=== PATIENT | female | born 1940 | race African-American/Black ===

== ENCOUNTER 2019-06-09 09:17 | Emergency (ER) | payer OTHER ==
[2019-06-09 10:39] LABS: Absolute Lymphocytes (CBC) 0.9 K/uL (0.7-4.9); Basophils % 0.6 % (0-1.3); Hematocrit 40.8 % (36.0-45.0); Lymphocytes % 19.2 % (15.3-44.8); MPV 10.4 fL (7.6-11.3); Protime INR 1.02; RBC Red Blood Cell Count 4.56 M/uL (3.86-4.86)
[2019-06-09 10:40] LABS: Urine Blood NEGATIVE (NEG); Urine Glucose NEGATIVE (NEG); Urine Protein 1+ (NEG)
[2019-06-09 11:09] LABS: Blood Morphology Comment NOT SEEN (NOT SEEN); Platelet Estimate ADEQ; Urine White Blood Cell Casts OK
--- NOTE | 2019-06-09 11:10 | RAD REPORT ---
EXAM DESCRIPTION: RAD - Pelvis - 06/09/2019 11:02 am CLINICAL HISTORY: Pelvic pain status post injury FINDINGS: No fracture or dislocation is seen. If the patient continues to have symptoms to suggest an occult fracture then MRI would be recommended
--- NOTE | 2019-06-09 11:11 | RAD REPORT ---
EXAM DESCRIPTION: RAD - Hip Left 2 View - 06/09/2019 11:02 am CLINICAL HISTORY: Left hip pain status post injury FINDINGS: No fracture or dislocation is seen. If the patient continues to have symptoms to suggest an occult fracture then MRI would be recommended
--- NOTE | 2019-06-09 11:13 | RAD REPORT ---
EXAM DESCRIPTION: Oz Single View06/09/2019 11:02 am CLINICAL HISTORY: Chest pain COMPARISON: none FINDINGS: The lungs appear clear of acute infiltrate. The heart is probably mildly enlarged IMPRESSION: No acute abnormalities displayed
[2019-06-09 11:19] LABS: ALT/SGPT 19 U/L (12-78); AST/SGOT 14 U/L (15-37); Albumin 3.7 g/dL (3.4-5.0); Alkaline Phosphatase 88 U/L (45-117); BUN Blood Urea Nitrogen 14 mg/dL (7-18); Bicarbonate 24 mmol/L (21-32); Bilirubin Direct 0.2 mg/dL (0-0.2); Bilirubin Total 0.7 mg/dL (0.2-1.0); Glucose Level 121 mg/dL (74-106); NT PRO-BNP 83 pg/mL (<450); Potassium 3.8 mmol/L (3.5-5.1); Protein, Total 7.9 g/dL (6.4-8.2); Sodium Level 144 mmol/L (136-145); Troponin (Emerg Dept Use Only) < 0.02 ng/mL (0.0-0.045)
--- NOTE | 2019-06-09 12:09 | ER ---
Nurse's Notes [facility] Name: Jennifer Warner Age: 79 yrs Sex: Female : 1940 Arrival Date: 06/09/2019 Time: 09:20 Bed 4 Private MD: Diagnosis: Contusion of lower back and pelvis;Contusion of left hip;Fall on same level, unspecified;Shortness of breath Presentation: 06/09 09:28 Presenting complaint: Patient states: FALL LAST NIGHT AND THIS AM, NOW SOB. Transition bp of care: patient was not received from another setting of care. Onset of symptoms is unknown. Risk Assessment: Do you want to hurt yourself or someone else? Patient reports no desire to harm self or others. Initial Sepsis Screen: Does the patient meet any 2 criteria? No. Patient's initial sepsis screen is negative. Does the patient have a suspected source of infection? No. Patient's initial sepsis screen is negative. Care prior to arrival: None. 09:28 Method Of Arrival: Wheelchair bp 09:28 Acuity: KEYANA 3 bp Triage Assessment: :34 General: Appears in no apparent distress. comfortable, obese, Behavior is calm, bp cooperative, appropriate for age. Pain: Complains of pain in left flank. EENT: No deficits noted. Neuro: No deficits noted. Cardiovascular: No deficits noted. Respiratory: Reports shortness of breath Onset: The symptoms/episode began/occurred this morning, the patient has mild shortness of breath. GI: No signs and/or symptoms were reported involving the gastrointestinal system. : No signs and/or symptoms were reported regarding the genitourinary system. Derm: No deficits noted. Musculoskeletal: No deficits noted. Historical: - Allergies: 09:34 No Known Allergies; bp - Home Meds: 09:34 atorvastatin 10 mg oral tab 1 tab once daily [Active]; hydralazine 25 mg Oral tab 1 tab bp every 8 hours [Active]; allopurinol 100 mg Oral tab 1 tab once daily [Active]; glimepiride 4 mg Oral tab 1 tab once daily [Active]; donepezil 10 mg oral tab 1 tab once daily [Active]; carvedilol 6.25 mg oral tab 1 tab 2 times per day [Active]; tramadol 50 mg Oral tab 1 tab every 6 hours [Active]; clonidine HCl 0.1 mg Oral tab 1 tab every 8 hours [Active]; aspirin 81 mg Oral TbEC 1 tab once daily [Active]; amlodipine 10 mg tab 1 tab once daily [Active]; - PMHx: 09:34 Diabetes - NIDDM; High Cholesterol; Hypertension; bp - Immunization history:: Adult Immunizations up to date. - Social history:: Smoking status: Patient/guardian denies using tobacco. - Ebola Screening: : No symptoms or risks identified at this time. Screenin:39 Abuse screen: Denies threats or abuse. Denies injuries from another. Nutritional bp screening: No deficits noted. Tuberculosis screening: No symptoms or risk factors identified. Fall Risk Fall in past 12 months (25 points). No secondary diagnosis (0 pts). Ambulatory Aid- Crutches/Cane/Walker (15 pts). Gait- Normal/Bed Rest/Wheelchair (0 pts) Mental Status- Oriented to own ability (0 pts). Assessment: 09:37 General: SEE TRIAGE NOTE. Neuro: No deficits noted. Cardiovascular: Rhythm is sinus bp bradycardia. Respiratory: Airway is patent Respiratory effort is even, Breath sounds are clear. GI: No signs and/or symptoms were reported involving the gastrointestinal system. : No signs and/or symptoms were reported regarding the genitourinary system. EENT: No deficits noted. Derm: No deficits noted. Musculoskeletal: No deficits noted. 11:00 Reassessment: ALL CURRENT ORDERS COMPLETED, RESULTS PENDING. bp 12:19 Reassessment: PT D/C HOME VIA W/C WITH FAMILY, DX WITH CONTUSION. bp Vital Signs: 09:34 BP 140 / 61; Pulse 56; Resp 16; Temp 97.3; Pulse Ox 100% ; Weight 77.11 kg; bp 10:05 BP 131 / 82; Pulse 56; Resp 17; Pulse Ox 98% ; bp 11:00 BP 153 / 66; Pulse 54; Resp 16; Pulse Ox 100% ; bp 12:01 BP 136 / 85; Pulse 56; Resp 17; Pulse Ox 100% ; bp ED Course: 09:20 Patient arrived in ED. mr 09:21 Festus Najera, SOURAV is Primary Nurse. bp 09:28 Triage completed. bp 09:32 Domenico Rhoades NP is PHCP. pm1 09:32 Keith Serna MD is Attending Physician. pm1 09:34 Arm band placed on. bp 09:39 Patient has correct armband on for positive identification. Bed in low position. Call bp light in reach. Side rails up X2. Adult w/ patient. 10:14 EKG done, by pathological technician. reviewed by Domenico Rhoades NP. at1 10:19 Urine collected: hat, yellow \T\ clear with sediment. dh3 10:25 Inserted saline lock: 22 gauge in right hand, using aseptic technique. bp 12:18 No provider procedures requiring assistance completed. IV discontinued, intact, bp bleeding controlled, No redness/swelling at site. Pressure dressing applied. Administered Medications: No medications were administered Outcome: 12:08 Discharge ordered by MD. pm1 12:18 Discharged to home via wheelchair, with family. bp 12:18 Condition: stable 12:18 Discharge instructions given to patient, Instructed on discharge instructions, follow up and referral plans. Demonstrated understanding of instructions, follow-up care. 12:28 Patient left the ED. bp Signatures: Fani Rod mr JarettYumi, information technology security manager EKG Tat1 Domenico Rhoades, GELATIN POWDER MIXER GELATIN POWDER MIXER pm1 Carol Holder 3 Festus Najera, RN RN bp
--- NOTE | 2019-06-09 12:09 | EDPHYS ---
Physician Documentation [facility] Name: Jennifer Warner Age: 79 yrs Sex: Female : 1940 Arrival Date: 06/09/2019 Time: 09:20 Bed 4 Private MD: ED Physician Keith Serna HPI: 06/09 10:05 This 79 yrs old Black Female presents to ER via Wheelchair with complaints of Shortness pm1 Of Breath, Fall Injury. 10:05 The patient has shortness of breath at rest, that occurred at home, While standing. pm1 Onset: The symptoms/episode began/occurred this morning. The patient's shortness of breath has no apparent modifying factors. Associated signs and symptoms: Pertinent positives: Left hip pain and low back pain, Pertinent negatives: chest pain, non-productive cough, productive cough, dizziness, fever, dysuria. Severity of symptoms: in the emergency department the symptoms are unchanged. The patient has not experienced similar symptoms in the past. The patient has not recently seen a physician. Patient with fall injury last night. Landed on her left hip and has pain to lower back. Patient able to get up and walk. This AM while brushing teeth in the restroom, she started to fall and was caught by her family member. Patient reports shortness of breath this AM. Historical: - Allergies: 09:34 No Known Allergies; bp - Home Meds: 09:34 atorvastatin 10 mg oral tab 1 tab once daily [Active]; hydralazine 25 mg Oral tab 1 tab bp every 8 hours [Active]; allopurinol 100 mg Oral tab 1 tab once daily [Active]; glimepiride 4 mg Oral tab 1 tab once daily [Active]; donepezil 10 mg oral tab 1 tab once daily [Active]; carvedilol 6.25 mg oral tab 1 tab 2 times per day [Active]; tramadol 50 mg Oral tab 1 tab every 6 hours [Active]; clonidine HCl 0.1 mg Oral tab 1 tab every 8 hours [Active]; aspirin 81 mg Oral TbEC 1 tab once daily [Active]; amlodipine 10 mg tab 1 tab once daily [Active]; - PMHx: 09:34 Diabetes - NIDDM; High Cholesterol; Hypertension; bp - Immunization history:: Adult Immunizations up to date. - Social history:: Smoking status: Patient/guardian denies using tobacco. - Ebola Screening: : No symptoms or risks identified at this time. ROS: 10:05 Constitutional: Negative for fever, chills, and weight loss, Eyes: Negative for injury, pm1 pain, redness, and discharge, ENT: Negative for injury, pain, and discharge, Neck: Negative for injury, pain, and swelling, Cardiovascular: Negative for chest pain, palpitations, and edema. 10:05 Abdomen/GI: Negative for abdominal pain, nausea, vomiting, diarrhea, and constipation, : Negative for injury, bleeding, discharge, and swelling. 10:05 Skin: Negative for injury, rash, and discoloration, Neuro: Negative for headache, weakness, numbness, tingling, and seizure. 10:05 Respiratory: Positive for shortness of breath, Negative for cough, wheezing. 10:05 Back: Positive for of the low back area. 10:05 MS/extremity: Positive for pain, of the left hip, Negative for decreased range of motion, deformity, ecchymosis. Exam: 10:05 Constitutional: This is a well developed, well nourished patient who is awake, alert, pm1 and in no acute distress. Head/Face: Normocephalic, atraumatic. Eyes: Pupils equal round and reactive to light, extra-ocular motions intact. Lids and lashes normal. Conjunctiva and sclera are non-icteric and not injected. Cornea within normal limits. Periorbital areas with no swelling, redness, or edema. ENT: Nares patent. No nasal discharge, no septal abnormalities noted. Tympanic membranes are normal and external auditory canals are clear. Oropharynx with no redness, swelling, or masses, exudates, or evidence of obstruction, uvula midline. Mucous membranes moist. Neck: Trachea midline, no thyromegaly or masses palpated, and no cervical lymphadenopathy. Supple, full range of motion without nuchal rigidity, or vertebral point tenderness. No Meningismus. Chest/axilla: Normal chest wall appearance and motion. Nontender with no deformity. No lesions are appreciated. Cardiovascular: Regular rate and rhythm with a normal S1 and S2. No gallops, murmurs, or rubs. Normal PMI, no JVD. No pulse deficits. Respiratory: Lungs have equal breath sounds bilaterally, clear to auscultation and percussion. No rales, rhonchi or wheezes noted. No increased work of breathing, no retractions or nasal flaring. Abdomen/GI: Soft, non-tender, with normal bowel sounds. No distension or tympany. No guarding or rebound. No evidence of tenderness throughout. 10:05 Skin: Warm, dry with normal turgor. Normal color with no rashes, no lesions, and no evidence of cellulitis. 10:05 Back: normal spinal alignment noted, vertebral tenderness, is not appreciated, tenderness to bilateral posterior iliac crest. 10:05 Musculoskeletal/extremity: Extremities: grossly normal except: noted in the left hip: There is no evidence of decreased ROM, deformity, ROM: intact in all extremities, Circulation is intact in all extremities. 10:05 Neuro: Orientation: is normal, Motor: is normal, moves all fours, Sensation: is normal, no obvious gross deficits. Vital Signs: 09:34 BP 140 / 61; Pulse 56; Resp 16; Temp 97.3; Pulse Ox 100% ; Weight 77.11 kg; bp 10:05 BP 131 / 82; Pulse 56; Resp 17; Pulse Ox 98% ; bp 11:00 BP 153 / 66; Pulse 54; Resp 16; Pulse Ox 100% ; bp 12:01 BP 136 / 85; Pulse 56; Resp 17; Pulse Ox 100% ; bp MDM: 09:57 Patient medically screened. pm1 12:05 Data reviewed: vital signs. Data interpreted: Pulse oximetry: on room air is 100 %. pm1 Interpretation: normal. Counseling: I had a detailed discussion with the patient and/or guardian regarding: the historical points, exam findings, and any diagnostic results supporting the discharge/admit diagnosis, lab results, radiology results, the need for outpatient follow up, to return to the emergency department if symptoms worsen or persist or if there are any questions or concerns that arise at home. 06/09 09:59 Order name: Basic Metabolic Panel pm1 06/09 09:59 Order name: CBC with Diff pm06/09 09:59 Order name: LFT's pm06/09 09:59 Order name: Magnesium pm1 06/09 09:59 Order name: NT PRO-BNP pm1 06/09 09:59 Order name: PT-INR pm06/09 09:59 Order name: Troponin (emerg Dept Use Only) pm1 06/09 10:17 Order name: Urine Dipstick--Ancillary (enter results) eb 06/09 10:40 Order name: Urine Dipstick-Ancillary; Complete Time: 10:44 EDMS 06/09 10:42 Order name: CBC with Automated Diff; Complete Time: 11:12 EDMS 06/09 10:45 Order name: Protime (+INR); Complete Time: 10:50 EDMS 06/09 11:10 Order name: CBC Smear Scan; Complete Time: 11:12 EDMS 06/09 11:20 Order name: Basic Metabolic Panel; Complete Time: 11:21 EDMS 06/09 11:20 Order name: Liver (Hepatic) Function; Complete Time: 11:21 EDMS 06/09 09:59 Order name: Hip Left 2 View XRAY pm1 06/09 09:59 Order name: Pelvis XRAY pm1 06/09 09:59 Order name: XRAY Chest (1 view) pm1 06/09 09:59 Order name: EKG; Complete Time: 10:01 pm1 06/09 09:59 Order name: Cardiac monitoring; Complete Time: 10:02 pm1 06/09 09:59 Order name: EKG - Nurse/Tech; Complete Time: 10:05 pm1 06/09 09:59 Order name: IV Saline Lock; Complete Time: 10:32 pm1 06/09 09:59 Order name: Labs collected and sent; Complete Time: 10:33 pm1 06/09 09:59 Order name: O2 Per Protocol; Complete Time: 10:02 pm1 06/09 09:59 Order name: O2 Sat Monitoring; Complete Time: 10:02 pm1 06/09 10:10 Order name: Urine Dipstick-Ancillary (obtain specimen); Complete Time: 10:20 pm1 06/09 11:20 Order name: Troponin (Emerg Dept Use Only); Complete Time: 11:21 EDMS 06/09 11:20 Order name: NT PRO-BNP; Complete Time: 11:21 EDMS 06/09 11:20 Order name: Magnesium; Complete Time: 11:21 EDMS Administered Medications: No medications were administered Disposition: 16:02 Co-signature as Attending Physician, Keith Serna MD I agree with the assessment and kdr plan of care. Disposition: 06/09/19 12:08 Discharged to Home. Impression: Contusion of lower back and pelvis, Contusion of left hip, Fall on same level, unspecified, Shortness of breath. - Condition is Stable. - Discharge Instructions: Contusion, Fall Prevention in the Home, Shortness of Breath. - Medication Reconciliation Form, Thank You Letter, Antibiotic Education, Prescription Opioid Use form. - Follow up: Emergency Department; When: As needed; Reason: Worsening of condition. Follow up: Private Physician; When: 2 - 3 days; Reason: Recheck today's complaints, Continuance of care, Re-evaluation by your physician. - Problem is new. - Symptoms have improved. Signatures: Dispatcher [employer] EDMS Keith Serna MD MD kdr Domenico Rhoades, KALE ROUNDER AND BACKER pm1 Festus Najera RN RN bp Corrections: (The following items were deleted from the chart) 12:09 12:08 06/09/2019 12:08 Discharged to Home. Impression: Contusion of lower back and pm1 pelvis; Contusion of left hip; Fall on same level, unspecified. Condition is Stable. Forms are Medication Reconciliation Form, Thank You Letter, Antibiotic Education, Prescription Opioid Use. Follow up: Emergency Department; When: As needed; Reason: Worsening of condition. Follow up: Private Physician; When: 2 - 3 days; Reason: Recheck today's complaints, Continuance of care, Re-evaluation by your physician. Problem is new. Symptoms have improved. pm1 12:28 12:09 06/09/2019 12:08 Discharged to Home. Impression: Contusion of lower back and bp pelvis; Contusion of left hip; Fall on same level, unspecified; Shortness of breath. Condition is Stable. Discharge Instructions: Contusion, Fall Prevention in the Home, Shortness of Breath. Forms are Medication Reconciliation Form, Thank You Letter, Antibiotic Education, Prescription Opioid Use. Follow up: Emergency Department; When: As needed; Reason: Worsening of condition. Follow up: Private Physician; When: 2 - 3 days; Reason: Recheck today's complaints, Continuance of care, Re-evaluation by your physician. Problem is new. Symptoms have improved. pm1
--- NOTE | 2019-06-11 08:12 | EKG ---
Test Date: 2019-06-09 Test Time: 10:07:23 [employer] Lieutenant: JOSE M MEASUREMENT RESULTS: Intervals: Rate: 54 [place]: 200 QRSD: 96 QT: 448 QTc: 424 [place]: P: 40 [place]: 200 QRS: -47 T: 50 INTERPRETIVE STATEMENTS: Sinus bradycardia Left axis deviation Voltage criteria for left ventricular hypertrophy Abnormal ECG No previous ECG available for comparison Electronically Signed On 06-11-19 08:07:38 CDT by Chandu Aldridge
== END 2019-06-09 12:28 | disposition home or self-care (01) ==
LOC: ER 09:17
DX: S30.0XXA Contusion of lower back and pelvis, initial encounter (principal); S70.02XA Contusion of left hip, initial encounter; I10 Essential (primary) hypertension; E11.9 Type 2 diabetes mellitus without complications; E78.00 Pure hypercholesterolemia, unspecified; W18.30XA Fall on same level, unspecified, initial encounter; Y93.89 Activity, other specified; Y92.008 Other place in unspecified non-institutional (private) residence as the place of occurrence of the external cause
CPT/HCPCS: 36415; 71045; 72170; 80048; 80076; 81003; 83735; 83880; 84484; 85025; 85610; 93005; 99284

== ENCOUNTER 2021-04-05 11:09 | Emergency (ER) | payer OTHER ==
--- OUTSIDE RECORDS SUMMARY | 2021-04-05 11:16 | XMS REPORT | Continuity of Care Document ---
:1940 Author Organization [facility] t Address [address] [place] [address] Care Team Providers Name Role Phone Sharpless Primary Care Physician Lani BENJAMIN Attending Clinician Doctor Unassigned, Name Attending Clinician Unavailable Laurita HENLEY, G Attending Clinician Jacinto JOHNSON Attending Clinician Eric JOHNSON Attending Clinician Niru JOHNSON Attending Clinician Ashley DO Attending Clinician Annabelle JOHNSON Attending Clinician Singer MESA Attending Clinician RONNY MONTAÑO Attending Clinician Unavailable Jacinto JOHNSON Admitting Clinician Annabelle JOHNSON Admitting Clinician ABBIE HURT Admitting Clinician Unavail able Problems Condition Condition Condition Status Onset Resolution Last Treating Co mments Source Name Details Category Date Date Treatment Clinician Date E. coli E. 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 00:00: Medical hemolytic hemolytic 00 Cent er anemia) anemia) Thrombocyt Thrombocyt Disease Active [facility] openia openia 14 [facility] KD (acute KD (acute Disease Active [facility] kidney kidney 14 [facility] - injury) injury) 00:00: Medical 00 [place] Hypernatre Hypernatre Disease Active [facility] tutu tutu 14 [facility] Medical 00 [place] Dysphagia Dysphagia Disease Active [facility] 14 [facility] 00 [place] Protein-ca Protein-ca Disease Active [facility] memo hampton 01-22 [facility] - malnutriti malnutriti 00:00: Tn dical on, on, 00 Center moderate moderate Leukocytos Leukocytos Disease Active [facility] is is 01-22 [facility] - 00:[facility]: Medical 00 [place] Encephalop Encephalop Disease Active [facility] athy acute athy acute 01-14 Marci kes - 00:00: Medical 00 [place] Hypertensi Hypertensi Disease Active [facility] ve crisis ve crisis 01-14 [facility] - 00:[facility]: Medical 00 [place] Respirator Respirator Disease Active [facility] y failure y failure 01-14 [facility] - requiring requiring 00:00: Medi miryam intubation intubation 00 Ce nter PRES PRES Disease Active [facility] (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 Family History Family Member Diagnosis Comments Start Date Stop Date Source Natural brother Cancer [facility] Natural sister Cancer [facility] Natural sister Diabetes [facility] Natural sister Hypertension [facility] Natural father Cancer [facility] Natural mother Hypertension [facility] Social History Social Habit Start Date Stop Date Quantity Comments Source Sex Assigned At [facility] Alcohol intake 2017-01-14 2017-01-14 Current [facility] Vicki es - 00:00:00 00:00:00 non-drinker of Medical Ce nter alcohol (finding) Smoking Status Start Date Stop Date Source Never smoker [facility] Former smoker 2017-01-14 00:00:00 2017-01-14 00:00:00 [facility] L [facility] Medications Ordered Filled Start Stop Current Ordering Indication Dosage Frequency Signature Comments Components Source Medication Medication Date Date Medication? Clinician (SIG) Name Name BAIRON WADDELL Yes Holly n/s [facility] WALKER WALKER 2-12 [place] [facility] - [facility] 00 l Outpat[facility] ent Clinics colchicine Yes Jean 0.6 mg 7-12 [facility] tablet 00:00: st 00 hydrALAZINE Yes Azto n (APRESOLINE 7-05 [facility] ) 25 MG 00:00: st tablet 00 allopurinol Yes [facility] (ZYLOPRIM) 6-27 [facility] 100 MG 00:00: st tablet 00 carvedilol Yes [facility] (COREG) 6-14 [facility] 6.25 MG 00:00: st tablet 00 donepezil Yes [facility] (ARICEPT) 6-14 [facility] 10 MG 00:00: st tablet 00 amLODIPine Yes [facility] (NORVASC) 6-14 [facility] 10 mg 00:00: st tablet 00 ciclopirox Yes [facility] (PENLAC) 8 6-12 [facility] % solution 00:00: st 00 ammonium Yes [facility] lactate 5-23 [facility] (LAC-HYDRIN 00:00: st ) 12 % 00 lotion glimepiride Yes Azto n (AMARYL) 4 5-22 [facility] MG tablet 00:00: st 00 carvedilol Yes [facility] (COREG) 25 5-13 [facility] MG tablet 00:00: st 00 donepezil Yes 10mg QD Take [address] (ARICEPT) 4-20 by mouth [facility] - 10 MG 12:03: nightly. Medical tablet 24 [place] traMADol Yes 50mg Take [address] [facility] (ULTRAM) 50 4-20 by mouth Luke s - mg tablet 12:03: every 6 Medic al 24 (six) Center hours as needed for Pain. glimepiride Yes 4mg Take [address] (AMARYL) 4 4-20 by mouth [facility] - MG tablet 12:03: every Medical 24 morning Center before breakfast. mirtazapine Yes 30mg QD Take [address] [facility] (REMERON) 4-20 by mouth [facility] - 30 MG 12:03: nightly. Medical tablet 24 Center aspirin 81 Yes 81mg QD Take [address] MG EC 4-20 by mouth [facility] - tablet 12:03: daily. Medical 24 Center heparin Yes 5000U Inject 1 [facility] injection 4-19 mL (5,000 [facility] - 5,000 00:00: Units Medical units/mL 00 total) Center for DVT subcutaneo prophylaxis usly every /dialysis 12 lock/IV (twelve) bolus hours. Atorvastati Atorvastati Yes Holly [address] [facility] n Calcium n Calcium [place] [facility] - [facility]oria l [facility] ent Clinics Mirtazapine Mirtazapine Yes Holly [address] [facility] [place] at bedtime [facility]ics Vitamin D3 Vitamin D3 Yes Holly as [facility] Ultra Ultra [place] directed [facility] - Strength Strength [facility]oria l [facility] ent Clinics Accu-Chek Accu-Chek Yes Holly CHECK [facility] Terese Plus Terese Plus [place] BLOOD L ukes - SUGAR Memoria EVERY DAY l [facility] ent Clinics Donepezil Donepezil Yes Holly TAKE [address] HCl HCl [place] TABLET BY [facility] - MOUTH Memoria TWICE A l DAY [facility] ent Clinics Carvedilol Carvedilol Yes Holly [address] [facility] [facility] [place] [facility]ics Docusate Docusate Yes Holly TAKE [address] [facility] Sodium Sodium [place] CAPSULE BY Luke s - MOUTH Memoria EVERY DAY l NEEDED [facility] ent Clinics Melatonin Melatonin Yes Holly [address] [facility] [place] at bedtime [facility] - as needed [facility]oria l [facility] ent Clinics Iron Iron Yes Holly [address] (Ferrous (Ferrous [place] [facility] - Sulfate) Sulfate) [facility] Trazodone Trazodone Yes Holly [address] [facility] HCl HCl [place] at bedtime [facility] - as needed [facility] Clinics Memantine Memantine Yes Holly [address] [facility] HCl HCl [place] [facility] HydrALAZINE HydrALAZINE Yes Holly [address] HCl HCl [place] with food [facility] Amlodipine Amlodipine Yes Holly [address] [facility] [facility] Besylate Besylate [place] [facility] Vitamin B12 Vitamin B12 Yes Holly one [facility] [place] [facility] Allopurinol Allopurinol Yes Holly [address] [facility] [place] [facility] Clonidine Clonidine Yes Holly [address] [facility] [facility] HCl HCl [place] [facility] Aspir-81 Aspir-81 Yes Holly [address] [place] [facility] Procedures This patient has no known procedures. Plan of Care Planned Activity Planned Date Details Comments Source Future Scheduled 2021-05-11 INFLUENZA VACCINE [place] [facility] Test 00:00:00 [code = INFLUENZA VACCINE] Future Scheduled 2004 65+ PNEUMOCOCCAL [facility] Test 00:00:00 VACCINE (1 of 1 - PPSV23) [code = 65+ PNEUMOCOCCAL VACCINE (1 of 1 - PPSV23)] Future Scheduled 1989 SHINGLES VACCINES (#1) H jesse [facility] Test 00:00:00 [code = SHINGLES VACCINES (#1)] Future Scheduled 1951 COVID-19 VACCINE (1) Lakexiomy fu [facility] Test 00:00:00 [code = COVID-19 VACCINE (1)] Encounters Start End Encounter Admission Attending Care Care Encounter Source Date/Time Date/Time Type Type Clinicians Facility Department ID 2021-02-27 2021-02-27 Outpatient [facility] [id number] [facility] 2021-02-11 2021-02-11 Outpatient [facility] [id number] [facility] 2021-02-07 2021-02-07 Outpatient [facility] [id number] [facility] 2020-12-31 2020-12-31 Outpatient [facility] [id number] [facility] 2020-12-30 2020-12-30 Outpatient [facility] [id number] [facility] 2020-11-29 2020-11-29 Outpatient [facility] [id number] [facility] 2020-11-13 2020-11-13 Outpatient [facility] [id number] [facility] 2020-11-01 2020-11-01 Outpatient [facility] [id number] [facility] 2020-11-01 2020-11-01 Outpatient [facility] [id number] [facility] 2020-10-07 2020-10-07 Outpatient [facility] [id number] [facility] 2020-08-26 2020-08-26 Outpatient [facility] [id number] [facility] 2020-06-25 2020-06-25 [facility] [id number] [facility] 10:20:00 10:20:00 [facility] Medicine Outpati ent Clinics 2020-06-14 2020-06-14 Vanessa Peralta [id number] 00:00:00 00:00:00 of Care Kelly Maldonado [id number] Tani [id number] 2020-06-14 2020-06-14 Sugar SPENCER [id number] 00:00:00 00:00:00 Only Unassigned, ELLA [id number] [place] [facility] [id number] 2020-06-05 2020-06-13 [facility] Sharon Shay [facility] [id number]. [id number] 14:01:00 18:14:00 Encounter Jacinto [facility] [id number] Bo Reyes [id number] Justin Marrufo Devine [id number] [place] [address] ([facility]) 2020-06-07 2020-06-07 [facility] [id number] [facility] 16:45:00 16:45:00 [facility] Medicine l Medicine Outpati ent Clinics 2020-05-30 2020-05-30 [facility] [id number] [address] 08:54:00 08:54:00 [facility] Medicine l Medicine Outpati ent Clinics 2020-05-15 2020-05-15 [facility] [id number] 11:22:00 11:22:00 t [employer] [facility] Medicine l Medicine Outpati ent Clinics 2020-05-09 2020-05-09 [facility] [id number] 09:34:00 09:34:00 t [employer] [facility] Medicine l Medicine Outpati ent Clinics 2020-04-30 2020-04-30 [facility] [id number] 14:20:00 14:20:00 t [employer] [facility] Medicine l Medicine Outpati ent Clinics 2020-04-25 2020-04-25 [facility] [id number] 10:05:00 10:05:00 t [employer] [facility] Medicine l Medicine Outpati ent Clinics 2020-04-19 2020-04-19 [facility] [id number] 17:55:00 17:55:00 t Devine 24h00 [facility] Medical [facility] Medicine l Medicine Outpati ent Clinics 2020-04-19 2020-04-19 [facility] [id number] 10:20:00 10:20:00 [facility] Medicine Outpati ent Clinics 2020-04-11 2020-04-11 Transition Vanessa Garibay [id number] 00:00:00 00:00:00 of Care Kelly Maldonado [id number] [place] [id number] 2020-04-08 2020-04-10 Emergency Yue Ramirez [facility] [id number] 22:52:25 14:10:00 Meri Alanis [id number] Michele [id number] [place] [id number] 2020-04-08 2020-04-08 [facility] [id number] 11:23:00 11:23:00 [facility] 2020-04-07 2020-04-08 Emergency Singer [facility] [id number] 22:05:22 01:20:00 Konstantin Millard [id number] [place] [id number] [place] [id number] 2020-03-19 2020-03-19 [facility] [id number] 08:33:00 08:33:00 [facility] Medicine Outpati ent Clinics 2020-02-08 2020-02-08 [facility] [id number] [address] 15:20:00 15:20:00 [facility] Medicine Outpati ent Clinics 2020-01-19 2020-01-19 [facility] [id number] 11:00:00 11:00:00 [facility] Medicine Outpati ent Clinics 2019-11-22 2019-11-22 [facility] [id number] 08:20:00 08:20:00 [facility] Medicine Outpati ent Clinics 2019-08-22 2019-08-22 [facility] [id number] 08:00:00 08:00:00 [facility] Medicine Outpati ent Clinics 2019-08-15 2019-08-15 [facility] [id number] 13:19:00 13:19:00 [facility] Medicine Outpati ent Clinics 2019-08-04 2019-08-04 [facility] [id number] 08:50:00 08:50:00 [facility] Medicine Outpati ent Clinics 2019-07-07 2019-07-07 [facility] [id number] 13:34:00 13:34:00 [facility] Medicine Outpati ent Clinics 2019-06-23 2019-06-23 [facility] [id number] 10:00:00 10:00:00 [facility] Medicine Outpati ent Clinics 2019-06-14 2019-06-14 [facility] [id number] 09:00:00 09:00:00 [facility] Medicine Outpati ent Clinics 2019-06-13 2019-06-13 Orders Doctor SPENCER [id number] 00:00:00 00:00:00 Only Unassigned, ELLA [id number] [place] [facility] [id number] 2019-06-09 2019-06-09 [facility] [id number] 13:40:00 13:40:00 [facility] Medicine Outpati ent Clinics 2019-06-09 2019-06-09 [facility] [id number] 08:24:00 08:24:00 [facility] Medicine Outpati ent Clinics 2019-05-22 2019-05-22 [facility] [id number] 08:00:00 08:00:00 [facility] ent Clinics 2019-05-01 2019-05-01 [facility] [id number] 08:20:00 08:20:00 [facility] ent [facility] 2019-04-10 2019-04-10 [facility] [id number] 15:00:00 15:00:00 [facility] ent [facility] 2019-01-02 2019-01-02 Outpatient [facility] [id number] 13:30:00 13:30:00 [facility] Results Test Description Test Time Test Comments Results Result Comments Source BLOOD CULTURE 2017-01-29 16:53:00 Test Item Value Reference Range Interpretation Comme nts CULTURE ([facility]) (test code = 1095) No growth in 5 days OCCULT BLOOD, [id number] 10:24:00 Test Item Value Reference Range Interpretation Comments FECAL OCCULT BLOOD (BEAKER) (test Negative Negative code = 618) POCT-GLUCOSE [id number] 07:40:00 Test Item Value Reference Range Interpretation Comments POC-GLUCOSE METER 146 mg/dL 70-110 H TESTED AT [facility] 67[address] ([facility]) (test code = ELVA JEAN [place] 1538) [address] CBC W/PLT COUNT & AUTO [id number] 06:18:00 Test Item Value Reference Range Interpretation Comments WHITE BLOOD CELL COUNT (BEAKER) 13.5 K/ L 4.0-10.0 H (test code = 775) RED BLOOD CELL COUNT (BEAKER) 3.02 M/ L 4.00-5.00 L (test code = 761) HEMOGLOBIN (BEAKER) (test code = 9.3 GM/DL 12.0-15.0 L 410) HEMATOCRIT (BEAKER) (test code = 28.1 % 36.0-45.0 L 411) MEAN CORPUSCULAR VOLUME (BEAKER) 93.1 fL 82.0-99.0 (test code = 753) MEAN CORPUSCULAR HEMOGLOBIN 31.0 pg 27.0-33.0 (BEAKER) (test code = 751) MEAN CORPUSCULAR HEMOGLOBIN CONC 33.3 GM/DL 32.0-36.0 (BEAKER) (test code = 752) RED CELL DISTRIBUTION WIDTH 15.9 % 10.3-14.2 H (BEAKER) (test code = 412) PLATELET COUNT (BEAKER) (test 213 K/CU MM 150-430 code = 756) MEAN PLATELET VOLUME (BEAKER) 10.3 fL 6.5-10.5 (test code = 754) NUCLEATED RED BLOOD CELLS 0 /100 WBC 0-0 (BEAKER) (test code = 413) NEUTROPHILS RELATIVE PERCENT 78 % (BEAKER) (test code = 429) LYMPHOCYTES RELATIVE PERCENT 12 % (BEAKER) (test code = 430) MONOCYTES RELATIVE PERCENT 9 % (BEAKER) (test code = 431) EOSINOPHILS RELATIVE PERCENT 1 % (BEAKER) (test code = 432) BASOPHILS RELATIVE PERCENT 0 % (BEAKER) (test code = 437) NEUTROPHILS ABSOLUTE COUNT 10.50 K/ L 1.80-8.00 H (BEAKER) (test code = 670) LYMPHOCYTES ABSOLUTE COUNT 1.62 K/ L 1.48-4.50 (BEAKER) (test code = 414) MONOCYTES ABSOLUTE COUNT (BEAKER) 1.19 K/ L 0.00-1.30 (test code = 415) EOSINOPHILS ABSOLUTE COUNT 0.18 K/ L 0.00-0.50 (BEAKER) (test code = 416) BASOPHILS ABSOLUTE COUNT (BEAKER) 0.05 K/ L 0.00-0.20 (test code = 417) 0.00BASI METABOLIC [id number] 06:15:00 Test Item Value Reference Range Interpretation Comments SODIUM (BEAKER) 142 meq/L 136-145 (test code = 381) POTASSIUM (BEAKER) 4.0 meq/L 3.5-5.1 (test code = 379) CHLORIDE (BEAKER) 109 meq/L 98-107 H (test code = 382) CO2 (BEAKER) (test 21 meq/L 22-29 L code = 355) BLOOD UREA NITROGEN 40 mg/dL 7-21 H (BEAKER) (test code = 354) CREATININE (BEAKER) 1.64 mg/dL 0.57-1.25 H (test code = 358) GLUCOSE RANDOM 107 mg/dL 70-105 H (BEAKER) (test code = 652) CALCIUM (BEAKER) 9.4 mg/dL 8.4-10.2 (test code = 697) EGFR (BEAKER) (test 37 mL/min/1.73 ESTIMA SILVINO GFR IS code = 1092) sq m NOT ACCURATE CREATININE CLEARANCE IN PREDICTING GLOMERULAR FILTRATION RATE . ESTIMATED GFR I S NOT APPLICABLE FOR DIALYSIS PATIEN TS. SPUTUM CULTURE + GRAM [id number] 04:15:00 Test Item Value Reference Range Interpretation Comments CULTURE A <1+ Moraxella (BEAKER) (test catarrhalis code = 1095) GRAM STAIN <1+ WBCs RESULT (BEAKER) (test code = 1123) GRAM STAIN 0-5 epithelial cells RESULT (BEAKER) (test code = 385657) GRAM STAIN <1+ gram variable RESULT (BEAKER) coccobacilli (test code = 522194) No Normal respiratory pedro presentPOCT-GLUCOSE [id number] 21:05:00 Test Item Value Reference Range Interpretation Comments POC-GLUCOSE METER 155 mg/dL 70-110 H TESTED AT [facility] (BEAKER) (test code = [facility] 1538) [address] POCT-GLUCOSE [id number] 16:47:00 Test Item Value Reference Range Interpretation Comments POC-GLUCOSE METER 90 mg/dL 70-110 TESTED AT [facility] (BEAKER) (test code = [facility] [address] 1538) POCT-GLUCOSE [id number] 12:28:00 Test Item Value Reference Range Interpretation Comments POC-GLUCOSE METER 193 mg/dL 70-110 H TESTED AT [facility] (BEAKER) (test code = [facility] 1538) [address] POCT-GLUCOSE [id number] 07:54:00 Test Item Value Reference Range Interpretation Comments POC-GLUCOSE METER 118 mg/dL 70-110 H TESTED AT [facility] (BEAKER) (test code = [facility] 1538) [address] BASIC METABOLIC [id number] 05:20:00 Test Item Value Reference Range Interpretation Comments SODIUM (BEAKER) 145 meq/L 136-145 (test code = 381) POTASSIUM (BEAKER) 4.2 meq/L 3.5-5.1 (test code = 379) CHLORIDE (BEAKER) 113 meq/L 98-107 H (test code = 382) CO2 (BEAKER) (test 19 meq/L 22-29 L code = 355) BLOOD UREA NITROGEN 56 mg/dL 7-21 H (BEAKER) (test code = 354) CREATININE (BEAKER) 1.74 mg/dL 0.57-1.25 H (test code = 358) GLUCOSE RANDOM 108 mg/dL 70-105 H (BEAKER) (test code = 652) CALCIUM (BEAKER) 9.6 mg/dL 8.4-10.2 (test code = 697) EGFR (BEAKER) (test 34 mL/min/1.73 ESTIMA SILVINO GFR IS code = 1092) sq m NOT ACCURATE CREATININE CLEARANCE IN PREDICTING GLOMERULAR FILTRATION RATE . ESTIMATED GFR I S NOT APPLICABLE FOR DIALYSIS PATIEN TS. CBC W/PLT COUNT & AUTO [id number] 05:18:00 Test Item Value Reference Range Interpretation Comments WHITE BLOOD CELL COUNT (BEAKER) 13.3 K/ L 4.0-10.0 H (test code = 775) RED BLOOD CELL COUNT (BEAKER) 3.15 M/ L 4.00-5.00 L (test code = 761) HEMOGLOBIN (BEAKER) (test code = 9.5 GM/DL 12.0-15.0 L 410) HEMATOCRIT (BEAKER) (test code = 29.2 % 36.0-45.0 L 411) MEAN CORPUSCULAR VOLUME (BEAKER) 92.7 fL 82.0-99.0 (test code = 753) MEAN CORPUSCULAR HEMOGLOBIN 30.2 pg 27.0-33.0 (BEAKER) (test code = 751) MEAN CORPUSCULAR HEMOGLOBIN CONC 32.6 GM/DL 32.0-36.0 (BEAKER) (test code = 752) RED CELL DISTRIBUTION WIDTH 16.2 % 10.3-14.2 H (BEAKER) (test code = 412) PLATELET COUNT (BEAKER) (test 189 K/CU MM 150-430 code = 756) MEAN PLATELET VOLUME (BEAKER) 10.8 fL 6.5-10.5 H (test code = 754) NUCLEATED RED BLOOD CELLS 0 /100 WBC 0-0 (BEAKER) (test code = 413) NEUTROPHILS RELATIVE PERCENT 76 % (BEAKER) (test code = 429) LYMPHOCYTES RELATIVE PERCENT 14 % (BEAKER) (test code = 430) MONOCYTES RELATIVE PERCENT 7 % (BEAKER) (test code = 431) EOSINOPHILS RELATIVE PERCENT 2 % (BEAKER) (test code = 432) BASOPHILS RELATIVE PERCENT 0 % (BEAKER) (test code = 437) NEUTROPHILS ABSOLUTE COUNT 10.10 K/ L 1.80-8.00 H (BEAKER) (test code = 670) LYMPHOCYTES ABSOLUTE COUNT 1.90 K/ L 1.48-4.50 (BEAKER) (test code = 414) MONOCYTES ABSOLUTE COUNT (BEAKER) 0.92 K/ L 0.00-1.30 (test code = 415) EOSINOPHILS ABSOLUTE COUNT 0.27 K/ L 0.00-0.50 (BEAKER) (test code = 416) BASOPHILS ABSOLUTE COUNT (BEAKER) 0.04 K/ L 0.00-0.20 (test code = 417) 0.00POCT-GLUCOSE [id number] 21:02:00 Test Item Value Reference Range Interpretation Comments POC-GLUCOSE METER 170 mg/dL 70-110 H TESTED AT [place] [address] ([facility]) [facility] 1538) [address] POCT-GLUCOSE [id number] 16:49:00 Test Item Value Reference Range Interpretation Comments POC-GLUCOSE METER 223 mg/dL 70-110 H TESTED AT [place] [address] ([facility]) (test code = [facility] Mitesh [facility] 1538) [address] CBC W/PLT COUNT & AUTO [id number] 12:31:00 Test Item Value Reference Range Interpretation Comments WHITE BLOOD CELL COUNT 15.2 K/ L 4.0-10.0 H (BEAKER) (test code = 775) RED BLOOD CELL COUNT 3.15 M/ L 4.00-5.00 L (BEAKER) (test code = 761) HEMOGLOBIN (BEAKER) 9.6 GM/DL 12.0-15.0 L (test code = 410) HEMATOCRIT (BEAKER) 28.9 % 36.0-45.0 L (test code = 411) MEAN CORPUSCULAR 91.7 fL 82.0-99.0 Discordant result VOLUME (BEAKER) (test compar ed to previous code = 753) result; clinica l correlation required. MEAN CORPUSCULAR 30.5 pg 27.0-33.0 HEMOGLOBIN (BEAKER) (test code = 751) MEAN CORPUSCULAR 33.3 GM/DL 32.0-36.0 HEMOGLOBIN CONC (BEAKER) (test code = 752) RED CELL DISTRIBUTION 16.0 % 10.3-14.2 H WIDTH (BEAKER) (test code = 412) PLATELET COUNT 171 K/CU MM 150-430 (BEAKER) (test code = 756) MEAN PLATELET VOLUME 11.2 fL 6.5-10.5 H (BEAKER) (test code = 754) NUCLEATED RED BLOOD 0 /100 WBC 0-0 CELLS (BEAKER) (test code = 413) NEUTROPHILS RELATIVE 78 % PERCENT (BEAKER) (test code = 429) LYMPHOCYTES RELATIVE 12 % PERCENT (BEAKER) (test code = 430) MONOCYTES RELATIVE 8 % PERCENT (BEAKER) (test code = 431) EOSINOPHILS RELATIVE 2 % PERCENT (BEAKER) (test code = 432) BASOPHILS RELATIVE 0 % PERCENT (BEAKER) (test code = 437) NEUTROPHILS ABSOLUTE 11.90 K/ L 1.80-8.00 H COUNT (BEAKER) (test code = 670) LYMPHOCYTES ABSOLUTE 1.79 K/ L 1.48-4.50 COUNT (BEAKER) (test code = 414) MONOCYTES ABSOLUTE 1.17 K/ L 0.00-1.30 COUNT (BEAKER) (test code = 415) EOSINOPHILS ABSOLUTE 0.28 K/ L 0.00-0.50 COUNT (BEAKER) (test code = 416) BASOPHILS ABSOLUTE 0.07 K/ L 0.00-0.20 COUNT (BEAKER) (test code = 417) [id number](MANUAL DIFFERENTIAL)2017-01-26 12:31:00 Test Item Value Reference Range Interpretation Comments TOTAL COUNTED (BEAKER) (test code = 1351) WBC MORPHOLOGY (BEAKER) (test code = Normal 487) PLT MORPHOLOGY (BEAKER) (test code = Normal 486) SCHISTOCYTES (BEAKER) (test code = 1+ few 765) URINE [id number] 11:54:00 Test Item Value Reference Range Interpretation Comments CULTURE (BEAKER) (test ESCHERICHIA COLI A > 100,000 col/mL code = 1095) Escherichia col i Amikacin (test code = S 1) Ampicillin + Sulbactam S (test code = 6) Aztreonam (test code = S 32) Cefepime (test code = S 51) Cefoxitin (test code = S 68) Ceftazidime (test code S = 27) Ceftriaxone (test code S = 52) Ertapenem (test code = S 38) Gentamicin (test code S = 18) Levofloxacin (test S code = 22) Meropenem (test code = S 34) Nitrofurantoin (test S code = 23) Piperacillin + S Tazobactam (test code = 29) Tetracycline (test S code = 2) Tobramycin (test code S = 25) Trimethoprim + S Sulfamethoxazole (test code = 47) CULTURE ([facility]) (test ESCHERICHIA COLI A 4 0-49,000 col/mL code = 00290) Escherichia coliof a second type Amikacin (test code = S 1) Ampicillin + Sulbactam S (test code = 6) Aztreonam (test code = S 32) Cefepime (test code = S 51) Cefoxitin (test code = S 68) Ceftazidime (test code S = 27) Ceftriaxone (test code S = 52) Ertapenem (test code = S 38) Gentamicin (test code S = 18) Levofloxacin (test S code = 22) Meropenem (test code = S 34) Nitrofurantoin (test S code = 23) Piperacillin + S Tazobactam (test code = 29) Tetracycline (test S code = 2) Tobramycin (test code S = 25) Trimethoprim + S Sulfamethoxazole (test code = 47) POCT-GLUCOSE [id number] 11:34:00 Test Item Value Reference Range Interpretation Comments POC-GLUCOSE METER 205 mg/dL 70-110 H TESTED AT [place] [address] ([facility]) (test code = ELVA JEAN [place] 1538) [id number] POCT-GLUCOSE [id number] 07:45:00 Test Item Value Reference Range Interpretation Comments POC-GLUCOSE METER 183 mg/dL 70-110 H TESTED AT [place] [address] ([facility] (test code = [facility] 1538) [address] BASIC METABOLIC [id number] 06:22:00 Test Item Value Reference Range Interpretation Comments SODIUM (BEAKER) 142 meq/L 136-145 (test code = 381) POTASSIUM (BEAKER) 4.1 meq/L 3.5-5.1 (test code = 379) CHLORIDE (BEAKER) 109 meq/L 98-107 H (test code = 382) CO2 (BEAKER) (test 20 meq/L 22-29 L code = 355) BLOOD UREA NITROGEN 79 mg/dL 7-21 H (BEAKER) (test code = 354) CREATININE (BEAKER) 2.25 mg/dL 0.57-1.25 H (test code = 358) GLUCOSE RANDOM 187 mg/dL 70-105 H (BEAKER) (test code = 652) CALCIUM (BEAKER) 9.4 mg/dL 8.4-10.2 (test code = 697) EGFR (BEAKER) (test 26 mL/min/1.73 ESTIMA SILVINO GFR IS code = 1092) sq m NOT ACCURATE CREATININE CLEARANCE IN PREDICTING GLOMERULAR FILTRATION RATE . ESTIMATED GFR I S NOT APPLICABLE FOR DIALYSIS PATIEN TS. POCT-GLUCOSE [id number] 20:48:00 Test Item Value Reference Range Interpretation Comments POC-GLUCOSE METER 196 mg/dL 70-110 H TESTED AT [facility] ([facility] (test code = [facility] 1538) [address] [id number] 18:05:00 Test Item Value Reference Range Interpretation Comments FERRITIN (BEAKER) (test code = 1333 ng/mL 5-275 H 361) Effective 08/28/2014: Reference Range ChangeNew: Male 5-275 Previous: Male 22-322 Female 5-275 Female [id number] 17:58:00 Test Item Value Reference Range Interpretation Comments POC-GLUCOSE METER 172 mg/dL 70-110 H TESTED AT [facility] ([facility] (test code = [facility] 1538) [address] IRON, TIBC, % SAT. (WITHOUT FERRITIN)2017-01-25 17:44:00 Test Item Value Reference Range Interpretation Comments IRON (BEAKER) (test code = 547) 167 ug/dL 40-160 H TOTAL IRON BINDING CAPACITY 235 ug/dL 250-450 L (BEAKER) (test code = 769) IRON % SATURATION (2) (BEAKER) 71 % 20-55 H (test code = 2590) POCT-GLUCOSE [id number] 13:08:00 Test Item Value Reference Range Interpretation Comments POC-GLUCOSE METER 226 mg/dL 70-110 H TESTED AT [facility] (BEAKER) (test code = EL[place] JEAN [place] 1538) [address] CBC W/PLT COUNT & AUTO [id number] 12:38:00 Test Item Value Reference Range Interpretation Comments WHITE BLOOD CELL COUNT (BEAKER) 16.7 K/ L 4.0-10.0 H (test code = 775) RED BLOOD CELL COUNT (BEAKER) 2.30 M/ L 4.00-5.00 L (test code = 761) HEMOGLOBIN (BEAKER) (test code = 7.0 GM/DL 12.0-15.0 L 410) HEMATOCRIT (BEAKER) (test code = 22.1 % 36.0-45.0 L 411) MEAN CORPUSCULAR VOLUME (BEAKER) 96.2 fL 82.0-99.0 (test code = 753) MEAN CORPUSCULAR HEMOGLOBIN 30.6 pg 27.0-33.0 (BEAKER) (test code = 751) MEAN CORPUSCULAR HEMOGLOBIN CONC 31.8 GM/DL 32.0-36.0 L (BEAKER) (test code = 752) RED CELL DISTRIBUTION WIDTH 16.4 % 10.3-14.2 H (BEAKER) (test code = 412) PLATELET COUNT (BEAKER) (test 141 K/CU MM 150-430 L code = 756) MEAN PLATELET VOLUME (BEAKER) 10.7 fL 6.5-10.5 H (test code = 754) NUCLEATED RED BLOOD CELLS 0 /100 WBC 0-0 (BEAKER) (test code = 413) NEUTROPHILS RELATIVE PERCENT 81 % (BEAKER) (test code = 429) LYMPHOCYTES RELATIVE PERCENT 10 % (BEAKER) (test code = 430) MONOCYTES RELATIVE PERCENT 7 % (BEAKER) (test code = 431) EOSINOPHILS RELATIVE PERCENT 2 % (BEAKER) (test code = 432) BASOPHILS RELATIVE PERCENT 0 % (BEAKER) (test code = 437) NEUTROPHILS ABSOLUTE COUNT 13.50 K/ L 1.80-8.00 H (BEAKER) (test code = 670) LYMPHOCYTES ABSOLUTE COUNT 1.73 K/ L 1.48-4.50 (BEAKER) (test code = 414) MONOCYTES ABSOLUTE COUNT (BEAKER) 1.19 K/ L 0.00-1.30 (test code = 415) EOSINOPHILS ABSOLUTE COUNT 0.30 K/ L 0.00-0.50 (BEAKER) (test code = 416) BASOPHILS ABSOLUTE COUNT (BEAKER) 0.01 K/ L 0.00-0.20 (test code = 417) 0.000.510.000.000.000.000.000.000.000.000.000.550.000.000.000.00(MANUAL DIFFERENTIAL)2017-01-25 12:38:00 Test Item Value Reference Range Interpretation Comments TOTAL COUNTED (BEAKER) (test code = 1351) WBC MORPHOLOGY (BEAKER) (test code = Normal 487) LARGE PLT(BEAKER) (test code = 2156) Present SCHISTOCYTES (BEAKER) (test code = 3+ many 765) POLYCHROMATOPHILLIC RBCS(BEAKER) 1+ few (test code = 478) [id number] 11:24:00 Test Item Value Reference Range Interpretation Comments RPR SCREEN (BEAKER) (test code = Nonreactive Nonreactive 420) HEMOGLOBIN [id number] 10:47:00 Test Item Value Reference Range Interpretation Comments HEMOGLOBIN A1C (BEAKER) (test code = 6.6 % 4.3-6.1 H 368) BASIC METABOLIC [id number] 09:42:00 Test Item Value Reference Range Interpretation Comments SODIUM (BEAKER) 142 meq/L 136-145 (test code = 381) POTASSIUM (BEAKER) 4.2 meq/L 3.5-5.1 (test code = 379) CHLORIDE (BEAKER) 111 meq/L 98-107 H (test code = 382) CO2 (BEAKER) (test 18 meq/L 22-29 L code = 355) BLOOD UREA NITROGEN 87 mg/dL 7-21 H (BEAKER) (test code = 354) CREATININE (BEAKER) 2.41 mg/dL 0.57-1.25 H (test code = 358) GLUCOSE RANDOM 266 mg/dL 70-105 H (BEAKER) (test code = 652) CALCIUM (BEAKER) 9.0 mg/dL 8.4-10.2 (test code = 697) EGFR (BEAKER) (test 24 mL/min/1.73 ESTIMA SILVINO GFR IS code = 1092) sq m NOT ACCURATE CREATININE CLEARANCE IN PREDICTING GLOMERULAR FILTRATION RATE . ESTIMATED GFR I S NOT APPLICABLE FOR DIALYSIS PATIEN TS. LACTATE DEHYDROGENASE (LDH)2017-01-25 09:37:00 Test Item Value Reference Range Interpretation Comments LACTATE DEHYDROGENASE (BEAKER) (test 278 U/L 125-220 H code = 635) POCT-GLUCOSE [id number] 06:55:00 Test Item Value Reference Range Interpretation Comments POC-GLUCOSE METER 257 mg/dL 70-110 H TESTED AT [place] [address] ([facility]) (test code = ELVA [place] [address]) [address] POCT-GLUCOSE [id number] 00:44:00 Test Item Value Reference Range Interpretation Comments POC-GLUCOSE METER 335 mg/dL 70-110 H Notified R Rupa JOHNSON/TESTED ([facility]) (test code = AT [place] [address]) [facility] [phone] POCT-GLUCOSE [id number] 12:23:00 Test Item Value Reference Range Interpretation Comments POC-GLUCOSE METER 289 mg/dL 70-110 H TESTED AT [place] [address] ([facility]) [facility] [place] [address]) [address] CBC W/PLT COUNT & AUTO [id number] 07:59:00 Test Item Value Reference Range Interpretation Comments WHITE BLOOD CELL COUNT (BEAKER) 17.1 K/ L 4.0-10.0 H (test code = 775) RED BLOOD CELL COUNT (BEAKER) 2.70 M/ L 4.00-5.00 L (test code = 761) HEMOGLOBIN (BEAKER) (test code = 8.0 GM/DL 12.0-15.0 L 410) HEMATOCRIT (BEAKER) (test code = 25.5 % 36.0-45.0 L 411) MEAN CORPUSCULAR VOLUME (BEAKER) 94.5 fL 82.0-99.0 (test code = 753) MEAN CORPUSCULAR HEMOGLOBIN 29.7 pg 27.0-33.0 (BEAKER) (test code = 751) MEAN CORPUSCULAR HEMOGLOBIN CONC 31.4 GM/DL 32.0-36.0 L (BEAKER) (test code = 752) RED CELL DISTRIBUTION WIDTH 16.7 % 10.3-14.2 H (BEAKER) (test code = 412) PLATELET COUNT (BEAKER) (test 135 K/CU MM 150-430 L code = 756) MEAN PLATELET VOLUME (BEAKER) 11.7 fL 6.5-10.5 H (test code = 754) NUCLEATED RED BLOOD CELLS 0 /100 WBC 0-0 (BEAKER) (test code = 413) 0.000.560.000.000.770.000.000.000.000.000.000.000.000.000.660.000.000.000.00 (MANUAL DIFFERENTIAL)2017-01-24 07:59:00 Test Item Value Reference Range Interpretation Comments NEUTROPHILS - REL (DIFF) (BEAKER) 70 % (test code = 1359) LYMPHOCYTES - REL (DIFF) (BEAKER) 18 % (test code = 1360) MONOCYTES - REL (DIFF) (BEAKER) 8 % (test code = 1361) EOSINOPHILS - REL (DIFF) (BEAKER) 1 % (test code = 1362) MYELOCYTES-REL (DIFF) (BEAKER) 2 % 0-0 H (test code = 1594) BANDS - REL (DIFF) (BEAKER) (test 1 % 0-10 code = 1348) NEUTROPHILS - ABS (DIFF) (BEAKER) 11.97 K/ L 1.80-8.00 H (test code = 1365) LYMPHOCYTES - ABS (DIFF) (BEAKER) 3.08 K/ L 1.48-4.50 (test code = 1366) MONOCYTES - ABS (DIFF) (BEAKER) 1.37 K/ L 0.00-1.30 H (test code = 1367) EOSINOPHILS - ABS (DIFF) (BEAKER) 0.17 K/ L 0.00-0.50 (test code = 1368) BANDS-ABS (DIFF) (BEAKER) (test 0.2 K/ L 0.0-0.8 code = 1349) MYELOCYTES-ABS (DIFF) (BEAKER) 0.34 K/ L 0.00-0.00 H (test code = 1593) TOTAL COUNTED (BEAKER) (test code 100 = 1351) BANDS + SEGMENTED NEUTROPHILS 12.14 (BEAKER) (test code = 1352) MANUAL NRBC PER 100 CELLS (BEAKER) 2 /100 WBC 0-0 H (test code = 1353) WBC MORPHOLOGY (BEAKER) (test code Normal = 487) LARGE PLT(BEAKER) (test code = Present 2156) SCHISTOCYTES (BEAKER) (test code = 3+ many 765) POLYCHROMATOPHILLIC RBCS(BEAKER) 1+ few (test code = 478) BASIC METABOLIC [id number] 06:39:00 Test Item Value Reference Range Interpretation Comments SODIUM (BEAKER) 145 meq/L 136-145 (test code = 381) POTASSIUM (BEAKER) 4.5 meq/L 3.5-5.1 (test code = 379) CHLORIDE (BEAKER) 111 meq/L 98-107 H (test code = 382) CO2 (BEAKER) (test 19 meq/L 22-29 L code = 355) BLOOD UREA NITROGEN 82 mg/dL 7-21 H (BEAKER) (test code = 354) CREATININE (BEAKER) 2.36 mg/dL 0.57-1.25 H (test code = 358) GLUCOSE RANDOM 156 mg/dL 70-105 H (BEAKER) (test code = 652) CALCIUM (BEAKER) 9.3 mg/dL 8.4-10.2 (test code = 697) EGFR (BEAKER) (test 24 mL/min/1.73 ESTIMA SILVINO GFR IS code = 1092) sq m NOT ACCURATE CREATININE CLEARANCE IN PREDICTING GLOMERULAR FILTRATION RATE . ESTIMATED GFR I S NOT APPLICABLE FOR DIALYSIS PATIEN TS. LACTATE DEHYDROGENASE (LDH)2017-01-24 06:36:00 Test Item Value Reference Range Interpretation Comments LACTATE DEHYDROGENASE (BEAKER) (test 354 U/L 125-220 H code = 635) POCT-GLUCOSE [id number] 05:55:00 Test Item Value Reference Range Interpretation Comments POC-GLUCOSE METER 166 mg/dL 70-110 H TESTED AT [facility] (BEAKER) (test code = ELVA [place] 1538) [id number] POCT-GLUCOSE [id number] 00:10:00 Test Item Value Reference Range Interpretation Comments POC-GLUCOSE METER 273 mg/dL 70-110 H TESTED AT [facility] (BEAKER) (test code = ELVA JEAN [place] 1538) [address] CREATININE, RANDOM [id number] 18:50:00 Test Item Value Reference Range Interpretation Comments CREATININE URINE (BEAKER) (test 70.2 mg/dL code = 375) Reference Range: No NormalsPROTEIN, RANDOM [id number] 18:50:00 Test Item Value Reference Range Interpretation Comments PROTEIN, URINE (BEAKER) (test code = 35 mg/dL 0-14 H 1569) HEPATITIS PANEL, [id number] 18:41:00 Test Item Value Reference Range Interpretation Comments HEPATITIS A IGM ANTIBODY (BEAKER) Nonreactive Nonreactive (test code = 498) HEPATITIS B CORE IGM ANTIBODY Nonreactive Nonreactive (BEAKER) (test code = 645) HEPATITIS C ANTIBODY (BEAKER) Nonreactive Nonreactive (test code = 367) HEPATITIS B SURFACE ANTIGEN (2) Nonreactive Nonreactive (BEAKER) (test code = 2585) HIV-1 ANTIGEN WITH HIV-1/2 [id number] 18:41:00 Test Item Value Reference Range Interpretation Comments HIV-1 ANTIGEN WITH HIV 1\T\2 Nonreactive Nonreactive ANTIBODY (2) (BEAKER) (test code = 2586) URINALYSIS W/ [id number] 18:36:00 Test Item Value Reference Range Interpretation Comments COLOR (BEAKER) (test code = 470) Yellow CLARITY (BEAKER) (test code = 469) Hazy SPECIFIC GRAVITY UA (BEAKER) (test 1.011 1.001-1.035 code = 468) PH UA (BEAKER) (test code = 467) 5.5 5.0-8.0 PROTEIN UA (BEAKER) (test code = 30 mg/dL Negative A 464) GLUCOSE UA (BEAKER) (test code = Negative Negative 365) KETONES UA (BEAKER) (test code = Negative Negative 371) BILIRUBIN UA (BEAKER) (test code = Negative Negative 462) BLOOD UA (BEAKER) (test code = 461) Negative Negative NITRITE UA (BEAKER) (test code = Negative Negative 465) LEUKOCYTE ESTERASE UA (BEAKER) Large Negative A (test code = 466) UROBILINOGEN UA (BEAKER) (test code 0.2 mg/dL 0.2-1.0 = 463) RBC UA (BEAKER) (test code = 519) 2 /HPF WBC UA (BEAKER) (test code = 520) 89 /HPF BACTERIA (BEAKER) (test code = 517) Many SQUAMOUS EPITHELIAL (BEAKER) (test < /HPF code = 516) SOURCE(BEAKER) (test code = 2795) COMPLEMENT COMPONENT [id number] 18:18:00 Test Item Value Reference Range Interpretation Comments C4 COMPLEMENT (BEAKER) (test code = 39 mg/dL 15-57 394) Effective 08/28/2014: Reference Range ChangeNew: 15-57 Previous: 16-38 COMPLEMENT COMPONENT [id number] 18:18:00 Test Item Value Reference Range Interpretation Comments C3 COMPLEMENT (BEAKER) (test code = 166 mg/dL 82-193 393) Effective 08/28/2014: Reference Range ChangeNew: 82-193 Previous: 79-152POCT- GLUCOSE [id number] 17:18:00 Test Item Value Reference Range Interpretation Comments POC-GLUCOSE METER 236 mg/dL 70-110 H TESTED AT [place] [address] ([facility]) (test code = ELVA Sag[place] [facility] 1538) [address] POCT-GLUCOSE [id number] 12:29:00 Test Item Value Reference Range Interpretation Comments POC-GLUCOSE METER 181 mg/dL 70-110 H TESTED AT [place] [address] ([facility]) (test code = ELVA Sagast[place] [facility] 1538) [address] CBC W/PLT COUNT & AUTO [id number] 09:33:00 Test Item Value Reference Range Interpretation Comments WHITE BLOOD CELL COUNT (BEAKER) 16.3 K/ L 4.0-10.0 H (test code = 775) RED BLOOD CELL COUNT (BEAKER) 2.68 M/ L 4.00-5.00 L (test code = 761) HEMOGLOBIN (BEAKER) (test code = 7.9 GM/DL 12.0-15.0 L 410) HEMATOCRIT (BEAKER) (test code = 26.1 % 36.0-45.0 L 411) MEAN CORPUSCULAR VOLUME (BEAKER) 97.6 fL 82.0-99.0 (test code = 753) MEAN CORPUSCULAR HEMOGLOBIN 29.4 pg 27.0-33.0 (BEAKER) (test code = 751) MEAN CORPUSCULAR HEMOGLOBIN CONC 30.2 GM/DL 32.0-36.0 L (BEAKER) (test code = 752) RED CELL DISTRIBUTION WIDTH 17.3 % 10.3-14.2 H (BEAKER) (test code = 412) PLATELET COUNT (BEAKER) (test code 92 K/CU MM 150-430 L = 756) MEAN PLATELET VOLUME (BEAKER) 10.4 fL 6.5-10.5 (test code = 754) NUCLEATED RED BLOOD CELLS (BEAKER) 0 /100 WBC 0-0 (test code = 413) 0.000.650.000.000.000.00(MANUAL DIFFERENTIAL)2017-01-23 09:33:00 Test Item Value Reference Range Interpretation Comments NEUTROPHILS - REL (DIFF) (BEAKER) 72 % (test code = 1359) LYMPHOCYTES - REL (DIFF) (BEAKER) 16 % (test code = 1360) MONOCYTES - REL (DIFF) (BEAKER) 4 % (test code = 1361) METAMYELOCYTES-REL (DIFF) (BEAKER) 4 % 0-0 H (test code = 258) MYELOCYTES-REL (DIFF) (BEAKER) 1 % 0-0 H (test code = 1594) BANDS - REL (DIFF) (BEAKER) (test 3 % 0-10 code = 1348) NEUTROPHILS - ABS (DIFF) (BEAKER) 11.74 K/ L 1.80-8.00 H (test code = 1365) LYMPHOCYTES - ABS (DIFF) (BEAKER) 2.61 K/ L 1.48-4.50 (test code = 1366) MONOCYTES - ABS (DIFF) (BEAKER) 0.65 K/ L 0.00-1.30 (test code = 1367) METAMYELOCTYES - ABS (DIFF) 0.65 K/ L 0.00-0.00 H (BEAKER) (test code = 261) BANDS-ABS (DIFF) (BEAKER) (test 0.5 K/ L 0.0-0.8 code = 1349) MYELOCYTES-ABS (DIFF) (BEAKER) 0.16 K/ L 0.00-0.00 H (test code = 1593) TOTAL COUNTED (BEAKER) (test code 100 = 1351) BANDS + SEGMENTED NEUTROPHILS 12.23 (BEAKER) (test code = 1352) WBC MORPHOLOGY (BEAKER) (test code Normal = 487) PLT MORPHOLOGY (BEAKER) (test code Normal = 486) SCHISTOCYTES (BEAKER) (test code = 3+ many 765) HYPOCHROMIA (BEAKER) (test code = 1+ few 963) POLYCHROMATOPHILLIC RBCS(BEAKER) 1+ few (test code = 478) LACTATE DEHYDROGENASE (LDH)2017-01-23 06:54:00 Test Item Value Reference Range Interpretation Comments LACTATE DEHYDROGENASE (BEAKER) (test 376 U/L 125-220 H code = 635) BASIC METABOLIC [id number] 06:54:00 Test Item Value Reference Range Interpretation Comments SODIUM (BEAKER) 148 meq/L 136-145 H (test code = 381) POTASSIUM (BEAKER) 4.4 meq/L 3.5-5.1 (test code = 379) CHLORIDE (BEAKER) 116 meq/L 98-107 H (test code = 382) CO2 (BEAKER) (test 19 meq/L 22-29 L code = 355) BLOOD UREA NITROGEN 77 mg/dL 7-21 H (BEAKER) (test code = 354) CREATININE (BEAKER) 1.95 mg/dL 0.57-1.25 H (test code = 358) GLUCOSE RANDOM 159 mg/dL 70-105 H (BEAKER) (test code = 652) CALCIUM (BEAKER) 9.4 mg/dL 8.4-10.2 (test code = 697) EGFR (BEAKER) (test 30 mL/min/1.73 ESTIMA SILVINO GFR IS code = 1092) sq m NOT ACCURATE CREATININE CLEARANCE IN PREDICTING GLOMERULAR FILTRATION RATE . ESTIMATED GFR I S NOT APPLICABLE FOR DIALYSIS PATIEN TS. POCT-GLUCOSE [id number] 06:01:00 Test Item Value Reference Range Interpretation Comments POC-GLUCOSE METER 199 mg/dL 70-110 H TESTED AT [facility] (BEAKER) (test code = ELVA Sag[place] [facility] 1538) [address] POCT-GLUCOSE [id number] 00:37:00 Test Item Value Reference Range Interpretation Comments POC-GLUCOSE METER 175 mg/dL 70-110 H TESTED AT [facility] (BEAKER) (test code = [facility] 1538) [address] POCT-GLUCOSE [id number] 00:26:00 Test Item Value Reference Range Interpretation Comments POC-GLUCOSE METER 232 mg/dL 70-110 H TESTED AT [facility] [address] (BEAKER) (test code = EL[place] [facility] 1538) [address] POCT-GLUCOSE [id number] 11:38:00 Test Item Value Reference Range Interpretation Comments POC-GLUCOSE METER 200 mg/dL 70-110 H TESTED AT [facility] (BEAKER) (test code = [facility] 1538) [address] POCT-GLUCOSE [id number] 06:17:00 Test Item Value Reference Range Interpretation Comments POC-GLUCOSE METER 221 mg/dL 70-110 H TESTED AT [facility] (BEAKER) (test code = [facility] 1538) [address] BASIC METABOLIC [id number] 05:05:00 Test Item Value Reference Range Interpretation Comments SODIUM (BEAKER) 146 meq/L 136-145 H (test code = 381) POTASSIUM (BEAKER) 4.1 meq/L 3.5-5.1 (test code = 379) CHLORIDE (BEAKER) 114 meq/L 98-107 H (test code = 382) CO2 (BEAKER) (test 22 meq/L 22-29 code = 355) BLOOD UREA NITROGEN 86 mg/dL 7-21 H (BEAKER) (test code = 354) CREATININE (BEAKER) 2.27 mg/dL 0.57-1.25 H (test code = 358) GLUCOSE RANDOM 148 mg/dL 70-105 H (BEAKER) (test code = 652) CALCIUM (BEAKER) 8.6 mg/dL 8.4-10.2 (test code = 697) EGFR (BEAKER) (test 25 mL/min/1.73 ESTIMA SILVINO GFR IS code = 1092) sq m NOT ACCURATE CREATININE CLEARANCE IN PREDICTING GLOMERULAR FILTRATION RATE . ESTIMATED GFR I S NOT APPLICABLE FOR DIALYSIS PATIEN TS. LACTATE DEHYDROGENASE (LDH)2017-01-22 05:02:00 Test Item Value Reference Range Interpretation Comments LACTATE DEHYDROGENASE (BEAKER) (test 395 U/L 125-220 H code = 635) CBC W/PLT COUNT & AUTO [id number] 04:29:00 Test Item Value Reference Range Interpretation Comments WHITE BLOOD CELL COUNT (BEAKER) 13.6 K/ L 4.0-10.0 H (test code = 775) RED BLOOD CELL COUNT (BEAKER) 2.35 M/ L 4.00-5.00 L (test code = 761) HEMOGLOBIN (BEAKER) (test code = 7.2 GM/DL 12.0-15.0 L 410) HEMATOCRIT (BEAKER) (test code = 22.1 % 36.0-45.0 L 411) MEAN CORPUSCULAR VOLUME (BEAKER) 93.7 fL 82.0-99.0 (test code = 753) MEAN CORPUSCULAR HEMOGLOBIN 30.4 pg 27.0-33.0 (BEAKER) (test code = 751) MEAN CORPUSCULAR HEMOGLOBIN CONC 32.4 GM/DL 32.0-36.0 (BEAKER) (test code = 752) RED CELL DISTRIBUTION WIDTH 17.1 % 10.3-14.2 H (BEAKER) (test code = 412) PLATELET COUNT (BEAKER) (test code 64 K/CU MM 150-430 L = 756) MEAN PLATELET VOLUME (BEAKER) 13.7 fL 6.5-10.5 H (test code = 754) NUCLEATED RED BLOOD CELLS (BEAKER) 0 /100 WBC 0-0 (test code = 413) NEUTROPHILS RELATIVE PERCENT 69 % (BEAKER) (test code = 429) LYMPHOCYTES RELATIVE PERCENT 16 % (BEAKER) (test code = 430) MONOCYTES RELATIVE PERCENT 12 % (BEAKER) (test code = 431) EOSINOPHILS RELATIVE PERCENT 2 % (BEAKER) (test code = 432) BASOPHILS RELATIVE PERCENT 0 % (BEAKER) (test code = 437) NEUTROPHILS ABSOLUTE COUNT 9.41 K/ L 1.80-8.00 H (BEAKER) (test code = 670) LYMPHOCYTES ABSOLUTE COUNT 2.22 K/ L 1.48-4.50 (BEAKER) (test code = 414) MONOCYTES ABSOLUTE COUNT (BEAKER) 1.65 K/ L 0.00-1.30 H (test code = 415) EOSINOPHILS ABSOLUTE COUNT 0.27 K/ L 0.00-0.50 (BEAKER) (test code = 416) BASOPHILS ABSOLUTE COUNT (BEAKER) 0.02 K/ L 0.00-0.20 (test code = 417) 0.000.710.000.000.000.00POCT-GLUCOSE [id number] 23:46:00 Test Item Value Reference Range Interpretation Comments POC-GLUCOSE METER 215 mg/dL 70-110 H TESTED AT [facility] ([facility]) (test code = [place] [employer] [facility] 1538) [id number] POCT-GLUCOSE [id number] 18:46:00 Test Item Value Reference Range Interpretation Comments POC-GLUCOSE METER 200 mg/dL 70-110 H TESTED AT [place] [address] ([facility]) (test code = [place] [employer] [facility] 1538) [id number] POCT-GLUCOSE [id number] 11:59:00 Test Item Value Reference Range Interpretation Comments POC-GLUCOSE METER 209 mg/dL 70-110 H TESTED AT [place] [address] ([facility]) (test code = [facility] [employer] [facility] 1538) [id number] VWF PROTEASE (ADAMTS-13)[id number] 09:54:00 Test Item Value Reference Range Interpretation Comments VWF PROTEASE See individual AUTOVERIFICATION COMPONENT panel test results. (test code = 2555) CBC W/PLT COUNT & AUTO [id number] 07:58:00 Test Item Value Reference Range Interpretation Comments WHITE BLOOD CELL COUNT (BEAKER) 17.9 K/ L 4.0-10.0 H (test code = 775) RED BLOOD CELL COUNT (BEAKER) 2.63 M/ L 4.00-5.00 L (test code = 761) HEMOGLOBIN (BEAKER) (test code = 7.8 GM/DL 12.0-15.0 L 410) HEMATOCRIT (BEAKER) (test code = 24.2 % 36.0-45.0 L 411) MEAN CORPUSCULAR VOLUME (BEAKER) 92.0 fL 82.0-99.0 (test code = 753) MEAN CORPUSCULAR HEMOGLOBIN 29.6 pg 27.0-33.0 (BEAKER) (test code = 751) MEAN CORPUSCULAR HEMOGLOBIN CONC 32.1 GM/DL 32.0-36.0 (BEAKER) (test code = 752) RED CELL DISTRIBUTION WIDTH 17.8 % 10.3-14.2 H (BEAKER) (test code = 412) PLATELET COUNT (BEAKER) (test code 68 K/CU MM 150-430 L = 756) MEAN PLATELET VOLUME (BEAKER) 14.3 fL 6.5-10.5 H (test code = 754) NUCLEATED RED BLOOD CELLS (BEAKER) 0 /100 WBC 0-0 (test code = 413) [id number].000.00 (MANUAL DIFFERENTIAL)2017-01-21 07:58:00 Test Item Value Reference Range Interpretation Comments NEUTROPHILS - REL (DIFF) (BEAKER) 71 % (test code = 1359) LYMPHOCYTES - REL (DIFF) (BEAKER) 13 % (test code = 1360) MONOCYTES - REL (DIFF) (BEAKER) 6 % (test code = 1361) EOSINOPHILS - REL (DIFF) (BEAKER) 1 % (test code = 1362) METAMYELOCYTES-REL (DIFF) 1 % 0-0 H (BEAKER) (test code = 258) BANDS - REL (DIFF) (BEAKER) (test 8 % 0-10 code = 1348) NEUTROPHILS - ABS (DIFF) (BEAKER) 12.71 K/ L 1.80-8.00 H (test code = 1365) LYMPHOCYTES - ABS (DIFF) (BEAKER) 2.33 K/ L 1.48-4.50 (test code = 1366) MONOCYTES - ABS (DIFF) (BEAKER) 1.07 K/ L 0.00-1.30 (test code = 1367) EOSINOPHILS - ABS (DIFF) (BEAKER) 0.18 K/ L 0.00-0.50 (test code = 1368) METAMYELOCTYES - ABS (DIFF) 0.18 K/ L 0.00-0.00 H (BEAKER) (test code = 261) BANDS-ABS (DIFF) (BEAKER) (test 1.4 K/ L 0.0-0.8 H code = 1349) TOTAL COUNTED (BEAKER) (test code 100 = 1351) BANDS + SEGMENTED NEUTROPHILS 14.14 (BEAKER) (test code = 1352) MANUAL NRBC PER 100 CELLS 1 /100 WBC 0-0 H (BEAKER) (test code = 1353) WBC MORPHOLOGY (BEAKER) (test Normal code = 487) PLT MORPHOLOGY (BEAKER) (test Normal code = 486) SCHISTOCYTES (BEAKER) (test code 3+ many = 765) JASON CELLS (BEAKER) (test code = 1+ few 474) HYPOCHROMIA (BEAKER) (test code = 1+ few 963) POLYCHROMATOPHILLIC RBCS(BEAKER) 2+ moderate (test code = 478) POCT-GLUCOSE [id number] 06:04:00 Test Item Value Reference Range Interpretation Comments POC-GLUCOSE METER 202 mg/dL 70-110 H TESTED AT [place] [address] (BEAKER) (test code = [facility] 1538) [address] BASIC METABOLIC [id number] 05:29:00 Test Item Value Reference Range Interpretation Comments SODIUM (BEAKER) 143 meq/L 136-145 (test code = 381) POTASSIUM (BEAKER) 3.8 meq/L 3.5-5.1 (test code = 379) CHLORIDE (BEAKER) 111 meq/L 98-107 H (test code = 382) CO2 (BEAKER) (test 23 meq/L 22-29 code = 355) BLOOD UREA NITROGEN 91 mg/dL 7-21 H (BEAKER) (test code = 354) CREATININE (BEAKER) 2.69 mg/dL 0.57-1.25 H (test code = 358) GLUCOSE RANDOM 171 mg/dL 70-105 H (BEAKER) (test code = 652) CALCIUM (BEAKER) 8.6 mg/dL 8.4-10.2 (test code = 697) EGFR (BEAKER) (test 21 mL/min/1.73 ESTIMA SILVINO GFR IS code = 1092) sq m NOT ACCURATE CREATININE CLEARANCE IN PREDICTING GLOMERULAR FILTRATION RATE . ESTIMATED GFR I S NOT APPLICABLE FOR DIALYSIS PATIEN TS. LACTATE DEHYDROGENASE (LDH)2017-01-21 05:27:00 Test Item Value Reference Range Interpretation Comments LACTATE DEHYDROGENASE (BEAKER) (test 433 U/L 125-220 H code = 635) POCT-GLUCOSE [id number] 00:06:00 Test Item Value Reference Range Interpretation Comments POC-GLUCOSE METER 180 mg/dL 70-110 H TESTED AT [facility] (BEAKER) (test code = [facility] 1538) [address] POCT-GLUCOSE [id number] 18:09:00 Test Item Value Reference Range Interpretation Comments POC-GLUCOSE METER 209 mg/dL 70-110 H TESTED AT [facility] (BEAKER) (test code = [place] 1538) [address] [id number] 18:03:00 Test Item Value Reference Range Interpretation Comments SODIUM (BEAKER) (test code = 381) 145 meq/L 136-145 ANTI-NUCLEAR ANTIBODY (DIPIKA)2017-01-20 13:07:00 Test Item Value Reference Range Interpretation Comments ANTI-NUCLEAR ANTIBODY (DIPIKA) (BEAKER) Negative Negative (test code = 418) POCT-GLUCOSE [id number] 12:21:00 Test Item Value Reference Range Interpretation Comments POC-GLUCOSE METER 180 mg/dL 70-110 H TESTED AT [facility] ([facility] (test code = [place] [facility]) [address] MISCELLANEOUS LAB [id number] 11:04:00 Test Item Value Reference Range Interpretation Comments SCAN RESULT (test code = 2395876) URINE [id number] 10:54:00 Test Item Value Reference Range Interpretation Comments CULTURE (BEAKER) (test >100,000 col/mL skin code = 1095) pedro VITAMIN B12 AND [id number] 10:06:00 Test Item Value Reference Range Interpretation Comments VITAMIN B12 (BEAKER) (test code = 541 pg/mL 213816 774) FOLATE (BEAKER) (test code = 362) 7.6 ng/mL >=7.0 Effective 08/28/2014: Folate Reference Range ChangeNew: >=7.0 Previous: >=5.4CBC W/PLT COUNT & AUTO [id number] 09:19:00 Test Item Value Reference Range Interpretation Comments WHITE BLOOD CELL COUNT (BEAKER) 23.4 K/ L 4.0-10.0 H (test code = 775) RED BLOOD CELL COUNT (BEAKER) 2.64 M/ L 4.00-5.00 L (test code = 761) HEMOGLOBIN (BEAKER) (test code = 8.9 GM/DL 12.0-15.0 L 410) HEMATOCRIT (BEAKER) (test code = 23.6 % 36.0-45.0 L 411) MEAN CORPUSCULAR VOLUME (BEAKER) 89.4 fL 82.0-99.0 (test code = 753) MEAN CORPUSCULAR HEMOGLOBIN 33.9 pg 27.0-33.0 H (BEAKER) (test code = 751) MEAN CORPUSCULAR HEMOGLOBIN CONC 37.9 GM/DL 32.0-36.0 H (BEAKER) (test code = 752) RED CELL DISTRIBUTION WIDTH 15.9 % 10.3-14.2 H (BEAKER) (test code = 412) PLATELET COUNT (BEAKER) (test code 40 K/CU MM 150-430 L = 756) MEAN PLATELET VOLUME (BEAKER) 15.0 fL 6.5-10.5 H (test code = 754) NUCLEATED RED BLOOD CELLS (BEAKER) 0 /100 WBC 0-0 (test code = 413) 0.000.580.000.000.700.000.000.000.000.000.000.000.000.500.660.000.000.000.000.00 0.000.000.000.500.740.000.000.000.00(MANUAL DIFFERENTIAL)2017-01-20 09:19:00 Test Item Value Reference Range Interpretation Comments NEUTROPHILS - REL (DIFF) (BEAKER) 84 % (test code = 1359) LYMPHOCYTES - REL (DIFF) (BEAKER) 8 % (test code = 1360) MONOCYTES - REL (DIFF) (BEAKER) 8 % (test code = 1361) NEUTROPHILS - ABS (DIFF) (BEAKER) 19.66 K/ L 1.80-8.00 H (test code = 1365) LYMPHOCYTES - ABS (DIFF) (BEAKER) 1.87 K/ L 1.48-4.50 (test code = 1366) MONOCYTES - ABS (DIFF) (BEAKER) 1.87 K/ L 0.00-1.30 H (test code = 1367) TOTAL COUNTED (BEAKER) (test code 100 = 1351) MANUAL NRBC PER 100 CELLS (BEAKER) 4 /100 WBC 0-0 H (test code = 1353) ATYPICAL LYMPHS(BEAKER) (test code Present = 1678) LARGE PLT(BEAKER) (test code = Present 2156) ACANTHOCYTES (BEAKER) (test code = 1+ few 471) POLYCHROMATOPHILLIC RBCS(BEAKER) 1+ few (test code = 478) SPHEROCYTES (BEAKER) (test code = 1+ few 768) POCT-GLUCOSE [id number] 06:35:00 Test Item Value Reference Range Interpretation Comments POC-GLUCOSE METER 182 mg/dL 70-110 H TESTED AT [place] [address] (BEAKER) (test code = [place] 1538) [address] BASIC METABOLIC [id number] 05:09:00 Test Item Value Reference Range Interpretation Comments SODIUM (BEAKER) 146 meq/L 136-145 H (test code = 381) POTASSIUM (BEAKER) 3.9 meq/L 3.5-5.1 (test code = 379) CHLORIDE (BEAKER) 112 meq/L 98-107 H (test code = 382) CO2 (BEAKER) (test 21 meq/L 22-29 L code = 355) BLOOD UREA NITROGEN 92 mg/dL 7-21 H (BEAKER) (test code = 354) CREATININE (BEAKER) 2.79 mg/dL 0.57-1.25 H (test code = 358) GLUCOSE RANDOM 161 mg/dL 70-105 H (BEAKER) (test code = 652) CALCIUM (BEAKER) 9.1 mg/dL 8.4-10.2 (test code = 697) EGFR (BEAKER) (test 20 mL/min/1.73 ESTIMA SILVINO GFR IS code = 1092) sq m NOT ACCURATE CREATININE CLEARANCE IN PREDICTING GLOMERULAR FILTRATION RATE . ESTIMATED GFR I S NOT APPLICABLE FOR DIALYSIS PATIEN TS. LACTATE DEHYDROGENASE (LDH)2017-01-20 05:04:00 Test Item Value Reference Range Interpretation Comments LACTATE DEHYDROGENASE (BEAKER) (test 619 U/L 125-220 H code = 635) POCT-GLUCOSE [id number] 00:13:00 Test Item Value Reference Range Interpretation Comments POC-GLUCOSE METER 241 mg/dL 70-110 H TESTED AT [facility] 67[address] (BEAKER) (test code = [place] 1538) [address] BASIC METABOLIC [id number] 18:41:00 Test Item Value Reference Range Interpretation Comments SODIUM (BEAKER) 147 meq/L 136-145 H (test code = 381) POTASSIUM (BEAKER) 4.1 meq/L 3.5-5.1 (test code = 379) CHLORIDE (BEAKER) 112 meq/L 98-107 H (test code = 382) CO2 (BEAKER) (test 22 meq/L 22-29 code = 355) BLOOD UREA NITROGEN 91 mg/dL 7-21 H (BEAKER) (test code = 354) CREATININE (BEAKER) 3.13 mg/dL 0.57-1.25 H (test code = 358) GLUCOSE RANDOM 201 mg/dL 70-105 H (BEAKER) (test code = 652) CALCIUM (BEAKER) 9.4 mg/dL 8.4-10.2 (test code = 697) EGFR (BEAKER) (test 17 mL/min/1.73 ESTIMA SILVINO GFR IS code = 1092) sq m NOT ACCURATE CREATININE CLEARANCE IN PREDICTING GLOMERULAR FILTRATION RATE . ESTIMATED GFR I S NOT APPLICABLE FOR DIALYSIS PATIEN TS. POCT-GLUCOSE [id number] 17:58:00 Test Item Value Reference Range Interpretation Comments POC-GLUCOSE METER 213 mg/dL 70-110 H TESTED AT [facility] ([facility]) (test code = [place] 1538) [address] CBC W/PLT COUNT & AUTO [id number] 14:28:00 Test Item Value Reference Range Interpretation Comments WHITE BLOOD CELL COUNT (BEAKER) 13.2 K/ L 4.0-10.0 H (test code = 775) RED BLOOD CELL COUNT (BEAKER) 3.04 M/ L 4.00-5.00 L (test code = 761) HEMOGLOBIN (BEAKER) (test code = 9.1 GM/DL 12.0-15.0 L 410) HEMATOCRIT (BEAKER) (test code = 27.3 % 36.0-45.0 L 411) MEAN CORPUSCULAR VOLUME (BEAKER) 89.7 fL 82.0-99.0 (test code = 753) MEAN CORPUSCULAR HEMOGLOBIN 30.0 pg 27.0-33.0 (BEAKER) (test code = 751) MEAN CORPUSCULAR HEMOGLOBIN CONC 33.4 GM/DL 32.0-36.0 (BEAKER) (test code = 752) RED CELL DISTRIBUTION WIDTH 16.3 % 10.3-14.2 H (BEAKER) (test code = 412) PLATELET COUNT (BEAKER) (test code 13 K/CU MM 150-430 L = 756) MEAN PLATELET VOLUME (BEAKER) 14.8 fL 6.5-10.5 H (test code = 754) NUCLEATED RED BLOOD CELLS (BEAKER) 0 /100 WBC 0-0 (test code = 413) NEUTROPHILS RELATIVE PERCENT 87 % (BEAKER) (test code = 429) LYMPHOCYTES RELATIVE PERCENT 10 % (BEAKER) (test code = 430) MONOCYTES RELATIVE PERCENT 3 % (BEAKER) (test code = 431) EOSINOPHILS RELATIVE PERCENT 0 % (BEAKER) (test code = 432) BASOPHILS RELATIVE PERCENT 0 % (BEAKER) (test code = 437) NEUTROPHILS ABSOLUTE COUNT 11.40 K/ L 1.80-8.00 H (BEAKER) (test code = 670) LYMPHOCYTES ABSOLUTE COUNT 1.29 K/ L 1.48-4.50 L (BEAKER) (test code = 414) MONOCYTES ABSOLUTE COUNT (BEAKER) 0.38 K/ L 0.00-1.30 (test code = 415) EOSINOPHILS ABSOLUTE COUNT 0.03 K/ L 0.00-0.50 (BEAKER) (test code = 416) BASOPHILS ABSOLUTE COUNT (BEAKER) 0.03 K/ L 0.00-0.20 (test code = 417) 0.000.630.000.000.000.00(MANUAL DIFFERENTIAL)2017-01-19 14:28:00 Test Item Value Reference Range Interpretation Comments TOTAL COUNTED (BEAKER) (test code = 1351) WBC MORPHOLOGY (BEAKER) (test Normal code = 487) PLT MORPHOLOGY (BEAKER) (test Normal code = 486) SCHISTOCYTES (BEAKER) (test code 3+ many = 765) POIKILOCYTES (BEAKER) (test code 2+ moderate = 966) POLYCHROMATOPHILLIC RBCS(BEAKER) 1+ few (test code = 478) DOUBLE-STRANDED DNA (DSDNA) [id number] 12:52:00 Test Item Value Reference Range Interpretation Comments ANTI-DNA DS (BEAKER) (test code = Negative 1055) POCT-GLUCOSE [id number] 12:17:00 Test Item Value Reference Range Interpretation Comments POC-GLUCOSE METER 284 mg/dL 70-110 H TESTED AT [facility] (BEAKER) (test code = [place] 1538) [address] BASIC METABOLIC [id number] 07:08:00 Test Item Value Reference Range Interpretation Comments SODIUM (BEAKER) 148 meq/L 136-145 H (test code = 381) POTASSIUM (BEAKER) 4.4 meq/L 3.5-5.1 (test code = 379) CHLORIDE (BEAKER) 112 meq/L 98-107 H (test code = 382) CO2 (BEAKER) (test 23 meq/L 22-29 code = 355) BLOOD UREA NITROGEN 84 mg/dL 7-21 H (BEAKER) (test code = 354) CREATININE (BEAKER) 3.07 mg/dL 0.57-1.25 H (test code = 358) GLUCOSE RANDOM 152 mg/dL 70-105 H (BEAKER) (test code = 652) CALCIUM (BEAKER) 10.0 mg/dL 8.4-10.2 (test code = 697) EGFR (BEAKER) (test 18 mL/min/1.73 ESTIMA SILVINO GFR IS code = 1092) sq m NOT ACCURATE CREATININE CLEARANCE IN PREDICTING GLOMERULAR FILTRATION RATE . ESTIMATED GFR I S NOT APPLICABLE FOR DIALYSIS PATIEN TS. LACTATE DEHYDROGENASE (LDH)2017-01-19 07:04:00 Test Item Value Reference Range Interpretation Comments LACTATE DEHYDROGENASE (BEAKER) (test 568 U/L 125-220 H code = 635) POCT-GLUCOSE [id number] 06:07:00 Test Item Value Reference Range Interpretation Comments POC-GLUCOSE METER 173 mg/dL 70-110 H TESTED AT [place] [address] ([facility]) (test code = [facility] 1538) [address] POCT-GLUCOSE [id number] 00:45:00 Test Item Value Reference Range Interpretation Comments POC-GLUCOSE METER 160 mg/dL 70-110 H TESTED AT [place] [address] ([facility]) (test code = [facility] 1538) [address] CALCIUM, [id number] 22:05:00 Test Item Value Reference Range Interpretation Comments CALCIUM IONIZED (BEAKER) (test 1.04 mmol/L 1.12-1.27 L code = 698) PH, BLOOD (BEAKER) (test code = 7.42 7850) Range 1.12 - 1.27EQUAL MIX, NORMAL [id number] 19:51:00 Test Item Value Reference Range Interpretation Comments PROTIME (BEAKER) (test code = 13.9 seconds 11.7-14.7 759) PARTIAL THROMBOPLASTIN TIME 39.1 seconds 22.5-36.0 H (BEAKER) (test code = 760) PT 1/1 MIX (BEAKER) (test code = 13.3 SECS 11.7-14.7 1595) PTT 1/1 MIX (BEAKER) (test code 36.4 SECS 22.5-36.0 H = 1596) POCT-GLUCOSE [id number] 19:25:00 Test Item Value Reference Range Interpretation Comments POC-GLUCOSE METER 133 mg/dL 70-110 H TESTED AT [facility] [address] (BEAKER) (test code = [place] 1538) [address] [id number] 16:31:00 Test Item Value Reference Range Interpretation Comments HAPTOGLOBIN (BEAKER) (test code = < mg/dL 14-258 L 366) Effective 08/28/2014: Reference Range ChangeNew: 14-258 Previous: 36-195 HEPATIC FUNCTION [id number] 16:10:00 Test Item Value Reference Range Interpretation Comments TOTAL PROTEIN (BEAKER) (test code = 5.7 gm/dL 6.0-8.3 L 770) ALBUMIN (BEAKER) (test code = 1145) 2.7 g/dL 3.5-5.0 L BILIRUBIN TOTAL (BEAKER) (test code 1.7 mg/dL 0.2-1.2 H = 377) BILIRUBIN DIRECT (BEAKER) (test 0.6 mg/dL 0.1-0.5 H code = 706) ALKALINE PHOSPHATASE (BEAKER) (test 64 U/L 40-150 code = 346) AST (SGOT) (BEAKER) (test code = 26 U/L 5-34 353) ALT (SGPT) (BEAKER) (test code = 17 U/L 6-55 347) LACTATE DEHYDROGENASE (LDH)2017-01-18 14:04:00 Test Item Value Reference Range Interpretation Comments LACTATE DEHYDROGENASE (BEAKER) (test 1309 U/L 125-220 H code = 635) HEPARIN [id number] 14:04:00 Test Item Value Reference Range Interpretation Comments HEPARIN ANTIBODY (BEAKER) (test code Negative Negative = 646) HEPARIN ANTIBODY OD (BEAKER) (test 0.065 <0.400 code = 2659) 4T TOTAL SCORE (BEAKER) (test code = 5 2189) Probability of HIT based on scoring system: 6-8 = High probability; 4-5 = intermediate probability;0-3 = low probabilityFACTOR 8 [id number] 13:26:00 Test Item Value Reference Range Interpretation Comments FACTOR VIII ACTIVITY (BEAKER) (test 376.0 % 45.0-150.0 H code = 663) Effective 02/13/2014: Reference Range Change-Adult onlyNew: 45.0-150.0 Previous: 45.0-155.0PERIPHERAL BLOOD SMEAR - PATHOLOGIST [id number] 12:33:00 Test Item Value Reference Range Interpretation Comments RBC MORPHOLOGY Shistocytes (BEAKER) (test code = 2846) RBC MORPHOLOGY Anisocytosis (BEAKER) (test code = 18535) RBC MORPHOLOGY Poikilocytosis (BEAKER) (test code = 97853) WBC MORPHOLOGY Toxic Granulation (BEAKER) (test code = 2847) PLT MORPHOLOGY Unremarkable (BEAKER) (test code = 2848) PERIPHERAL SMR Mild degree of REVIEW (BEAKER) shistocytes present in (test code = 2125) the setting of thrombocytopenia. 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 [id number] Enrrique Bran, 2 (BEAKER) (test M.D.(electronic code = 2849) signature) POCT-GLUCOSE [id number] 12:32:00 Test Item Value Reference Range Interpretation Comments POC-GLUCOSE METER 147 mg/dL 70-110 H TESTED AT [facility] (BEAKER) (test code = [place] 1538) [address] CREATININE, RANDOM [id number] 12:03:00 Test Item Value Reference Range Interpretation Comments CREATININE URINE (BEAKER) (test 72.4 mg/dL code = 375) Reference Range: No NormalsSODIUM, RANDOM [id number] 12:03:00 Test Item Value Reference Range Interpretation Comments SODIUM URINE (BEAKER) (test code = 62 meq/L 243) Reference Range: No NormalsURINALYSIS W/ [id number] 11:51:00 Test Item Value Reference Range Interpretation Comments COLOR (BEAKER) (test code = 470) Yellow CLARITY (BEAKER) (test code = Hazy 469) SPECIFIC GRAVITY UA (BEAKER) 1.012 1.001-1.035 (test code = 468) PH UA (BEAKER) (test code = 467) 5.5 5.0-8.0 PROTEIN UA (BEAKER) (test code = 100 mg/dL Negative A 464) GLUCOSE UA (BEAKER) (test code = Negative Negative 365) KETONES UA (BEAKER) (test code = Negative Negative 371) BILIRUBIN UA (BEAKER) (test code Negative Negative = 462) BLOOD UA (BEAKER) (test code = Moderate Negative A 461) NITRITE UA (BEAKER) (test code = Negative Negative 465) LEUKOCYTE ESTERASE UA (BEAKER) Small Negative A (test code = 466) UROBILINOGEN UA (BEAKER) (test 0.2 mg/dL 0.2-1.0 code = 463) RBC UA (BEAKER) (test code = 4 /HPF 519) WBC UA (BEAKER) (test code = 3 /HPF 520) BACTERIA (BEAKER) (test code = Occasional 517) SQUAMOUS EPITHELIAL (BEAKER) 2 /HPF (test code = 516) SOURCE(BEAKER) (test code = Urine, [place] 6740) POCT-GLUCOSE [id number] 06:11:00 Test Item Value Reference Range Interpretation Comments POC-GLUCOSE METER 162 mg/dL 70-110 H TESTED AT [facility] (BEAKER) (test code = [place] 1538) [address] BASIC METABOLIC [id number] 05:50:00 Test Item Value Reference Range Interpretation Comments SODIUM (BEAKER) 144 meq/L 136-145 (test code = 381) POTASSIUM (BEAKER) 4.5 meq/L 3.5-5.1 (test code = 379) CHLORIDE (BEAKER) 115 meq/L 98-107 H (test code = 382) CO2 (BEAKER) (test 19 meq/L 22-29 L code = 355) BLOOD UREA NITROGEN 72 mg/dL 7-21 H (BEAKER) (test code = 354) CREATININE (BEAKER) 3.18 mg/dL 0.57-1.25 H (test code = 358) GLUCOSE RANDOM 125 mg/dL 70-105 H (BEAKER) (test code = 652) CALCIUM (BEAKER) 9.2 mg/dL 8.4-10.2 (test code = 697) EGFR (BEAKER) (test 17 mL/min/1.73 ESTIMA SILVINO GFR IS code = 1092) sq m NOT ACCURATE CREATININE CLEARANCE IN PREDICTING GLOMERULAR FILTRATION RATE . ESTIMATED GFR I S NOT APPLICABLE FOR DIALYSIS PATIEN TS. CBC W/PLT COUNT & AUTO [id number] 05:25:00 Test Item Value Reference Range Interpretation Comments WHITE BLOOD CELL COUNT (BEAKER) 12.0 K/ L 4.0-10.0 H (test code = 775) RED BLOOD CELL COUNT (BEAKER) 3.18 M/ L 4.00-5.00 L (test code = 761) HEMOGLOBIN (BEAKER) (test code = 9.8 GM/DL 12.0-15.0 L 410) HEMATOCRIT (BEAKER) (test code = 28.7 % 36.0-45.0 L 411) MEAN CORPUSCULAR VOLUME (BEAKER) 90.1 fL 82.0-99.0 (test code = 753) MEAN CORPUSCULAR HEMOGLOBIN 30.7 pg 27.0-33.0 (BEAKER) (test code = 751) MEAN CORPUSCULAR HEMOGLOBIN CONC 34.1 GM/DL 32.0-36.0 (BEAKER) (test code = 752) RED CELL DISTRIBUTION WIDTH 15.4 % 10.3-14.2 H (BEAKER) (test code = 412) PLATELET COUNT (BEAKER) (test code 15 K/CU MM 150-430 L = 756) MEAN PLATELET VOLUME (BEAKER) 18.5 fL 6.5-10.5 H (test code = 754) NUCLEATED RED BLOOD CELLS (BEAKER) 0 /100 WBC 0-0 (test code = 413) NEUTROPHILS RELATIVE PERCENT 77 % (BEAKER) (test code = 429) LYMPHOCYTES RELATIVE PERCENT 13 % (BEAKER) (test code = 430) MONOCYTES RELATIVE PERCENT 9 % (BEAKER) (test code = 431) EOSINOPHILS RELATIVE PERCENT 1 % (BEAKER) (test code = 432) BASOPHILS RELATIVE PERCENT 0 % (BEAKER) (test code = 437) NEUTROPHILS ABSOLUTE COUNT 9.23 K/ L 1.80-8.00 H (BEAKER) (test code = 670) LYMPHOCYTES ABSOLUTE COUNT 1.59 K/ L 1.48-4.50 (BEAKER) (test code = 414) MONOCYTES ABSOLUTE COUNT (BEAKER) 1.05 K/ L 0.00-1.30 (test code = 415) EOSINOPHILS ABSOLUTE COUNT 0.11 K/ L 0.00-0.50 (BEAKER) (test code = 416) BASOPHILS ABSOLUTE COUNT (BEAKER) 0.01 K/ L 0.00-0.20 (test code = 417) 0.00POCT-GLUCOSE [id number] 18:14:00 Test Item Value Reference Range Interpretation Comments POC-GLUCOSE METER 139 mg/dL 70-110 H TESTED AT [facility] ([facility]) (test code = [facility] 1538) [address] POCT-GLUCOSE [id number] 12:53:00 Test Item Value Reference Range Interpretation Comments POC-GLUCOSE METER 140 mg/dL 70-110 H TESTED AT [facility] ([facility]) (test code = [facility] 1538) [address] TSH/FREE T4 IF [id number] 12:34:00 Test Item Value Reference Range Interpretation Comments THYROID STIMULATING HORMONE 1.70 uIU/mL 0.35-4.94 (BEAKER) (test code = 772) HEPATIC FUNCTION [id number] 11:36:00 Test Item Value Reference Range Interpretation Comments TOTAL PROTEIN (BEAKER) (test code = 6.0 gm/dL 6.0-8.3 770) ALBUMIN (BEAKER) (test code = 1145) 2.9 g/dL 3.5-5.0 L BILIRUBIN TOTAL (BEAKER) (test code 3.4 mg/dL 0.2-1.2 H = 377) BILIRUBIN DIRECT (BEAKER) (test 1.1 mg/dL 0.1-0.5 H code = 706) ALKALINE PHOSPHATASE (BEAKER) (test 75 U/L 40-150 code = 346) AST (SGOT) (BEAKER) (test code = 48 U/L 5-34 H 353) ALT (SGPT) (BEAKER) (test code = 19 U/L 6-55 347) Specimen slightly ictericCBC WITH PLATELET COUNT + MANUAL [id number] 09:24:00 Test Item Value Reference Range Interpretation Comments WHITE BLOOD CELL COUNT (BEAKER) 11.1 K/ L 4.0-10.0 H (test code = 775) RED BLOOD CELL COUNT (BEAKER) 3.83 M/ L 4.00-5.00 L (test code = 761) HEMOGLOBIN (BEAKER) (test code = 11.4 GM/DL 12.0-15.0 L 410) HEMATOCRIT (BEAKER) (test code = 34.8 % 36.0-45.0 L 411) MEAN CORPUSCULAR VOLUME (BEAKER) 90.9 fL 82.0-99.0 (test code = 753) MEAN CORPUSCULAR HEMOGLOBIN 29.7 pg 27.0-33.0 (BEAKER) (test code = 751) MEAN CORPUSCULAR HEMOGLOBIN CONC 32.7 GM/DL 32.0-36.0 (BEAKER) (test code = 752) RED CELL DISTRIBUTION WIDTH 14.5 % 10.3-14.2 H (BEAKER) (test code = 412) PLATELET COUNT (BEAKER) (test code 18 K/CU MM 150-430 L = 756) MEAN PLATELET VOLUME (BEAKER) 14.5 fL 6.5-10.5 H (test code = 754) NUCLEATED RED BLOOD CELLS (BEAKER) 3 /100 WBC 0-0 H (test code = 413) 0.00(MANUAL DIFFERENTIAL)[id number] 09:24:00 Test Item Value Reference Range Interpretation Comments NEUTROPHILS - REL (DIFF) (BEAKER) 75 % (test code = 1359) LYMPHOCYTES - REL (DIFF) (BEAKER) 10 % (test code = 1360) MONOCYTES - REL (DIFF) (BEAKER) 12 % (test code = 1361) BANDS - REL (DIFF) (BEAKER) (test 3 % 0-10 code = 1348) NEUTROPHILS - ABS (DIFF) (BEAKER) 8.33 K/ L 1.80-8.00 H (test code = 1365) LYMPHOCYTES - ABS (DIFF) (BEAKER) 1.11 K/ L 1.48-4.50 L (test code = 1366) MONOCYTES - ABS (DIFF) (BEAKER) 1.33 K/ L 0.00-1.30 H (test code = 1367) BANDS-ABS (DIFF) (BEAKER) (test 0.3 K/ L 0.0-0.8 code = 1349) TOTAL COUNTED (BEAKER) (test code 100 = 1351) BANDS + SEGMENTED NEUTROPHILS 8.66 (BEAKER) (test code = 1352) MANUAL NRBC PER 100 CELLS (BEAKER) 4 /100 WBC 0-0 H (test code = 1353) WBC MORPHOLOGY (BEAKER) (test code Normal = 487) PLT MORPHOLOGY (BEAKER) (test code Normal = 486) SCHISTOCYTES (BEAKER) (test code = 1+ few 765) POLYCHROMATOPHILLIC RBCS(BEAKER) 1+ few (test code = 478) [id number] 07:27:00 Test Item Value Reference Range Interpretation Comments D-DIMER QUANTITATIVE (BEAKER) 6.44 MG/L FEU <0.50 H (test code = 671) Intended Use: The D-Dimer Assay can be used to aid in the diagnosis of Deep Vein Thrombosis (DVT) and Pulmonary Embolism Disease (PED).In patients with low pre- test probability, various studies concerning STA Liatest D-dimer test have reported that with a cutoff value of 0.50 MG/L FEU, the Negative Predictive Value (NPV) regarding the exclusion of thrombosis is within 95-100% range.APTT 2017-01-17 07:17:00 Test Item Value Reference Range Interpretation Comments PARTIAL THROMBOPLASTIN TIME 38.9 seconds 22.5-36.0 H (BEAKER) (test code = 760) PROTHROMBIN [id number] 07:16:00 Test Item Value Reference Range Interpretation Comments PROTIME (BEAKER) (test code = 18.3 seconds 11.7-14.7 H 759) INR (BEAKER) (test code = 370) 1.5 <=5.9 RECOMMENDED COUMADIN/WARFARIN INR THERAPY RANGESSTANDARD DOSE: 2.0 - 3.0 Includes: PROPHYLAXIS forvenous thrombosis, systemic embolization; TREATMENT for venous thrombosis and/or pulmonary embolus.HIGH RISK: Target INR is 2.5-3.5 for patients with mechanical heart valves.[id number] 07:16:00 Test Item Value Reference Range Interpretation Comments FIBRINOGEN LEVEL (BEAKER) (test 542 mg/dl 225-434 H code = 658) CBC W/PLT COUNT & AUTO [id number] 06:10:00 Test Item Value Reference Range Interpretation Comments WHITE BLOOD CELL COUNT (BEAKER) 12.0 K/ L 4.0-10.0 H (test code = 775) RED BLOOD CELL COUNT (BEAKER) 3.75 M/ L 4.00-5.00 L (test code = 761) HEMOGLOBIN (BEAKER) (test code = 11.3 GM/DL 12.0-15.0 L 410) HEMATOCRIT (BEAKER) (test code = 34.4 % 36.0-45.0 L 411) MEAN CORPUSCULAR VOLUME (BEAKER) 91.7 fL 82.0-99.0 (test code = 753) MEAN CORPUSCULAR HEMOGLOBIN 30.0 pg 27.0-33.0 (BEAKER) (test code = 751) MEAN CORPUSCULAR HEMOGLOBIN CONC 32.8 GM/DL 32.0-36.0 (BEAKER) (test code = 752) RED CELL DISTRIBUTION WIDTH 15.2 % 10.3-14.2 H (BEAKER) (test code = 412) PLATELET COUNT (BEAKER) (test code 17 K/CU MM 150-430 L = 756) MEAN PLATELET VOLUME (BEAKER) 13.4 fL 6.5-10.5 H (test code = 754) NUCLEATED RED BLOOD CELLS (BEAKER) 2 /100 WBC 0-0 H (test code = 413) NEUTROPHILS RELATIVE PERCENT 80 % (BEAKER) (test code = 429) LYMPHOCYTES RELATIVE PERCENT 10 % (BEAKER) (test code = 430) MONOCYTES RELATIVE PERCENT 9 % (BEAKER) (test code = 431) EOSINOPHILS RELATIVE PERCENT 1 % (BEAKER) (test code = 432) BASOPHILS RELATIVE PERCENT 0 % (BEAKER) (test code = 437) NEUTROPHILS ABSOLUTE COUNT 9.61 K/ L 1.80-8.00 H (BEAKER) (test code = 670) LYMPHOCYTES ABSOLUTE COUNT 1.20 K/ L 1.48-4.50 L (BEAKER) (test code = 414) MONOCYTES ABSOLUTE COUNT (BEAKER) 1.10 K/ L 0.00-1.30 (test code = 415) EOSINOPHILS ABSOLUTE COUNT 0.07 K/ L 0.00-0.50 (BEAKER) (test code = 416) BASOPHILS ABSOLUTE COUNT (BEAKER) 0.01 K/ L 0.00-0.20 (test code = 417) 0.00BASIC METABOLIC [id number] 05:23:00 Test Item Value Reference Range Interpretation Comments SODIUM (BEAKER) 143 meq/L 136-145 (test code = 381) POTASSIUM (BEAKER) 4.6 meq/L 3.5-5.1 Specimen slightly (test code = 379) hemolyzed CHLORIDE (BEAKER) 114 meq/L 98-107 H (test code = 382) CO2 (BEAKER) (test 17 meq/L 22-29 L code = 355) BLOOD UREA NITROGEN 42 mg/dL 7-21 H (BEAKER) (test code = 354) CREATININE (BEAKER) 2.25 mg/dL 0.57-1.25 H Specimen slightly (test code = 358) hemolyzed GLUCOSE RANDOM 118 mg/dL 70-105 H (BEAKER) (test code = 652) CALCIUM (BEAKER) 9.1 mg/dL 8.4-10.2 (test code = 697) EGFR (BEAKER) (test 26 mL/min/1.73 ESTIMA SILVINO GFR IS code = 1092) sq m NOT ACCURATE CREATININE CLEARANCE IN PREDICTING GLOMERULAR FILTRATION RATE . ESTIMATED GFR I S NOT APPLICABLE FOR DIALYSIS PATIEN TS. Specimen slightly ictericPOCT-GLUCOSE [id number] 00:44:00 Test Item Value Reference Range Interpretation Comments POC-GLUCOSE METER 129 mg/dL 70-110 H TESTED AT [place] [address] ([facility]) (test code = [facility] 1538) [id number] POCT-GLUCOSE [id number] 18:18:00 Test Item Value Reference Range Interpretation Comments POC-GLUCOSE METER 99 mg/dL 70-110 TESTED AT [place] [address] ([facility]) (test code = [facility] [address]38) POCT-GLUCOSE [id number] 12:19:00 Test Item Value Reference Range Interpretation Comments POC-GLUCOSE METER 114 mg/dL 70-110 H TESTED AT [place] [address] ([facility]) (test code = [facility] 1538) [address] CBC W/PLT COUNT & AUTO [id number] 06:44:00 Test Item Value Reference Range Interpretation Comments WHITE BLOOD CELL COUNT 12.5 K/ L 4.0-10.0 H ([facility] (test code = 775) RED BLOOD CELL COUNT 4.07 M/ L 4.00-5.00 (BEAKER) (test code = 761) HEMOGLOBIN (BEAKER) 12.2 GM/DL 12.0-15.0 (test code = 410) HEMATOCRIT (BEAKER) 38.0 % 36.0-45.0 (test code = 411) MEAN CORPUSCULAR 93.4 fL 82.0-99.0 VOLUME (BEAKER) (test code = 753) MEAN CORPUSCULAR 29.9 pg 27.0-33.0 HEMOGLOBIN (BEAKER) (test code = 751) MEAN CORPUSCULAR 32.0 GM/DL 32.0-36.0 HEMOGLOBIN CONC (BEAKER) (test code = 752) RED CELL DISTRIBUTION 14.3 % 10.3-14.2 H WIDTH (BEAKER) (test code = 412) PLATELET COUNT 47 K/CU MM 150-[address] T RESULT (BEAKER) (test code = COMPAR ED TO PREVIOUS 756) RESULT; CLINICA L CORRELATION REQUIRED.NO TORY T FOUND. MEAN PLATELET VOLUME 7.9 fL 6.5-10.5 (BEAKER) (test code = 754) NUCLEATED RED BLOOD 2 /100 WBC 0-0 H CELLS (BEAKER) (test code = 413) NEUTROPHILS RELATIVE 76 % PERCENT (BEAKER) (test code = 429) LYMPHOCYTES RELATIVE 12 % PERCENT (BEAKER) (test code = 430) MONOCYTES RELATIVE 11 % PERCENT (BEAKER) (test code = 431) EOSINOPHILS RELATIVE 1 % PERCENT (BEAKER) (test code = 432) BASOPHILS RELATIVE 0 % PERCENT (BEAKER) (test code = 437) NEUTROPHILS ABSOLUTE 9.51 K/ L 1.80-8.00 H COUNT (BEAKER) (test code = 670) LYMPHOCYTES ABSOLUTE 1.52 K/ L 1.48-4.50 COUNT (BEAKER) (test code = 414) MONOCYTES ABSOLUTE 1.32 K/ L 0.00-1.30 H COUNT (BEAKER) (test code = 415) EOSINOPHILS ABSOLUTE 0.16 K/ L 0.00-0.50 COUNT (BEAKER) (test code = 416) BASOPHILS ABSOLUTE 0.01 K/ L 0.00-0.20 COUNT (BEAKER) (test code = 417) 0.00(MANUAL DIFFERENTIAL)[id number] 06:44:00 Test Item Value Reference Range Interpretation Comments TOTAL COUNTED (BEAKER) (test code = 1351) WBC MORPHOLOGY (BEAKER) (test code = Normal 487) PLT MORPHOLOGY (BEAKER) (test code = Normal 486) RBC MORPHOLOGY (BEAKER) (test code = Normal 762) POCT-GLUCOSE [id number] 05:58:00 Test Item Value Reference Range Interpretation Comments POC-GLUCOSE METER 128 mg/dL 70-110 H TESTED AT [facility] [address] (BEAKER) (test code = [facility] [place] 1538) [id number] BASIC METABOLIC [id number] 05:39:00 Test Item Value Reference Range Interpretation Comments SODIUM (BEAKER) 143 meq/L 136-145 (test code = 381) POTASSIUM (BEAKER) 4.5 meq/L 3.5-5.1 (test code = 379) CHLORIDE (BEAKER) 116 meq/L 98-107 H (test code = 382) CO2 (BEAKER) (test 19 meq/L 22-29 L code = 355) BLOOD UREA NITROGEN 25 mg/dL 7-21 H (BEAKER) (test code = 354) CREATININE (BEAKER) 2.03 mg/dL 0.57-1.25 H (test code = 358) GLUCOSE RANDOM 122 mg/dL 70-105 H (BEAKER) (test code = 652) CALCIUM (BEAKER) 8.4 mg/dL 8.4-10.2 (test code = 697) EGFR (BEAKER) (test 29 mL/min/1.73 ESTIMA SILVINO GFR IS code = 1092) sq m NOT ACCURATE CREATININE CLEARANCE IN PREDICTING GLOMERULAR FILTRATION RATE . ESTIMATED GFR I S NOT APPLICABLE FOR DIALYSIS PATIEN TS. Specimen slightly ictericPOCT-GLUCOSE [id number] 00:03:00 Test Item Value Reference Range Interpretation Comments POC-GLUCOSE METER 119 mg/dL 70-110 H TESTED AT [facility] [address] (BEAKER) (test code = [facility] [place] 1538) [id number] 18:23:00 Test Item Value Reference Range Interpretation Comments POTASSIUM (BEAKER) 4.1 meq/L 3.5-5.1 Specimen slightly (test code = 379) hemolyzed POCT-GLUCOSE [id number] 18:02:00 Test Item Value Reference Range Interpretation Comments POC-GLUCOSE METER 116 mg/dL 70-110 H TESTED AT [facility] (BEAKER) (test code = [place] 1538) [address] [id number] 15:09:00 Test Item Value Reference Range Interpretation Comments MAGNESIUM (BEAKER) 2.4 mg/dL 1.6-2.6 Specimen slightly (test code = 627) hemolyzed [id number] 15:09:00 Test Item Value Reference Range Interpretation Comments POTASSIUM (BEAKER) 3.3 meq/L 3.5-5.1 L Specimen slightly (test code = 379) hemolyzed POCT-GLUCOSE [id number] 11:31:00 Test Item Value Reference Range Interpretation Comments POC-GLUCOSE METER 96 mg/dL 70-110 TESTED AT [facility] [address] (BEAKER) (test code = [place] [address] 1538) BLOOD GAS, [id number] 07:45:00 Test Item Value Reference Range Interpretation Comments PH ARTERIAL (BEAKER) (test code = 7.40 7.35-7.45 383) PCO2 ARTERIAL (BEAKER) (test code 37 mmHg 35-45 = 384) PO2 ARTERIAL (BEAKER) (test code 143 mmHg 80-90 H = 385) O2 SATURATION ARTERIAL (BEAKER) 98.8 % 96.0-97.0 H (test code = 386) HCO3 ARTERIAL (BEAKER) (test code 22 mmol/L 21-29 = 388) BASE EXCESS ARTERIAL (BEAKER) -1.9 mmol/L -2.0-3.0 (test code = 387) PATIENT TEMPERATURE (BEAKER) 37.5 C (test code = 1818) FIO2 (BEAKER) (test code = 1819) 60.0 % BASIC METABOLIC [id number] 05:42:00 Test Item Value Reference Range Interpretation Comments SODIUM (BEAKER) 141 meq/L 136-145 (test code = 381) POTASSIUM (BEAKER) 3.8 meq/L 3.5-5.1 (test code = 379) CHLORIDE (BEAKER) 110 meq/L 98-107 H (test code = 382) CO2 (BEAKER) (test 21 meq/L 22-29 L code = 355) BLOOD UREA NITROGEN 14 mg/dL 7-21 (BEAKER) (test code = 354) CREATININE (BEAKER) 1.70 mg/dL 0.57-1.25 H (test code = 358) GLUCOSE RANDOM 123 mg/dL 70-105 H (BEAKER) (test code = 652) CALCIUM (BEAKER) 8.7 mg/dL 8.4-10.2 (test code = 697) EGFR (BEAKER) (test 35 mL/min/1.73 ESTIMA SILVINO GFR IS code = 1092) sq m NOT ACCURATE CREATININE CLEARANCE IN PREDICTING GLOMERULAR FILTRATION RATE . ESTIMATED GFR I S NOT APPLICABLE FOR DIALYSIS PATIEN TS. [id number] 05:41:00 Test Item Value Reference Range Interpretation Comments MAGNESIUM (BEAKER) (test code = 1.9 mg/dL 1.6-2.6 627) CBC W/PLT COUNT & AUTO [id number] 04:59:00 Test Item Value Reference Range Interpretation Comments WHITE BLOOD CELL COUNT (BEAKER) 11.3 K/ L 4.0-10.0 H (test code = 775) RED BLOOD CELL COUNT (BEAKER) 4.20 M/ L 4.00-5.00 (test code = 761) HEMOGLOBIN (BEAKER) (test code = 12.9 GM/DL 12.0-15.0 410) HEMATOCRIT (BEAKER) (test code = 39.1 % 36.0-45.0 411) MEAN CORPUSCULAR VOLUME (BEAKER) 93.1 fL 82.0-99.0 (test code = 753) MEAN CORPUSCULAR HEMOGLOBIN 30.6 pg 27.0-33.0 (BEAKER) (test code = 751) MEAN CORPUSCULAR HEMOGLOBIN CONC 32.9 GM/DL 32.0-36.0 (BEAKER) (test code = 752) RED CELL DISTRIBUTION WIDTH 13.9 % 10.3-14.2 (BEAKER) (test code = 412) PLATELET COUNT (BEAKER) (test 136 K/CU MM 150-430 L code = 756) MEAN PLATELET VOLUME (BEAKER) 9.5 fL 6.5-10.5 (test code = 754) NUCLEATED RED BLOOD CELLS 0 /100 WBC 0-0 (BEAKER) (test code = 413) NEUTROPHILS RELATIVE PERCENT 78 % (BEAKER) (test code = 429) LYMPHOCYTES RELATIVE PERCENT 12 % (BEAKER) (test code = 430) MONOCYTES RELATIVE PERCENT 9 % (BEAKER) (test code = 431) EOSINOPHILS RELATIVE PERCENT 1 % (BEAKER) (test code = 432) BASOPHILS RELATIVE PERCENT 0 % (BEAKER) (test code = 437) NEUTROPHILS ABSOLUTE COUNT 8.83 K/ L 1.80-8.00 H (BEAKER) (test code = 670) LYMPHOCYTES ABSOLUTE COUNT 1.33 K/ L 1.48-4.50 L (BEAKER) (test code = 414) MONOCYTES ABSOLUTE COUNT (BEAKER) 1.06 K/ L 0.00-1.30 (test code = 415) EOSINOPHILS ABSOLUTE COUNT 0.07 K/ L 0.00-0.50 (BEAKER) (test code = 416) BASOPHILS ABSOLUTE COUNT (BEAKER) 0.03 K/ L 0.00-0.20 (test code = 417) 0.00POCT-GLUCOSE [id number] 00:45:00 Test Item Value Reference Range Interpretation Comments POC-GLUCOSE METER 122 mg/dL 70-110 H TESTED AT [place] [address] ([facility]) (test code = [facility] 1538) [id number] POCT-GLUCOSE [id number] 18:29:00 Test Item Value Reference Range Interpretation Comments POC-GLUCOSE METER 98 mg/dL 70-110 TESTED AT [place] [address] ([facility]) (test code = [facility] [address]38) POCT-GLUCOSE [id number] 12:30:00 Test Item Value Reference Range Interpretation Comments POC-GLUCOSE METER 207 mg/dL 70-110 H TESTED AT [place] [address] ([facility]) (test code = [facility] 1538) [address] URINALYSIS W/ [id number] 11:36:00 Test Item Value Reference Range Interpretation Comments COLOR (BEAKER) (test code Light Yellow = 470) CLARITY (BEAKER) (test Clear code = 469) SPECIFIC GRAVITY UA 1.008 1.001-1.035 (BEAKER) (test code = 468) PH UA (BEAKER) (test code 6.0 5.0-8.0 = 467) PROTEIN UA (BEAKER) (test 70 mg/dL Negative A code = 464) GLUCOSE UA (BEAKER) (test 200 mg/dL Negative A code = 365) KETONES UA (BEAKER) (test Negative Negative code = 371) BILIRUBIN UA (BEAKER) Negative Negative (test code = 462) BLOOD UA (BEAKER) (test Trace Negative A code = 461) NITRITE UA (BEAKER) (test Negative Negative code = 465) LEUKOCYTE ESTERASE UA Negative Negative (BEAKER) (test code = 466) UROBILINOGEN UA (BEAKER) 0.2 mg/dL 0.2-1.0 (test code = 463) RBC UA (BEAKER) (test 1 /HPF code = 519) WBC UA (BEAKER) (test 3 /HPF code = 520) MUCUS (BEAKER) (test code Rare = 1574) SQUAMOUS EPITHELIAL < /HPF (BEAKER) (test code = 516) HYALINE CASTS (BEAKER) 2 /LPF (test code = 514) SOURCE(BEAKER) (test code Urine, Straight = 2335) Catheter RAPID DRUG SCREEN, [id number] 11:25:00 Test Item Value Reference Range Interpretation Comments BARBITURATE URINE (BEAKER) (test Negative Negative code = 725) BENZODIAZEPINE SCREEN URINE (BEAKER) Positive Negative A (test code = 726) COCAINE (METAB.) SCREEN (BEAKER) Negative Negative (test code = 1164) METHADONE SCREEN (BEAKER) (test code Negative Negative = 1436) OPIATE SCREEN URINE (BEAKER) (test Negative Negative code = 734) CANNABINOID SCREEN URINE (BEAKER) Negative Negative (test code = 727) AMPH/METHAMPH SCREEN (BEAKER) (test Negative Negative code = 1438) PHENCYCLIDINE SCREEN URINE (BEAKER) Negative Negative (test code = 608) OXYCODONE SCREEN URINE (BEAKER) Negative Negative (test code = 2761) DRUG CUTOFF CONC.Cocaine 300 ng/mL Cannabinoid 50 ng/mL Benzodiazepine 200 ng/mLBarbiturate 200 ng/mLPhencyclidine 25 ng/mLOpiate 300 ng/mLMethadone 300 ng/mLAmphetamine/ 1000 ng/mL MethamphetamineOxycodone 300 ng/mLCREATININE, RANDOM [id number] 11:21:00 Test Item Value Reference Range Interpretation Comments CREATININE URINE (BEAKER) (test 24.7 mg/dL code = 375) Reference Range: No NormalsPROTEIN, RANDOM [id number] 11:21:00 Test Item Value Reference Range Interpretation Comments PROTEIN, URINE (BEAKER) (test code = 97 mg/dL 0-14 H 1569) SODIUM, RANDOM [id number] 11:21:00 Test Item Value Reference Range Interpretation Comments SODIUM URINE (BEAKER) (test code = 159 meq/L 243) Reference Range: No NormalsBLOOD GAS, [id number] 11:12:00 Test Item Value Reference Range Interpretation Comments PH ARTERIAL (BEAKER) (test code = 7.44 7.35-7.45 383) PCO2 ARTERIAL (BEAKER) (test code 31 mmHg 35-45 L = 384) PO2 ARTERIAL (BEAKER) (test code 236 mmHg 80-90 H = 385) O2 SATURATION ARTERIAL (BEAKER) 99.6 % 96.0-97.0 H (test code = 386) HCO3 ARTERIAL (BEAKER) (test code 21 mmol/L 21-29 = 388) BASE EXCESS ARTERIAL (BEAKER) -2.8 mmol/L -2.0-3.0 L (test code = 387) PATIENT TEMPERATURE (BEAKER) 34.4 C (test code = 1818) FIO2 (BEAKER) (test code = 1819) 100.0 % CREATINE KINASE (CK), TOTAL AND [id number] 07:57:00 Test Item Value Reference Range Interpretation Comments CREATINE KINASE TOTAL (BEAKER) 78 U/L 29-200 (test code = 380) CREATINE KINASE-MB (BEAKER) (test 1.3 ng/mL 0.0-6.6 code = 750) CREATINE KINASE-MB INDEX (BEAKER) 1.7 % (test code = 395) Effective 08/28/2014: CK-MB Reference Range ChangeNew: 0.0-6.6 Previous: 0.0-4.9CK-MB Reference Range:<6.7 Normal6.7-10.0 Borderline>10.0 AbnormalTROPONIN [id number] 07:57:00 Test Item Value Reference Range Interpretation Comments TROPONIN I (BEAKER) (test code = 397) < ng/mL 0.00-0.03 Effective 08/28/2014: Reference Range ChangeNew: 0.00-0.03 Previous 0.00- 0.15Troponin I (TnI) levels must be interpreted in the context of the presenting symptoms and the clinical findings. Elevated TnI levels indicate myocardial damage, but are not specific for ischemic heart disease. Elevated TnI levels are seen in patients with other cardiac conditions (including myocarditis and congestive heartfailure), and slight TnI elevations occur in patients with other conditions, including sepsis, renalfailure, acidosis, acute neurological disease, and persistent tachyarrhythmia.B-TYPE NATRIURETIC FACTOR (BNP) 2017-01-14 07:56:00 Test Item Value Reference Range Interpretation Comments B-TYPE NATRIURETIC PEPTIDE (BEAKER) 76 pg/mL 0-100 (test code = 700) [id number] 07:51:00 Test Item Value Reference Range Interpretation Comments MAGNESIUM (BEAKER) (test code = 1.5 mg/dL 1.6-2.6 L 627) BASIC METABOLIC [id number] 07:51:00 Test Item Value Reference Range Interpretation Comments SODIUM (BEAKER) 141 meq/L 136-145 (test code = 381) POTASSIUM (BEAKER) 3.9 meq/L 3.5-5.1 (test code = 379) CHLORIDE (BEAKER) 107 meq/L 98-107 (test code = 382) CO2 (BEAKER) (test 17 meq/L 22-29 L code = 355) BLOOD UREA NITROGEN 12 mg/dL 7-21 (BEAKER) (test code = 354) CREATININE (BEAKER) 1.21 mg/dL 0.57-1.25 (test code = 358) GLUCOSE RANDOM 248 mg/dL 70-105 H (BEAKER) (test code = 652) CALCIUM (BEAKER) 10.4 mg/dL 8.4-10.2 H (test code = 697) EGFR (BEAKER) (test mL/min/1.73 INSUFFIC IENT CLINICAL code = 1092) sq m DATA TO CALCULA TE ESTIMATED GFR. [id number] 07:48:00 Test Item Value Reference Range Interpretation Comments ETHANOL (BEAKER) (test code = 400) < mg/dL <=10 CBC W/PLT COUNT & AUTO [id number] 07:33:00 Test Item Value Reference Range Interpretation Comments WHITE BLOOD CELL COUNT (BEAKER) 7.8 K/ L 4.0-10.0 (test code = 775) RED BLOOD CELL COUNT (BEAKER) 5.18 M/ L 4.00-5.00 H (test code = 761) HEMOGLOBIN (BEAKER) (test code = 14.9 GM/DL 12.0-15.0 410) HEMATOCRIT (BEAKER) (test code = 48.2 % 36.0-45.0 H 411) MEAN CORPUSCULAR VOLUME (BEAKER) 93.0 fL 82.0-99.0 (test code = 753) MEAN CORPUSCULAR HEMOGLOBIN 28.8 pg 27.0-33.0 (BEAKER) (test code = 751) MEAN CORPUSCULAR HEMOGLOBIN CONC 30.9 GM/DL 32.0-36.0 L (BEAKER) (test code = 752) RED CELL DISTRIBUTION WIDTH 13.0 % 10.3-14.2 (BEAKER) (test code = 412) PLATELET COUNT (BEAKER) (test 124 K/CU MM 150-430 L code = 756) MEAN PLATELET VOLUME (BEAKER) 10.8 fL 6.5-10.5 H (test code = 754) NUCLEATED RED BLOOD CELLS 0 /100 WBC 0-0 (BEAKER) (test code = 413) NEUTROPHILS RELATIVE PERCENT 80 % (BEAKER) (test code = 429) LYMPHOCYTES RELATIVE PERCENT 17 % (BEAKER) (test code = 430) MONOCYTES RELATIVE PERCENT 3 % (BEAKER) (test code = 431) EOSINOPHILS RELATIVE PERCENT 0 % (BEAKER) (test code = 432) BASOPHILS RELATIVE PERCENT 0 % (BEAKER) (test code = 437) NEUTROPHILS ABSOLUTE COUNT 6.20 K/ L 1.80-8.00 (BEAKER) (test code = 670) LYMPHOCYTES ABSOLUTE COUNT 1.32 K/ L 1.48-4.50 L (BEAKER) (test code = 414) MONOCYTES ABSOLUTE COUNT (BEAKER) 0.20 K/ L 0.00-1.30 (test code = 415) EOSINOPHILS ABSOLUTE COUNT 0.03 K/ L 0.00-0.50 (BEAKER) (test code = 416) BASOPHILS ABSOLUTE COUNT (BEAKER) 0.02 K/ L 0.00-0.20 (test code = 417) 0.00
[2021-04-05] MEDS ORDERED: NA CHLORIDE 0.9% 1,000 ML ONE (13:43)
[2021-04-05] MEDS ORDERED: MORPHINE 2 MG/ML SYR ONE (14:10)
[2021-04-05] MEDS ORDERED: ONDANSETRON 4 MG/2 ML VIAL ONE (14:11)
[2021-04-05] MEDS ORDERED: dexAMETHasone 10 MG/ML VIAL ONE (14:11)
--- NOTE | 2021-04-05 14:11 | RAD REPORT ---
EXAM DESCRIPTION: RAD - Chest Single View - 04/05/2021 12:58 pm CLINICAL HISTORY: COUGH, chest and left shoulder pain COMPARISON: May 2019 TECHNIQUE: AP portable chest image was obtained 04/05/2021 12:58 pm . FINDINGS: Lung volumes are low. No peripheral mass, consolidation or failure finding. Heart and vasc ulature are normal. No measurable pleural effusion and no pneumothorax. No acute bony abnormality see n. No acute aortic findings suspected. IMPRESSION: No acute cardiopulmonary process. No significant change from comparison study.
[2021-04-05 14:30] LABS: Absolute Lymphocytes (CBC) 0.9 K/uL (0.7-4.9); Basophils % 0.9 % (0-1.3); Hematocrit 37.7 % (36.0-45.0); Lymphocytes % 11.7 % (15.3-44.8); MPV 11.3 fL (7.6-11.3); RBC Red Blood Cell Count 4.16 M/uL (3.86-4.86)
--- NOTE | 2021-04-05 14:35 | RAD REPORT ---
EXAM DESCRIPTION: RAD - Shoulder Left 2 View - 04/05/2021 1:45 pm CLINICAL HISTORY: PAIN COMPARISON: No comparisons TECHNIQUE: Internal and external rotation views of the left shoulder were obtained. FINDINGS: There is no fracture or dislocation. AC joint degenerative changes are present without inf eriorly directed spurring. Acromial humeral joint space is normal with no abnormal soft tissue calcif ications. Degenerative changes seen along superior margin greater tuberosity. No acute or suspicious findings. IMPRESSION: Negative two-view left shoulder examination for acute findings.
[2021-04-05 14:38] LABS: Protime INR 1.07
[2021-04-05 14:54] LABS: ALT/SGPT 40 U/L (12-78); AST/SGOT 37 U/L (15-37); Albumin 3.1 g/dL (3.4-5.0); Alkaline Phosphatase 91 U/L (45-117); BUN Blood Urea Nitrogen 22 mg/dL (7-18); Bicarbonate 26 mmol/L (21-32); Bilirubin Direct < 0.1 mg/dL (0-0.2); Bilirubin Total 0.5 mg/dL (0.2-1.0); Glucose Level 158 mg/dL (74-106); Lipase 87 U/L (73-393); Magnesium 1.9 mg/dL (1.8-2.4); NT PRO-BNP 139 pg/mL (<450); Potassium 3.6 mmol/L (3.5-5.1); Protein, Total 7.7 g/dL (6.4-8.2); Sodium Level 139 mmol/L (136-145); Troponin (Emerg Dept Use Only) < 0.02 ng/mL (0.0-0.045)
--- NOTE | 2021-04-05 15:25 | EDPHYS ---
Physician Documentation [facility] Name: Jennifer Warner Age: 80 yrs Sex: Female : 1940 Arrival Date: 04/05/2021 Time: 11:13 Bed 6 Private MD: Mariam Smyth ED Physician Rico Chino HPI: 04/05 13:34 This 80 yrs old Black Female presents to ER via Wheelchair with complaints of Arm Pain, merly Decreased Appetite. 13:34 The patient or guardian complains of decreased range of motion, pain, that is acute. merly The complaints affect the anterior aspect of left shoulder and posterior aspect of left shoulder. Context: The problem was sustained at an unknown location. Onset: The symptoms/episode began/occurred 1 week(s) ago. Treatment prior to arrival includes: no previous treatment. Modifying factors: The symptoms are alleviated by nothing. the symptoms are aggravated by nothing. Associated signs and symptoms: The patient has no apparent associated signs or symptoms. Severity of symptoms: At their worst the symptoms were moderate, in the emergency department the symptoms are unchanged. The patient has not experienced similar symptoms in the past. Historical: - Allergies: 11:22 No Known Allergies; ll1 - PMHx: 11:22 Diabetes - NIDDM; High Cholesterol; Hypertension; Dementia; ll1 - PSHx: 11: Hysterectomy; ; ll1 - Immunization history:: Adult Immunizations up to date, Client reports receiving the 2nd dose of the Covid vaccine, Flu vaccine is up to date. - Social history:: Smoking status: Patient denies any tobacco usage or history of. - Family history:: not pertinent. ROS: 13:34 Constitutional: Negative for fever, chills, and weight loss, Eyes: Negative for injury, merly pain, redness, and discharge, ENT: Negative for injury, pain, and discharge, Neck: Negative for injury, pain, and swelling, Cardiovascular: Negative for chest pain, palpitations, and edema, Respiratory: Negative for shortness of breath, cough, wheezing, and pleuritic chest pain, Abdomen/GI: Negative for abdominal pain, nausea, vomiting, diarrhea, and constipation, Back: Negative for injury and pain, : Negative for injury, bleeding, discharge, and swelling, Skin: Negative for injury, rash, and discoloration, Neuro: Negative for headache, weakness, numbness, tingling, and seizure, Psych: Negative for depression, anxiety, suicide ideation, homicidal ideation, and hallucinations, Allergy/Immunology: Negative for hives, rash, and allergies, Endocrine: Negative for neck swelling, polydipsia, polyuria, polyphagia, and marked weight changes, Hematologic/Lymphatic: Negative for swollen nodes, abnormal bleeding, and unusual bruising. 13:34 MS/extremity: Positive for pain, tenderness, of the anterior aspect of left shoulder and posterior aspect of left shoulder. Exam: 13:34 Constitutional: This is a well developed, well nourished patient who is awake, alert, merly and in no acute distress. Head/Face: Normocephalic, atraumatic. Eyes: Pupils equal round and reactive to light, extra-ocular motions intact. Lids and lashes normal. Conjunctiva and sclera are non-icteric and not injected. Cornea within normal limits. Periorbital areas with no swelling, redness, or edema. ENT: Nares patent. No nasal discharge, no septal abnormalities noted. Tympanic membranes are normal and external auditory canals are clear. Oropharynx with no redness, swelling, or masses, exudates, or evidence of obstruction, uvula midline. Mucous membranes moist. Neck: Trachea midline, no thyromegaly or masses palpated, and no cervical lymphadenopathy. Supple, full range of motion without nuchal rigidity, or vertebral point tenderness. No Meningismus. Chest/axilla: Normal chest wall appearance and motion. Nontender with no deformity. No lesions are appreciated. Cardiovascular: Regular rate and rhythm with a normal S1 and S2. No gallops, murmurs, or rubs. Normal PMI, no JVD. No pulse deficits. Respiratory: Lungs have equal breath sounds bilaterally, clear to auscultation and percussion. No rales, rhonchi or wheezes noted. No increased work of breathing, no retractions or nasal flaring. Abdomen/GI: Soft, non-tender, with normal bowel sounds. No distension or tympany. No guarding or rebound. No evidence of tenderness throughout. Back: No spinal tenderness. No costovertebral tenderness. Full range of motion. Female : Normal external genitalia. Skin: Warm, dry with normal turgor. Normal color with no rashes, no lesions, and no evidence of cellulitis. Neuro: Awake and alert, GCS 15, oriented to person, place, time, and situation. Cranial nerves II-XII grossly intact. Motor strength 5/5 in all extremities. Sensory grossly intact. Cerebellar exam normal. Normal gait. Psych: Awake, alert, with orientation to person, place and time. Behavior, mood, and affect are within normal limits. 13:34 Musculoskeletal/extremity: Extremities: grossly normal except: noted in the anterior aspect of left shoulder and posterior aspect of left shoulder: decreased ROM, pain, ROM: limited active range of motion, in the anterior aspect of left shoulder and posterior aspect of left shoulder, limited passive range of motion, Circulation is intact in all extremities. Sensation intact. Compartment Syndrome exam of affected extremity: is normal. DVT Exam: no swelling, no tenderness, negative Homans' sign noted on exam, no appreciated bluish discoloration, no erythema, no increased warmth, pain. Vital Signs: 11:23 BP 126 / 81; Pulse 77; Resp 17; Temp 97.5; Pulse Ox 97% ; Weight 55.79 kg; Height 5 ft. ll1 0 in. (152.40 cm); Pain 8/10; 13:14 BP 94 / 61; Pulse 63; Resp 20; Pulse Ox 96% ; kg 11:23 Body Mass Index 24.02 (55.79 kg, 152.40 cm) ll1 MDM: 12:33 Patient medically screened. [facility] 13:38 Differential diagnosis: closed fracture, contusion, tendonitis. Data reviewed: vital merly signs, nurses notes, lab test result(s), EKG, radiologic studies, plain films. Data interpreted: gambling monitor: rate is 63 beats/min, rhythm is regular, Pulse oximetry: on. Test interpretation: by ED physician or midlevel provider: ECG, plain radiologic studies. Counseling: I had a detailed discussion with the patient and/or guardian regarding: the historical points, exam findings, and any diagnostic results supporting the discharge/admit diagnosis, lab results, radiology results. 04/05 12:34 Order name: Basic Metabolic Panel; Complete Time: 15:22 [facility] 04/05 12:34 Order name: CBC with Diff; Complete Time: 15:22 [facility] 04/05 12:34 Order name: LFT's; Complete Time: 15:22 [facility] 04/05 12:34 Order name: Magnesium; Complete Time: 15:22 [facility] 04/05 12:34 Order name: NT PRO-BNP; Complete Time: 15:22 [facility] 04/05 12:34 Order name: PT-INR; Complete Time: 15:22 [facility] 04/05 12:34 Order name: Troponin (emerg Dept Use Only); Complete Time: 15:22 [facility] 04/05 12:34 Order name: XRAY Chest (1 view); Complete Time: 14:34 [facility] 04/05 12:34 Order name: Lipase; Complete Time: 15:22 [facility] 04/05 13:34 Order name: Shoulder Left (2 View) XRAY; Complete Time: 15:22 [facility] 04/05 12:34 Order name: EKG; Complete Time: 12:34 [facility] 04/05 12:34 Order name: Cardiac monitoring; Complete Time: 15:13 [facility] 04/05 12:34 Order name: EKG - Nurse/Tech; Complete Time: 15:14 [facility] 04/05 12:34 Order name: IV Saline Lock; Complete Time: 15:13 [facility] 04/05 12:34 Order name: Labs collected and sent; Complete Time: 15:13 [facility] 04/05 12:34 Order name: O2 Per Protocol; Complete Time: 12:47 [facility] 04/05 12:34 Order name: O2 Sat Monitoring; Complete Time: 12:47 [facility] 04/05 12:34 Order name: Urine Dipstick-Ancillary (obtain specimen); Complete Time: 14:23 [facility] 04/05 13:24 Order name: Labs - recollect needed: recollect cbc,chemistry and pt/ptt tube; Complete eb Time: 1404/05 13:34 Order name: Sling; Complete Time: 13:47 [facility] Administered Medications: 13:31 Drug: NS 0.9% 1000 ml Route: IV; Rate: 125 ml/hr; Site: right antecubital; kg 16:58 Follow up: Response: No adverse reaction; Marked relief of symptoms; IV Status: kg Completed infusion 14:00 Drug: morphine 2 mg Route: IVP; Site: right antecubital; kg 16:59 Follow up: Response: No adverse reaction; Marked relief of symptoms kg 14:00 Drug: Zofran (Ondansetron) 4 mg Route: IVP; Site: right antecubital; kg 16:58 Follow up: Response: No adverse reaction; Marked relief of symptoms kg 14:00 Drug: Decadron - Dexamethasone 6 mg Route: IVP; Site: right antecubital; kg 16:58 Follow up: Response: No adverse reaction; Marked relief of symptoms kg Disposition: 04/05/21 15:25 Discharged to Home. Impression: Pain in left shoulder, Adhesive capsulitis of left shoulder. - Condition is Stable. - Discharge Instructions: Joint Pain, Arthritis, Musculoskeletal Pain, Shoulder Pain, Tendinitis, Cryotherapy, Jbjj-wi-Gkea, Shoulder Range of Motion Exercises, Shoulder Pain, Wiaa-vi-Hxdc, Arthritis, Fjau-ep-Viut, Cryotherapy, Tendinitis, Vfoo-dd-Nmrs, Adhesive Capsulitis, Joint Pain, Ambz-bo-Ukwc. - Prescriptions for dexamethasone 1 mg Oral tablet - take 1 tablet by ORAL route 2 times per day; 10 tablet. Motrin IB 200 mg Oral Tablet - take 2 tablet by ORAL route every 6 hours As needed as needed with food; 30 tablet. - Medication Reconciliation Form, Thank You Letter, Antibiotic Education, Prescription Opioid Use form. - Follow up: Mariam Smyth; When: 2 - 3 days; Reason: Recheck today's complaints, Continuance of care, Re-evaluation by your physician. - Problem is new. - Symptoms have improved. Signatures: Dispatcher [employer] EDMS Rico Chino MD MD cha Botello, Elizabeth eb Lewis, Lynsay, SOURAV RN ll1 Maya Dhaliwal RN RN kg Corrections: (The following items were deleted from the chart) 16:59 15:25 04/05/2021 15:25 Discharged to Home. Impression: Pain in left shoulder; Adhesive kg capsulitis of left shoulder. Condition is Stable. Discharge Instructions: Joint Pain, Arthritis, Musculoskeletal Pain, Shoulder Pain, Tendinitis, Cryotherapy, Vmpc-jn-Nnnh, Shoulder Range of Motion Exercises, Shoulder Pain, Nbaz-wp-Nrji, Arthritis, Nqai-co-Djyk, Cryotherapy, Tendinitis, Xnsu-yn-Kwaj, Adhesive Capsulitis, Joint Pain, Lobv-it-Jgxw, Calcific Tendinitis. Prescriptions for dexamethasone 1 mg Oral tablet - take 1 tablet by ORAL route 2 times per day; 10 tablet, Tylenol-Codeine #3 300-30 mg Oral Tablet - take 2 tablets by ORAL route every 4-6 hours As needed; 20 tablet, Motrin IB 200 mg Oral Tablet - take 2 tablet by ORAL route every 6 hours As needed as needed with food; 30 tablet. and Forms are Medication Reconciliation Form, Thank You Letter, Antibiotic Education, Prescription Opioid Use. Follow up: Mariam Smyth; When: 2 - 3 days; Reason: Recheck today's complaints, Continuance of care, Re-evaluation by your physician. Problem is new. Symptoms have improved. merly
--- NOTE | 2021-04-05 15:25 | ER ---
Nurse's Notes [facility] Name: Jennifer Warner Age: 80 yrs Sex: Female : 1940 Arrival Date: 04/05/2021 Time: 11:13 Bed 6 Private MD: Mariam Smyth Diagnosis: Pain in left shoulder;Adhesive capsulitis of left shoulder Presentation: 04/05 11:23 Chief complaint: Patient states: L shoulder pain since Wednesday getting worse each day. ll1 Appetite has been decreasing each day also. No fever or cough. Coronavirus screen: Client denies travel out of the [place] in the last 14 days. At this time, the client does not indicate any symptoms associated with coronavirus-19. Ebola Screen: Patient denies travel to an Ebola-affected area in the 21 days before illness onset. Initial Sepsis Screen: Does the patient meet any 2 criteria? No. Patient's initial sepsis screen is negative. Does the patient have a suspected source of infection? Yes: Bone or joint infection. Risk Assessment: Do you want to hurt yourself or someone else? Patient reports no desire to harm self or others. Onset of symptoms was March 31, 2021. 11:23 Method Of Arrival: Wheelchair ll1 11:23 Acuity: KEYANA 3 ll1 Triage Assessment: 13:18 General: Appears in no apparent distress. Behavior is calm, cooperative, appropriate kg for age, quiet. Pain:. Historical: - Allergies: 11:22 No Known Allergies; ll1 - PMHx: 11:22 Diabetes - NIDDM; High Cholesterol; Hypertension; Dementia; ll1 - PSHx: 11:22 Hysterectomy; ; ll1 - Immunization history:: Adult Immunizations up to date, Client reports receiving the 2nd dose of the Covid vaccine, Flu vaccine is up to date. - Social history:: Smoking status: Patient denies any tobacco usage or history of. - Family history:: not pertinent. Screenin:15 Abuse screen: Denies threats or abuse. Denies injuries from another. Nutritional kg screening: No deficits noted. Nutritional screening: No deficits noted. Tuberculosis screening: No symptoms or risk factors identified. Fall Risk Fall in past 12 months (25 points). No secondary diagnosis (0 pts). IV access (20 points). Ambulatory Aid- None/Bed Rest/Nurse Assist (0 pts). Gait- Normal/Bed Rest/Wheelchair (0 pts) Mental Status- Oriented to own ability (0 pts). Total Lama Fall Scale indicates Low Risk Score (25-44 pts). Fall prevention measures have been instituted. Side Rails Up X 2 Placed close to Nursing Station Frequent Obs/Assesments occuring Family Present and informed to notify staff if they need to leave bedside As available Patient and Family Educated on Fall Prevention Program and strategies. Assessment: 13:13 Pain: Complains of pain in Left shoulder Pain radiates to left arm Pain currently is 9 kg out of 10 on a pain scale. at worst was 10 out of 10 on a pain scale. level that patient reports is acceptable is 3 out of 10 on a pain scale. Quality of pain is described as aching, Pain began gradually. Neuro: No deficits noted. Level of Consciousness is awake, alert, obeys commands, Oriented to Appropriate for age. Cardiovascular: No deficits noted. Respiratory: No deficits noted. GI: Parent/caregiver reports the patient having anorexia. : No deficits noted. EENT: No deficits noted. Derm: No deficits noted. Musculoskeletal: No deficits noted. Vital Signs: 11:23 BP 126 / 81; Pulse 77; Resp 17; Temp 97.5; Pulse Ox 97% ; Weight 55.79 kg; Height 5 ft. ll1 0 in. (152.40 cm); Pain 8/10; 13:14 BP 94 / 61; Pulse 63; Resp 20; Pulse Ox 96% ; kg 11:23 Body Mass Index 24.02 (55.79 kg, 152.40 cm) ll1 ED Course: 11:13 Patient arrived in ED. as 11:13 Mariam Smyth MD is Private Physician. as 11:22 Arm band placed on. ll1 11:24 Triage completed. ll1 12:19 Maya Dhaliwal, SOURAV is Primary Nurse. kg 12:33 Rico Chino MD is Attending Physician. merly 12:58 XRAY Chest (1 view) In Process Unspecified. EDMS 13:12 Inserted saline lock: 22 gauge in right antecubital area, using aseptic technique. kg 13:19 Patient has correct armband on for positive identification. Bed in low position. Call kg light in reach. Side rails up X2. Adult w/ patient. 13:45 Shoulder Left (2 View) XRAY In Process Unspecified. EDMS 15:24 Mariam Smyth MD is Referral Physician. [facility] 16:57 No provider procedures requiring assistance completed. IV discontinued, intact, kg bleeding controlled, No redness/swelling at site. Pressure dressing applied. Administered Medications: 13:31 Drug: NS 0.9% 1000 ml Route: IV; Rate: 125 ml/hr; Site: right antecubital; kg 16:58 Follow up: Response: No adverse reaction; Marked relief of symptoms; IV Status: kg Completed infusion 14:00 Drug: morphine 2 mg Route: IVP; Site: right antecubital; kg 16:59 Follow up: Response: No adverse reaction; Marked relief of symptoms kg 14:00 Drug: Zofran (Ondansetron) 4 mg Route: IVP; Site: right antecubital; kg 16:58 Follow up: Response: No adverse reaction; Marked relief of symptoms kg 14:00 Drug: Decadron - Dexamethasone 6 mg Route: IVP; Site: right antecubital; kg 16:58 Follow up: Response: No adverse reaction; Marked relief of symptoms kg Outcome: 15:25 Discharge ordered by . [facility] 16:57 Discharged to home via wheelchair. kg 16:57 Condition: good 16:57 Discharge instructions given to patient, Instructed on discharge instructions, follow up and referral plans. Demonstrated understanding of instructions, Prescriptions given X 2. 16:59 Patient left the ED. kg Signatures: Dispatcher [employer] EDMS Rico Chino MD MD cha Martinez, Amelia as Lewis, Lynsay, RN RN ll1 Maya Dhaliwal RN RN kg
[2021-04-05 17:07] VITALS: TEMP 97.5
[2021-04-05 17:13] VITALS: BP 94/61; O2SAT 96
--- NOTE | 2021-04-06 08:45 | EKG ---
Test Date: 2021-04-05 Test Time: 14:12:19 [employer] Worker: ABHI MEASUREMENT RESULTS: Intervals: Rate: 55 [place]: 212 QRSD: 88 QT: 442 QTc: 422 [place]: P: 26 [place]: 212 QRS: -58 T: 23 INTERPRETIVE STATEMENTS: Sinus bradycardia with 1st degree AV block Left anterior fascicular block Voltage criteria for left ventricular hypertrophy Cannot rule out Septal infarct, age undetermined Abnormal ECG Compared to ECG 06/09/2019 10:07:23 First degree AV block now present Left anterior fascicular block now present Myocardial infarct finding now present Left-axis deviation no longer present Electronically Signed On 04-06-21 08:43:17 CDT by Chandu Aldridge
== END 2021-04-05 16:59 | disposition home or self-care (01) ==
LOC: ER 11:09
DX: M75.02 Adhesive capsulitis of left shoulder (principal); I10 Essential (primary) hypertension; F03.90 Unspecified dementia, unspecified severity, without behavioral disturbance, psychotic disturbance, mood disturbance, and anxiety
CPT/HCPCS: 93005; 85025; 80048; 36415; 83735; 85610; 80076; 84484; 83690; 83880; 71045; 73030; J1100; J2270; J7030; J2405; 96361; 96374; 96375; 99284

== ENCOUNTER 2022-09-25 19:34 | Inpatient (IN) | payer OTHER ==
--- OUTSIDE RECORDS SUMMARY | 2022-09-25 19:51 | XMS REPORT | Continuity of Care Document ---
:1940 Author Organization [facility] t Address [address] [place] [address] Care Team Providers Name Role Phone Amaury Clark MD Primary Care Physician [phone] Mariam Smyth Attending Clinician Unavailable Holly Anthony Attending Clinician Unavailable Kelly Garibay RN Attending Clinician Doctor Unassigned, [place] Attending Clinician Unavailable Sendy HENLEY, Blaine Harvey Attending Clinician Jacinto JOHNSON, Emil Attending Clinician Bo Reyes MD Attending Clinician Justin Marrufo MD Attending Clinician Yue Ramirez DO Attending Clinician Meri Alanis MD Attending Clinician Konstantin Penaloza DO Attending Clinician JOHANNA MONTAÑO Attending Clinician Unavailable Jacinto JOHNSON, Emil Admitting Clinician Meri Alanis MD Admitting Clinician RADHA HURT Admitting Clinician Unavailable Payers Payer Name Policy Type Policy Effective Date Expiration Date Sour ce Number MYRANDA RUBIO PLS [id number] 2019 HMO 00:00:00 [facility] [id number] 2016 00:00:00 MEDICARE PART A [id number] 2004 \\T\\ B 00:00:00 [employer] HMO [id number] 2019 00:00:00 [employer] MEDICARE C1 [id number] Common Sp devendra - [facility] MEDICARE C1 [id number] Common Sp devendra - [facility] MEDICARE C1 [id number] Common Sp devendra - [facility] MEDICARE C1 [id number] Common Sp devendra - [facility] MEDICARE C1 [id number] Common Sp devendra - [facility] Problems Condition Condition Condition Status Onset Resolution Last Treating Co mments Source Name Details Category Date Date Treatment Clinician Date Abscess, Abscess, Disease Active Unive rs gluteal, gluteal, 8-27 ity of left left 00:00: [address] Branch COVID-19 COVID-19 Disease Active Unive rs virus virus 8-27 ity of infection infection 00:00: [address] Hypoglycem Hypoglycem Disease Active U nivers ia ia 6-30 ity of 00:00: [address] Branch CKD CKD Disease Active Univers (chronic (chronic 6-27 ity of kidney kidney 00:00: [place] disease) disease) 00 Medica l stage 3, stage 3, Branch GFR 30-59 GFR 30-59 ml/min ml/min E. coli E. 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 00:00: Medical hemolytic hemolytic 00 Cent er anemia) anemia) Thrombocyt Thrombocyt Disease Active [facility] openia openia 4-14 [facility] KD (acute KD (acute Disease Active [facility] kidney kidney 14 [facility] injury) injury) 00:00: Medical 00 [place] Hypernatre Hypernatre Disease Active [facility] tutu tutu 14 [facility] 00:00: Medical 00 Center Dysphagia Dysphagia Disease Active [facility] 00[facility]: Medical 00 [place] Protein-ca Protein-ca Disease Active [facility] memo [place] 14 [facility] malnutriti malnutriti 00:00: Me dical on, on, 00 Center moderate moderate Leukocytos Leukocytos Disease Active [facility] is is 14 [facility] 00:00: Medical [place] Thrombocyt Thrombocyt Disease Active [facility] openia openia 14 [facility] 00:[facility] Center Encephalop Encephalop Disease Active C [facility] athy acute athy acute 01-14 Marci kes 00:00: Medical 00 [place] Hypertensi Hypertensi Disease Active [facility] ve crisis ve crisis 06 [facility] 00:00: Medical 00 Center Respirator Respirator Disease Active C [facility] y failure y failure 01-14 [facility] requiring requiring 00:00: Medi miryam intubation intubation 00 Ce nter PRES PRES Disease Active [facility] (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 kes reversible reversible 00:00: Me dical encephalop encephalop 00 Ce nter athy athy syndrome) syndrome) No known No known Disease Unive rs active active ity of problems problems [facility] Hemiplegia Hemiplegia Problem C ommon of of right Spirit dominant dominant - CHI side as side as St late late [facility] effect of effect of Medi miryam cerebrovas cerebral Cent er cular infarction disease , unspecifie d hemiplegia type Disorder 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 Medical complicati Center ons Iron Iron Problem Common deficiency deficiency Sp devendra anemia anemia, - CHI unspecifie [facility] [id number] Chronic Problem Commo n kidney Spirit disease, - CHI stage II St (mild) [facility] [id number] Primary Problem Common insomnia Spirit - 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 [id number] Iron Problem Common deficiency Spirit anemia - CHI secondary to [facility] inadequate Medica l dietary Center iron intake [id number] Weakness Problem Comm on of right Spirit lower - CHI extremity [facility] Essential Hypertensi Problem Co mmon hypertensi on, Spirit on unspecifie - CHI d type [facility] [id number] Diabetes Problem Commo n mellitus Spirit with - CHI multiple [facility] [id number] terminal carman Problem Com mon (current) Spirit use of - CHI insulin [facility] [id number] Weakness Problem Comm on of right Spirit side of - CHI body [facility] [id number] Unspecifie Problem Com mon d urinary Spirit incontinen - CHI ce [facility] [id number] Short-term Problem Co mmon memory Spirit loss - [facility] [id number] Full Problem Commo n [id number] incontinen Spirit ce of - CHI feces 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 [id number] Slow Problem Common transit Spirit constipati - CHI on [facility] Dementia Unspecifie Problem Com mon d dementia Spirit without - CHI behavioral [facility] Diabetes Other Problem Common mellitus specified Spiri t without diabetes - CHI complicati mellitus St on without [facility] complicati Medica l on, Center without long-term current use of insulin [id number] Primary Problem Comm on osteoarthr Spirit itis of - CHI right knee [facility] Allergies, Adverse Reactions, Alerts Allergy Allergy Status Severity Reaction(s) Onset Inactive Treating Comm ents Source Name Type Date Date Clinician NO KNOWN Allergy Active [facility] NO KNOWN Drug Active Univers ALLERGIE Class ity of [facility] Family History Family Member Diagnosis Comments Start Date Stop Date Source Natural father Cancer [facility] Natural mother Hypertension [facility] Natural brother Cancer [facility] Natural sister Cancer [facility] Natural sister Diabetes [facility] Natural sister Hypertension [facility] Social History Social Habit Start Date Stop Date Quantity Comments Source Exposure to Not sure University of SARS-CoV-2 [facility] (event) Branch History of Common Spirit - Tobacco Use [facility] Tobacco use and 2020-06-05 2020-06-05 Never used Universit y of exposure 00:00:00 00:00:00 [facility] Alcohol intake 2017-06-02 2017-06-02 Current [facility] 00:00:00 00:00:00 non-drinker of alcohol (finding) Sex Ass[birth year] At [birth year] [facility] 00:00:00 00:00:00 Smoking Status Start Date Stop Date Source Former Smoker 2022-07-31 00:00:00 2022-07-31 00:00:00 Common S pirit - [facility] Never Smoker [facility] Spirit [facility] Medications Ordered Filled Start Stop Current Ordering Indication Dosage Frequency Signature Comments Components Source Medication Medication Date Date Medication? Clinician (SIG) Name Name NovoLOG NovoLOG No NovoLOG FlexPen 100 FlexPen 100 3-09 FlexPen UNIT/ML UNIT/ML 00:00: 100 00 UNIT/ML NovoFine NovoFine No QD NovoFine Plus 32G X Plus 32G X 3-09 Plus 32G X 4 MM 4 MM 00:00: 4 MM 00 NovoLOG NovoLOG No NovoLOG FlexPen 100 FlexPen 100 3-09 FlexPen UNIT/ML UNIT/ML 00:00: 100 00 UNIT/ML NovoFine NovoFine No QD NovoFine Plus 32G X Plus 32G X 3-09 Plus 32G X 4 MM 4 MM 00:00: 4 MM 00 Docusate Docusate 2020- No 1{capsu Docusate Sodium 100 Sodium 100 12-30 le_as_n Sodium 100 MG MG 00:00: 00:00 eeded} MG 00 :00 pravastatin Yes 40mg Take 40 mg Univers (PRAVACHOL) 06-13 by mouth ity of 40 mg 23:14: at [place] tablet 04 bedtime. Medical Branch lisinopril 2020-0 Yes 40mg Take 40 mg U nivers (PRINIVIL,Z 9-03 by mouth ity of ESTRIL) 40 23:14: daily. [place] mg tablet 04 Medical Branch aspirin 81 2020-0 Yes 81mg Take 81 mg U nivers mg chewable 9-03 by mouth ity of tablet 23:14: daily. Medical Branch allopurinol 2020-0 Yes 300mg Take 300 U nivers (ZYLOPRIM) 9-03 mg by ity of 300 mg 23:14: mouth [place] tablet 04 daily. Medical Branch colchicine 2020-0 Yes .6mg Take 0.6 Uni vers (COLCRYS) 9-03 mg by ity of 0.6 mg 23:14: mouth [place] tablet 04 daily. Medical Branch donepezil 2020-0 Yes 10mg Take 10 mg Un [place] 10 mg -03 by mouth ity of tablet 23:14: at [place] [address] bedtime. Medical Branch mirtazapine 2020-0 Yes 30mg Take 30 mg Univers 30 mg 06-13 by mouth ity of tablet 23:14: at [place] [address] bedtime. Medical Branch traMADOL 50 2020-0 Yes 50mg Take 50 mg Univers mg tablet 06-13 by mouth ity of 23:14: every 6 [place] [address] (six) Medical hours as Branch needed. pravastatin 2020-0 Yes 40mg Take 40 mg Univers (PRAVACHOL) 06-13 by mouth ity of 40 mg 23:14: at [place] tablet 04 bedtime. Medical Branch lisinopril 2020-0 Yes 40mg Take 40 mg U nivers (PRINIVIL,Z 9-03 by mouth ity of ESTRIL) 40 23:14: daily. [place] mg tablet Medical Branch aspirin 81 2020-0 Yes 81mg Take 81 mg U nivers mg chewable -03 by mouth ity of tablet 23:14: daily. [place] Medical Branch allopurinol 2020-0 Yes 300mg Take 300 U nivers (ZYLOPRIM) 9-03 mg by ity of 300 mg 23:14: mouth [place] tablet 04 daily. Medical Branch colchicine 2020-0 Yes .6mg Take 0.6 Uni vers (COLCRYS) 9-03 mg by ity of 0.6 mg 23:14: mouth [place] tablet 04 daily. Medical Branch donepezil 2020-0 Yes 10mg Take 10 mg [place] 10 mg 9-03 by mouth ity of tablet 23:14: at [place] [address] bedtime. Medical Branch mirtazapine 2020-0 Yes 30mg Take 30 mg Univers 30 mg - by mouth ity of tablet 23:14: at [place] [address] bedtime. Medical Branch traMADOL 50 2020-0 Yes 50mg Take 50 mg Univers mg tablet - by mouth ity of 23:14: every 6 [place] [address] (six) Medical hours as Branch needed. pravastatin 2020-0 Yes 40mg Take 40 mg Univers (PRAVACHOL) 06-13 by mouth ity of 40 mg 23:14: at [place] tablet 04 bedtime. Medical Branch lisinopril 2020-0 Yes 40mg Take 40 mg U nivers (PRINIVIL,Z 06-13 by mouth ity of ESTRIL) 40 23:14: daily. [place] mg tablet 04 Medical Branch aspirin 81 2020-0 Yes 81mg Take 81 mg U nivers mg chewable 06-13 by mouth ity of tablet 23:14: daily. Medical Branch allopurinol 2020-0 Yes 300mg Take 300 U nivers (ZYLOPRIM) -03 mg by ity of 300 mg 23:14: mouth [place] tablet 04 daily. Medical Branch colchicine 2020-0 Yes .6mg Take 0.6 Uni vers (COLCRYS) 9-03 mg by ity of 0.6 mg 23:14: mouth [place] tablet 04 daily. Medical Branch donepezil 2020-0 Yes 10mg Take 10 mg Un [place] 10 mg 06-13 by mouth ity of tablet 23:14: at [place] [address] bedtime. Medical Branch mirtazapine 2020-0 Yes 30mg Take 30 mg Univers 30 mg 06-13 by mouth ity of tablet 23:14: at [place] [address] bedtime. Medical Branch traMADOL 50 2020-0 Yes 50mg Take 50 mg Univers mg tablet 06-13 by mouth ity of 23:14: every 6 [place] [address] (six) Medical hours as Branch needed. atenolol 2020-0 2020- No 25mg Take 25 mg Un [place] (TENORMIN) 06-13 by mouth ity of 25 mg 18:53: 00:00 daily. [place] tablet 45 :00 Medical Branch hydroCHLORO 2020-0 2020- No 25mg Take 25 mg Univers thiazide 06-13 by mouth 3 ity of (ESIDRIX) 18:53: 00:00 (three) [place] 25 mg 45 :00 times Medical tablet daily. Branch cloniDINE 2019- 2020- No 1{patch Apply 1 U nivers 0.1 mg/24 06-13 } Patch to ity o f hr patch 18:53: 00:00 skin [place] 45 :00 weekly. Medical Branch magnesium 2019-2019- No 2g 2 g, IV Univ ers sulfate in 06-13 Piggyback, it y of water 2 10:03: 13:45 ONCE, 1 [place] gram/50 mL 00 :00 dose, [place]ita Medi miryam (4 %) 06/13/20 at [place] infusion 2 0515, g Routine potassium 2019- 2020- No 20meq 20 mEq, IV Univers chloride 20 06-13 Piggyback, i ty of mEq/100 mL 10:03: 12:45 ONCE, 1 [place] as (KCL) 20 00 :00 dose, [place]ita Medica l mEq/100 mL 06/13/20 at [facility] RTU IVPB 20 0515, 100 mEq mL clindamycin 2020-0 Yes [id number] 300mg Take 1 Univers 300 mg 9-03 capsule by ity of capsule 00:00: mouth 4 [place] 00 (four) Medical times [place] daily. clindamycin 2020-0 Yes [id number] 300mg Take 1 Univers 300 mg 9-03 capsule by ity of capsule 00:00: mouth 4 [place] 00 (four) Medical times [place] daily. clindamycin 2020-0 Yes [id number] 300mg Take 1 Univers 300 mg 9-03 capsule by ity of capsule 00:00: mouth 4 [place] 00 (four) Medical times [place] daily. clindamycin 2020-0 Yes 300mg 300 mg, Un [place] (CLEOCIN 06-11 Oral, Q6H, ity o f HCL) 23:00: First dose [place] capsule 300 00 on Tue Medica l mg 06/11/20 at [place] 1800, Until Discontinu ed, JEFFREY
Re ason for Anti-Infec tive: Documented Infection< br>Documen silvino Infection Site: Wound
D uration of Therapy: 10 days
Re stricted use approved by: MIKAYLA NUNES, ARTUR ID lactobacill 2019-0 Yes 1{tbl} 1 tablet, Univers us 06-11 Oral, BID, ity of acidophilus 17:30: First dose [place] (ACIDOPHILL 00 on Tue Medica l US) 25 06/11/20 at Branch million 1230, cell -100 Until mg captab 1 Discontinu tablet ed, Routine KCL 2020-0 2020- No 40meq 40 mEq, Univers (KLOR-CON 06-10 Oral, ity of M20) tablet 12:00: 12:00 DAILY, 1 [place] 40 mEq 00 :00 dose, Medical First dose Branch on 06/10/20 at 0700, Routine carvediloL 2020-0 Yes 6.25mg 6.25 mg, U nivers (COREG) 06-09 Oral, BID ity of tablet 6.25 05:45: MEALS, [place] mg 00 First dose Medical on Sun Branch 06/09/20 at 0045, Until Discontinu ed, Routine D5W 0.45% 2020-0 2020- No 1000mL at 50 Univ ers NaCl 06-09 09-02 mL/hr, ity of (1/2NS) IV 00:30: 18:55 1,000 mL, [place] infusion 00 :14 IV Medical 1,000 mL Infusion, Branch CONTINUOUS , Starting 06/08/20 at 1930, Until 06/12/20 at 1355, Routine magnesium 2020-0 2020- No 2g 2 g, IV Univ ers sulfate in 06-08 Piggyback, it y of water 2 15:45: 15:38 ONCE, 1 [place] gram/50 mL 00 :00 dose, Sat Medi miryam (4 %) 06/08/20 at Branch infusion 2 1045, g Routine levothyroxi 2020-0 Yes 25ug 25 mcg, Uni vers ne 06-08 Oral, ity of (SYNTHROID) 11:00: QAM-0600, [place] tablet 25 00 First dose Medi miryam mcg on Sat Branch 06/08/20 at 0600, Until Discontinu ed, Routine mirtazapine 2020-0 Yes 30mg 30 mg, Univ ers (REMERON) 06-08 Oral, QHS, ity of tablet 30 02:00: First dose [place] mg 00 on Fri Medical 06/07/20 at Branch 2100, Until Discontinu ed, Routine donepeziL 2020-0 Yes 10mg 10 mg, Univer s (ARICEPT) 06-08 Oral, QHS, ity of tablet 10 02:00: First dose [place] mg 00 on Wed Medical 06/07/20 at Branch 2100, Until Discontinu ed, Routine atorvastati 2020-0 Yes 10mg 10 mg, Univ ers n (LIPITOR) 06-08 Oral, QHS, it y of tablet 10 02:00: First dose [place] mg 00 on Wed [facility] 06/07/20 at Branch 2100, Until Discontinu ed, Routine magnesium 2020-0 2020- No 2g 2 g, IV Univ ers sulfate in 06-07 Piggyback, it y of water 2 15:45: 18:31 ONCE, 1 [place] gram/50 mL 00 :00 dose, Fri Medi miryam (4 %) 06/07/20 at [place] infusion 2 1045, g Routine KCL 2020-0 2020- No 40meq 40 mEq, Univers (KLOR-CON 06-07 Oral, BID, ity of M20) tablet 14:45: 01:36 2 doses, [place] 40 mEq 00 :00 First dose Medical on Wed [place] 06/07/20 at 0945, Last dose on Wed06/07/20 at 2000, Routine colchicine 2020-0 Yes .6mg 0.6 mg, Univ ers (COLCRYS) 06-07 Oral, ity of tablet 0.6 14:00: DAILY, [place] mg 00 First dose Medical on [facility] 06/07/20 at 0900, Until Discontinu ed, Routine aspirin 2020-0 Yes 81mg 81 mg, Univers chewable 06-07 Oral, ity of tablet 81 14:00: DAILY, [place] mg 00 First dose Medical on [facility] 06/07/20 at 0900, Until Discontinu ed, Routine allopurinoL 2020-0 Yes 300mg 300 mg, Un da[place] (ZYLOPRIM) 06-07 Oral, ity of tablet 300 14:00: DAILY, [place] mg 00 First dose Medical on [facility] 06/07/20 at 0900, Until Discontinu ed, Routine NaCl 0.9% 2020-0 Yes 10mL 10 mL, Univer s (NS) 06-07 Slow IV ity of injection 13:44: Push, PRN, [place] 10 mL 01 Starting Medical [facility] 8/28/20 at 0844, Until Discontinu ed, Routine, line maintenanc e lidocaine 2019-0 Yes 5mL 5 mL, Univers 1% (PF) 06-07 Subcutaneo ity of (XYLOCAINE) 13:44: us, PRN, [place] injection 5 01 Starting Medi miryam mL [facility] Branch 06/07/20 at 0844, Until Discontinu ed, Routine, Local anesthesia hydralAZINE 2019- Yes 10mg 10 mg, Univ ers (APRESOLINE 06-07 Intravenou it y of ) injection 06:11: s, Q6HPRN, [place] 10 mg 10 Starting Medical [facility] Branch 06/07/20 at 0111, Until Discontinu ed, Routine, Hypertensi on, SBP>180 metroNIDAZO 2019-0 2020- No 500mg 500 mg, IV Univers LE in NaCl 06-07 Infusion, ity of (iso-os) 00:30: 17:11 Q8H ABX, [place] (FLAGYL 00 :06 First dose Medica l I.V.) RTU on [facility] IV infusion 06/06/20 at 500 mg 1930, Until Discontinu ed, 100 mL
Reas on for Anti-Infec tive: Empiric Therapy for Suspected Infection< br>Empiric Therapy Site: Wound
D uration of therapy: 7 days ceFEPIme 2019- 2020- No 1000mg 1,000 mg, U nivers (MAXIPIME) 06-07 IV ity of 1,000 mg in 00:30: 17:11 [place], [place] NaCl 0.9% 00 :06 Q12H ABX, Medic al (NS) 50 mL First dose Bra nch MINI-BAG on Juanita 06/06/20 at 1930, Until Discontinu ed, 50 mL
R vineet for Anti-Infec tive: Empiric Therapy for Suspected Infection< br>Empiric Therapy Site: Wound
D uration of therapy: 7 days enoxaparin 2019-0 Yes 30mg 30 mg, Unive rs (LOVENOX) 06-06 Subcutaneo ity of injection 14:00: us, DAILY, [place] 30 mg 00 First dose Medical on [facility] Branch 06/06/20 at 0900, Until Discontinu ed, Routine haloperidol 2020-0 2020- No 5mg 5 mg, Univ ers lactate 06-06 Intramuscu ity o f (HALDOL) 08:15: 08:15 lar, ONCE, [place] injection 5 00 :00 1 dose, Medic al mg [facility] Branch 06/06/20 at 0315, Routine vancomycin 2019- No 1000mg 1,000 mg, Univers (VANCOCIN) 06-06 IV ity of 1,000 mg in 05:30: 17:13 [place], [place] NaCl 0.9% 00 :31 Q12H ABX, Medic al (NS) 250 mL First dose Br anch VIAL-MATE on Juanita IV 06/06/20 at piggyback 0030, Until Discontinu ed, 250 mL
Reas on for Anti-Infec tive: Empiric Therapy for Suspected Infection< br>Empiric Therapy Site: Skin / Soft tissue
Duration of therapy: 7 days ondansetron Yes 4mg 4 mg, Slow Univers (ZOFRAN 06-06 IV Push, ity of (PF)) 05:16: Q6HPRN, [place] injection 4 05 Starting Medi miryam mg [facility] Branch 06/06/20 at 0016, Until Discontinu ed, Routine, Nausea and Vomiting (N/V) morpHINE Yes 2mg 2 mg, Slow Uni vers injection 2 06-06 IV Push, ity of mg 05:05: Q6HPRN, [place] 31 Starting Medical [place]ita Branch 06/06/20 at 0005, Until Discontinu ed, Routine, Pain (scale 7-10) piperacilli 2019- No 3.375g 3.375 g, Univers n-tazobacta 06-06 IV ity of m (ZOSYN) 04:59: 23:30 [place], [place] 3.375 g in 08 :31 Q6H ABX, Medic al NaCl 0.9% First dose Bran ch (NS) 100 mL on Juanita MINI-BAG 06/06/20 at 0000, Until Discontinu ed, 100 mL
R vineet for Anti-Infec tive: Empiric Therapy for Suspected Infection< br>Empiric Therapy Site: Skin / Soft tissue
Duration of therapy: 7 days ketorolac 2019-0 2020- No 15mg 15 mg, Unive rs (TORADOL) 06-05 Slow IV ity of injection 21:45: 20:45 Push, [place] 15 mg 00 :00 ONCE, 1 Medical dose, [facility] Branch 06/05/20 at 1645, Routine
member of technical staff approving Restricted medication : SENDY BLAINE [place] iohexol 2020- No 150mL 150 mL, Unive rs (OMNIPAQUE 06-05 Intravenou it y of 350 21:15: 21:15 s, ONCE, 1 [place] BULK-150 00 :00 dose, [facility] Medica l mL) 06/05/20 at Branch injection 1615, 150 mL Routine clindamycin 2019- No 600mg 600 mg, IV Univers in 5 % 06-05 Piggyback, ity of dextrose 20:30: 20:15 ONCE, 1 [place] (CLEOCIN) 00 :00 dose, [facility] Medic al 600 mg/50 06/05/20 at Bran ch mL IV 1530, 50 piggyback mL
Reas RTU 600 mg on for Anti-Infec tive: Documented Infection< br>Documen silvino Infection Site: Skin / Soft Tissue
Duration of Therapy: 7 days
Re stricted use approved by: ADC PROVIDER cloniDINE 2019-0 Yes 1{patch Apply 1 [place] 0.1 mg/24 04-10 } Patch to ity of hr patch 19:10: skin [place] 49 weekly. Medical Branch atenolol 2019-0 Yes 25mg Take 25 mg Uni vers (TENORMIN) 04-10 by mouth ity o f 25 mg 19:10: daily. [place] tablet 49 Medical Branch pravastatin 2019-0 Yes 40mg Take 40 mg Univers (PRAVACHOL) 7 by mouth ity of 40 mg 19:10: at [place] tablet 49 bedtime. Medical Branch lisinopril 2019-0 Yes 40mg Take 40 mg U nivers (PRINIVIL,Z 7- by mouth ity of ESTRIL) 40 19:10: daily. [place] mg tablet 49 Medical Branch hydroCHLORO 2020-0 Yes 25mg Take 25 mg Univers thiazide 7-01 by mouth 3 ity o f (ESIDRIX) 19:10: (three) [place] 25 mg 49 times Medical tablet daily. Branch aspirin 81 2019-0 Yes 81mg Take 81 mg U nivers mg chewable 7-01 by mouth ity of tablet 19:10: daily. [place] [address] Medical Branch allopurinol 2020-0 Yes 300mg Take 300 U nivers (ZYLOPRIM) 7-01 mg by ity of 300 mg 19:10: mouth [place] tablet 49 daily. Medical Branch colchicine 2020-0 Yes .6mg Take 0.6 Uni vers (COLCRYS) 7-01 mg by ity of 0.6 mg 19:10: mouth [place] tablet 49 daily. Medical Branch donepezil 2020-0 Yes 10mg Take 10 mg [place] 10 mg 7-01 by mouth ity of tablet 19:10: at [place] bedtime. Medical Branch mirtazapine 2020-0 Yes 30mg Take 30 mg Univers 30 mg 7-01 by mouth ity of tablet 19:10: at [place] bedtime. Medical Branch traMADOL 50 2020-0 Yes 50mg Take 50 mg Univers mg tablet 7 by mouth ity of 19:10: every 6 [place] (six) Medical hours as Branch needed. cloniDINE 2020-0 Yes 1{patch Apply 1 [place] 0.1 mg/24 7- } Patch to ity of hr patch 19:10: skin [place] 49 weekly. Medical Branch atenolol 2019-0 Yes 25mg Take 25 mg Uni vers (TENORMIN) 7- by mouth ity o f 25 mg 19:10: daily. [place] tablet 49 Medical Branch pravastatin 2019-0 Yes 40mg Take 40 mg Univers (PRAVACHOL) 7- by mouth ity of 40 mg 19:10: at [place] tablet 49 bedtime. Medical Branch lisinopril 2020-0 Yes 40mg Take 40 mg U nivers (PRINIVIL,Z 7-01 by mouth ity of ESTRIL) 40 19:10: daily. [place] mg tablet 49 Medical Branch hydroCHLORO 2020-0 Yes 25mg Take 25 mg Univers thiazide 7-01 by mouth 3 ity o f (ESIDRIX) 19:10: (three) [place] 25 mg 49 times Medical tablet daily. Branch aspirin 81 2019-0 Yes 81mg Take 81 mg U nivers mg chewable 7-01 by mouth ity of tablet 19:10: daily. [place] [address] Medical Branch allopurinol 2019-0 Yes 300mg Take 300 U nivers (ZYLOPRIM) 7- mg by ity of 300 mg 19:10: mouth [place] tablet 49 daily. Medical Branch colchicine 2020-0 Yes .6mg Take 0.6 Uni vers (COLCRYS) 7- mg by ity of 0.6 mg 19:10: mouth [place] tablet 49 daily. Medical Branch donepezil 2020-0 Yes 10mg Take 10 mg [place] 10 mg 04-10 by mouth ity of tablet 19:10: at [place] [address] bedtime. Medical Branch mirtazapine 2020-0 Yes 30mg Take 30 mg Univers 30 mg 04-10 by mouth ity of tablet 19:10: at [place] [address] bedtime. Medical Branch traMADOL 50 2020-0 Yes 50mg Take 50 mg Univers mg tablet 04-10 by mouth ity of 19:10: every 6 [place] [address] (six) Medical hours as Branch needed. hydralAZINE 2020-0 Yes 10mg 10 mg, Univ ers (APRESOLINE 04-10 Intravenou it y of ) injection 18:26: s, PRN - [place] 10 mg 52 SEE Medical INSTRUCTIO Branch NS, Starting Wed04/10/20 at 1326, Until Discontinu ed, Routine, Hypertensi ve emergency, Hypertensi on, Q4h for SBP>160 or DBP>100 levothyroxi 2020-0 Yes 25ug 25 mcg, Uni vers ne 04-10 Oral, ity of (SYNTHROID) 11:00: QAM-0600, [place] tablet 25 00 First dose Medi miryam mcg on Wed [place] 04/10/20 at 0600, Until Discontinu ed, Routine mirtazapine 2020-0 Yes 30mg 30 mg, Univ ers (REMERON) 04-10 Oral, QHS, ity of tablet 30 02:00: First dose [place] mg 00 on [facility] 04/09/20 at Branch 2100, Until Discontinu ed, Routine donepezil 2020-0 Yes 10mg 10 mg, Univer s (ARICEPT) 04-10 Oral, QHS, ity of tablet 10 02:00: First dose [place] mg 00 on [facility] 04/09/20 at Branch 2100, Until Discontinu ed, Routine atorvastati 2020-0 Yes 10mg 10 mg, Univ ers n (LIPITOR) 04-10 Oral, QHS, it y of tablet 10 02:00: First dose [place] mg 00 on [facility] 04/09/20 at Branch 2100, Until Discontinu ed, Routine cloniDINE 2020-0 Yes 1{patch 1 Patch, U nivers (CATAPRES-T 630 } Transderma it y of TS 1) 0.1 14:00: l (Apply [place] mg/24 hr 00 To Skin), Medica l patch 1 Administer Branch Patch over 7 Days, QWEEKLY, First dose on 04/09/20 at 0900, Until Discontinu ed, Routine aspirin 2020-0 Yes 81mg 81 mg, Univers chewable 6-30 Oral, ity of tablet 81 14:00: DAILY, [place] mg 00 First dose Medical on [facility] 04/09/20 at 0900, Until Discontinu ed, Routine amLODIPine 2020-0 Yes 10mg 10 mg, Unive rs (NORVASC) 6-30 Oral, ity of tablet 10 14:00: DAILY, [place] mg 00 First dose Medical on [facility] 04/09/20 at 0900, Until Discontinu ed, Routine carvediloL 2020-0 Yes 6.25mg 6.25 mg, U nivers (COREG) 6-30 Oral, BID ity of tablet 6.25 13:00: MEALS, [place] mg 00 First dose Medical on [facility] 04/09/20 at 0800, Until Discontinu ed, Routine acetaminoph 2020-0 Yes 650mg 650 mg, Un [place] en 630 Oral, ity of (TYLENOL) 11:17: Q6HPRN, [place] tablet 650 06 Starting Medic al mg [facility] 04/09/20 at 0617, Until Discontinu ed, Routine, Pain (scale 1-3) D5W 0.9% 2020-0 2020- No 1000mL at 125 Univ ers NaCl (NS) 6-30 07-01 mL/hr, ity of IV infusion 07:45: 15:54 1,000 mL, [place] 1,000 mL 00 :41 IV Medical Infusion, Branch CONTINUOUS , Starting Wed04/09/20 at 0245, Until Wed04/10/20 at 1054, JEFFREY D5W 0.45% 2020-0 Yes 500mL at 100 Unive rs NaCl 6-29 mL/hr, 500 ity of (1/2NS) IV 04:15: mL, IV [place] infusion 00 Infusion, Medica l 500 mL CONTINUOUS Branch , Starting 04/07/20 at 2315, Until Discontinu ed, JEFFREY dextrose 50 2020-0 2020- No 50mL 50 mL, Uni vers % in water 04-08 Intravenou it y of (D50W) 04:15: 03:17 s, ONCE, 1 [place] injection 00 :00 dose, Sun Medic al 50 mL 04/07/20 at Branch 2315, STAT aspirin 81 2020-0 Yes 81mg Take 81 mg U nivers mg chewable - by mouth ity of tablet 03:11: daily. [place] 03 Medical Branch allopurinol 2020-0 Yes 300mg Take 300 U nivers (ZYLOPRIM) 6-29 mg by ity of 300 mg 03:11: mouth [place] tablet 03 daily. Medical Branch donepezil 2020-0 Yes 10mg Take 10 mg [place] 10 mg -29 by mouth ity of tablet 03:11: at [place] 03 bedtime. Medical Branch traMADOL 50 2020-0 Yes 50mg Take 50 mg Univers mg tablet - by mouth ity of 03:11: every 6 [place] [id number] (six) Medical hours as Branch needed. cloniDINE 2020-0 Yes 1{patch Apply 1 [place] 0.1 mg/24 04-08 } Patch to ity of hr patch 03:11: skin [place] [id number] weekly. Medical Branch ROLATOR ROLATOR 2020-0 Yes [place] n/s Common WALKER WALKER 2-12 [place] [facility] 00:00: - [facility] 00 [facility] ROLATOR ROLATOR 2020-0 No ROLATOR WALKER with WALKER with 2-12 WALKER Seat Seat 00:00: with Seat 00 ROLATOR ROLATOR 2020-0 No ROLATOR WALKER with WALKER with 2-12 WALKER Seat Seat 00:00: with Seat 00 ROLATOR ROLATOR 2020-0 No ROLATOR WALKER with WALKER with 2-12 WALKER Seat Seat 00:00: with Seat 00 ROLATOR ROLATOR 2020-0 No WALKER with WALKER with 2-12 Seat Seat 00:00: 00 ROLATOR ROLATOR 2020-0 No ROLATOR WALKER with WALKER with 2-12 WALKER Seat Seat 00:00: with Seat 00 ROLATOR ROLATOR 2020-0 No ROLATOR WALKER with WALKER with 2-12 WALKER Seat Seat 00:00: with Seat 00 ROLATOR ROLATOR 2020-0 No ROLATOR WALKER with WALKER with 2-12 WALKER Seat Seat 00:00: with Seat 00 ROLATOR ROLATOR 2020-0 No ROLATOR WALKER with WALKER with 2-12 WALKER Seat Seat 00:00: with Seat 00 ROLATOR ROLATOR 2020-0 No ROLATOR WALKER with WALKER with 2-12 WALKER Seat Seat 00:00: with Seat 00 ROLATOR ROLATOR 2020-0 No ROLATOR WALKER with WALKER with 2-12 WALKER Seat Seat 00:00: with Seat 00 ROLATOR ROLATOR 2020-0 No ROLATOR WALKER with WALKER with 2-12 WALKER Seat Seat 00:00: with Seat 00 hydroCHLORO 2019 Yes 25mg Take 25 mg Univers thiazide 3-20 by mouth 3 ity o f (ESIDRIX) 18:15: (three) [place] 25 mg 46 times Medical tablet daily. Branch hydroCHLORO Yes 25mg Take 25 mg Univers thiazide 3-20 by mouth 3 ity o f (ESIDRIX) 18:15: (three) [place] 25 mg 46 times Medical tablet daily. Branch carvedilol Yes [id number] 6.25mg Take 1 Univers 6.25 mg 3-20 tablet by ity of tablet 00:00: mouth 2 [place] 00 (two) Medical times Branch daily with meals. amLODIPine Yes [id number] 10mg Take 1 U nivers 10 mg 3-20 tablet by ity of tablet 00:00: mouth [place] 00 daily. Medical Branch hydralAZINE Yes [id number] 25mg Take 1 Univers 25 mg 3-20 tablet by ity of tablet 00:00: mouth [place] 00 every 8 Medical (eight) Branch hours. carvedilol Yes [id number] 6.25mg Take 1 Univers 6.25 mg 3-20 tablet by ity of tablet 00:00: mouth 2 [place] 00 (two) Medical times Branch daily with meals. carvedilol Yes [id number] 6.25mg Take 1 Univers 6.25 mg 3-20 tablet by ity of tablet 00:00: mouth 2 [place] 00 (two) Medical times Branch daily with meals. amLODIPine Yes [id number] 10mg Take 1 U nivers 10 mg 3-20 tablet by ity of tablet 00:00: mouth [place] 00 daily. Medical Branch hydralAZINE Yes [id number] 25mg Take 1 Univers 25 mg 3-20 tablet by ity of tablet 00:00: mouth [place] 00 every 8 Medical (eight) Branch hours. amLODIPine Yes [id number] 10mg Take 1 U nivers 10 mg 3-20 tablet by ity of tablet 00:00: mouth [place] 00 daily. Medical Branch glimepiride 2018- Yes [id number] 4mg Take 1 Univers 4 mg tablet 3-20 tablet by ity of 00:00: mouth [place] 00 daily with Medical breakfast. Branch hydralAZINE Yes [id number] 25mg Take 1 Univers 25 mg 3-20 tablet by ity of tablet 00:00: mouth [place] 00 every 8 Medical (eight) Branch hours. carvedilol Yes [id number] 6.25mg Take 1 Univers 6.25 mg 3-20 tablet by ity of tablet 00:00: mouth 2 00 (two) Medical times Branch daily with meals. carvedilol Yes [id number] 6.25mg Take 1 Univers 6.25 mg 3-20 tablet by ity of tablet 00:00: mouth 2 (two) Medical times Branch daily with meals. carvedilol Yes [id number] 6.25mg Take 1 Univers 6.25 mg 3-20 tablet by ity of tablet 00:00: mouth 2 (two) Medical times Branch daily with meals. carvedilol Yes [id number] 6.25mg Take 1 Univers 6.25 mg 3-20 tablet by ity of tablet 00:00: mouth 2 00 (two) Medical times Branch daily with meals. amLODIPine Yes [id number] 10mg Take 1 U nivers 10 mg 3-20 tablet by ity of tablet 00:00: mouth [place] 00 daily. Medical Branch glimepiride 2018- Yes [id number] 4mg Take 1 Univers 4 mg tablet 3-20 tablet by ity of 00:00: mouth [place] 00 daily with Medical breakfast. Branch hydralAZINE Yes [id number] 25mg Take 1 Univers 25 mg 3-20 tablet by ity of tablet 00:00: mouth [place] 00 every 8 Medical (eight) Branch hours. amLODIPine 2020- No [id number] 10mg Take 1 Univers 10 mg 3-20 09-03 tablet by ity of tablet 00:00: 00:00 mouth [place] 00 :00 daily. Medical Branch hydralAZINE 2020- No [id number] 25mg Take 1 Univers 25 mg 3-20 - tablet by ity of tablet 00:00: 00:00 mouth [place] 00 :00 every 8 Medical (eight) Branch hours. glimepiride 2020- No [id number] 4mg Take 1 Univers 4 mg tablet 12-28 tablet by it y of 00:00: 00:00 mouth [place] 00 :00 daily with Medical breakfast. Branch lisinopril Yes 40mg Take 40 mg U nivers (PRINIVIL,Z 3-13 by mouth ity of ESTRIL) 40 19:52: daily. [place] mg tablet 43 Medical Branch lisinopril Yes 40mg Take 40 mg U nivers (PRINIVIL,Z 3-13 by mouth ity of ESTRIL) 40 19:52: daily. [place] mg tablet 43 Medical Branch levothyroxi Yes [id number] 25ug Take 1 Univers ne 2-07 tablet by ity of (SYNTHROID) 00:00: mouth [place] 25 mcg 00 every Medical tablet morning. Branch levothyroxi Yes [id number] 25ug Take 1 Univers ne 2-07 tablet by ity of (SYNTHROID) 00:00: mouth [place] 25 mcg 00 every Medical tablet morning. Branch levothyroxi Yes [id number] 25ug Take 1 Univers ne 2-07 tablet by ity of (SYNTHROID) 00:00: mouth [place] 25 mcg 00 every Medical tablet morning. Branch levothyroxi 2018- Yes [id number] 25ug Take 1 Univers ne 2-07 tablet by ity of (SYNTHROID) 00:00: mouth [place] 25 mcg 00 every Medical tablet morning. Branch levothyroxi 2018- Yes [id number] 25ug Take 1 Univers ne 2-07 tablet by ity of (SYNTHROID) 00:00: mouth [place] 25 mcg 00 every Medical tablet morning. Branch levothyroxi Yes [id number] 25ug Take 1 Univers ne 2-07 tablet by ity of (SYNTHROID) 00:00: mouth [place] 25 mcg 00 every Medical tablet morning. Branch levothyroxi 2018- Yes [id number] 25ug Take 1 Univers ne 2-07 tablet by ity of (SYNTHROID) 00:00: mouth [place] 25 mcg 00 every Medical tablet morning. Branch atorvastati 2017-10 Yes 10mg Take 1 Univ ers n 10 mg 1-15 tablet by ity of tablet 00:00: mouth at [place] 00 bedtime. Medical Branch atorvastati 2017-10 Yes 10mg Take 1 Univ ers n 10 mg 1-15 tablet by ity of tablet 00:00: mouth at [place] 00 bedtime. Medical Branch atorvastati 2017-10 Yes 10mg Take 1 Univ ers n 10 mg 1-15 tablet by ity of tablet 00:00: mouth at [place] 00 bedtime. Medical Branch atorvastati 2017-10 Yes 10mg Take 1 Univ ers n 10 mg 1-15 tablet by ity of tablet 00:00: mouth at [place] 00 bedtime. Medical Branch atorvastati 2017-10 Yes 10mg Take 1 Univ ers n 10 mg 1-15 tablet by ity of tablet 00:00: mouth at [place] 00 bedtime. Medical Branch atorvastati 2017-10 Yes 10mg Take 1 Univ ers n 10 mg 1-15 tablet by ity of tablet 00:00: mouth at [place] 00 bedtime. Medical Branch atorvastati 2017-10 Yes 10mg Take 1 Univ ers n 10 mg 1-15 tablet by ity of tablet 00:00: mouth at [place] 00 bedtime. Medical Branch aspirin 81 2016-10 Yes 81mg Take 81 mg U nivers mg chewable 1-29 by mouth ity of tablet 15:21: daily. [place] 59 Medical Branch allopurinol 2016-10 Yes 300mg Take 300 U nivers (ZYLOPRIM) 1-29 mg by ity of 300 mg 15:21: mouth [place] tablet 59 daily. Medical Branch colchicine 2016-10 Yes .6mg Take 0.6 Uni vers (COLCRYS) 1-29 mg by ity of 0.6 mg 15:21: mouth [place] tablet 59 daily. Medical Branch donepezil 2016-10 Yes 10mg Take 10 mg [place] 10 mg 1-29 by mouth ity of tablet 15:21: at [place] 59 bedtime. Medical Branch mirtazapine 2016-10 Yes 30mg Take 30 mg Univers 30 mg 1-29 by mouth ity of tablet 15:21: at [place] 59 bedtime. Medical Branch traMADOL 50 2016-10 Yes 50mg Take 50 mg Univers mg tablet 29 by mouth ity of 15:21: every 6 [place] 59 (six) Medical hours as Branch needed. atenolol 2016-10 Yes 25mg Take 25 mg Uni vers (TENORMIN) 1-29 by mouth ity o f 25 mg 15:21: daily. [place] tablet 59 Medical Branch pravastatin 2016-10 Yes 40mg Take 40 mg Univers (PRAVACHOL) 29 by mouth ity of 40 mg 15:21: at [place] tablet 59 bedtime. Medical Branch colchicine 2016-10 Yes .6mg Take 0.6 Uni vers (COLCRYS) 1-29 mg by ity of 0.6 mg 15:21: mouth [place] tablet 59 daily. Medical Branch mirtazapine 2016-10 Yes 30mg Take 30 mg Univers 30 mg -29 by mouth ity of tablet 15:21: at [place] 59 bedtime. Medical Branch atenolol 2016-10 Yes 25mg Take 25 mg Uni vers (TENORMIN) 11-08 by mouth ity o f 25 mg 15:21: daily. [place] tablet 59 Medical Branch pravastatin 2016-10 Yes 40mg Take 40 mg Univers (PRAVACHOL) 11-08 by mouth ity of 40 mg 15:21: at [place] tablet 59 bedtime. Medical Branch colchicine Yes [facility] tablet [facility] 00 l colchicine Yes [facility] tablet 00:00: Hospita 00 l hydrALAZINE Yes [facility] (APRESOLINE 7-05 st ) 25 MG 00:00: Hospita tablet 00 l hydrALAZINE Yes [facility] (APRESOLINE 7-[facility] ) 25 MG 00:00: Hospita tablet 00 l allopurinol Yes [facility] (ZYLOPRIM) 6-27 st 100 MG 00:00: Hospita tablet 00 l allopurinol Yes [facility] (ZYLOPRIM) 6-27 st 100 MG 00:00: Hospita tablet 00 l carvedilol Yes [facility] (COREG) 6-14 st 6.25 MG 00:00: Hospita tablet 00 l donepezil Yes [facility] (ARICEPT) 6-14 [facility] 10 MG 00:00: Hospita tablet 00 l amLODIPine Yes [facility] (NORVASC) 6-14 [facility] 10 mg 00:00: Hospita tablet 00 l donepezil Yes [facility] (ARICEPT) [facility]-14 [facility] 10 MG 00:00: Hospita tablet 00 l amLODIPine 2017 Yes [facility] (NORVASC) [facility]-14 [facility] 10 mg 00:00: Hospita tablet 00 l carvedilol Yes [facility] (COREG) 6-14 [facility] 6.25 MG 00:00: Hospita tablet 00 l ciclopirox Yes [facility] (PENLAC) 8 6-12 st % solution 00:00: Hospita 00 l ciclopirox Yes [facility] (PENLAC) 8 6-12 st % solution 00:00: Hospita 00 l ammonium Yes [facility] lactate [facility] (LAC-HYDRIN 00:00: Hospit a ) 12 % 00 l lotion ammonium Yes [facility] lactate [facility] (LAC-HYDRIN 00:00: Hospit a ) 12 % 00 l lotion glimepiride Yes [facility] (AMARYL) 4 5-22 st MG tablet 00:00: Hospita 00 l glimepiride 0 Yes [facility] (AMARYL) 4 5-22 [facility] MG tablet 00:00: Hospita 00 l carvedilol Yes [facility] (COREG) 25 5-13 [facility] MG tablet 00:00: Hospita 00 l carvedilol 2017- Yes [facility] (COREG) 25 [facility] MG tablet 00:00: Hospita 00 l donepezil Yes 10mg QD Take [address] (ARICEPT) 4-20 by mouth [facility] 10 MG 12:03: nightly. Medical tablet 24 Center traMADol Yes 50mg Take [address] [facility] (ULTRAM) 50 4-20 by mouth [facility] mg tablet 12:03: every 6 Medic al 24 (six) Center hours as needed for Pain. glimepiride Yes 4mg Take [address] (AMARYL) 4 4-20 by mouth [facility] tablet 12:03: every Medical 24 morning Center before breakfast. mirtazapine Yes 30mg QD Take [address] (REMERON) 4-20 by mouth [facility] 30 MG 12:03: nightly. Medical tablet 24 [place] aspirin 81 Yes 81mg QD Take [address] MG EC 4-20 by mouth [facility] tablet 12:03: daily. [address] donepezil Yes 10mg QD Take [address] (ARICEPT) 4-20 by mouth [facility] 10 MG 12:03: nightly. Medical tablet 24 [place] traMADol Yes 50mg Take [address] (ULTRAM) 50 4-20 by mouth [facility] mg tablet 12:03: every 6 Medic al 24 (six) Center hours as needed for Pain. glimepiride Yes 4mg Take [address] (AMARYL) 4 4-20 by mouth [facility] MG tablet 12:03: every Medical 24 morning Center before breakfast. mirtazapine Yes 30mg QD Take [address] (REMERON) 4-20 by mouth [facility] 30 MG 12:03: nightly. Medical tablet 24 [place] aspirin 81 Yes 81mg QD Take [address] MG EC 4-20 by mouth [facility] tablet 12:03: daily. [address] heparin Yes 5000U Inject 1 [facility] injection 4-19 mL (5,000 [facility] 5,000 00:00: Units Medical units/mL 00 total) Center for DVT subcutaneo prophylaxis usly every /dialysis 12 lock/IV (twelve) bolus hours. heparin Yes 5000U Inject 1 [facility] injection 4-19 mL (5,000 [facility] 5,000 00:00: Units Medical units/mL 00 total) Center for DVT subcutaneo prophylaxis usly every /dialysis 12 lock/IV (twelve) bolus hours. Atorvastati Atorvastati Yes Holly 1 tablet Common n Calcium n Calcium [place] [facility] Mirtazapine Mirtazapine Yes Holly 1 tablet Common [place] at bedtime Spirit [facility] Vitamin D3 Vitamin D3 Yes Holly as Co mmon Ultra Ultra [place] directed Spirit Strength Strength [facility] Accu-Chek Accu-Chek Yes Holly CHECK Com mon Etrese Plus Terese Plus [place] BLOOD S pirit SUGAR - CHI EVERY DAY [facility] Donepezil Donepezil Yes Holly TAKE 1 Co mmon HCl HCl [place] TABLET BY Spirit MOUTH - CHI TWICE A [facility] Carvedilol Carvedilol Yes Holly 1 tablet Common [place] [facility] - [facility] Docusate Docusate Yes Holly TAKE 1 Comm on Sodium Sodium [place] CAPSULE BY Spir it MOUTH - CHI EVERY DAY NEEDED [facility] Melatonin Melatonin Yes Holly 1 tablet Common [place] at bedtime Spirit as needed - [facility] Iron Iron Yes Holly 1 tablet Common (Ferrous (Ferrous [place] [facility] Sulfate) Sulfate) - [facility] Trazodone Trazodone Yes Holly 1 tablet Common HCl HCl [place] at bedtime Spirit as needed - [facility] Memantine Memantine Yes Holly 1 tablet Common HCl HCl [place] [facility] HydrALAZINE HydrALAZINE Yes Holly 1 tablet Common HCl HCl [place] with food [facility] Amlodipine Amlodipine Yes Holyl 1 tablet Common Besylate Besylate [facility] Vitamin B12 Vitamin B12 Yes Holly one Common [place] [facility] Allopurinol Allopurinol Yes Holly 1 tablet Common [place] [facility] Clonidine Clonidine Yes Holly 1 tablet Common HCl HCl [place] [facility] Aspir-81 Aspir-81 Yes Holly 1 tablet Co mmon [place] [facility] Donepezil Donepezil No Donepezil HCl 10 MG HCl 10 MG HCl 10 MG hydrALAZINE hydrALAZINE No 1{table TID hydrALAZIN HCl 25 MG HCl 25 MG t_with_ E HCl 25 food} MG Colace 100 Colace 100 No 1{capsu QD Colace 100 MG MG le_as_n MG eeded} Allopurinol Allopurinol No 1{table QD Allopurino 100 MG 100 MG t} l 100 MG Glimepiride Glimepiride No 1{table QD Glimepirid 4 MG 4 MG t_with_ e [address]_or_t he_firs t_main_ meal_of _the_da y} amLODIPine amLODIPine No 1{table QD amLODIPine Besylate 10 Besylate 10 t} Besylate MG MG 10 MG Atorvastati Atorvastati No Atorvastat n Calcium n Calcium in Calcium 10 MG 10 MG 10 MG Iron Iron No 1{table QD Iron (Ferrous (Ferrous t} (Ferrous Sulfate) Sulfate) Sulfate) 325 (65 Fe) 325 (65 Fe) 325 (65 MG MG Fe) MG Carvedilol Carvedilol No 1{table BID Carvedilol 3.125 MG 3.125 MG t} 3.125 MG Iron 325 Iron 325 No 1{table QD Iron 325 (65 Fe) MG (65 Fe) MG t} (65 Fe) MG Docusate Docusate No Docusate Sodium 100 Sodium 100 Sodium 100 MG MG MG Melatonin 5 Melatonin 5 No 1{table QD Melatonin MG MG t_at_be 5 MG dtime_a s_neede d} Aspir-81 81 Aspir-81 81 No 1{table QD Aspir-81 MG MG t} 81 MG Accu-Chek Accu-Chek No Accu-Chek Terese Plus Terese Plus Terese Plus - - - Carvedilol Carvedilol No 1{table BID Carvedilol 6.25 MG 6.25 MG t} 6.25 MG traZODone traZODone No 1{table QD traZODone HCl 50 MG HCl 50 MG t_at_be HCl 50 MG dtime_a s_neede d} Vitamin D3 Vitamin D3 No Vitamin D3 Ultra Ultra Ultra Strength Strength Strength 125 MCG 125 MCG 125 MCG (5000 UT) (5000 UT) (5000 UT) traMADol traMADol No traMADol HCl 50 MG HCl 50 MG HCl 50 MG Vitamin B12 Vitamin B12 No QD Vitamin 2500 2500 B12 2500 cloNIDine cloNIDine No cloNIDine HCl 0.1 MG HCl 0.1 MG HCl 0.1 MG Carvedilol Carvedilol No 1{table BID Carvedilol 6.25 MG 6.25 MG t_with_ 6.25 MG food} Lactulose Lactulose No 15{ml} Lactulose 10 GM/15ML 10 GM/15ML 10 GM/15ML Memantine Memantine No 1{table BID Memantine HCl 10 MG HCl 10 MG t} HCl 10 MG Mirtazapine Mirtazapine No Mirtazapin 30 MG 30 MG e 30 MG Donepezil Donepezil No Donepezil HCl 10 MG HCl 10 MG HCl 10 MG hydrALAZINE hydrALAZINE No 1{table TID hydrALAZIN HCl 25 MG HCl 25 MG t_with_ E HCl 25 food} MG Colace 100 Colace 100 No 1{capsu QD Colace 100 MG MG le_as_n MG eeded} Allopurinol Allopurinol No 1{table QD Allopurino 100 MG 100 MG t} l 100 MG Docusate Docusate No Docusate Sodium 100 Sodium 100 Sodium 100 MG MG MG Glimepiride Glimepiride No 1{table QD Glimepirid 4 MG 4 MG t_with_ e [address]_or_t he_firs t_main_ meal_of _the_da y} Accu-Chek Accu-Chek No Accu-Chek Terese Plus Terese Plus Terese Plus - - - Iron Iron No 1{table QD Iron (Ferrous (Ferrous t} (Ferrous Sulfate) Sulfate) Sulfate) 325 (65 Fe) 325 (65 Fe) 325 (65 MG MG Fe) MG Carvedilol Carvedilol No 1{table BID Carvedilol 3.125 MG 3.125 MG t} 3.125 MG traZODone traZODone No 1{table QD traZODone HCl 50 MG HCl 50 MG t_at_be HCl 50 MG dtime_a s_neede d} cloNIDine cloNIDine No cloNIDine HCl 0.1 MG HCl 0.1 MG HCl 0.1 MG Melatonin 5 Melatonin 5 No 1{table QD Melatonin MG MG t_at_be 5 MG dtime_a s_neede d} Aspir-81 81 Aspir-81 81 No 1{table QD Aspir-81 MG MG t} 81 MG Iron 325 Iron 325 No 1{table QD Iron 325 (65 Fe) MG (65 Fe) MG t} (65 Fe) MG Carvedilol Carvedilol No 1{table BID Carvedilol 6.25 MG 6.25 MG t} 6.25 MG amLODIPine amLODIPine No 1{table QD amLODIPine Besylate 10 Besylate 10 t} Besylate MG MG 10 MG Atorvastati Atorvastati No Atorvastat n Calcium n Calcium in Calcium 10 MG 10 MG 10 MG Vitamin B12 Vitamin B12 No QD Vitamin 2500 2500 B12 2500 Vitamin D3 Vitamin D3 No Vitamin D3 Ultra Ultra Ultra Strength Strength Strength 125 MCG 125 MCG 125 MCG (5000 UT) (5000 UT) (5000 UT) traMADol traMADol No traMADol HCl 50 MG HCl 50 MG HCl 50 MG Carvedilol Carvedilol No 1{table BID Carvedilol 6.25 MG 6.25 MG t_with_ 6.25 MG food} Glimepiride Glimepiride No 1{table QD Glimepirid 4 MG 4 MG t_with_ e [address]_or_t he_firs t_main_ meal_of _the_da y} Allopurinol Allopurinol No 1{table QD Allopurino 100 MG 100 MG t} l 100 MG traZODone traZODone No 1{table QD traZODone HCl 50 MG HCl 50 MG t_at_be HCl 50 MG dtime_a s_neede d} amLODIPine amLODIPine No 1{table QD amLODIPine Besylate 10 Besylate 10 t} Besylate MG MG 10 MG cloNIDine cloNIDine No cloNIDine HCl 0.1 MG HCl 0.1 MG HCl 0.1 MG Donepezil Donepezil No Donepezil HCl 10 MG HCl 10 MG HCl 10 MG Carvedilol Carvedilol No 1{table BID Carvedilol 3.125 MG 3.125 MG t} 3.125 MG Melatonin 5 Melatonin 5 No 1{table QD Melatonin MG MG t_at_be 5 MG dtime_a s_neede d} Accu-Chek Accu-Chek No Accu-Chek Terese Plus Terese Plus Terese Plus - - - Vitamin D3 Vitamin D3 No Vitamin D3 Ultra Ultra Ultra Strength Strength Strength 125 MCG 125 MCG 125 MCG (5000 UT) (5000 UT) (5000 UT) Carvedilol Carvedilol No 1{table BID Carvedilol 6.25 MG 6.25 MG t_with_ 6.25 MG food} Atorvastati Atorvastati No Atorvastat n Calcium n Calcium in Calcium 10 MG 10 MG 10 MG Colace 100 Colace 100 No 1{capsu QD Colace 100 MG MG le_as_n MG eeded} Iron 325 Iron 325 No 1{table QD Iron 325 (65 Fe) MG (65 Fe) MG t} (65 Fe) MG Aspir-81 81 Aspir-81 81 No 1{table QD Aspir-81 MG MG t} 81 MG Mirtazapine Mirtazapine No Mirtazapin 30 MG 30 MG e 30 MG Lactulose Lactulose No 15{ml} Lactulose 10 GM/15ML 10 GM/15ML 10 GM/15ML traMADol traMADol No traMADol HCl 50 MG HCl 50 MG HCl 50 MG Vitamin B12 Vitamin B12 No QD Vitamin 2500 2500 B12 2500 Memantine Memantine No 1{table BID Memantine HCl 10 MG HCl 10 MG t} HCl 10 MG Iron Iron No 1{table QD Iron (Ferrous (Ferrous t} (Ferrous Sulfate) Sulfate) Sulfate) 325 (65 Fe) 325 (65 Fe) 325 (65 MG MG Fe) MG Carvedilol Carvedilol No 1{table BID Carvedilol 6.25 MG 6.25 MG t} 6.25 MG hydrALAZINE hydrALAZINE No 1{table TID hydrALAZIN HCl 25 MG HCl 25 MG t_with_ E HCl 25 food} MG Glimepiride Glimepiride No 1{table QD Glimepirid 4 MG 4 MG t_with_ e [address]_or_t he_firs t_main_ meal_of _the_da y} Allopurinol Allopurinol No 1{table QD Allopurino 100 MG 100 MG t} l 100 MG traZODone traZODone No 1{table QD traZODone HCl 50 MG HCl 50 MG t_at_be HCl 50 MG dtime_a s_neede d} amLODIPine amLODIPine No 1{table QD amLODIPine Besylate 10 Besylate 10 t} Besylate MG MG 10 MG cloNIDine cloNIDine No cloNIDine HCl 0.1 MG HCl 0.1 MG HCl 0.1 MG Donepezil Donepezil No Donepezil HCl 10 MG HCl 10 MG HCl 10 MG Carvedilol Carvedilol No 1{table BID Carvedilol 3.125 MG 3.125 MG t} 3.125 MG Melatonin 5 Melatonin 5 No 1{table QD Melatonin MG MG t_at_be 5 MG dtime_a s_neede d} Accu-Chek Accu-Chek No Accu-Chek Terese Plus Terese Plus Terese Plus - - - Vitamin D3 Vitamin D3 No Vitamin D3 Ultra Ultra Ultra Strength Strength Strength 125 MCG 125 MCG 125 MCG (5000 UT) (5000 UT) (5000 UT) Carvedilol Carvedilol No 1{table BID Carvedilol 6.25 MG 6.25 MG t_with_ 6.25 MG food} Atorvastati Atorvastati No Atorvastat n Calcium n Calcium in Calcium 10 MG 10 MG 10 MG Colace 100 Colace 100 No 1{capsu QD Colace 100 MG MG le_as_n MG eeded} Iron 325 Iron 325 No 1{table QD Iron 325 (65 Fe) MG (65 Fe) MG t} (65 Fe) MG Aspir-81 81 Aspir-81 81 No 1{table QD Aspir-81 MG MG t} 81 MG Mirtazapine Mirtazapine No Mirtazapin 30 MG 30 MG e 30 MG Lactulose Lactulose No 15{ml} Lactulose 10 GM/15ML 10 GM/15ML 10 GM/15ML traMADol traMADol No traMADol HCl 50 MG HCl 50 MG HCl 50 MG Vitamin B12 Vitamin B12 No QD Vitamin 2500 2500 B12 2500 Memantine Memantine No 1{table BID Memantine HCl 10 MG HCl 10 MG t} HCl 10 MG Iron Iron No 1{table QD Iron (Ferrous (Ferrous t} (Ferrous Sulfate) Sulfate) Sulfate) 325 (65 Fe) 325 (65 Fe) 325 (65 MG MG Fe) MG Carvedilol Carvedilol No 1{table BID Carvedilol 6.25 MG 6.25 MG t} 6.25 MG hydrALAZINE hydrALAZINE No 1{table TID hydrALAZIN HCl 25 MG HCl 25 MG t_with_ E HCl 25 food} MG Carvedilol Carvedilol No 1{table BID 6.25 MG 6.25 MG t_with_ food} amLODIPine amLODIPine No 1{table QD Besylate 10 Besylate 10 t} MG MG Allopurinol Allopurinol No 100 MG 100 MG Mirtazapine Mirtazapine No 30 MG 30 MG Glimepiride Glimepiride No 1{table QD 4 MG 4 MG t_with_ breakfa st_or_t he_firs t_main_ meal_of _the_da y} traMADol traMADol No HCl 50 MG HCl 50 MG Carvedilol Carvedilol No 1{table BID 3.125 MG 3.125 MG t} cloNIDine cloNIDine No HCl 0.1 MG HCl 0.1 MG Accu-Chek Accu-Chek No Terese Plus Terese Plus - - Vitamin D3 Vitamin D3 No Ultra Ultra Strength Strength 125 MCG 125 MCG (5000 UT) (5000 UT) traZODone traZODone No 1{table QD HCl 50 MG HCl 50 MG t_at_be dtime_a s_neede d} Aspir-81 81 Aspir-81 81 No 1{table QD MG MG t} Colace 100 Colace 100 No 1{capsu QD MG MG le_as_n eeded} Iron 325 Iron 325 No 1{table QD (65 Fe) MG (65 Fe) MG t} Melatonin 5 Melatonin 5 No 1{table QD MG MG t_at_be dtime_a s_neede d} Atorvastati Atorvastati No n Calcium n Calcium 10 MG 10 MG Lactulose Lactulose No 15{ml} 10 GM/15ML 10 GM/15ML Donepezil Donepezil No HCl 10 MG HCl 10 MG Vitamin B12 Vitamin B12 No QD 2500 2500 Memantine Memantine No 1{table BID HCl 10 MG HCl 10 MG t} Iron Iron No 1{table QD (Ferrous (Ferrous t} Sulfate) Sulfate) 325 (65 Fe) 325 (65 Fe) MG MG Carvedilol Carvedilol No 1{table BID 6.25 MG 6.25 MG t} hydrALAZINE hydrALAZINE No 1{table TID HCl 25 MG HCl 25 MG t_with_ food} amLODIPine amLODIPine No amLODIPine Besylate 10 Besylate 10 Besylate MG MG 10 MG Memantine Memantine No 1{table BID Memantine HCl 10 MG HCl 10 MG t} HCl 10 MG Glimepiride Glimepiride No 1{table QD Glimepirid 4 MG 4 MG t_with_ e [address]_or_t he_firs t_main_ meal_of _the_da y} Colace 100 Colace 100 No 1{capsu QD Colace 100 MG MG le_as_n MG eeded} Accu-Chek Accu-Chek No Accu-Chek Terese Plus Terese Plus Terese Plus - - - hydrALAZINE hydrALAZINE No 1{table TID hydrALAZIN HCl 25 MG HCl 25 MG t_with_ E HCl 25 food} MG Carvedilol Carvedilol No 1{table BID Carvedilol 6.25 MG 6.25 MG t_with_ 6.25 MG food} Docusate Docusate No Docusate Sodium 100 Sodium 100 Sodium 100 MG MG MG Iron 325 Iron 325 No 1{table QD Iron 325 (65 Fe) MG (65 Fe) MG t} (65 Fe) MG Carvedilol Carvedilol No 1{table BID Carvedilol 6.25 MG 6.25 MG t} 6.25 MG hydrALAZINE hydrALAZINE No hydrALAZIN HCl 25 MG HCl 25 MG E HCl 25 MG Melatonin 5 Melatonin 5 No 1{table QD Melatonin MG MG t_at_be 5 MG dtime_a s_neede d} Atorvastati Atorvastati No Atorvastat n Calcium n Calcium in Calcium 10 MG 10 MG 10 MG Carvedilol Carvedilol No Carvedilol 3.125 MG 3.125 MG 3.125 MG Vitamin D3 Vitamin D3 No Vitamin D3 Ultra Ultra Ultra Strength Strength Strength 125 MCG 125 MCG 125 MCG (5000 UT) (5000 UT) (5000 UT) traZODone traZODone No 1{table QD traZODone HCl 50 MG HCl 50 MG t_at_be HCl 50 MG dtime_a s_neede d} Aspir-81 81 Aspir-81 81 No 1{table QD Aspir-81 MG MG t} 81 MG Vitamin B12 Vitamin B12 No QD Vitamin 2500 2500 B12 2500 Lactulose Lactulose No 15{ml} Lactulose 10 GM/15ML 10 GM/15ML 10 GM/15ML Allopurinol Allopurinol No Allopurino 100 MG 100 MG l 100 MG traMADol traMADol No traMADol HCl 50 MG HCl 50 MG HCl 50 MG Donepezil Donepezil No Donepezil HCl 10 MG HCl 10 MG HCl 10 MG cloNIDine cloNIDine No cloNIDine HCl 0.1 MG HCl 0.1 MG HCl 0.1 MG Iron Iron No 1{table QD Iron (Ferrous (Ferrous t} (Ferrous Sulfate) Sulfate) Sulfate) 325 (65 Fe) 325 (65 Fe) 325 (65 MG MG Fe) MG Mirtazapine Mirtazapine No Mirtazapin 30 MG 30 MG e 30 MG amLODIPine amLODIPine No amLODIPine Besylate 10 Besylate 10 Besylate MG MG 10 MG Memantine Memantine No 1{table BID Memantine HCl 10 MG HCl 10 MG t} HCl 10 MG cloNIDine cloNIDine No cloNIDine HCl 0.1 MG HCl 0.1 MG HCl 0.1 MG Colace 100 Colace 100 No 1{capsu QD Colace 100 MG MG le_as_n MG eeded} Accu-Chek Accu-Chek No Accu-Chek Terese Plus Terese Plus Terese Plus - - - hydrALAZINE hydrALAZINE No 1{table TID hydrALAZIN HCl 25 MG HCl 25 MG t_with_ E HCl 25 food} MG Carvedilol Carvedilol No 1{table BID Carvedilol 6.25 MG 6.25 MG t_with_ 6.25 MG food} Docusate Docusate No Docusate Sodium 100 Sodium 100 Sodium 100 MG MG MG Iron 325 Iron 325 No 1{table QD Iron 325 (65 Fe) MG (65 Fe) MG t} (65 Fe) MG Carvedilol Carvedilol No 1{table BID Carvedilol 6.25 MG 6.25 MG t} 6.25 MG Aspir-81 81 Aspir-81 81 No 1{table QD Aspir-81 MG MG t} 81 MG hydrALAZINE hydrALAZINE No hydrALAZIN HCl 25 MG HCl 25 MG E HCl 25 MG Atorvastati Atorvastati No Atorvastat n Calcium n Calcium in Calcium 10 MG 10 MG 10 MG traMADol traMADol No traMADol HCl 50 MG HCl 50 MG HCl 50 MG Vitamin D3 Vitamin D3 No Vitamin D3 Ultra Ultra Ultra Strength Strength Strength 125 MCG 125 MCG 125 MCG (5000 UT) (5000 UT) (5000 UT) Donepezil Donepezil No Donepezil HCl 10 MG HCl 10 MG HCl 10 MG Carvedilol Carvedilol No Carvedilol 3.125 MG 3.125 MG 3.125 MG Vitamin B12 Vitamin B12 No QD Vitamin 2500 2500 B12 2500 Lactulose Lactulose No 15{ml} Lactulose 10 GM/15ML 10 GM/15ML 10 GM/15ML Allopurinol Allopurinol No Allopurino 100 MG 100 MG l 100 MG Glimepiride Glimepiride No 1{table QD Glimepirid 4 MG 4 MG t_with_ e [address]_or_t he_firs t_main_ meal_of _the_da y} Melatonin 5 Melatonin 5 No 1{table QD Melatonin MG MG t_at_be 5 MG dtime_a s_neede d} traZODone traZODone No traZODone HCl 50 MG HCl 50 MG HCl 50 MG Iron Iron No 1{table QD Iron (Ferrous (Ferrous t} (Ferrous Sulfate) Sulfate) Sulfate) 325 (65 Fe) 325 (65 Fe) 325 (65 MG MG Fe) MG Mirtazapine Mirtazapine No Mirtazapin 30 MG 30 MG e 30 MG Vitamin D3 Vitamin D3 No Vitamin D3 Ultra Ultra Ultra Strength Strength Strength 125 MCG 125 MCG 125 MCG (5000 UT) (5000 UT) (5000 UT) hydrALAZINE hydrALAZINE No hydrALAZIN HCl 25 MG HCl 25 MG E HCl 25 MG Vitamin B12 Vitamin B12 No QD Vitamin 2500 2500 B12 2500 amLODIPine amLODIPine No amLODIPine Besylate 10 Besylate 10 Besylate MG MG 10 MG Colace 100 Colace 100 No 1{capsu QD Colace 100 MG MG le_as_n MG eeded} Donepezil Donepezil No Donepezil HCl 10 MG HCl 10 MG HCl 10 MG Iron 325 Iron 325 No 1{table QD Iron 325 (65 Fe) MG (65 Fe) MG t} (65 Fe) MG Carvedilol Carvedilol No Carvedilol 3.125 MG 3.125 MG 3.125 MG Allopurinol Allopurinol No Allopurino 100 MG 100 MG l 100 MG Carvedilol Carvedilol No 1{table BID Carvedilol 6.25 MG 6.25 MG t} 6.25 MG hydrALAZINE hydrALAZINE No 1{table TID hydrALAZIN HCl 25 MG HCl 25 MG t_with_ E HCl 25 food} MG cloNIDine cloNIDine No cloNIDine HCl 0.1 MG HCl 0.1 MG HCl 0.1 MG Atorvastati Atorvastati No Atorvastat n Calcium n Calcium in Calcium 10 MG 10 MG 10 MG NovoLOG NovoLOG No NovoLOG FlexPen 100 FlexPen 100 FlexPen UNIT/ML UNIT/ML 100 UNIT/ML Lactulose Lactulose No 15{ml} Lactulose 10 GM/15ML 10 GM/15ML 10 GM/15ML traZODone traZODone No traZODone HCl 50 MG HCl 50 MG HCl 50 MG Docusate Docusate No Docusate Sodium 100 Sodium 100 Sodium 100 MG MG MG Memantine Memantine No 1{table BID Memantine HCl 10 MG HCl 10 MG t} HCl 10 MG Iron Iron No 1{table QD Iron (Ferrous (Ferrous t} (Ferrous Sulfate) Sulfate) Sulfate) 325 (65 Fe) 325 (65 Fe) 325 (65 MG MG Fe) MG Melatonin 5 Melatonin 5 No 1{table QD Melatonin MG MG t_at_be 5 MG dtime_a s_neede d} NovoFine NovoFine No QD NovoFine Plus 32G X Plus 32G X Plus 32G X 4 MM 4 MM 4 MM Aspir-81 81 Aspir-81 81 No 1{table QD Aspir-81 MG MG t} 81 MG Glimepiride Glimepiride No 1{table QD Glimepirid 4 MG 4 MG t_with_ e [address]_or_t he_firs t_main_ meal_of _the_da y} Accu-Chek Accu-Chek No Accu-Chek Terese Plus Terese Plus Terese Plus - - - traMADol traMADol No traMADol HCl 50 MG HCl 50 MG HCl 50 MG Carvedilol Carvedilol No 1{table BID Carvedilol 6.25 MG 6.25 MG t_with_ 6.25 MG food} Mirtazapine Mirtazapine No Mirtazapin 30 MG 30 MG e 30 MG Vitamin D3 Vitamin D3 No Vitamin D3 Ultra Ultra Ultra Strength Strength Strength 125 MCG 125 MCG 125 MCG (5000 UT) (5000 UT) (5000 UT) hydrALAZINE hydrALAZINE No hydrALAZIN HCl 25 MG HCl 25 MG E HCl 25 MG Vitamin B12 Vitamin B12 No QD Vitamin 2500 2500 B12 2500 amLODIPine amLODIPine No amLODIPine Besylate 10 Besylate 10 Besylate MG MG 10 MG Colace 100 Colace 100 No 1{capsu QD Colace 100 MG MG le_as_n MG eeded} Donepezil Donepezil No Donepezil HCl 10 MG HCl 10 MG HCl 10 MG Iron 325 Iron 325 No 1{table QD Iron 325 (65 Fe) MG (65 Fe) MG t} (65 Fe) MG Carvedilol Carvedilol No Carvedilol 3.125 MG 3.125 MG 3.125 MG Allopurinol Allopurinol No Allopurino 100 MG 100 MG l 100 MG Carvedilol Carvedilol No 1{table BID Carvedilol 6.25 MG 6.25 MG t} 6.25 MG hydrALAZINE hydrALAZINE No 1{table TID hydrALAZIN HCl 25 MG HCl 25 MG t_with_ E HCl 25 food} MG cloNIDine cloNIDine No cloNIDine HCl 0.1 MG HCl 0.1 MG HCl 0.1 MG Atorvastati Atorvastati No Atorvastat n Calcium n Calcium in Calcium 10 MG 10 MG 10 MG NovoLOG NovoLOG No NovoLOG FlexPen 100 FlexPen 100 FlexPen UNIT/ML UNIT/ML 100 UNIT/ML Lactulose Lactulose No 15{ml} Lactulose 10 GM/15ML 10 GM/15ML 10 GM/15ML traZODone traZODone No traZODone HCl 50 MG HCl 50 MG HCl 50 MG Docusate Docusate No Docusate Sodium 100 Sodium 100 Sodium 100 MG MG MG Memantine Memantine No 1{table BID Memantine HCl 10 MG HCl 10 MG t} HCl 10 MG Iron Iron No 1{table QD Iron (Ferrous (Ferrous t} (Ferrous Sulfate) Sulfate) Sulfate) 325 (65 Fe) 325 (65 Fe) 325 (65 MG MG Fe) MG Melatonin 5 Melatonin 5 No 1{table QD Melatonin MG MG t_at_be 5 MG dtime_a s_neede d} NovoFine NovoFine No QD NovoFine Plus 32G X Plus 32G X Plus 32G X 4 MM 4 MM 4 MM Aspir-81 81 Aspir-81 81 No 1{table QD Aspir-81 MG MG t} 81 MG Glimepiride Glimepiride No 1{table QD Glimepirid 4 MG 4 MG t_with_ e [address]_or_t he_firs t_main_ meal_of _the_da y} Accu-Chek Accu-Chek No Accu-Chek Terese Plus Terese Plus Terese Plus - - - traMADol traMADol No traMADol HCl 50 MG HCl 50 MG HCl 50 MG Carvedilol Carvedilol No 1{table BID Carvedilol 6.25 MG 6.25 MG t_with_ 6.25 MG food} Mirtazapine Mirtazapine No Mirtazapin 30 MG 30 MG e 30 MG Vitamin D3 Vitamin D3 No Vitamin D3 Ultra Ultra Ultra Strength Strength Strength 125 MCG 125 MCG 125 MCG (5000 UT) (5000 UT) (5000 UT) NovoFine NovoFine No QD NovoFine Plus 32G X Plus 32G X Plus 32G X 4 MM 4 MM 4 MM Iron 325 Iron 325 No 1{table QD Iron 325 (65 Fe) MG (65 Fe) MG t} (65 Fe) MG NovoLOG NovoLOG No NovoLOG FlexPen 100 FlexPen 100 FlexPen UNIT/ML UNIT/ML 100 UNIT/ML Melatonin 5 Melatonin 5 No 1{table QD Melatonin MG MG t_at_be 5 MG dtime_a s_neede d} cloNIDine cloNIDine No cloNIDine HCl 0.1 MG HCl 0.1 MG HCl 0.1 MG Aspir-81 81 Aspir-81 81 No 1{table QD Aspir-81 MG MG t} 81 MG hydrALAZINE hydrALAZINE No hydrALAZIN HCl 25 MG HCl 25 MG E HCl 25 MG Lactulose Lactulose No Lactulose 10 GM/15ML 10 GM/15ML 10 GM/15ML amLODIPine amLODIPine No amLODIPine Besylate 10 Besylate 10 Besylate MG MG 10 MG Donepezil Donepezil No Donepezil HCl 10 MG HCl 10 MG HCl 10 MG Colace 100 Colace 100 No 1{capsu QD Colace 100 MG MG le_as_n MG eeded} Carvedilol Carvedilol No 1{table BID Carvedilol 6.25 MG 6.25 MG t_with_ 6.25 MG food} Atorvastati Atorvastati No Atorvastat n Calcium n Calcium in Calcium 10 MG 10 MG 10 MG Vitamin B12 Vitamin B12 No QD Vitamin 2500 2500 B12 2500 Allopurinol Allopurinol No Allopurino 100 MG 100 MG l 100 MG Mirtazapine Mirtazapine No Mirtazapin 30 MG 30 MG e 30 MG Docusate Docusate No Docusate Sodium 100 Sodium 100 Sodium 100 MG MG MG traMADol traMADol No traMADol HCl 50 MG HCl 50 MG HCl 50 MG Memantine Memantine No 1{table BID Memantine HCl 10 MG HCl 10 MG t} HCl 10 MG Accu-Chek Accu-Chek No Accu-Chek Terese Plus Terese Plus Terese Plus - - - Iron Iron No 1{table QD Iron (Ferrous (Ferrous t} (Ferrous Sulfate) Sulfate) Sulfate) 325 (65 Fe) 325 (65 Fe) 325 (65 MG MG Fe) MG Glimepiride Glimepiride No 1{table QD Glimepirid 4 MG 4 MG t_with_ e [address]_or_t he_firs t_main_ meal_of _the_da y} Carvedilol Carvedilol No 1{table BID Carvedilol 6.25 MG 6.25 MG t} 6.25 MG traZODone traZODone No traZODone HCl 50 MG HCl 50 MG HCl 50 MG Lactulose Lactulose No 15{ml} Lactulose 10 GM/15ML 10 GM/15ML 10 GM/15ML Memantine Memantine No 1{table BID Memantine HCl 10 MG HCl 10 MG t} HCl 10 MG Mirtazapine Mirtazapine No Mirtazapin 30 MG 30 MG e 30 MG Donepezil Donepezil No Donepezil HCl 10 MG HCl 10 MG HCl 10 MG Colace 100 Colace 100 No 1{capsu QD Colace 100 MG MG le_as_n MG eeded} hydrALAZINE hydrALAZINE No 1{table TID hydrALAZIN HCl 25 MG HCl 25 MG t_with_ E HCl 25 food} MG Docusate Docusate No Docusate Sodium 100 Sodium 100 Sodium 100 MG MG MG Allopurinol Allopurinol No 1{table QD Allopurino 100 MG 100 MG t} l 100 MG amLODIPine amLODIPine No 1{table QD amLODIPine Besylate 10 Besylate 10 t} Besylate MG MG 10 MG traZODone traZODone No 1{table QD traZODone HCl 50 MG HCl 50 MG t_at_be HCl 50 MG dtime_a s_neede d} Atorvastati Atorvastati No Atorvastat n Calcium n Calcium in Calcium 10 MG 10 MG 10 MG Iron Iron No 1{table QD Iron (Ferrous (Ferrous t} (Ferrous Sulfate) Sulfate) Sulfate) 325 (65 Fe) 325 (65 Fe) 325 (65 MG MG Fe) MG Carvedilol Carvedilol No 1{table BID Carvedilol 3.125 MG 3.125 MG t} 3.125 MG Iron 325 Iron 325 No 1{table QD Iron 325 (65 Fe) MG (65 Fe) MG t} (65 Fe) MG Glimepiride Glimepiride No 1{table QD Glimepirid 4 MG 4 MG t_with_ e [address]_or_t he_firs t_main_ meal_of _the_da y} Melatonin 5 Melatonin 5 No 1{table QD Melatonin MG MG t_at_be 5 MG dtime_a s_neede d} Aspir-81 81 Aspir-81 81 No 1{table QD Aspir-81 MG MG t} 81 MG Accu-Chek Accu-Chek No Accu-Chek Terese Plus Terese Plus Terese Plus - - - Carvedilol Carvedilol No 1{table BID Carvedilol 6.25 MG 6.25 MG t} 6.25 MG Vitamin D3 Vitamin D3 No Vitamin D3 Ultra Ultra Ultra Strength Strength Strength 125 MCG 125 MCG 125 MCG (5000 UT) (5000 UT) (5000 UT) traMADol traMADol No traMADol HCl 50 MG HCl 50 MG HCl 50 MG Vitamin B12 Vitamin B12 No QD Vitamin 2500 2500 B12 2500 cloNIDine cloNIDine No cloNIDine HCl 0.1 MG HCl 0.1 MG HCl 0.1 MG Carvedilol Carvedilol No 1{table BID Carvedilol 6.25 MG 6.25 MG t_with_ 6.25 MG food} Lactulose Lactulose No 15{ml} Lactulose 10 GM/15ML 10 GM/15ML 10 GM/15ML Memantine Memantine No 1{table BID Memantine HCl 10 MG HCl 10 MG t} HCl 10 MG Mirtazapine Mirtazapine No Mirtazapin 30 MG 30 MG e 30 MG Docusate Docusate 2021- No Docusate Sodium 100 Sodium 100 05-21 Sodium 100 MG MG 00:00 MG :00 Docusate Docusate 2021- No Docusate Sodium 100 Sodium 100 05-21 Sodium 100 MG MG 00:00 MG :00 Docusate Docusate 2021- No Sodium 100 Sodium 100 05-21 MG MG 00:00 :00 Immunizations Ordered Immunization Filled Immunization Date Status Commen ts Source Name Name FLUZONE HIGH DOSE FLUZONE HIGH DOSE 2022-07-31 Completed [facility] OVER [facility] OVER 65 17:18:00 - [facility] Vital Signs Vital Name Observation Time Observation Value Comments Source height 2022-07-31 16:20:00 62 [in_i] Common [facility] weight 2022-07-31 16:20:00 103 [lb_av] [facility] temperature 2022-07-31 16:20:00 96.4 [degF] [facility] bmi 2022-07-31 16:20:00 18.84 kg/m2 [facility] oximetry 2022-07-31 16:20:00 99 % [facility] respiratory rate 2022-07-31 16:20:00 16 /min [facility] blood pressure 2022-07-31 16:20:00 112 mm[Hg] [facility] - systolic [facility] blood pressure 2022-07-31 16:20:00 74 mm[Hg] [facility] - diastolic [facility] height 2022-03-25 08:40:00 62 [in_i] Common [facility] weight 2022-03-25 08:40:00 123 [lb_av] [facility] bmi 2022-03-25 08:40:00 22.49 kg/m2 [facility] oximetry 2022-03-25 08:40:00 99 % [facility] height 2022-03-25 08:00:00 62 [in_i] [facility] weight 2022-03-25 08:00:00 123 [lb_av] [facility] bmi 2022-03-25 08:00:00 22.49 kg/m2 [facility] oximetry 2022-03-25 08:00:00 99 % [facility] height 2021-12-17 08:20:00 62 [in_i] [facility] weight 2021-12-17 08:20:00 123 [lb_av] [facility] temperature 2021-12-17 08:20:00 97.4 [degF] [facility] bmi 2021-12-17 08:20:00 22.49 kg/m2 [facility] height 2021-09-01 15:40:00 62.00 [in_i] [facility] weight 2021-09-01 15:40:00 123 [lb_av] [facility] 2021-09-01 15:40:00 22.49 kg/m2 [facility] Systolic blood 2020-06-13 21:00:00 130 mm[Hg] [facility] Diastolic blood 2020-06-13 21:00:00 80 mm[Hg] [facility] Heart rate 2020-06-13 21:00:00 85 /min [facility] Body temperature 2020-06-13 21:00:00 36.89 Kimberly [facility] Respiratory rate 2020-06-13 21:00:00 19 /min [facility] Oxygen saturation in 2020-06-13 21:00:00 98 /min [facility] Arterial blood by [facility] Pulse oximetry Branch Body weight 2020-06-05 19:07:00 68.04 kg [facility] BMI 2020-06-05 19:07:00 29.29 kg/m2 [facility] Systolic blood 2020-06-13 21:00:00 130 mm[Hg] [facility] Diastolic blood 2020-06-13 21:00:00 80 mm[Hg] [facility] Heart rate 2020-06-13 21:00:00 85 /min [facility] Body temperature 2020-06-13 21:00:00 36.89 Kimberly [facility] Respiratory rate 2020-06-13 21:00:00 19 /min [facility] Oxygen saturation in 2020-06-13 21:00:00 98 /min [facility] Arterial blood by [facility] Pulse oximetry Branch Body weight 2020-06-05 19:07:00 68.04 kg [facility] [place] BMI 2020-06-05 19:07:00 29.29 kg/m2 [facility] Systolic blood 2020-04-10 18:32:00 130 mm[Hg] Univer sity of pressure [facility] Diastolic blood 2020-04-10 18:32:00 84 mm[Hg] Unive rsity of pressure [facility] Heart rate 2020-04-10 18:32:00 72 /min [facility] Respiratory rate 2020-04-10 18:32:00 18 /min [facility] Body temperature 2020-04-10 17:00:00 36.44 Kimberly [facility] [address] Oxygen saturation in 2020-04-10 17:00:00 98 /min [facility] Arterial blood by [facility] Pulse oximetry Branch Body weight 2020-04-10 08:00:00 75.297 kg [facility] BMI 2020-04-10 08:00:00 32.42 kg/m2 [facility] Body height 2020-04-09 03:57:00 152.[address] [facility] Systolic blood 2020-04-10 18:32:00 130 mm[Hg] Univer sity of pressure [facility] Diastolic blood 2020-04-10 18:32:00 84 mm[Hg] Unive rsity of pressure [facility] Heart rate 2020-04-10 18:32:00 72 /min [facility] Respiratory rate 2020-04-10 18:32:00 18 /min [facility] Body temperature 2020-04-10 17:00:00 36.[address] Kimberly [facility] [address] Oxygen saturation in 2020-04-10 17:00:00 98 /min [facility] of Arterial blood by [facility] Pulse oximetry Branch Body weight 2020-04-10 08:00:[address] [facility] BMI 2020-04-10 08:00:00 32.42 kg/m2 [facility] Body height 2020-04-09 03:57:00 152.4 cm [facility] Systolic blood 2020-04-08 05:08:00 128 mm[Hg] [facility] Diastolic blood 2020-04-08 05:08:00 70 mm[Hg] Unive rsity of pressure [facility] Heart rate 2020-04-08 05:08:00 70 /min [facility] Respiratory rate 2020-04-08 05:08:00 23 /min [facility] Oxygen saturation in 2020-04-08 05:08:00 95 /min [facility] Arterial blood by [facility] miryam Pulse oximetry Branch Body temperature 2020-04-08 03:12:00 36.56 Kimberly [facility] [address] Body height 2020-04-08 03:12:00 165.1 cm [facility] Body weight 2020-04-08 03:12:00 80.74 kg [facility] BMI 2020-04-08 03:12:00 29.62 kg/m2 [facility] Systolic blood 2020-04-08 05:08:00 128 mm[Hg] Univer sity of pressure [facility] Diastolic blood 2020-04-08 05:08:00 70 mm[Hg] [facility]ive [facility]ity of [facility] Heart rate 2020-04-08 05:08:00 70 /min [facility] Respiratory rate 2020-04-08 05:08:00 23 /min [facility] Oxygen saturation in 2020-04-08 05:08:00 95 /min [facility] Arterial blood by [facility] Pulse oximetry Branch Body temperature 2020-04-08 03:12:00 36.[address] Kimber[address] [facility] [address] Body height 2020-04-08 03:12:00 165.1 cm [facility] Body weight 2020-04-08 03:12:00 80.74 kg [facility] BMI 2020-04-08 03:12:00 29.62 kg/m2 [facility] Procedures Procedure Date / Time Performing Clinician Source Performed HOME HEALTH - OTHER 2020-06-14 05:01:00 Doctor Unassigned, [facility] LIPASE 2020-06-13 09:07:00 Wenceslao [facility] MAGNESIUM 2020-06-13 09:07:00 Wenceslao [facility] BASIC METABOLIC PANEL 2020-06-13 09:07:00 Jonah Obrien [facility] (NA, K, CL, CO2, GLUCOSE, Medica l Branch BUN, CREATININE, CA) CBC WITH DIFF 2020-06-13 09:07:00 Wenceslao [facility]ales [facility] POCT GLUCOSE (AUTOMATED) 2020-06-12 13:38:00 Emil Casey [facility] LIPASE 2020-06-12 11:25:00 Akbar [facility] COMP. METABOLIC PANEL 2020-06-12 11:25:00 Akbar [facility] ([id number]) [facility] MAGNESIUM 2020-06-11 11:52:00 Zahida [facility] BASIC METABOLIC PANEL 2020-06-11 11:52:00 Zahida [facility] (NA, K, CL, CO2, GLUCOSE, Medica l Branch BUN, CREATININE, CA) CBC WITH DIFF 2020-06-11 11:52:00 Zahida [facility] POCT GLUCOSE (AUTOMATED) 2020-06-10 16:47:00 Emil Casey [facility] POCT GLUCOSE (AUTOMATED) 2020-06-10 13:16:00 Emil Casey [facility] LIPASE 2020-06-10 11:18:00 Akbar [facility] COMP. METABOLIC PANEL 2020-06-10 11:18:00 Akbar [facility] ([id number]) [facility] CBC WITH DIFF 2020-06-10 10:15:00 Akbar [facility] POCT GLUCOSE (AUTOMATED) 2020-06-09 16:29:00 Emil Casey [facility] BASIC METABOLIC PANEL 2020-06-09 15:29:00 Fern Glez [facility] (NA, K, CL, CO2, GLUCOSE, Medica l Branch BUN, CREATININE, CA) MAGNESIUM 2020-06-09 10:34:00 Josue Teague [facility] CBC WITH DIFF 2020-06-09 10:14:[address] [facility] [place], [place] MAGNESIUM 2020-06-08 11:27:00 Jacinto, [facility] BASIC METABOLIC PANEL 2020-06-08 11:27:00 Fern Glez [facility] (NA, K, CL, CO2, GLUCOSE, Medica l Branch BUN, CREATININE, CA) CBC WITH DIFF 2020-06-08 11:27:[address] [facility] [place], [place] LACTIC ACID WHOLE BLOOD 2020-06-08 11:26:00 Fern Glez [facility] MAGNESIUM 2020-06-07 18:45:00 Jacinto [facility] BASIC METABOLIC PANEL 2020-06-07 18:45:00 Fern Glez [facility] (NA, K, CL, CO2, GLUCOSE, Medica l Branch BUN, CREATININE, CA) LACTIC ACID WHOLE BLOOD 2020-06-07 18:45:[address] [facility] [place] [place] VANCOMYCIN TROUGH 2020-06-07 18:44:00 [facility] WITH DIFF 2020-06-07 18:44:[address] [facility] [place] [place] POCT GLUCOSE (AUTOMATED) 2020-06-07 16:53:00 [facility]) 2020-06-07 14:27:00 Jacinto, Emil [facility] US ABDOMEN LIMITED 2020-06-06 13:51:46 Jacinto, [facility] CBC WITH DIFF 2020-06-06 09:09:00 Jacinto, [facility] MAGNESIUM 2020-06-06 09:06:00 Jacinto, [facility] FERRITIN SERUM 2020-06-06 09:06:00 Jacinto, [facility] C-REACTIVE PROTEIN 2020-06-06 09:06:00 Jacinto, [facility] BASIC METABOLIC PANEL 2020-06-06 09:06:00 [facility] ([facility], K, CL, CO2, GLUCOSE, Medica l Branch BUN, CREATININE, CA) D-DIMER 2020-06-06 09:04:00 [facility] COVID-19 (ID NOW RAPID 2020-06-06 00:40:00 Blaine Shay [facility] TESTING) [facility] [place] LACTIC ACID WHOLE BLOOD 2020-06-05 23:24:00 Blaine Shay [facility] CT PELVIS W CONTRAST 2020-06-05 21:00:02 Blaine Shay [facility] LIPASE 2020-06-05 19:45:[address] [facility] [place] [place] HEPATIC FUNCTION PANEL 2020-06-05 19:45:00 Blaine Shay [facility] ([id number]) (ALB,T.PRO,BILI [facility] [place] T,BU/BC,ALT,AST,ALK PHOS) BASIC METABOLIC PANEL 2020-06-05 19:45:00 Blaine Shay [facility] (NA, K, CL, CO2, GLUCOSE, Medica l Branch BUN, CREATININE, CA) CBC WITH DIFF 2020-06-05 19:45:[address] [facility] [place] [place] LACTIC ACID WHOLE BLOOD 2020-06-05 19:45:00 Blaine Shay [facility] NOTICE OF PRIVACY 2020-06-05 18:59:59 Doctor Unassigned, [facility] PRACTICES [place] [facility] [place] CONSENT/REFUSAL FOR 2020-06-05 18:59:41 Doctor Unaisaiah, [facility] DIAGNOSIS AND TREATMENT [place] [facility] [place] AGREEMENTS AUTHORIZATIONS 2020-06-05 05:01:00 Doctor Unassigned, [facility] AND IRREVOCABLE [place] [facility] [place] ASSIGNMENTS (FORM 2000) POCT GLUCOSE (AUTOMATED) 2020-04-10 16:49:00 Meri Alanis [facility] POCT GLUCOSE (AUTOMATED) 2020-04-10 12:47:00 Meri Alanis [facility] GLYCOSYLATED HEMOGLOBIN 2020-04-10 08:03:00 Roscoe Saul [facility] (A1C) [facility] [place] BASIC METABOLIC PANEL 2020-04-10 08:02:00 Roscoe Saul [facility] (NA, K, CL, CO2, GLUCOSE, Medica l Branch BUN, CREATININE, CA) CBC WITH DIFFERENTIAL 2020-04-10 08:02:00 Roscoe Saul [facility] POCT GLUCOSE (AUTOMATED) 2020-04-10 01:12:00 Meri Alanis [facility] POCT GLUCOSE (AUTOMATED) 2020-04-09 21:57:00 Meri Alanis [facility] POCT GLUCOSE (AUTOMATED) 2020-04-09 16:58:00 Meri Alanis [facility] POCT GLUCOSE (AUTOMATED) 2020-04-09 12:53:00 Meri Alanis [facility] POCT GLUCOSE (AUTOMATED) 2020-04-09 07:46:00 [facility]le [facility] COVID-19 (ID NOW RAPID 2020-04-09 06:45:00 Yue Ramirez [facility] POCT GLUCOSE (AUTOMATED) 2020-04-09 06:31:00 Ashley [facility] POCT GLUCOSE (AUTOMATED) 2020-04-09 06:05:00 Ashley [facility] POCT GLUCOSE (AUTOMATED) 2020-04-09 05:23:00 Ashley [facility] THYROID STIMULATING 2020-04-09 04:52:00 Yue Ramirez [facility] HORMONE [facility] COMP. METABOLIC PANEL 2020-04-09 04:52:00 Yue Ramirez [facility] ([id number]) [facility] CBC WITH DIFFERENTIAL 2020-04-09 04:52:00 Yue Ramirez [facility] POCT GLUCOSE (AUTOMATED) 2020-04-09 04:34:00 Ashley [facility] POCT GLUCOSE (AUTOMATED) 2020-04-09 04:32:00 Ashley [facility] POCT GLUCOSE (AUTOMATED) 2020-04-09 04:31:00 Ashley [facility] POCT GLUCOSE(AGE >30DAYS) 2020-04-08 05:41:00 Konstantin Penaloza [facility] POCT GLUCOSE (AUTOMATED) 2020-04-08 05:38:00 Singer Konstantin [facility] POCT GLUCOSE(AGE >30DAYS) 2020-04-08 04:37:00 Konstantin Penaloza [facility] POCT GLUCOSE (AUTOMATED) 2020-04-08 04:34:00 Konstantin Penaloza [facility] POCT GLUCOSE (AUTOMATED) 2020-04-08 03:49:00 Konstantin Penaloza [facility] MAGNESIUM 2020-04-08 03:45:00 Singer [facility] TROPONIN I 2020-04-08 03:45:00 Singer [facility] COMP. METABOLIC PANEL 2020-04-08 03:45:00 Singer [facility] ([id number] CBC WITH DIFFERENTIAL 2020-04-08 03:45:[address] [facility] URINALYSIS 2020-04-08 03:45:00 Singer [facility] N-TERMINAL PRO-BNP 2020-04-08 03:45:00 Singer [facility] EKG-12 LEAD 2020-04-08 03:06:27 Singer [facility] POCT GLUCOSE (AUTOMATED) 2020-04-08 03:06:00 Konstantin Penaloza [facility] REFERRAL- 2019-06-13 05:01:00 Doctor Unassigned, [facility] REQUEST/RESPONSE [place] [facility] Plan of Care Planned Activity Planned Date Details Comments Source Future Scheduled 2022-08-15 HEPATITIS B VACCINES Met [facility] Test 07:09:22 (1 of 3 - 3-dose series) [code = HEPATITIS B VACCINES (1 of 3 - 3-dose series)] Future Scheduled 2022-08-15 COVID-19 VACCINE (#1) [facility] Test 07:09:22 [code = COVID-19 VACCINE (#1)] Future Scheduled 2022-08-15 SHINGLES VACCINES (1 Met [facility] Test 07:09:22 of 2) [code = SHINGLES VACCINES (1 of 2)] Future Scheduled 2022-08-15 65+ [facility]CCAL [facility] Test 07:09:22 VACCINE (1 - PCV) [code = 65+ PNEUMOCOCCAL VACCINE (1 - PCV)] Future Scheduled 2022-08-15 INFLUENZA VACCINE [facility] Test 07:09:22 [code = INFLUENZA VACCINE] Future Scheduled 2021-11-11 COVID-19 VACCINE (1) Met [facility] Test 15:45:45 [code = COVID-19 VACCINE (1)] Future Scheduled 2021-11-11 SHINGLES VACCINES (#1) [facility] Test 15:45:45 [code = SHINGLES VACCINES (#1)] Future Scheduled 2021-11-11 65+ [facility] 15:45:45 VACCINE (1 of 1 - PPSV23) [code = 65+ PNEUMOCOCCAL VACCINE (1 of 1 - PPSV23)] Future Scheduled 2021-11-11 INFLUENZA VACCINE Method [facility] Test 15:45:45 [code = INFLUENZA VACCINE] Encounters Start End Encounter Admission Attending Care Care Encounter Source Date/Time Date/Time Type Type Clinicians Facility Department ID 2022-07-29 Outpatient Smyth, Na STLMLC STLMLC [id number] Common 10:21:00 [facility] 2022-03-24 Outpatient Smyth, Na STLMLC STLMLC [id number] Common 10:31:01 [facility] 2021-12-15 Outpatient Smyth, Na STLMLC STLMLC [id number] Common 07:36:01 [facility] 2021-11-05 Outpatient Smyth, Na STLMLC STLMLC [id number] Common 14:16:22 [id number] [facility] 2021-11-05 Outpatient Smyth, Na STLMLC STLMLC [id number] Common 12:58:14 [id number] [facility] 2021-11-05 Outpatient Smyth, Na STLMLC STLMLC [id number] Common 12:42:49 [id number] [facility] 2021-11-05 Outpatient Smyth, Na STLMLC STLMLC [id number] Common 12:42:17 [id number] [facility] 2021-11-05 Outpatient Smyth, Na STLMLC STLMLC [id number] Common 12:23:58 [id number] [facility] 2021-11-05 Outpatient Smyth, Na STLMLC STLMLC [id number] Common 12:23:06 [id number] [facility] 2021-11-05 Outpatient Smyth, Na STLMLC STLMLC [id number] Common 12:22:02 [id number] [facility] 2021-11-05 Outpatient Smyth, Na STLMLC STLMLC [id number] Common 12:16:26 13469 [facility] 2021-11-05 Outpatient [place], STLMLC STLMLC [id number] Common 12:16:05 Holly 03961 [facility] 2021-11-05 Outpatient [place], STLMLC STLMLC [id number] Common 12:04:44 Holly 07003 [facility] 2021-11-05 Outpatient [place], STLMLC STLMLC [id number] Common 11:21:12 Holly 82444 [facility] 2021-11-05 Outpatient [place], STLMLC STLMLC [id number] Common 11:19:29 Holly 13558 [facility] 2021-08-08 Emergency [facility] [id number] Univers 14:32:29 ity [facility] 2021-08-08 Emergency [facility] [id number] [facility] [id number] Univers [facility]:19[facility] 2022-07-31 2022-07-31 OFFICE STLMLC STLMLC [id number] Co mmon 00:00:00 00:00:00 VISIT [facility] ESTAB PT - CHI LEVEL 4 [facility] 2022-03-25 2022-03-25 OFFICE STLMLC STLMLC [id number] Co mmon 00:00:00 00:00:00 VISIT [facility] ESTAB PT - CHI LEVEL 4 [facility] 2022-03-25 2022-03-25 SUB ANNUAL STLMLC STLMLC [id number] Common 00:00:00 00:00:00 MCR [facility] WELLNESS - CHI VISIT [facility] 2022-02-10 2022-02-10 (TEL) STLMLC STLMLC [id number] Co mmon 00:00:00 00:00:00 [facility] 2021-12-17 2021-12-17 OFFICE STLMLC STLMLC [id number] Co mmon 00:00:00 00:00:00 VISIT [facility] ESTAB PT - CHI LEVEL 4 [facility] 2021-11-11 2021-11-11 (TEL) STLMLC STLMLC [id number] Co mmon 00:00:00 00:00:00 [facility] 2021-09-02 2021-09-02 (TEL) STLMLC STLMLC [id number] Co mmon 00:00:00 00:00:00 [facility] 2021-09-01 2021-09-01 OFFICE STLMLC STLMLC [id number] Co mmon 00:00:00 00:00:00 VISIT [facility] PT - CHI LEVEL 4 [facility] 2021-08-12 2021-08-12 (TEL) STLMLC STLMLC [id number] Co mmon 00:00:00 00:00:00 [facility] 2021-07-24 2021-07-24 (TEL) STLMLC STLMLC [id number] Co mmon 00:00:00 00:00:00 [facility] 2021-06-17 2021-06-17 (TEL) STLMLC STLMLC [id number] Co mmon 00:00:00 00:00:00 [facility] 2021-02-27 2021-02-27 Outpatient STLMLC STLMLC [id number] Common 00:00:00 00:00:00 [facility] 2021-02-11 2021-02-11 Outpatient STLMLC STLMLC [id number] Common 00:00:00 00:00:00 [facility] 2021-02-07 2021-02-07 Outpatient STLMLC STLMLC [id number] Common 00:00:00 00:00:00 [facility] 2020-12-31 2020-12-31 Outpatient STLMLC STLMLC [id number] Common 00:00:00 00:00:00 [facility] 2020-12-30 2020-12-30 Outpatient STLMLC STLMLC [id number] Common 00:00:00 00:00:00 [facility] 2020-11-29 2020-11-29 Outpatient STLMLC STLMLC [id number] Common 00:00:00 00:00:00 [facility] 2020-11-13 2020-11-13 Outpatient STLMLC STLMLC [id number] Common 00:00:00 00:00:00 [facility] 2020-11-01 2020-11-01 Outpatient STLMLC STLMLC [id number] Common 00:00:00 00:00:00 [facility] 2020-11-01 2020-11-01 Outpatient STLMLC STLMLC [id number] Common 00:00:00 00:00:00 [facility] 2020-10-07 2020-10-07 Outpatient STLMLC STLMLC [id number] Common 00:00:00 00:00:00 [facility] 2020-08-26 2020-08-26 Outpatient STLMLC STLMLC [id number] Common 00:00:00 00:00:00 [facility] 2020-06-25 2020-06-25 [facility] [id number] Common 10:20:00 10:20:00 [facility] 2020-06-14 2020-06-14 Vanessa Peralta [id number] 00:00:00 00:00:00 of Care Kelly Maldonado [id number] T[place] [id number] [id number] [id number] 2020-06-14 2020-06-14 Orders Doctor JOHANNA [id number] 00:00:00 00:00:00 Only Unassigned, ELLA [id number] [place] [facility] 4.2.7.2.686 [id number] [id number] 2020-06-14 2020-06-14 Transition Vanessa Garibay [id number] Univers 00:00:00 00:00:00 of Care Kelly Maldonado [id number] [place] [phone] [facility] 403 Branch 2020-06-14 2020-06-14 Orders Doctor JOHANNA [id number] Univers 00:00:00 00:00:00 Only Unassigned, ELLA [id number] ity of [place] [facility] [id number] Kal[place] as [phone] [place] [address] Branch 2020-06-05 2020-06-13 [facility] 1.2.840. 114 [id number] 14:01:00 18:14:00 Encounter [facility] [id number] [place] [id number] Justin Marrufo [id number] [place] [address] ([facility]) 2020-06-05 2020-06-13 [facility] 1.2.840. 114 [id number] Univers 14:01:00 18:14:00 Encounter [facility]ilka [facility] [id number] ity of [place] [id number] [place] Justin Marrufo [id number] [address] ([facility]) 2020-06-07 2020-06-07 [facility] [id number] Common 16:45:00 16:45:[address] [facility] 2020-05-30 2020-05-30 [facility] [id number] Common 08:54:00 08:54:[address] [facility] 2020-05-15 2020-05-15 [facility] [id number] Common 11:22:00 11:22:[address] [facility] 2020-05-09 2020-05-09 [facility] [id number] Common 09:34:00 09:34:[address] [facility] 2020-04-30 2020-04-30 [facility] [id number] Common 14:20:00 14:20:[address] [facility] 2020-04-25 2020-04-25 [facility] [id number] Common 10:05:00 10:05:[address] [facility] 2020-04-19 2020-04-19 [facility] [id number] Common 17:55:00 17:55:[address] [facility] 2020-04-19 2020-04-19 [facility] [id number] Common 10:20:00 10:20:[address] [facility] 2020-04-11 2020-04-11 Transition Vanessa Garibay 1.2.840.114 [id number] 00:00:00 00:00:00 of Care Kelly Maldonado [id number] [place] [id number] [id number] 2020-04-11 2020-04-11 Transition Vanessa Garibay 1.2.840.114 [id number] [facility] 00:00:00 00:00:00 of Care Kelly Maldonado [id number] [place] [phone] [place] [address] Branch 2020-04-08 2020-04-10 Emergency Yue Ramirez [facility] 1.2.8 40.114 [id number] 22:52:25 14:10:00 Meri Alanis [id number] [place] 4.2.7.2.686 [place] [id number] Formerly named [facility] 2020-04-08 2020-04-10 Emergency Yue Ramirez [facility] 1.2.8 40.114 [id number] Univers 22:52:25 14:10:00 Juwan Alanisbreezy Millard [id number] ity of [place] 4.2.7.2.686 [facility] [phone] [place] [address] Branch 2020-04-08 2020-04-08 [facility] [id number] Common 11:23:00 11:23:00 [facility] it Road [facility] 2020-04-07 2020-04-08 Emergency Penaloza, [facility] [id number] 22:05:22 01:20:00 Konstantin Cottoton [id number] [place] 4.2.7.2.686 [place] [id number] [facility] 2020-04-07 2020-04-08 Emergency Penaloza, [facility] [id number] [facility] 22:05:22 01:20:00 Konstantin Cottoton [id number] i ty of [place] 4.2.7.2.686 [facility] [id number] [place] [address] Branch 2020-03-19 2020-03-19 [facility] [id number] Common 08:33:00 08:33:00 [facility] it Road [facility] 2020-02-08 2020-02-08 [facility] [id number] Common 15:20:00 15:20:00 [facility] it Road [facility] 2020-01-19 2020-01-19 [facility] [id number] Common 11:00:00 11:00:00 [facility] it Road [facility] 2019-11-22 2019-11-22 [facility] [id number] Common 08:20:00 08:20:00 [facility] it Road [facility] 2019-08-22 2019-08-22 [facility] [id number] Common 08:00:00 08:00:00 t [facility] [address] [facility] 2019-08-15 2019-08-15 [facility] [id number] Common 13:19:00 13:19:00 t [facility] [address] [facility] 2019-08-04 2019-08-04 [facility] [id number] Common 08:50:00 08:50:00 t [facility] [address] [facility] 2019-07-07 2019-07-07 [facility] [id number] Common 13:34:00 13:34:00 t [facility] [address] [facility] 2019-06-23 2019-06-23 [facility] [id number] Common 10:00:00 10:00:00 t [facility] [address] [facility] 2019-06-14 2019-06-14 [facility] [id number] Common 09:00:00 09:00:00 t [facility] [address] [facility] 2019-06-13 2019-06-13 Orders Doctor JOHANNA 1.2.840.114 [id number] 00:00:00 00:00:00 Only Unassigned, ELLA [id number] [place] [facility] [id number] [id number] 2019-06-13 2019-06-13 Orders Doctor JOHANNA Diallo2.840.114 [id number] Univers 00:00:00 00:00:00 Only Unassigned, ELLA [id number] ity [facility] [place] [facility] [id number] [place] [phone] [place] [address] Branch 2019-06-09 2019-06-09 [facility] [id number] Common 13:40:00 13:40:00 t [facility] [address] [facility] 2019-06-09 2019-06-09 [facility] [id number] Common 08:24:00 08:24:00 t [facility] [address] [facility] 2019-05-22 2019-05-22 Outpatient Cassi Yet [id number] Common 08:00:00 08:00:00 t [facility] [address] [facility] 2019-05-01 2019-05-01 Outpatient Cassi Yet [id number] Common 08:20:00 08:20:00 t [facility] [address] [facility] 2019-04-10 2019-04-10 Outpatient [facility]i [facility] [id number] Common 15:00:00 15:00:00 t [facility] [address] [facility] 2019-01-02 2019-01-02 Outpatient Cassi Yet [id number] Common 13:30:00 13:30:00 [facility] Spir it [facility] Results Test Description Test Time Test Comments Results Result Comments Source CBC WITH DIFF 2020-06-13 11:10:00 Test Item Value Reference Range Interpretation Comme nts WBC (test code = 6690-2) See_Comment [A utomated message] The system which ge nerated this result transmit silvino reference range: 4.30 - 1 1.10 10*3/?L. The reference r maryjane was not used to interpr et this result as normal/abnor mal. RBC (test code = 789-8) See_Comment [Au tomated message] The system which ge nerated this result transmit silvino reference range: 3.93 - 5 .25 10*6/?L. The reference r maryjane was not used to interpr et this result as normal/abnor mal. HGB (test code = 718-7) 12.4 g/dL 11.6-15 HCT (test code = 4544-3) 38.4 % 35.7-45.2 MCV (test code = 787-2) 91.2 fL 80.6-95.5 MCH (test code = 785-6) 29.5 pg 25.9-32.8 MCHC (test code = 786-4) 32.3 g/dL 31.6-35.1 RDW-SD (test code = 05035-9) 52.9 fL 39-49.9 H RDW-CV (test code = 788-0) 16.2 % 12-15.5 H PLT (test code = 777-3) See_Comment [Au tomated message] The system which ge nerated this result transmit silvino reference range: 166 - 35 8 10*3/?L. The reference range was not used to interpret th is result as normal/abnormal . MPV (test code = 37220-0) 11.0 fL 9.5-12.9 NRBC/100 WBC (test code = See_Comment [ Automated message] The 0317295684) system which ge nerated this result transmit silvino reference range: 0.0 - 10 .0 /100 WBCs. The reference r maryjane was not used to interpr et this result as normal/abnor mal. NRBC x10^3 (test code = See_Comment [Au tomated message] The 3868943698) system which ge nerated this result transmit silvino reference range: 10*3/?L. The reference range was not u sed to interpret this result as normal/abnormal . SEG % (test code = 81465-9) 71 % 33-76 BAND % (test code = 86872-0) 4 % 0-1 H MYELO % (test code = 1 % See_Comment H [Autom ated message] The 90369-3) system which ge nerated this result transmit silvino reference range: <=0. The reference range was not u sed to interpret this result as normal/abnormal . LYMPH % (test code = 13 % 14-54 L 93676-3) MONO % (test code = 72644-9) 8 % 0-4 H EOS % (test code = 00254-2) 3 % 0-3 ANC (test code = 3167753486) 8.04 10*3/uL 1.88-7.09 H TOXIC CHANGES (test code = Present A 803-7) GIANT PLATELETS (test code = Present See_Comment A [Automated message] The 5908-9) system which [employer] nerated this result transmit silvino reference range: (none). The reference range was not u sed to interpret this result as normal/abnormal . Lab Interpretation (test Abnormal code = 78921-5) [facility] METABOLIC PANEL (NA, K, CL, CO2, GLUCOSE, BUN, CREATININE, CA)2020-06-13 09:33:00 Test Item Value Reference Range Interpretation Comments NA (test code = 140 mmol/L 135-145 9646918017) K (test code = 3.2 mmol/L 3.5-5 L 0841742789) CL (test code = 107 mmol/L 98-108 0696875365) CO2 TOTAL (test code = 26 mmol/L 23-31 4154372071) AGAP (test code = 2-16 3852424486) BUN (test code = 7 mg/dL 7-23 7014657656) GLUCOSE (test code = 110 mg/dL 70-110 0294082074) CREATININE (test code = 0.96 mg/dL 0.5-1.04 5241591614) CALCIUM (test code = 9.5 mg/dL 8.6-10.6 8916103019) eGFR Calculation mL/min/1.73m2 (Non-) (test code = 8728949972) eGFR Calculation mL/min/1.73m2 () (test code = 6670120050) ERICH (test code = ERICH) Association of Glomerular Filtration Rate (GFR) and Staging of Kidney Disease* + --+ --+ ------+| GFR (mL/min/1.73 m2) ?| With Kidney Damage ?| ?Without Kidney Damage+ --------+ --------+ +| ?>90 ?| ?Stage one ?| ? Normal ?+ ---+ ---+ -------+| ?60-89 ?| ?Stage two ?| ? Decreased GFR ? + --+ --+ ------+| ?30-59 ?| ?Stage three ?| ? Stage three ? + --+ --+ ------+| ?15-29 ?| ?Stage four ? | ? Stage four ?+ ---+ ---+ -------+| ?<15 (or dialysis) ? ?| ?Stage five ? | ? Stage five ?+ ---+ ---+ -------+ *Each stage assumes the associated GFR level has been in effect for at least three months. ?Stages 1 to 5, with or without kidney disease, indicate chronic kidney disease. Notes: Determination of stages one and two (with eGFR >59mL/min/1.73 m2) requires estimation of kidney damage for at least three months as defined by structural or functional abnormalities of the kidney, manifested by either:Pathological abnormalities or Markers of kidney damage (including abnormalities in the composition of the blood or urine or abnormalities in imaging tests). Lab Interpretation Abnormal (test code = 02085-1) [facility] [place]03 09:33:00 Test Item Value Reference Range Interpretation Comments MAGNESIUM (test code = 6376806418) 1.2 mg/dL 1.7-2.4 L Lab Interpretation (test code = Abnormal 16600-8) [facility] [place] [place]-09-03 09:33:00 Test Item Value Reference Range Interpretation Comments LIPASE (test code = 2826388897) 526 U/L 0-220 H Lab Interpretation (test code = Abnormal 62850-2) [facility] [place], [place] GLUCOSE (AUTOMATED)2020-06-12 13:41:00 Test Item Value Reference Range Interpretation Comments POCT GLU (test code = 3877845488) 140 mg/dL 70-110 H Lab Interpretation (test code = Abnormal 36194-5) [facility], TXLIPASE2020-09-02 11:45:00 Test Item Value Reference Range Interpretation Comments LIPASE (test code = 4985521560) 587 U/L 0-220 H Lab Interpretation (test code = Abnormal 32942-1) [facility] [place], [place]COM. METABOLIC PANEL ([id number])2020-06-12 11:45:00 Test Item Value Reference Range Interpretation Comments NA (test code = 139 mmol/L 135-145 0343166513) K (test code = 3.7 mmol/L 3.5-5 5152959362) CL (test code = 108 mmol/L 98-108 4285444676) CO2 TOTAL (test code = 23 mmol/L 23-31 4722100119) AGAP (test code = 2-16 0433035768) BUN (test code = 6 mg/dL 7-23 L 7745811677) GLUCOSE (test code = 140 mg/dL 70-110 H 2674436948) CREATININE (test code = 0.64 mg/dL 0.5-1.04 8800885548) TOTAL BILI (test code = 0.3 mg/dL 0.1-1.9 4679453786) CALCIUM (test code = 9.3 mg/dL 8.6-10.6 5552854736) T PROTEIN (test code = 6.4 g/dL 6.3-8.2 1050794623) ALBUMIN (test code = 3.1 g/dL 3.5-5 L 8339229738) ALK PHOS (test code = 63 U/L 34-122 3392192309) ALTv (test code = 22 U/L 5-35 1742-6) AST(SGOT) (test code = 45 U/L 13-40 H 2704338453) eGFR Calculation mL/min/1.73m2 (Non-) (test code = 5496948398) eGFR Calculation mL/min/1.73m2 () (test code = 7891041992) ERICH (test code = ERICH) Association of Glomerular Filtration Rate (GFR) and Staging of Kidney Disease* + --+ --+ ------+| GFR (mL/min/1.73 m2) ?| With Kidney Damage ?| ?Without Kidney Damage+ --------+ --------+ +| ?>90 ?| ?Stage one ?| ? Normal ?+ ---+ ---+ -------+| ?60-89 ?| ?Stage two ?| ? Decreased GFR ? + --+ --+ ------+| ?30-59 ?| ?Stage three ?| ? Stage three ? + --+ --+ ------+| ?15-29 ?| ?Stage four ? | ? Stage four ?+ ---+ ---+ -------+| ?<15 (or dialysis) ? ?| ?Stage five ? | ? Stage five ?+ ---+ ---+ -------+ *Each stage assumes the associated GFR level has been in effect for at least three months. ?Stages 1 to 5, with or without kidney disease, indicate chronic kidney disease. Notes: Determination of stages one and two (with eGFR >59mL/min/1.73 m2) requires estimation of kidney damage for at least three months as defined by structural or functional abnormalities of the kidney, manifested by either:Pathological abnormalities or Markers of kidney damage (including abnormalities in the composition of the blood or urine or abnormalities in imaging tests). Lab Interpretation Abnormal (test code = 83069-8) [facility] WITH [id number] 13:48:00 Test Item Value Reference Range Interpretation Comments WBC (test code = See_Comment [Automated 6690-2) message] The sy stem which generated this result transmitted reference range : 4.30 - 11.10 10*3/?L. The reference range was not used to interpret this result as normal/abnormal . RBC (test code = See_Comment [Automated 789-8) message] The sy stem which generated this result transmitted reference range : 3.93 - 5.25 10*6/?L. The reference range was not used to interpret this result as normal/abnormal . HGB (test code = 12.4 g/dL 11.6-15 718-7) HCT (test code = 37.8 % 35.7-45.2 4544-3) MCV (test code = 88.9 fL 80.6-95.5 787-2) MCH (test code = 29.2 pg 25.9-32.8 785-6) MCHC (test code = 32.8 g/dL 31.6-35.1 786-4) RDW-SD (test code = 51.2 fL 39-49.9 H 21256-4) RDW-CV (test code = 15.8 % 12-15.5 H 788-0) PLT (test code = See_Comment [Automated 777-3) message] The sy stem which generated this result transmitted reference range : 166 - 358 10*3/ ?L. The reference r maryjane was not used to interpret this result as normal/abnormal . MPV (test code = 10.9 fL 9.5-12.9 30884-9) NRBC/100 WBC (test See_Comment [Automat ed code = 3388816475) message] The system which generated this result transmitted reference range : 0.0 - 10.0 /100 WBCs. The refer ence range was not u sed to interpret th is result as normal/abnormal . NRBC x10^3 (test code <0.01 See_Comment [Auto mated = 7253282314) message] The s ystem which generated this result transmitted reference range : 10*3/?L. The reference range was not used to interpret this result as normal/abnormal . GRAN MAT (NEUT) % 69.0 % (test code = 770-8) IMM GRAN % (test code 3.80 % = 3895136836) LYMPH % (test code = 15.8 % 736-9) MONO % (test code = 7.7 % 5905-5) EOS % (test code = 2.6 % 713-8) BASO % (test code = 1.1 % 706-2) GRAN MAT x10^3(ANC) 7.04 10*3/uL 1.88-7.09 (test code = 3145780388) IMM GRAN x10^3 (test 0.39 10*3/uL 0-0.06 H code = 3536616935) LYMPH x10^3 (test code 1.61 10*3/uL 1.32-3.29 = 731-0) MONO x10^3 (test code 0.78 10*3/uL 0.33-0.92 = 742-7) EOS x10^3 (test code = 0.26 10*3/uL 0.03-0.39 711-2) BASO x10^3 (test code 0.11 10*3/uL 0.01-0.07 H = 704-7) Lab Interpretation Abnormal (test code = 11544-9) [facility] METABOLIC PANEL (NA, K, CL, CO2, GLUCOSE, BUN, CREATININE, CA)2020-06-11 12:12:00 Test Item Value Reference Range Interpretation Comments NA (test code = 138 mmol/L 135-145 3258101472) K (test code = 3.5 mmol/L 3.5-5 7326809978) CL (test code = 108 mmol/L 98-108 1830856985) CO2 TOTAL (test code = 21 mmol/L 23-31 L 2042490654) AGAP (test code = 2-16 7334004980) BUN (test code = 6 mg/dL 7-23 L 1952284829) GLUCOSE (test code = 127 mg/dL 70-110 H 8152093073) CREATININE (test code = 0.55 mg/dL 0.5-1.04 8920817831) CALCIUM (test code = 9.0 mg/dL 8.6-10.6 1821003563) eGFR Calculation mL/min/1.73m2 (Non-) (test code = 5199277391) eGFR Calculation mL/min/1.73m2 () (test code = 5682667044) ERICH (test code = ERICH) Association of Glomerular Filtration Rate (GFR) and Staging of Kidney Disease* + --+ --+ ------+| GFR (mL/min/1.73 m2) ?| With Kidney Damage ?| ?Without Kidney Damage+ --------+ --------+ +| ?>90 ?| ?Stage one ?| ? Normal ?+ ---+ ---+ -------+| ?60-89 ?| ?Stage two ?| ? Decreased GFR ? + --+ --+ ------+| ?30-59 ?| ?Stage three ?| ? Stage three ? + --+ --+ ------+| ?15-29 ?| ?Stage four ? | ? Stage four ?+ ---+ ---+ -------+| ?<15 (or dialysis) ? ?| ?Stage five ? | ? Stage five ?+ ---+ ---+ -------+ *Each stage assumes the associated GFR level has been in effect for at least three months. ?Stages 1 to 5, with or without kidney disease, indicate chronic kidney disease. Notes: Determination of stages one and two (with eGFR >59mL/min/1.73 m2) requires estimation of kidney damage for at least three months as defined by structural or functional abnormalities of the kidney, manifested by either:Pathological abnormalities or Markers of kidney damage (including abnormalities in the composition of the blood or urine or abnormalities in imaging tests). Lab Interpretation Abnormal (test code = 13537-3) [facility] [place], [place]MAGN[place]2020-09-01 12:12:00 Test Item Value Reference Range Interpretation Comments MAGNESIUM (test code = 4297731565) 1.3 mg/dL 1.7-2.4 L Lab Interpretation (test code = Abnormal 62700-9) [facility] GLUCOSE (AUTOMATED)2020-06-10 17:18:00 Test Item Value Reference Range Interpretation Comments POCT GLU (test code = 1827301889) 199 mg/dL 70-110 H Lab Interpretation (test code = Abnormal 31957-6) [facility] GLUCOSE (AUTOMATED)2020-06-10 13:27:00 Test Item Value Reference Range Interpretation Comments POCT GLU (test code = 3431773953) 138 mg/dL 70-110 H Lab Interpretation (test code = Abnormal 24294-2) [facility] [place], [place]LIPASE2020-08-31 11:37:00 Test Item Value Reference Range Interpretation Comments LIPASE (test code = 1777390635) 1258 U/L 0-220 H Lab Interpretation (test code = Abnormal 00045-8) [facility] [place], [place]. METABOLIC PANEL ([id number])2020-06-10 11:37:00 Test Item Value Reference Range Interpretation Comments NA (test code = 137 mmol/L 135-145 4714542856) K (test code = 3.3 mmol/L 3.5-5 L 5618909149) CL (test code = 108 mmol/L 98-108 5208169788) CO2 TOTAL (test code = 23 mmol/L 23-31 4593349154) AGAP (test code = 2-16 2290558683) BUN (test code = 11 mg/dL 7-23 6466491197) GLUCOSE (test code = 131 mg/dL 70-110 H 0263242551) CREATININE (test code = 0.75 mg/dL 0.5-1.04 7220308815) TOTAL BILI (test code = 0.2 mg/dL 0.1-1.1 2768465865) CALCIUM (test code = 9.1 mg/dL 8.6-10.6 3526431745) T PROTEIN (test code = 6.0 g/dL 6.3-8.2 L 6202105694) ALBUMIN (test code = 2.9 g/dL 3.5-5 L 6267244711) ALK PHOS (test code = 75 U/L 34-122 6858996114) ALTv (test code = 20 U/L 5-35 1742-6) AST(SGOT) (test code = 47 U/L 13-40 H 2807707344) eGFR Calculation mL/min/1.73m2 (Non-) (test code = 1461218797) eGFR Calculation mL/min/1.73m2 () (test code = 0180063841) ERICH (test code = ERICH) Association of Glomerular Filtration Rate (GFR) and Staging of Kidney Disease* + --+ --+ ------+| GFR (mL/min/1.73 m2) ?| With Kidney Damage ?| ?Without Kidney Damage+ --------+ --------+ +| ?>90 ?| ?Stage one ?| ? Normal ?+ ---+ ---+ -------+| ?60-89 ?| ?Stage two ?| ? Decreased GFR ? + --+ --+ ------+| ?30-59 ?| ?Stage three ?| ? Stage three ? + --+ --+ ------+| ?15-29 ?| ?Stage four ? | ? Stage four ?+ ---+ ---+ -------+| ?<15 (or dialysis) ? ?| ?Stage five ? | ? Stage five ?+ ---+ ---+ -------+ *Each stage assumes the associated GFR level has been in effect for at least three months. ?Stages 1 to 5, with or without kidney disease, indicate chronic kidney disease. Notes: Determination of stages one and two (with eGFR >59mL/min/1.73 m2) requires estimation of kidney damage for at least three months as defined by structural or functional abnormalities of the kidney, manifested by either:Pathological abnormalities or Markers of kidney damage (including abnormalities in the composition of the blood or urine or abnormalities in imaging tests). Lab Interpretation Abnormal (test code = 63231-2) [facility] WITH [id number] 10:52:00 Test Item Value Reference Range Interpretation Comments WBC (test code = See_Comment [Automated 1220-2) message] The sy stem which generated this result transmitted reference range : 4.30 - 11.10 10*3/?L. The reference range was not used to interpret this result as normal/abnormal . RBC (test code = See_Comment [Automated 463-6) message] The sy stem which generated this result transmitted reference range : 3.93 - 5.25 10*6/?L. The reference range was not used to interpret this result as normal/abnormal . HGB (test code = 12.6 g/dL 11.6-15 718-7) HCT (test code = 39.8 % 35.7-45.2 4544-3) MCV (test code = 93.2 fL 80.6-95.5 787-2) MCH (test code = 29.5 pg 25.9-32.8 785-6) MCHC (test code = 31.7 g/dL 31.6-35.1 786-4) RDW-SD (test code = 57.6 fL 39-49.9 H 34990-1) RDW-CV (test code = 18.9 % 12-15.5 H 788-0) PLT (test code = See_Comment [Automated 777-3) message] The sy stem which generated this result transmitted reference range : 166 - 358 10*3/ ?L. The reference r maryjane was not used to interpret this result as normal/abnormal . MPV (test code = 11.6 fL 9.5-12.9 21540-4) NRBC/100 WBC (test See_Comment [Automat ed code = 0554416387) message] The system which generated this result transmitted reference range : 0.0 - 10.0 /100 WBCs. The refer ence range was not u sed to interpret th is result as normal/abnormal . NRBC x10^3 (test code <0.01 See_Comment [Auto mated = 1003195959) message] The s ystem which generated this result transmitted reference range : 10*3/?L. The reference range was not used to interpret this result as normal/abnormal . GRAN MAT (NEUT) % 68.9 % (test code = 770-8) IMM GRAN % (test code 4.30 % = 8579852374) LYMPH % (test code = 15.7 % 736-9) MONO % (test code = 7.0 % 5905-5) EOS % (test code = 3.0 % 713-8) BASO % (test code = 1.1 % 706-2) GRAN MAT x10^3(ANC) 7.41 10*3/uL 1.88-7.09 H (test code = 9646067787) IMM GRAN x10^3 (test 0.46 10*3/uL 0-0.06 H code = 0283352215) LYMPH x10^3 (test code 1.69 10*3/uL 1.32-3.29 = 731-0) MONO x10^3 (test code 0.75 10*3/uL 0.33-0.92 = 742-7) EOS x10^3 (test code = 0.32 10*3/uL 0.03-0.39 711-2) BASO x10^3 (test code 0.12 10*3/uL 0.01-0.07 H = 704-7) JASON CELLS (test code 2+ See_Comment A [Auto mated = 2170-9) message] The sy stem which generated this result transmitted reference range : (none). The reference range was not used to interpret this result as normal/abnormal . TOXIC CHANGES (test Present A code = 803-7) Lab Interpretation Abnormal (test code = 88974-4) [facility] [place], [place]POMD GLUCOSE (AUTOMATED)2020-06-09 16:34:00 Test Item Value Reference Range Interpretation Comments POCT GLU (test code = 8638720251) 154 mg/dL 70-110 H Lab Interpretation (test code = Abnormal 74856-2) [facility] METABOLIC PANEL (NA, K, CL, CO2, GLUCOSE, BUN, CREATININE, CA)2020-06-09 15:57:00 Test Item Value Reference Range Interpretation Comments NA (test code = 137 mmol/L 135-145 5184592873) K (test code = 3.6 mmol/L 3.5-5 5108825639) CL (test code = 107 mmol/L 98-108 9267231136) CO2 TOTAL (test code = 22 mmol/L 23-31 L 2060656359) AGAP (test code = 2-16 8759301388) BUN (test code = 7 mg/dL 7-23 9243779467) GLUCOSE (test code = 140 mg/dL 70-110 H 7586639351) CREATININE (test code = 0.62 mg/dL 0.5-1.04 9989968514) CALCIUM (test code = 8.6 mg/dL 8.6-10.6 0054071965) eGFR Calculation mL/min/1.73m2 (Non-) (test code = 0936698887) eGFR Calculation mL/min/1.73m2 () (test code = 8646180191) ERICH (test code = ERICH) Association of Glomerular Filtration Rate (GFR) and Staging of Kidney Disease* + --+ --+ ------+| GFR (mL/min/1.73 m2) ?| With Kidney Damage ?| ?Without Kidney Damage+ --------+ --------+ +| ?>90 ?| ?Stage one ?| ? Normal ?+ ---+ ---+ -------+| ?60-89 ?| ?Stage two ?| ? Decreased GFR ? + --+ --+ ------+| ?30-59 ?| ?Stage three ?| ? Stage three ? + --+ --+ ------+| ?15-29 ?| ?Stage four ? | ? Stage four ?+ ---+ ---+ -------+| ?<15 (or dialysis) ? ?| ?Stage five ? | ? Stage five ?+ ---+ ---+ -------+ *Each stage assumes the associated GFR level has been in effect for at least three months. ?Stages 1 to 5, with or without kidney disease, indicate chronic kidney disease. Notes: Determination of stages one and two (with eGFR >59mL/min/1.73 m2) requires estimation of kidney damage for at least three months as defined by structural or functional abnormalities of the kidney, manifested by either:Pathological abnormalities or Markers of kidney damage (including abnormalities in the composition of the blood or urine or abnormalities in imaging tests). Lab Interpretation Abnormal (test code = 64171-3) [facility] [place], [place]2020-08-30 10:58:00 Test Item Value Reference Range Interpretation Comments MAGNESIUM (test code = 2214867189) 1.5 mg/dL 1.7-2.4 L Lab Interpretation (test code = Abnormal 89533-1) [facility] WITH [id number] 10:56:00 Test Item Value Reference Range Interpretation Comments WBC (test code = See_Comment [Automated 9672-2) message] The sy stem which generated this result transmitted reference range : 4.30 - 11.10 10*3/?L. The reference range was not used to interpret this result as normal/abnormal . RBC (test code = See_Comment [Automated 354-8) message] The sy stem which generated this result transmitted reference range : 3.93 - 5.25 10*6/?L. The reference range was not used to interpret this result as normal/abnormal . HGB (test code = 13.5 g/dL 11.6-15 718-7) HCT (test code = 41.2 % 35.7-45.2 4544-3) MCV (test code = 91.6 fL 80.6-95.5 787-2) MCH (test code = 30.0 pg 25.9-32.8 785-6) MCHC (test code = 32.8 g/dL 31.6-35.1 786-4) RDW-SD (test code = 55.4 fL 39-49.9 H 46796-6) RDW-CV (test code = 16.7 % 12-15.5 H 788-0) PLT (test code = See_Comment H [Automated 777-3) message] The sy stem which generated this result transmitted reference range : 166 - 358 10*3/ ?L. The reference r maryjane was not used to interpret this result as normal/abnormal . MPV (test code = 12.0 fL 9.5-12.9 85524-1) NRBC/100 WBC (test See_Comment [Automat ed code = 5356964938) message] The system which generated this result transmitted reference range : 0.0 - 10.0 /100 WBCs. The refer ence range was not u sed to interpret th is result as normal/abnormal . NRBC x10^3 (test code See_Comment [Auto mated = 7836296139) message] The s ystem which generated this result transmitted reference range : 10*3/?L. The reference range was not used to interpret this result as normal/abnormal . GRAN MAT (NEUT) % 73.1 % (test code = 770-8) IMM GRAN % (test code 3.10 % = 8462783594) LYMPH % (test code = 13.7 % 736-9) MONO % (test code = 7.4 % 5905-5) EOS % (test code = 1.8 % 713-8) BASO % (test code = 0.9 % 706-2) GRAN MAT x10^3(ANC) 7.83 10*3/uL 1.88-7.09 H (test code = 6527323039) IMM GRAN x10^3 (test 0.33 10*3/uL 0-0.06 H code = 2489925600) LYMPH x10^3 (test code 1.47 10*3/uL 1.32-3.29 = 731-0) MONO x10^3 (test code 0.79 10*3/uL 0.33-0.92 = 742-7) EOS x10^3 (test code = 0.19 10*3/uL 0.03-0.39 711-2) BASO x10^3 (test code 0.10 10*3/uL 0.01-0.07 H = 704-7) JASON CELLS (test code 3+ See_Comment A [Auto mated = 2390-9) message] The sy stem which generated this result transmitted reference range : (none). The reference range was not used to interpret this result as normal/abnormal . TOXIC CHANGES (test Present A code = 803-7) GIANT PLATELETS (test Present See_Comment A [Auto mated code = 5908-9) message] The system which generated this result transmitted reference range : (none). The reference range was not used to interpret this result as normal/abnormal . Lab Interpretation Abnormal (test code = 39254-4) [facility] WITH [id number] 12:02:00 Test Item Value Reference Range Interpretation Comments WBC (test code = See_Comment [Automated 5069-2) message] The sy stem which generated this result transmitted reference range : 4.30 - 11.10 10*3/?L. The reference range was not used to interpret this result as normal/abnormal . RBC (test code = See_Comment [Automated 450-8) message] The sy stem which generated this result transmitted reference range : 3.93 - 5.25 10*6/?L. The reference range was not used to interpret this result as normal/abnormal . HGB (test code = 13.6 g/dL 11.6-15 718-7) HCT (test code = 41.3 % 35.7-45.2 4544-3) MCV (test code = 92.2 fL 80.6-95.5 787-2) MCH (test code = 30.4 pg 25.9-32.8 785-6) MCHC (test code = 32.9 g/dL 31.6-35.1 786-4) RDW-SD (test code = 52.9 fL 39-49.9 H 82388-8) RDW-CV (test code = 15.9 % 12-15.5 H 788-0) PLT (test code = See_Comment [Automated 777-3) message] The sy stem which generated this result transmitted reference range : 166 - 358 10*3/ ?L. The reference r maryjane was not used to interpret this result as normal/abnormal . MPV (test code = 10.7 fL 9.5-12.9 57991-1) NRBC/100 WBC (test See_Comment [Automat ed code = 4560633965) message] The system which generated this result transmitted reference range : 0.0 - 10.0 /100 WBCs. The refer ence range was not u sed to interpret th is result as normal/abnormal . NRBC x10^3 (test code See_Comment [Auto mated = 3597506619) message] The s ystem which generated this result transmitted reference range : 10*3/?L. The reference range was not used to interpret this result as normal/abnormal . GRAN MAT (NEUT) % 72.8 % (test code = 770-8) IMM GRAN % (test code 2.10 % = 7992925029) LYMPH % (test code = 13.9 % 736-9) MONO % (test code = 8.1 % 5905-5) EOS % (test code = 2.2 % 713-8) BASO % (test code = 0.9 % 706-2) GRAN MAT x10^3(ANC) 8.05 10*3/uL 1.88-7.09 H (test code = 3632580475) IMM GRAN x10^3 (test 0.23 10*3/uL 0-0.06 H code = 5795239429) LYMPH x10^3 (test code 1.53 10*3/uL 1.32-3.29 = 731-0) MONO x10^3 (test code 0.89 10*3/uL 0.33-0.92 = 742-7) EOS x10^3 (test code = 0.24 10*3/uL 0.03-0.39 711-2) BASO x10^3 (test code 0.10 10*3/uL 0.01-0.07 H = 704-7) JASON CELLS (test code 2+ See_Comment A [Auto mated = 3972-9) message] The sy stem which generated this result transmitted reference range : (none). The reference range was not used to interpret this result as normal/abnormal . LG GRAN LYMPHS (test Rare Rare code = 9072612835) TOXIC CHANGES (test Present A code = 803-7) Lab Interpretation Abnormal (test code = 35728-4) [facility] METABOLIC PANEL (NA, K, CL, CO2, GLUCOSE, BUN, CREATININE, CA)2020-06-08 11:52:00 Test Item Value Reference Range Interpretation Comments NA (test code = 137 mmol/L 135-145 2547537369) K (test code = 3.9 mmol/L 3.5-5 4026071338) CL (test code = 106 mmol/L 98-108 0060418729) CO2 TOTAL (test code = 19 mmol/L 23-31 L 9614222882) AGAP (test code = 2-16 8089036838) BUN (test code = 7 mg/dL 7-23 5343675429) GLUCOSE (test code = 110 mg/dL 70-110 6757354025) CREATININE (test code = 0.56 mg/dL 0.5-1.04 8949241927) CALCIUM (test code = 9.2 mg/dL 8.6-10.6 1722213877) eGFR Calculation mL/min/1.73m2 (Non-) (test code = 6329961064) eGFR Calculation mL/min/1.73m2 () (test code = 5235325499) ERICH (test code = ERICH) Association of Glomerular Filtration Rate (GFR) and Staging of Kidney Disease* + --+ --+ ------+| GFR (mL/min/1.73 m2) ?| With Kidney Damage ?| ?Without Kidney Damage+ --------+ --------+ +| ?>90 ?| ?Stage one ?| ? Normal ?+ ---+ ---+ -------+| ?60-89 ?| ?Stage two ?| ? Decreased GFR ? + --+ --+ ------+| ?30-59 ?| ?Stage three ?| ? Stage three ? + --+ --+ ------+| ?15-29 ?| ?Stage four ? | ? Stage four ?+ ---+ ---+ -------+| ?<15 (or dialysis) ? ?| ?Stage five ? | ? Stage five ?+ ---+ ---+ -------+ *Each stage assumes the associated GFR level has been in effect for at least three months. ?Stages 1 to 5, with or without kidney disease, indicate chronic kidney disease. Notes: Determination of stages one and two (with eGFR >59mL/min/1.73 m2) requires estimation of kidney damage for at least three months as defined by structural or functional abnormalities of the kidney, manifested by either:Pathological abnormalities or Markers of kidney damage (including abnormalities in the composition of the blood or urine or abnormalities in imaging tests). Lab Interpretation Abnormal (test code = 54869-2) [facility] [place], [place]2020-08-29 11:52:00 Test Item Value Reference Range Interpretation Comments MAGNESIUM (test code = 2282744709) 1.7 mg/dL 1.7-2.4 Lab Interpretation (test code = Normal 27044-5) [facility] [place], TXLactic Acid Whole [id number] 11:39:00 Test Item Value Reference Range Interpretation Comments LACTIC ACID (test code = 2.13 mmol/L 0199237336) [facility] [place], [place]com[place] Trough Level - Draw immediately prior to the 4TH dose, but, no more than 60 minutes before the 4TH dose. 2020-06-07 20:10:00 Test Item Value Reference Range Interpretation Comments VANCO TROUGH (test code 14.7 ug/mL 07-30 = 3302974712) ERICH (test code = ERICH) Toxic Range: ?>20 ug/mL 15-20 ug/mL is recommended for severe infection or when Vancomycin SIXTO is greater than or equal to 2. Lab Interpretation (test Normal code = 21437-6) [facility] WITH [id number] 19:53:00 Test Item Value Reference Range Interpretation Comments WBC (test code = See_Comment H [Automated 6690-2) message] The sy stem which generated this result transmitted reference range : 4.30 - 11.10 10*3/?L. The reference range was not used to interpret this result as normal/abnormal . RBC (test code = See_Comment [Automated 789-8) message] The sy stem which generated this result transmitted reference range : 3.93 - 5.25 10*6/?L. The reference range was not used to interpret this result as normal/abnormal . HGB (test code = 12.6 g/dL 11.6-15 718-7) HCT (test code = 38.9 % 35.7-45.2 4544-3) MCV (test code = 92.2 fL 80.6-95.5 787-2) MCH (test code = 29.9 pg 25.9-32.8 785-6) MCHC (test code = 32.4 g/dL 31.6-35.1 786-4) RDW-SD (test code = 53.5 fL 39-49.9 H 25004-6) RDW-CV (test code = 15.9 % 12-15.5 H 788-0) PLT (test code = See_Comment [Automated 777-3) message] The sy stem which generated this result transmitted reference range : 166 - 358 10*3/ ?L. The reference r maryjane was not used to interpret this result as normal/abnormal . MPV (test code = 11.5 fL 9.5-12.9 54149-6) NRBC/100 WBC (test See_Comment [Automat ed code = 4357288923) message] The system which generated this result transmitted reference range : 0.0 - 10.0 /100 WBCs. The refer ence range was not u sed to interpret th is result as normal/abnormal . NRBC x10^3 (test code <0.01 See_Comment [Auto mated = 1308274190) message] The s ystem which generated this result transmitted reference range : 10*3/?L. The reference range was not used to interpret this result as normal/abnormal . GRAN MAT (NEUT) % 73.5 % (test code = 770-8) IMM GRAN % (test code 2.40 % = 5391110132) LYMPH % (test code = 15.0 % 736-9) MONO % (test code = 7.1 % 5905-5) EOS % (test code = 1.2 % 713-8) BASO % (test code = 0.8 % 706-2) GRAN MAT x10^3(ANC) 8.42 10*3/uL 1.88-7.09 H (test code = 9377211998) IMM GRAN x10^3 (test 0.28 10*3/uL 0-0.06 H code = 6207250103) LYMPH x10^3 (test code 1.72 10*3/uL 1.32-3.29 = 731-0) MONO x10^3 (test code 0.82 10*3/uL 0.33-0.92 = 742-7) EOS x10^3 (test code = 0.14 10*3/uL 0.03-0.39 711-2) BASO x10^3 (test code 0.09 10*3/uL 0.01-0.07 H = 704-7) JASON CELLS (test code 2+ See_Comment A [Auto mated = 7790-9) message] The sy stem which generated this result transmitted reference range : (none). The reference range was not used to interpret this result as normal/abnormal . GIANT PLATELETS (test Present See_Comment A [Auto mated code = 5908-9) message] The system which generated this result transmitted reference range : (none). The reference range was not used to interpret this result as normal/abnormal . Lab Interpretation Abnormal (test code = 63440-7) [facility] [place], [place]Magn[place] [id number] 19:38:00 Test Item Value Reference Range Interpretation Comments MAGNESIUM (test code = 7611151863) 1.5 mg/dL 1.7-2.4 L Lab Interpretation (test code = Abnormal 02670-5) [facility] [place] (NA, K, CL, CO2, GLUCOSE, BUN, CREATININE, CA)2020-06-07 19:38:00 Test Item Value Reference Range Interpretation Comments NA (test code = 139 mmol/L 135-145 6594484625) K (test code = 3.2 mmol/L 3.5-5 L 1425342819) CL (test code = 104 mmol/L 98-108 5434105646) CO2 TOTAL (test code = 23 mmol/L 23-31 9007028421) AGAP (test code = 2-16 0748730103) BUN (test code = 9 mg/dL 7-23 8212170740) GLUCOSE (test code = 96 mg/dL 70-110 5156238551) CREATININE (test code = 0.58 mg/dL 0.5-1.04 2260402199) CALCIUM (test code = 9.6 mg/dL 8.6-10.6 4906087278) eGFR Calculation mL/min/1.73m2 (Non-) (test code = 6786636649) eGFR Calculation mL/min/1.73m2 () (test code = 6114918984) ERICH (test code = ERICH) Association of Glomerular Filtration Rate (GFR) and Staging of Kidney Disease* + --+ --+ ------+| GFR (mL/min/1.73 m2) ?| With Kidney Damage ?| ?Without Kidney Damage+ --------+ --------+ +| ?>90 ?| ?Stage one ?| ? Normal ?+ ---+ ---+ -------+| ?60-89 ?| ?Stage two ?| ? Decreased GFR ? + --+ --+ ------+| ?30-59 ?| ?Stage three ?| ? Stage three ? + --+ --+ ------+| ?15-29 ?| ?Stage four ? | ? Stage four ?+ ---+ ---+ -------+| ?<15 (or dialysis) ? ?| ?Stage five ? | ? Stage five ?+ ---+ ---+ -------+ *Each stage assumes the associated GFR level has been in effect for at least three months. ?Stages 1 to 5, with or without kidney disease, indicate chronic kidney disease. Notes: Determination of stages one and two (with eGFR >59mL/min/1.73 m2) requires estimation of kidney damage for at least three months as defined by structural or functional abnormalities of the kidney, manifested by either:Pathological abnormalities or Markers of kidney damage (including abnormalities in the composition of the blood or urine or abnormalities in imaging tests). Lab Interpretation Abnormal (test code = 64016-6) [facility] Branch[facility] Whole [id number] 19:11:00 Test Item Value Reference Range Interpretation Comments LACTIC ACID (test code = 2.09 mmol/L 6286745428) [facility] GLUCOSE (AUTOMATED)2020-06-07 16:55:00 Test Item Value Reference Range Interpretation Comments POCT GLU (test code = 8080850879) 103 mg/dL 70-110 Lab Interpretation (test code = Normal 10510-9) [facility] GLUCOSE (AUTOMATED)2020-06-07 14:29:00 Test Item Value Reference Range Interpretation Comments POCT GLU (test code = 4802286149) 97 mg/dL 70-110 Lab Interpretation (test code = Normal 71490-0) [facility] [place], TXC-REACTIVE [id number] 16:43:00 Test Item Value Reference Range Interpretation Comments CRP (test code = 0994032962) 12.6 mg/dL <0.8 H Lab Interpretation (test code = Abnormal 81958-6) [facility] [place], TXUS ABDOMEN [id number] 13:56:401. Limited study, grossly there is no definite evidence of pneumobilia EXAM: Ultrasound of the abdomen limited HISTORY: Pneumobilia TECHNIQUE:Sonographic evaluation of the liver is performed. FINDINGS:The liver is normal in size and shape. No definite focal massesare present within the liver. Portal venous flow is in the normaldirection. Gallbladder is removed. Common bile duct appears to be normaland measures 5 mm. The midline structures could not be visualized secondary to significantgas. [facility], Radiant Results Inft User - 06/06/2020 8:57 AM CDTEXAM: Ultrasound of the abdomen limitedHISTORY: Pneum obiliaTECHNIQUE:Sonographic evaluation of the liver is performed.FINDINGS:The liver is normal in size and shape. No definite focal massesare present within the liver. Portal venous flow is in the normaldirection. Gallbladder is removed. Common bile duct appears to be normaland measures 5 mm.The midline structures could not be visualized secondary to significantgas.IMPRESSION1. Limited study, grossly there is no definite evidence of pneumobiliaUniversity of The Hospitals Of Providence [facility] CampusFERRITIN [id number] 10:08:00 Test Item Value Reference Range Interpretation Comments FERRITIN (test code = 537.0 ng/mL 11-264 H 3795466835) ERICH (test code = ERICH) Biotin has been reported to cause a negative bias, interpret results relative to patient's use of biotin. Lab Interpretation (test Abnormal code = 17271-3) [facility] [place] (NA, K, CL, CO2, GLUCOSE, BUN, CREATININE, CA)2020-06-06 09:34:00 Test Item Value Reference Range Interpretation Comments NA (test code = 137 mmol/L 135-145 8889503575) K (test code = 3.4 mmol/L 3.5-5 L 1254091216) CL (test code = 105 mmol/L 98-108 8951980819) CO2 TOTAL (test code = 19 mmol/L 23-31 L 8644122300) AGAP (test code = 2-16 6026386239) BUN (test code = 16 mg/dL 7-23 6604008002) GLUCOSE (test code = 119 mg/dL 70-110 H 2337877979) CREATININE (test code = 0.77 mg/dL 0.5-1.04 1510004350) CALCIUM (test code = 10.0 mg/dL 8.6-10.6 3568732993) eGFR Calculation mL/min/1.73m2 (Non-) (test code = 1400179797) eGFR Calculation mL/min/1.73m2 () (test code = 3286993665) ERICH (test code = ERICH) Association of Glomerular Filtration Rate (GFR) and Staging of Kidney Disease* + --+ --+ ------+| GFR (mL/min/1.73 m2) ?| With Kidney Damage ?| ?Without Kidney Damage+ --------+ --------+ +| ?>90 ?| ?Stage one ?| ? Normal ?+ ---+ ---+ -------+| ?60-89 ?| ?Stage two ?| ? Decreased GFR ? + --+ --+ ------+| ?30-59 ?| ?Stage three ?| ? Stage three ? + --+ --+ ------+| ?15-29 ?| ?Stage four ? | ? Stage four ?+ ---+ ---+ -------+| ?<15 (or dialysis) ? ?| ?Stage five ? | ? Stage five ?+ ---+ ---+ -------+ *Each stage assumes the associated GFR level has been in effect for at least three months. ?Stages 1 to 5, with or without kidney disease, indicate chronic kidney disease. Notes: Determination of stages one and two (with eGFR >59mL/min/1.73 m2) requires estimation of kidney damage for at least three months as defined by structural or functional abnormalities of the kidney, manifested by either:Pathological abnormalities or Markers of kidney damage (including abnormalities in the composition of the blood or urine or abnormalities in imaging tests). Lab Interpretation Abnormal (test code = 95042-7) [facility] [place], [place]MAGNES[place]UM2020-08-27 09:34:00 Test Item Value Reference Range Interpretation Comments MAGNESIUM (test code = 8682734787) 1.4 mg/dL 1.7-2.4 L Lab Interpretation (test code = Abnormal 86154-3) [facility] [place], TXD-[id number] 09:30:00 Test Item Value Reference Interpretation Comments Range D-DIMER (test code = See_Comment H [Autom ated 2160192077) message] The system which generated this result transmitted reference range : <0.50 ?g/mL (FEU). The reference range was not used to interpret this result as normal/abnormal . ERICH (test code = This test may be ERICH) used in conjunction with a clinical pretest probability (PTP) assessment model to exclude venous thromboembolism (VTE) in patients suspected of deep venous thrombosis (DVT) and pulmonary embolism (PE) A D-Dimer value less than 0.50 ?g/ml (FEU) has a negative predicative value of 96 to 100% (95% CI)and 97 to 100% (95% CI) as an aid in the diagnosis of deep vein thrombosis (DVT) and pulmonary embolism when there is low or moderate pretest probability of PE or DVT. D-Dimer values are expressed in initial fibrinogen equivalent units (FEU)" The assay results should be used with other information, including the clinical context, in forming a diagnosis. Lab Interpretation Abnormal (test code = 97344-7) [facility] WITH [id number] 09:20:00 Test Item Value Reference Range Interpretation Comments WBC (test code = See_Comment H [Automated 6690-2) message] The system which generated this result transmit silvino reference range : 4.30 - 11.10 10*3/?L. The reference range was not used to interpret this result as normal/abnormal . RBC (test code = See_Comment [Automated 789-8) message] The system which generated this result transmit silvino reference range : 3.93 - 5.25 10*6/?L. The reference range was not used to interpret this result as normal/abnormal . HGB (test code = 11.9 g/dL 11.6-15 718-7) HCT (test code = 35.6 % 35.7-45.2 L 4544-3) MCV (test code = 89.4 fL 80.6-95.5 787-2) MCH (test code = 29.9 pg 25.9-32.8 785-6) MCHC (test code = 33.4 g/dL 31.6-35.1 786-4) RDW-SD (test code = 50.9 fL 39-49.9 H 77764-2) RDW-CV (test code = 15.5 % 12-15.5 788-0) PLT (test code = See_Comment [Automated 777-3) message] The system which generated this result transmit silvino reference range : 166 - 358 10*3/ ?L. The reference range was not u sed to interpret th is result as normal/abnormal . MPV (test code = 11.7 fL 9.5-12.9 36463-2) NRBC/100 WBC (test See_Comment [Automat ed code = 0737826255) message] The system which generated this result transmit silvino reference range : 0.0 - 10.0 /100 WBCs. The reference range was not used to interpret this result as normal/abnormal . NRBC x10^3 (test code <0.01 See_Comment [Auto mated = 7661974116) message] The system which generated this result transmit silvino reference range : 10*3/?L. The reference range was not used to interpret this result as normal/abnormal . GRAN MAT (NEUT) % 79.8 % (test code = 770-8) IMM GRAN % (test code 1.30 % = 8378382198) LYMPH % (test code = 9.8 % 736-9) MONO % (test code = 8.3 % 5905-5) EOS % (test code = 0.3 % 713-8) BASO % (test code = 0.5 % 706-2) GRAN MAT x10^3(ANC) 12.36 10*3/uL 1.88-7.09 H (test code = 2671004059) IMM GRAN x10^3 (test 0.20 10*3/uL 0-0.06 H code = 1486479829) LYMPH x10^3 (test code 1.51 10*3/uL 1.32-3.29 = 731-0) MONO x10^3 (test code 1.28 10*3/uL 0.33-0.92 H = 742-7) EOS x10^3 (test code = 0.04 10*3/uL 0.03-0.39 711-2) BASO x10^3 (test code 0.07 10*3/uL 0.01-0.07 = 704-7) Lab Interpretation Abnormal (test code = 81753-3) [facility] [place], [place] (ID NOW RAPID TESTING)2020-06-06 01:09:00 Test Item Value Reference Range Interpretation Comments SARS-CoV-2 Rapid ID NOW Positive Not Detected A (test code = 77060-3) ERICH (test code = ERICH) ID NOW COVID-19 Assay is an isothermal nucleic acid amplification test intended for the qualitative detection of nucleic acid from SARS-CoV-2 viral RNA in nasopharyngeal ([employer]) specimens. It is used under Emergency Use Authorization (EUA) by FDA. The limit of detection (LOD) of the assay is 125 Genome Equivalents/mL. A positive result is indicative of the presence of SARS-CoV-2 RNA. ?Clinical correlation with patient history and other diagnostic information is necessary to determine patient infection status. A negative (Not Detected) result does not preclude SARS-CoV-2 infection. In patients with clinical symptoms and other tests that are consistent with SARS-CoV-2 infection, negative results should be treated as presumptive negative and a new specimen should be tested with alternative PCR molecular test. Invalid: Please collect a new specimen for repeat patient testing if clinically indicated. Lab Interpretation Abnormal (test code = 42874-5) [facility] [place], TXLactic Acid Whole [id number] 23:31:00 Test Item Value Reference Range Interpretation Comments LACTIC ACID (test code = 1.79 mmol/L 4211959924) [facility] [place], TXCT PELVIS W [id number] 22:55:39 Addendum by Deric Lombardi MD on 06/05/2020 8:20 PM* * * * * * * * ADDENDUM: * * * * * * * *Report changes regarding subtle peripancreatic stranding and possible shortsegment descending colitis versus diverticulitis were discussed with nursepractitioner Sendy at 6:05 PM on 06/05/2020. PreliminaryReport Dictated by Resident: Deric Gilman ?MD Maria C., have reviewed this study andagree with theabove report.Addendum by Deric Lombardi MD on 06/05/2020 6:01 PM* * * * * * * * ADDENDUM: * * * * * * * *Questionable stranding of the pancreatic head on 4:45. Otherwise, noappreciable stranding surrounding the pancreas despite lipase elevation. Circumferential urinary bladder wall thickening is likely related tosuboptimal distention. Consider UA if clinically indicated. 1. ?Normalto moderate nonspecific fat stranding, swelling and inflammatorychanges in the left paramedian buttock. Findings likely representcellulitis with inflammatory changes extending to the subcutaneous softtissues. No drainable fluid collection at this time. Phlegmonous changeswith early abscess formation are not excluded. Correlate clinically. 2. ?Subtle pericolonic stranding involving the mid descending colon isnonspecific. No definite inflamed diverticulum in this area. Findings mayrepresent subclinical short segment colitis or diverticulitis. Correlateclinically. 3. ?Pneumobilia. Please correlate with patient's history surgical history. 4. ?Technically indeterminate avidly enhancing left adrenal nodule.Additional technically indeterminate 9 mm right adrenal nodule. This shouldbe further characterized with multiphasic CT or MRI adrenal protocol. 5. ?Atrophic right kidney with delayed nephrogram probably related toremote vascular insult with diminutive appearance of right renal artery. 6. ?Technical ly indeterminate 1.0 cm hypoattenuation in peripheral spleen. 7. ?Solid 4 mm subpleural lingular nodule. Consider follow-up in 12 monthsif clinically appropriate. 8. ?L5 compression deformity with sclerosis, probably chronic. Pleasecorrelate with point tenderness to exclude possibility of acute component. 9. ?Additional findings as above. Preliminary Report Dictated by Resident: Deric Gilman ?MD. Maria C, have reviewed this study and agree with theabove report.EXAM: CT ABDOMEN/PELVISWITH CONTRAST HISTORY: ?large ? abscess to left buttock ? COMPARISON: None TECHNIQUE AND FINDINGS: Contiguous axial imaging from the level of the lungbases through the proximal thighs was performed after the administration ccof intravenous Omnipaque contrast. Coronal and sagittal reconstructionswere obtained. Auto mA and/or iterative reconstruction were used to reduceradiation dose. FINDINGS: LOWER THORAX: Subsegmental atelectasis are seen in bilateral lower lobes,right middle lobe, and lingula. A solid subpleural 4 mm nodule is seen inthe lingula (4:10). Mild aortic valve calcifications. 4 mm calcification within the left breast(4:40). Irregular soft atherosclerotic plaque is seen within the distal thoracicaorta. HEPATOBILIARY: No focal hepatic lesions. ?Normal contour. Priorcholecystectomy. Thecommon duct measures up to 8 mm in diameter transverseat the jodi hepatis but limited visualizationdue to streak artifacts fromsurgical clips. Pneumobilia is noted in the central intrahepatic bile ducts, predominantlyin the left hepatic lobe. Relatively low insertion of cystic duct remnantinto the CBD just above the ampulla versus posterior sectoral duct. SPLEEN: No splenomegaly. A focal well circumscribed hypoattenuation is seenin the periphery of the spleen measures 1.0 cm (4:30), nonspecific. PANCREAS: No ductal dilation or masses. Hypoattenuating appearance of theuncinate process is likely related to interdigitation of retroperitonealfat into the pancreatic parenchyma. ADRENAL GLANDS: Avidlyenhancing left adrenal nodule at the inferior aspectleft adrenal gland with central hypoattenuation measures 1.3 x 1.3 cm (APby TV, on 4:43). A 0.9 cm nodule is on the right. Both adrenal lesions aretechnically indeterminate. KIDNEYS: The right kidney is atrophic and poorly enhancing with delayedrenalnephrogram probably related to medical renal disease and remotevascular compromise (favored). Right renal artery is very diminutive withprominent calcifications near its origin. Distal portions do not appear toopacify well. The left kidney is unremarkable without nephrolithiasis, hydronephrosis ormass. PERITONEUM AND RETROPERITONEUM: No free air or fluid. LYMPH NODES: No lymphadenopathy. Prominent left inguinal lymph nodemeasures 1 cm short axis (4:124). GI TRACT: No dilation. Mild pancolonic diverticulosis withoutdiverticulitis. Appendix is not visualized. However, there is no rightlower quadrant inflammatory change or stranding. Subtle strandingsurrounding the mid descending colon (4:65). No definite enhancingdiverticulum in this area. PELVIS/BLADDER: Prior hysterectomy. Circumferential urinarybladder wallthickening probably related to decompressed state. Focal calcification in the right lateral vagina near the introitus. VESSELS: Extensive atherosclerotic calcifications affect the aortoiliacvessels. Focal area of high-grade narrowing is seen within the proximalright common iliac artery (4:72-79). Mild atherosclerotic calcificationsalso seen within the left renal artery ostium and proximalSMA. BONES AND SOFT TISSUES: Mild fat stranding along the posterior paramedianleft buttock at the level of sacrum. No organizing fluid collection isseen. No soft tissue gas is present. Small questionable area of fatnecrosis is seen on 4:94. Tiny fat-containing umbilical hernia. Compression deformity at L4 vertebral body with about 20-30% anterior bodyheight loss and sclerotic appearance. The alignment is normal. Multileveldegenerative changes are scattered throughout the visualized spine withmild facet arthropathy within the lower lumbar spine. No acute fracture is identified. Diffuse bone demineralization. A synovialherniation pit is noted in the left femoral neck. [facility], Radiant Results Inft User- 06/05/2020 6:04 PM CDTEXAM: CT ABDOMEN/PELVIS WITH CONTRASTHISTORY: large ? abscess to left buttock COMPARISON: NoneTECHNIQUE AND FINDINGS: Contiguous axial imaging from the level of the lungbases through the proximal thighs was performed after the administration ccof intravenous Omnipaque contrast.Coronal and sagittal reconstructionswere obtained. Auto mA and/or iterative reconstruction were usedto reduceradiation dose.FINDINGS:LOWER THORAX: Subsegmental atelectasis are seen in bilateral lower lobes,right middle lobe, and lingula. A solid subpleural 4 mm nodule is seen inthe lingula (4:10).Mild aortic valve calcifications. 4 mm calcification within the left breast(4:40).Irregular soft atherosclerotic plaque is seen within the distal thoracicaorta.HEPATOBILIARY: No focal hepatic lesions. Normal contour. Priorcholecystectomy. The common duct measures up to 8 mm in diameter transverseat the jodi hepatis but limited visualization due to streak artifacts fromsurgical clips. Pneumobilia is noted in the central intrahepatic bile ducts, predominantlyin the left hepatic lobe. Relatively low insertion of cystic duct remnantinto the CBD just above the ampulla versus posterior sectoral duct.SPLEEN:No splenomegaly. A focal well circumscribed hypoattenuation is seenin the periphery of the spleen measures 1.0 cm (4:30), nonspecific.PANCREAS: No ductal dilation or masses. Hypoattenuating appearance of theuncinate process is likely related to interdigitation of retroperitonealfat into the pancreatic parenchyma.ADRENAL GLANDS: Avidly enhancing left adrenal nodule at the inferior aspectleft adrenal gland with central hypoattenuation measures 1.3 x 1.3 cm (APby TV, on 4:43). A 0.9 cm nodule is on theright. Both adrenal lesions aretechnically indeterminate.KIDNEYS: The right kidney is atrophic and poorly enhancing with delayedrenal nephrogram probably related to medical renal disease and remotevascular compromise (favored). Right renal artery is very diminutive withprominent calcifications near its origin. Distal portions do not appear toopacify well. The left kidney is unremarkable without nephrolithiasis, hydronephrosis ormass.PERITONEUM AND RETROPERITONEUM: No free air or fluid.LYMPH NODES: No lymphadenopathy. Prominent left inguinal lymph nodemeasures 1 cm short axis (4:124).GI TRACT: No dilation. Mild pancolonic diverticulosis withoutdiverticulitis. Appendix is not visualized. However, there is no rightlower quadrant inflammatory change or stranding. Subtle strandingsurrounding the mid descending colon (4:65). No definite enhancingdiverticulum in this area.PELVIS/BLADDER: Prior hysterectomy. Circumferential urinary bladder wallthickening probably related to decompressed state. Focal calcification in the right lateral vagina near the introitus.VESSELS: Extensive atherosclerotic calcifications affect the aortoiliacvessels. Focal area of high-grade narrowing is seen within the proximalright common iliac artery (4:72-79). Mild atherosclerotic calcificationsalso seen within the left renal artery ostium and proximal SMA.BONES AND SOFT TISSUES: Mild fat stranding along the posterior parame dianleft buttock at the level of sacrum. No organizing fluid collection isseen. No soft tissue gas is present. Small questionable area of fatnecrosis is seen on 4:94.Tiny fat-containing umbilical hernia.Compression deformity at L4 vertebral body with about 20-30% anterior bodyheight loss and scleroticappearance. The alignment is normal. Multileveldegenerative changes are scattered throughout the visualized spine withmild facet arthropathy within the lower lumbar spine. No acute fracture is identified. Diffuse bone demineralization. A synovialherniation pit is noted in the left femoral neck.IMPRESSION1. Normal to moderate nonspecific fat stranding, swelling and inflammatorychanges in the left paramedian buttock. Findings likely representcellulitis with inflammatory changes extending to the subcutaneous softtissues. No drainable fluid collection at this time. Phlegmonous changeswith early abscessformation are not excluded. Correlate clinically.2. Subtle pericolonic stranding involving the mid de scending colon isnonspecific. No definite inflamed diverticulum in this area. Findings mayrepresent subclinical short segment colitis or diverticulitis. Correlateclinically.3. Pneumobilia. Please correlate with patient's history surgical history.4. Technically indeterminate avidly enhancing left adrenal nodule.Additional technically indeterminate 9 mm right adrenal nodule. This shouldbe further characterized with multiphasic CT or MRI adrenal protocol.5. Atrophic right kidney with delayed nephrogramprobably related toremote vascular insult with diminutive appearance of right renal artery.6. Technically indeterminate 1.0 cm hypoattenuation in peripheral spleen.7. Solid 4 mm subpleural lingular nodule. Consider follow-up in 12 monthsif clinically appropriate.8. L5 compression deformity with sclerosis, probably chronic. Pleasecorrelate with point tenderness to exclude possibility of acute component .9. Additional findings as above.Preliminary Report Dictated by Resident: Deric Oconnor MD., have reviewed this study and agree with theabove report.[facility] [place], TXHepatic Function Panel (ALB, T.PRO, BILI T, BU/BC, ALT, AST, ALK PHOS)2020-06-05 22:23:00 Test Item Value Reference Range Interpretation Comments TOTAL BILI (test code = 6520027501) 0.5 mg/dL 0.1-1.1 BILI UNCON (test code = 8142573985) 0.6 mg/dL 0.1-1.1 BILI CONJ (test code = 1505040124) 0.0 mg/dL 0-0.3 T PROTEIN (test code = 1998134834) 6.8 g/dL 6.3-8.2 ALBUMIN (test code = 8148519022) 3.7 g/dL 3.5-5 ALK PHOS (test code = 6468775468) 76 U/L 34-122 ALTv (test code = 1742-6) 15 U/L 5-35 AST(SGOT) (test code = 8436594913) 34 U/L 13-40 Lab Interpretation (test code = Normal 42523-8) [facility] [place], [place]Lipase [id number] 22:23:00 Test Item Value Reference Range Interpretation Comments LIPASE (test code = 1053715861) 1032 U/L 0-220 H Lab Interpretation (test code = Abnormal 75863-0) [facility] [place] (NA, K, CL, CO2, GLUCOSE, BUN, CREATININE, CA)2020-06-05 20:08:00 Test Item Value Reference Range Interpretation Comments NA (test code = 134 mmol/L 135-145 L 8422242951) K (test code = 3.8 mmol/L 3.5-5 0742969504) CL (test code = 101 mmol/L 98-108 5256612142) CO2 TOTAL (test code = 27 mmol/L 23-31 5296840239) AGAP (test code = 2-16 8378439737) BUN (test code = 19 mg/dL 7-23 7136650019) GLUCOSE (test code = 130 mg/dL 70-110 H 4190601733) CREATININE (test code = 0.88 mg/dL 0.5-1.04 1822151063) CALCIUM (test code = 10.5 mg/dL 8.6-10.6 7445171321) eGFR Calculation mL/min/1.73m2 (Non-) (test code = 9284268837) eGFR Calculation mL/min/1.73m2 () (test code = 7571618991) ERICH (test code = ERICH) Association of Glomerular Filtration Rate (GFR) and Staging of Kidney Disease* + --+ --+ ------+| GFR (mL/min/1.73 m2) ?| With Kidney Damage ?| ?Without Kidney Damage+ --------+ --------+ +| ?>90 ?| ?Stage one ?| ? Normal ?+ ---+ ---+ -------+| ?60-89 ?| ?Stage two ?| ? Decreased GFR ? + --+ --+ ------+| ?30-59 ?| ?Stage three ?| ? Stage three ? + --+ --+ ------+| ?15-29 ?| ?Stage four ? | ? Stage four ?+ ---+ ---+ -------+| ?<15 (or dialysis) ? ?| ?Stage five ? | ? Stage five ?+ ---+ ---+ -------+ *Each stage assumes the associated GFR level has been in effect for at least three months. ?Stages 1 to 5, with or without kidney disease, indicate chronic kidney disease. Notes: Determination of stages one and two (with eGFR >59mL/min/1.73 m2) requires estimation of kidney damage for at least three months as defined by structural or functional abnormalities of the kidney, manifested by either:Pathological abnormalities or Markers of kidney damage (including abnormalities in the composition of the blood or urine or abnormalities in imaging tests). Lab Interpretation Abnormal (test code = 00168-3) [facility] with [id number] 19:58:00 Test Item Value Reference Range Interpretation Comments WBC (test code = See_Comment H [Automated 2415-2) message] The system which generated this result transmit silvino reference range : 4.30 - 11.10 10*3/?L. The reference range was not used to interpret this result as normal/abnormal . RBC (test code = See_Comment [Automated 044-8) message] The system which generated this result transmit silvino reference range : 3.93 - 5.25 10*6/?L. The reference range was not used to interpret this result as normal/abnormal . HGB (test code = 13.2 g/dL 11.6-15 718-7) HCT (test code = 40.9 % 35.7-45.2 4544-3) MCV (test code = 91.7 fL 80.6-95.5 787-2) MCH (test code = 29.6 pg 25.9-32.8 785-6) MCHC (test code = 32.3 g/dL 31.6-35.1 786-4) RDW-SD (test code = 51.8 fL 39-49.9 H 42858-7) RDW-CV (test code = 15.4 % 12-15.5 788-0) PLT (test code = See_Comment [Automated 777-3) message] The system which generated this result transmit silvino reference range : 166 - 358 10*3/ ?L. The reference range was not u sed to interpret th is result as normal/abnormal . MPV (test code = 12.1 fL 9.5-12.9 88446-5) NRBC/100 WBC (test See_Comment [Automat ed code = 9663472605) message] The system which generated this result transmit silvino reference range : 0.0 - 10.0 /100 WBCs. The reference range was not used to interpret this result as normal/abnormal . NRBC x10^3 (test code <0.01 See_Comment [Auto mated = 5293744826) message] The system which generated this result transmit silvino reference range : 10*3/?L. The reference range was not used to interpret this result as normal/abnormal . GRAN MAT (NEUT) % 76.8 % (test code = 770-8) IMM GRAN % (test code 1.60 % = 9506381424) LYMPH % (test code = 12.3 % 736-9) MONO % (test code = 8.7 % 5905-5) EOS % (test code = 0.3 % 713-8) BASO % (test code = 0.3 % 706-2) GRAN MAT x10^3(ANC) 11.08 10*3/uL 1.88-7.09 H (test code = 3216552886) IMM GRAN x10^3 (test 0.23 10*3/uL 0-0.06 H code = 8969228631) LYMPH x10^3 (test code 1.78 10*3/uL 1.32-3.29 = 731-0) MONO x10^3 (test code 1.25 10*3/uL 0.33-0.92 H = 742-7) EOS x10^3 (test code = 0.05 10*3/uL 0.03-0.39 711-2) BASO x10^3 (test code 0.05 10*3/uL 0.01-0.07 = 704-7) Lab Interpretation Abnormal (test code = 03106-3) [facility] [place], TXLautic Acid Whole [id number] 19:50:00 Test Item Value Reference Range Interpretation Comments LACTIC ACID (test code = 2.85 mmol/L 3762163498) [facility] GLUCOSE (AUTOMATED)2020-04-10 16:53:00 Test Item Value Reference Range Interpretation Comments POCT GLU (test code = 4086993156) 123 mg/dL 70-110 H Lab Interpretation (test code = Abnormal 28992-2) [facility] GLUCOSE (AUTOMATED)2020-04-10 14:05:00 Test Item Value Reference Range Interpretation Comments POCT GLU (test code = 9209820850) 124 mg/dL 70-110 H Lab Interpretation (test code = Abnormal 86255-4) [facility] [place], [place]GLYCOSYLATED HEMOGLOBIN (A1C)2020-04-10 09:44:00 Test Item Value Reference Interpretation Comments Range HGB A1C (test code = See_Comment [Autom ated 4548-4) message] The system which generated this result transmitted reference range : 4.0 - 6.0 % NGSP. The reference range was not used to interpret this result as normal/abnormal . ERICH (test code = %A1C (NGSP) ERICH) Interpretation (ADA)4.8-5.6 ? ? Normal or (Non-Diabetic Range)5.7-6.4 ? ? Increased Risk (Pre-Diabetic)>6.5 ?Diabetes Indicated Lab Interpretation Normal (test code = 78306-6) [facility] WITH [id number] 09:04:00 Test Item Value Reference Range Interpretation Comments WBC (test code = See_Comment L [Automated 6690-2) message] The sy stem which generated this result transmitted reference range : 4.30 - 11.10 10*3/?L. The reference range was not used to interpret this result as normal/abnormal . RBC (test code = See_Comment [Automated 789-8) message] The sy stem which generated this result transmitted reference range : 3.93 - 5.25 10*6/?L. The reference range was not used to interpret this result as normal/abnormal . HGB (test code = 13.1 g/dL 11.6-15 718-7) HCT (test code = 40.0 % 35.7-45.2 4544-3) MCV (test code = 90.9 fL 80.6-95.5 787-2) MCH (test code = 29.8 pg 25.9-32.8 785-6) MCHC (test code = 32.8 g/dL 31.6-35.1 786-4) RDW-SD (test code = 48.6 fL 39-49.9 60281-1) RDW-CV (test code = 14.5 % 12-15.5 788-0) PLT (test code = See_Comment L [Automated 777-3) message] The sy stem which generated this result transmitted reference range : 166 - 358 10*3/ ?L. The reference r maryjane was not used to interpret this result as normal/abnormal . MPV (test code = 12.8 fL 9.5-12.9 87850-1) IPF % (test code = 10.7 % 1.3-7.7 H Platelet count 1200349948) measured by fluorescence method. NRBC/100 WBC (test See_Comment [Automat ed code = 1626031320) message] The system which generated this result transmitted reference range : 0.0 - 10.0 /100 WBCs. The refer ence range was not u sed to interpret th is result as normal/abnormal . NRBC x10^3 (test code <0.01 See_Comment [Auto mated = 5773653644) message] The s ystem which generated this result transmitted reference range : 10*3/?L. The reference range was not used to interpret this result as normal/abnormal . GRAN MAT (NEUT) % 68.0 % (test code = 770-8) IMM GRAN % (test code 0.50 % = 6096620015) LYMPH % (test code = 22.5 % 736-9) MONO % (test code = 8.5 % 5905-5) EOS % (test code = 0.0 % 713-8) BASO % (test code = 0.5 % 706-2) GRAN MAT x10^3(ANC) 2.87 10*3/uL 1.88-7.09 (test code = 1774761561) IMM GRAN x10^3 (test <0.03 0-0.06 code = 5736152718) LYMPH x10^3 (test code 0.95 10*3/uL 1.32-3.29 L = 731-0) MONO x10^3 (test code 0.36 10*3/uL 0.33-0.92 = 742-7) EOS x10^3 (test code = <0.03 0.03-0.39 L 711-2) BASO x10^3 (test code <0.03 0.01-0.07 = 704-7) Lab Interpretation Abnormal (test code = 50419-8) [facility] METABOLIC PANEL (NA, K, CL, CO2, GLUCOSE, BUN, CREATININE, CA)2020-04-10 09:00:00 Test Item Value Reference Range Interpretation Comments NA (test code = 137 mmol/L 135-145 0500269681) K (test code = 3.5 mmol/L 3.5-5 0164679332) CL (test code = 104 mmol/L 98-108 9875453766) CO2 TOTAL (test code = 24 mmol/L 23-31 4272603025) AGAP (test code = 2-16 7400227690) BUN (test code = 11 mg/dL 7-23 2740848340) GLUCOSE (test code = 109 mg/dL 70-110 3661416443) CREATININE (test code 0.87 mg/dL 0.5-1.04 = 2544896779) CALCIUM (test code = 8.8 mg/dL 8.6-10.6 8898575695) eGFR Calculation mL/min/1.73m2 (Non-) (test code = 2118954492) eGFR Calculation mL/min/1.73m2 () (test code = 8376519842) ERIHC (test code = ERICH) Association of Glomerular Filtration Rate (GFR) and Staging of Kidney Disease* + -+ + ---+| GFR (mL/min/1.73 m2) ?| With Kidney Damage ?| ?Without Kidney Damage+ -------+ ------+ ---------+| ?>90 ?| ?Stage one ?| ? Normal ?+ --+ -+ ----+| ?60-89 ?| ?Stage two ?| ? Decreased GFR ? + -+ + ---+| ?30-59 ?| ?Stage three ?| ? Stage three ? + -+ + ---+| ?15-29 ?| ?Stage four ? | ? Stage four ?+ --+ -+ ----+| ?<15 (or dialysis) ? ?| ?Stage five ? | ? Stage five ?+ --+ -+ ----+ *Each stage assumes the associated GFR level has been in effect for at least three months. ?Stages 1 to 5, with or without kidney disease, indicate chronic kidney disease. Notes: Determination of stages one and two (with eGFR >59mL/min/1.73 m2) requires estimation of kidney damage for at least three months as defined by structural or functional abnormalities of the kidney, manifested by either:Pathological abnormalities or Markers of kidney damage (including abnormalities in the composition of the blood or urine or abnormalities in imaging tests). [facility] GLUCOSE (AUTOMATED)2020-04-10 01:46:00 Test Item Value Reference Range Interpretation Comments POCT GLU (test code = 5426686429) 90 mg/dL 70-110 Lab Interpretation (test code = Normal 59366-8) [facility] GLUCOSE (AUTOMATED)2020-04-09 22:12:00 Test Item Value Reference Range Interpretation Comments POCT GLU (test code = 2728777688) 72 mg/dL 70-110 Lab Interpretation (test code = Normal 46540-8) [facility] GLUCOSE (AUTOMATED)2020-04-09 17:04:00 Test Item Value Reference Range Interpretation Comments POCT GLU (test code = 6194027907) 94 mg/dL 70-110 Lab Interpretation (test code = Normal 08427-0) [facility] GLUCOSE (AUTOMATED)2020-04-09 13:19:00 Test Item Value Reference Range Interpretation Comments POCT GLU (test code = 5497529003) 77 mg/dL 70-110 Lab Interpretation (test code = Normal 32811-0) [facility] GLUCOSE (AUTOMATED)2020-04-09 07:51:00 Test Item Value Reference Range Interpretation Comments POCT GLU (test code = 0135553767) 79 mg/dL 70-110 Lab Interpretation (test code = Normal 43800-6) [facility] [place], [place]COVID[place] (ID NOW RAPID TESTING)2020-04-09 07:14:00 Test Item Value Reference Range Interpretation Comments SARS-CoV-2 Rapid ID NOW Positive Not Detected A (test code = 50376-1) ERICH (test code = ERICH) ID NOW COVID-19 Assay is an isothermal nucleic acid amplification test intended for the qualitative detection of nucleic acid from SARS-CoV-2 viral RNA in nasopharyngeal ([employer]) specimens. It is used under Emergency Use Authorization (EUA) by FDA. The limit of detection (LOD) of the assay is 125 Genome Equivalents/mL. A positive result is indicative of the presence of SARS-CoV-2 RNA. ?Clinical correlation with patient history and other diagnostic information is necessary to determine patient infection status. A negative (Not Detected) result does not preclude SARS-CoV-2 infection. In patients with clinical symptoms and other tests that are consistent with SARS-CoV-2 infection, negative results should be treated as presumptive negative and a new specimen should be tested with alternative PCR molecular test. Invalid: Please collect a new specimen for repeat patient testing if clinically indicated. Lab Interpretation Abnormal (test code = 03914-2) [facility] GLUCOSE (AUTOMATED)2020-04-09 06:34:00 Test Item Value Reference Range Interpretation Comments POCT GLU (test code = 7344265859) 68 mg/dL 70-110 L Lab Interpretation (test code = Abnormal 79467-3) [facility] GLUCOSE (AUTOMATED)2020-04-09 06:07:00 Test Item Value Reference Range Interpretation Comments POCT GLU (test code = 7513088088) 88 mg/dL 70-110 Lab Interpretation (test code = Normal 93881-5) [facility] [place], [place]THYROID STIMULATING [id number] 05:48:00 Test Item Value Reference Range Interpretation Comments TSH (test code = See_Comment [Automated message] 8597516158) The system [employer] generated this result transmitted ref erence range: 0.45 - 4 .70 mIU/L. The refe rence range was not u sed to interpret this result as normal/abnor mal. Lab Interpretation (test Normal code = 51869-7) [facility] [place], [place]POMD GLUCOSE (AUTOMATED)2020-04-09 05:26:00 Test Item Value Reference Range Interpretation Comments POCT GLU (test code = 0492985443) 120 mg/dL 70-110 H Lab Interpretation (test code = Abnormal 25100-7) [facility] WITH [id number] 05:21:00 Test Item Value Reference Range Interpretation Comments WBC (test code = See_Comment [Automated 6690-2) message] The sy stem which generated this result transmitted reference range : 4.30 - 11.10 10*3/?L. The reference range was not used to interpret this result as normal/abnormal . RBC (test code = See_Comment [Automated 789-8) message] The sy stem which generated this result transmitted reference range : 3.93 - 5.25 10*6/?L. The reference range was not used to interpret this result as normal/abnormal . HGB (test code = 14.5 g/dL 11.6-15 718-7) HCT (test code = 44.1 % 35.7-45.2 4544-3) MCV (test code = 91.3 fL 80.6-95.5 787-2) MCH (test code = 30.0 pg 25.9-32.8 785-6) MCHC (test code = 32.9 g/dL 31.6-35.1 786-4) RDW-SD (test code = 48.7 fL 39-49.9 89728-1) RDW-CV (test code = 14.5 % 12-15.5 788-0) PLT (test code = See_Comment L [Automated 777-3) message] The sy stem which generated this result transmitted reference range : 166 - 358 10*3/ ?L. The reference r maryjane was not used to interpret this result as normal/abnormal . MPV (test code = 13.2 fL 9.5-12.9 H 66801-1) IPF % (test code = 13.6 % 1.3-7.7 H Platelet count 1322419315) measured by fluorescence method. NRBC/100 WBC (test See_Comment [Automat ed code = 1565457861) message] The system which generated this result transmitted reference range : 0.0 - 10.0 /100 WBCs. The refer ence range was not u sed to interpret th is result as normal/abnormal . NRBC x10^3 (test code <0.01 See_Comment [Auto mated = 1864072100) message] The s ystem which generated this result transmitted reference range : 10*3/?L. The reference range was not used to interpret this result as normal/abnormal . GRAN MAT (NEUT) % 73.8 % (test code = 770-8) IMM GRAN % (test code 1.00 % = 0124164682) LYMPH % (test code = 17.5 % 736-9) MONO % (test code = 7.5 % 5905-5) EOS % (test code = 0.0 % 713-8) BASO % (test code = 0.2 % 706-2) GRAN MAT x10^3(ANC) 3.62 10*3/uL 1.88-7.09 (test code = 1185551252) IMM GRAN x10^3 (test 0.05 10*3/uL 0-0.06 code = 5527385635) LYMPH x10^3 (test code 0.86 10*3/uL 1.32-3.29 L = 731-0) MONO x10^3 (test code 0.37 10*3/uL 0.33-0.92 = 742-7) EOS x10^3 (test code = <0.03 0.03-0.39 L 711-2) BASO x10^3 (test code <0.03 0.01-0.07 = 704-7) Lab Interpretation Abnormal (test code = 03069-8) [facility] [place], [place]COMP. METABOLIC PANEL (27252)2020-04-09 05:17:00 Test Item Value Reference Range Interpretation Comments NA (test code = 139 mmol/L 135-145 3552560913) K (test code = 3.8 mmol/L 3.5-5 3951948907) CL (test code = 105 mmol/L 98-108 3806246776) CO2 TOTAL (test code = 25 mmol/L 23-31 3809126672) AGAP (test code = 2-16 7458764943) BUN (test code = 13 mg/dL 7-23 2430426133) GLUCOSE (test code = 120 mg/dL 70-110 H 0478823622) CREATININE (test code = 1.07 mg/dL 0.5-1.04 H 1101680223) TOTAL BILI (test code = 0.7 mg/dL 0.1-1.0 2124820906) CALCIUM (test code = 9.7 mg/dL 8.6-10.6 6374516653) T PROTEIN (test code = 8.4 g/dL 6.3-8.2 H 7009960633) ALBUMIN (test code = 4.5 g/dL 3.5-5 9877774267) ALK PHOS (test code = 90 U/L 34-122 5149897891) ALTv (test code = 36 U/L 5-35 H 1742-6) AST(SGOT) (test code = 68 U/L 13-40 H 7460050779) eGFR Calculation mL/min/1.73m2 (Non-) (test code = 0463547512) eGFR Calculation mL/min/1.73m2 () (test code = 2975640603) ERICH (test code = ERICH) Association of Glomerular Filtration Rate (GFR) and Staging of Kidney Disease* + --+ --+ ------+| GFR (mL/min/1.73 m2) ?| With Kidney Damage ?| ?Without Kidney Damage+ --------+ --------+ +| ?>90 ?| ?Stage one ?| ? Normal ?+ ---+ ---+ -------+| ?60-89 ?| ?Stage two ?| ? Decreased GFR ? + --+ --+ ------+| ?30-59 ?| ?Stage three ?| ? Stage three ? + --+ --+ ------+| ?15-29 ?| ?Stage four ? | ? Stage four ?+ ---+ ---+ -------+| ?<15 (or dialysis) ? ?| ?Stage five ? | ? Stage five ?+ ---+ ---+ -------+ *Each stage assumes the associated GFR level has been in effect for at least three months. ?Stages 1 to 5, with or without kidney disease, indicate chronic kidney disease. Notes: Determination of stages one and two (with eGFR >59mL/min/1.73 m2) requires estimation of kidney damage for at least three months as defined by structural or functional abnormalities of the kidney, manifested by either:Pathological abnormalities or Markers of kidney damage (including abnormalities in the composition of the blood or urine or abnormalities in imaging tests). Lab Interpretation Abnormal (test code = 23742-8) [facility] GLUCOSE (AUTOMATED)2020-04-09 04:36:00 Test Item Value Reference Range Interpretation Comments POCT GLU (test code = 2201976836) 125 mg/dL 70-110 H Lab Interpretation (test code = Abnormal 89901-5) [facility] GLUCOSE (AUTOMATED)2020-04-09 04:36:00 Test Item Value Reference Range Interpretation Comments POCT GLU (test code = 0613176626) 113 mg/dL 70-110 H Lab Interpretation (test code = Abnormal 11577-1) [facility] GLUCOSE (AUTOMATED)2020-04-09 04:36:00 Test Item Value Reference Range Interpretation Comments POCT GLU (test code = 8617268290) 110 mg/dL 70-110 Lab Interpretation (test code = Normal 51395-0) [facility] GLUCOSE (AUTOMATED)2020-04-08 05:41:00 Test Item Value Reference Range Interpretation Comments POCT GLU (test code = 0059169868) 210 mg/dL 70-110 H Lab Interpretation (test code = Abnormal 06836-7) [facility] GLUCOSE(AGE >30DAYS)2020-04-08 05:41:00 Test Item Value Reference Range Interpretation Comments POCT Glu (age>30days) (test code = 210 mg/dL 70-110 A 3342) Lab Interpretation (test code = Abnormal 41927-9) [facility] [place], [place]TROPONIN [id number] 04:44:00 Test Item Value Reference Range Interpretation Comments TROPONIN I (test <0.012 See_Comment [Automated code = 8686276187) message] The system which generated this result transmitted reference range : <=0.034 ng/mL. The reference range was not used to interpr et this result as normal/abnormal . ERICH (test code = Equal or Less than ERICH) 0.034 ng/ml---Normal ?Note: Cardiac troponin begins to rise 3-4 hours after the onset of ischemia. Repeat in 4-6 hours if the sample was drawn within 3-4 hours of the onset of the symptom and found normal. Between 0.035 and 0.120 ng/mL--- Borderline. Questionable myocardial injury or necrosis ? ?Note: Serial measurement may be necessary to confirm or exclude the diagnosis of myocardial injury or necrosis; Clinical correlation (symptoms, EKGs, imaging studies, and others) required; Repeat in 4-6 hours if clinically indicated. ? Equal or Higher than 0.121 ng/mL---Abnormal. Myocardial Injury or Necrosis Likely ? Biotin has been reported to cause a negative bias, interpret results relative to patient's use of biotin. ? Lab Interpretation Normal (test code = 19747-5) [facility]. METABOLIC PANEL (43167)2020-04-08 04:41:00 Test Item Value Reference Range Interpretation Comments NA (test code = 141 mmol/L 135-145 1808474905) K (test code = 4.0 mmol/L 3.5-5 5447395564) CL (test code = 106 mmol/L 98-108 7002656546) CO2 TOTAL (test code = 25 mmol/L 23-31 3125089358) AGAP (test code = 2-16 8760518057) BUN (test code = 14 mg/dL 7-23 5773633867) GLUCOSE (test code = 38 mg/dL 70-110 LL 4850298940) CREATININE (test code = 1.00 mg/dL 0.5-1.04 6930778757) TOTAL BILI (test code = 0.8 mg/dL 0.1-1.2 6901337931) CALCIUM (test code = 10.1 mg/dL 8.6-10.6 0777308789) T PROTEIN (test code = 8.3 g/dL 6.3-8.2 H 1006242094) ALBUMIN (test code = 4.5 g/dL 3.5-5 7751822228) ALK PHOS (test code = 93 U/L 34-122 7439136989) ALTv (test code = 36 U/L 5-35 H 1742-6) AST(SGOT) (test code = 72 U/L 13-40 H 8904400048) eGFR Calculation mL/min/1.73m2 (Non-) (test code = 5107535248) eGFR Calculation mL/min/1.73m2 () (test code = 2947270246) ERICH (test code = ERICH) Association of Glomerular Filtration Rate (GFR) and Staging of Kidney Disease* + --+ --+ ------+| GFR (mL/min/1.73 m2) ?| With Kidney Damage ?| ?Without Kidney Damage+ --------+ --------+ +| ?>90 ?| ?Stage one ?| ? Normal ?+ ---+ ---+ -------+| ?60-89 ?| ?Stage two ?| ? Decreased GFR ? + --+ --+ ------+| ?30-59 ?| ?Stage three ?| ? Stage three ? + --+ --+ ------+| ?15-29 ?| ?Stage four ? | ? Stage four ?+ ---+ ---+ -------+| ?<15 (or dialysis) ? ?| ?Stage five ? | ? Stage five ?+ ---+ ---+ -------+ *Each stage assumes the associated GFR level has been in effect for at least three months. ?Stages 1 to 5, with or without kidney disease, indicate chronic kidney disease. Notes: Determination of stages one and two (with eGFR >59mL/min/1.73 m2) requires estimation of kidney damage for at least three months as defined by structural or functional abnormalities of the kidney, manifested by either:Pathological abnormalities or Markers of kidney damage (including abnormalities in the composition of the blood or urine or abnormalities in imaging tests). Lab Interpretation Abnormal (test code = 81477-9) [facility] [place], [place]N-TERMINAL [id number] 04:40:00 Test Item Value Reference Range Interpretation Comments NT-proBNP (test code 105 pg/mL See_Comment [Autom ated = 2083518566) message] The system which generated this result transmitted reference range : <=450. The reference range was not used to interpret this result as normal/abnormal . ERICH (test code = ERICH) Biotin has been reported to cause a negative bias, interpret results relative to patient's use of biotin. Lab Interpretation Normal (test code = 03000-4) [facility] GLUCOSE (AUTOMATED)2020-04-08 04:37:00 Test Item Value Reference Range Interpretation Comments POCT GLU (test code = 3749531750) 301 mg/dL 70-110 H Lab Interpretation (test code = Abnormal 98170-6) [facility] GLUCOSE(AGE >30DAYS)2020-04-08 04:37:00 Test Item Value Reference Range Interpretation Comments POCT Glu (age>30days) (test code = 301 mg/dL 70-110 A 3342) Lab Interpretation (test code = Abnormal 45865-7) [facility] [place], [place]MAGNESIUM2020-06-29 04:33:00 Test Item Value Reference Range Interpretation Comments MAGNESIUM (test code = 8517063194) 2.0 mg/dL 1.7-2.4 Lab Interpretation (test code = Normal 91530-9) [facility] [facility] [place], [place]URIN[place]IS2020-[place]-29 04:19:00 Test Item Value Reference Range Interpretation Comments APPEARANCE (test code = Hazy Clear A 2545074032) COLOR (test code = Yellow Yellow 1178570339) PH (test code = 4.8-8.0 4699035380) SP GRAVITY (test code = 1.003-1.030 1485858533) GLU U QUAL (test code = 500 mg/dL Normal A 4811300198) BLOOD (test code = Negative Negative 1115495067) KETONES (test code = Negative Negative 3644916695) PROTEIN (test code = 100 mg/dL Negative A 2887-8) UROBILIN (test code = Normal Normal 0913735208) BILIRUBIN (test code = Negative Negative 1292491598) NITRITE (test code = Negative Negative 0097974790) LEUK TOBIAS (test code = Negative Negative 2328189662) RBC/HPF (test code = See_Comment [Autom ated message] 3023793523) The system [employer] generated this result transmit silvino reference range : 0 - 3 HPF. The refe rence range was not u sed to interpret th is result as normal/abnormal . WBC/HPF (test code = See_Comment [Autom ated message] 9773129751) The system [employer] h generated this result transmit silvino reference range : 0 - 5 HPF. The refe rence range was not u sed to interpret th is result as normal/abnormal . BACTERIA (test code = Few Negative A 9216684316) MUCOUS (test code = Slight Negative LPF A 5438878935) SQ EPITH (test code = HPF 3433924981) Lab Interpretation (test Abnormal code = 25559-4) [facility] WITH [id number] 04:07:00 Test Item Value Reference Range Interpretation Comments WBC (test code = See_Comment [Automated 6690-2) message] The sy stem which generated this result transmitted reference range : 4.30 - 11.10 10*3/?L. The reference range was not used to interpret this result as normal/abnormal . RBC (test code = See_Comment [Automated 789-8) message] The sy stem which generated this result transmitted reference range : 3.93 - 5.25 10*6/?L. The reference range was not used to interpret this result as normal/abnormal . HGB (test code = 13.6 g/dL 11.6-15 718-7) HCT (test code = 41.8 % 35.7-45.2 4544-3) MCV (test code = 92.1 fL 80.6-95.5 787-2) MCH (test code = 30.0 pg 25.9-32.8 785-6) MCHC (test code = 32.5 g/dL 31.6-35.1 786-4) RDW-SD (test code = 49.4 fL 39-49.9 46214-0) RDW-CV (test code = 14.6 % 12-15.5 788-0) PLT (test code = See_Comment L [Automated 777-3) message] The sy stem which generated this result transmitted reference range : 166 - 358 10*3/ ?L. The reference r maryjane was not used to interpret this result as normal/abnormal . MPV (test code = 13.6 fL 9.5-12.9 H 37201-4) NRBC/100 WBC (test See_Comment [Automat ed code = 4488324894) message] The system which generated this result transmitted reference range : 0.0 - 10.0 /100 WBCs. The refer ence range was not u sed to interpret th is result as normal/abnormal . NRBC x10^3 (test code <0.01 See_Comment [Auto mated = 8779535004) message] The s ystem which generated this result transmitted reference range : 10*3/?L. The reference range was not used to interpret this result as normal/abnormal . GRAN MAT (NEUT) % 75.4 % (test code = 770-8) IMM GRAN % (test code 0.40 % = 3752095179) LYMPH % (test code = 11.9 % 736-9) MONO % (test code = 11.9 % 5905-5) EOS % (test code = 0.0 % 713-8) BASO % (test code = 0.4 % 706-2) GRAN MAT x10^3(ANC) 3.92 10*3/uL 1.88-7.09 (test code = 1680059933) IMM GRAN x10^3 (test <0.03 0-0.06 code = 8944044480) LYMPH x10^3 (test code 0.62 10*3/uL 1.32-3.29 L = 731-0) MONO x10^3 (test code 0.62 10*3/uL 0.33-0.92 = 742-7) EOS x10^3 (test code = <0.03 0.03-0.39 L 711-2) BASO x10^3 (test code <0.03 0.01-0.07 = 704-7) Lab Interpretation Abnormal (test code = 16742-2) [facility] GLUCOSE (AUTOMATED)2020-04-08 03:54:00 Test Item Value Reference Range Interpretation Comments POCT GLU (test code = 8416768302) 166 mg/dL 70-110 H Lab Interpretation (test code = Abnormal 03637-5) [facility] GLUCOSE (AUTOMATED)2020-04-08 03:08:00 Test Item Value Reference Range Interpretation Comments POCT GLU (test code = 0725944955) 46 mg/dL 70-110 LL Lab Interpretation (test code = Abnormal 18466-7) [facility] [place], TXBLOOD [id number] 16:53:00 Test Item Value Reference Range Interpretation Comments CULTURE (BEAKER) (test No growth in 5 days code = 1095) OCCULT BLOOD, [id number] 10:24:00 Test Item Value Reference Range Interpretation Comments FECAL OCCULT BLOOD (BEAKER) (test Negative Negative code = 618) POCT-GLUCOSE [id number] 07:40:00 Test Item Value Reference Range Interpretation Comments POC-GLUCOSE METER 146 mg/dL 70-110 H TESTED AT [facility] 6720 (BEAKER) (test code = [place] 1538) [address] CBC W/PLT COUNT & AUTO [id number] 06:18:00 Test Item Value Reference Range Interpretation [...] 0.00-0.20 (test code = 417) 0.00BASIC METABOLIC [id number] 06:15:00 Test Item Value Reference Range Interpretation [...] DIALYSIS PATIEN TS. SPUTUM CULTURE + GRAM [id number] 04:15:00 Test Item Value Reference Range Interpretation Comments CULTURE A <1+ Moraxella (BEAKER) (test catarrhalis code = 1095) GRAM STAIN <1+ WBCs RESULT (BEAKER) (test code = 1123) GRAM STAIN 0-5 epithelial cells RESULT (BEAKER) (test code = 477776) GRAM STAIN <1+ gram variable RESULT ([facility]) coccobacilli (test code = 552492) No Normal respiratory pedro presentPOCT-GLUCOSE [id number] 21:05:00 Test Item Value Reference Range Interpretation Comments POC-GLUCOSE METER 155 mg/dL 70-110 H TESTED AT [place] [address] [facility] (test code = [facility] 1538) [address] POCT-GLUCOSE [id number] 16:47:00 Test Item Value Reference Range Interpretation Comments POC-GLUCOSE METER 90 mg/dL 70-110 TESTED AT [place] [address] ([facility]) (test code = [facility] [address] 1538) POCT-GLUCOSE [id number] 12:28:00 Test Item Value Reference Range Interpretation Comments POC-GLUCOSE METER 193 mg/dL 70-110 H TESTED AT [place] [address] ([facility]) (test code = [facility] 1538) [address] POCT-GLUCOSE [id number] 07:54:00 Test Item Value Reference Range Interpretation Comments POC-GLUCOSE METER 118 mg/dL 70-110 H TESTED AT [place] [address] ([facility]) (test code = [facility] 1538) [address] BASIC METABOLIC [id number] 05:20:00 Test Item Value Reference Range Interpretation [...] PATIEN TS. CBC W/PLT COUNT & AUTO [id number] 05:18:00 Test Item Value Reference Range Interpretation [...] L 0.00-0.20 (test code = 417) 0.00POCT-GLUCOSE [id number] 21:02:00 Test Item Value Reference Range Interpretation Comments POC-GLUCOSE METER 170 mg/dL 70-110 H TESTED AT [facility] 6720 (BEAKER) (test code = [place] 1538) [address] POCT-GLUCOSE [id number] 16:49:00 Test Item Value Reference Range Interpretation Comments POC-GLUCOSE METER 223 mg/dL 70-110 H TESTED AT [facility] 6720 (BEAKER) (test code = [place] 1538) [address] CBC W/PLT COUNT & AUTO [id number] 12:31:00 Test Item Value Reference Range Interpretation [...] (test code = 1+ few 765) URINE [id number] 11:54:00 Test Item Value Reference Range Interpretation [...] S Sulfamethoxazole (test code = 47) CULTURE (BEAKER) (test ESCHERICHIA COLI A 4 0-49,000 col/mL code = 41545) Escherichia coliof a second type Amikacin (test [...] S Sulfamethoxazole (test code = 47) POCT-GLUCOSE [id number] 11:34:00 Test Item Value Reference Range Interpretation Comments POC-GLUCOSE METER 205 mg/dL 70-110 H TESTED AT [place] [address] ([facility]) (test code = [facility] 1538) [address] POCT-GLUCOSE [id number] 07:45:00 Test Item Value Reference Range Interpretation Comments POC-GLUCOSE METER 183 mg/dL 70-110 H TESTED AT [place] [address] ([facility]) (test code = [facility] 1538) [address] BASIC METABOLIC [id number] 06:22:00 Test Item Value Reference Range Interpretation Comments SODIUM ([facility]) 142 meq/L 136-145 (test code = 381) POTASSIUM (AKER) 4.1 meq/L 3.5-5.1 (test code = 379) CHLORIDE (AKER) 109 meq/L 98-107 H (test code = 382) CO2 ([facility]) (test 20 meq/L 22-29 L code = 355) BLOOD UREA NITROGEN 79 mg/dL 7-21 H ([facility]) (test code = 354) CREATININE (AKER) 2.25 mg/dL 0.57-1.25 H (test code = 358) GLUCOSE RANDOM 187 mg/dL 70-105 H ([facility]) (test code = 652) CALCIUM (BEAKER) 9.4 mg/dL 8.4-10.2 (test code = 697) EGFR (BEAKER) (test 26 mL/min/1.73 ESTIMA SILVINO GFR IS code = 1092) sq m NOT ACCURATE CREATININE CLEARANCE IN PREDICTING GLOMERULAR FILTRATION RATE . ESTIMATED GFR I S NOT APPLICABLE FOR DIALYSIS PATIEN TS. POCT-GLUCOSE [id number] 20:48:00 Test Item Value Reference Range Interpretation Comments POC-GLUCOSE METER 196 mg/dL 70-110 H TESTED AT [place] [address] ([facility]) (test code = [facility] 1538) [address] [id number] 18:05:00 Test Item Value Reference Range Interpretation Comments FERRITIN (AKER) (test code = 1333 ng/mL 5-275 H 361) Effective 08/28/2014: Reference Range ChangeNew: Male 5-275 Previous: Male 22- 322 Female 5-275 Female 83-712CBMY-MJMSYOL [id number] 17:58:00 Test Item Value Reference Range Interpretation Comments POC-GLUCOSE METER 172 mg/dL 70-110 H TESTED AT [place] [address] ([facility]) (test code = [facility] 1538) [address] IRON, TIBC, % SAT. (WITHOUT FERRITIN)2017-01-25 17:44:00 Test Item Value Reference Range Interpretation Comments IRON (BEAKER) (test code = 547) 167 ug/dL 40-160 H TOTAL IRON BINDING CAPACITY 235 ug/dL 250-450 L ([facility]) (test code = 769) IRON % SATURATION (2) (AKER) 71 % 20-55 H (test code = 2590) POCT-GLUCOSE [id number] 13:08:00 Test Item Value Reference Range Interpretation Comments POC-GLUCOSE METER 226 mg/dL 70-110 H TESTED AT [place] [address] ([facility]) (test code = [facility] 1538) [address] CBC W/PLT COUNT & AUTO [id number] 12:38:00 Test Item Value Reference Range Interpretation Comments WHITE BLOOD CELL COUNT (AKER) 16.7 K/ L 4.0-10.0 H (test code = 775) RED BLOOD CELL COUNT (AKER) 2.30 M/ L 4.00-5.00 L (test code [...] RBCS(BEAKER) 1+ few (test code = 478) [id number] 11:24:00 Test Item Value Reference Range Interpretation Comments RPR SCREEN (BEAKER) (test code = Nonreactive Nonreactive 420) HEMOGLOBIN [id number] 10:47:00 Test Item Value Reference Range Interpretation Comments HEMOGLOBIN A1C (BEAKER) (test code = 6.6 % 4.3-6.1 H 368) BASIC METABOLIC [id number] 09:42:00 Test Item Value Reference Range Interpretation [...] U/L 125-220 H code = 635) POCT-GLUCOSE [id number] 06:55:00 Test Item Value Reference Range Interpretation Comments POC-GLUCOSE METER 257 mg/dL 70-110 H TESTED AT [facility] 6720 (BEAKER) (test code = [place] 1538) [address] POCT-GLUCOSE [id number] 00:44:00 Test Item Value Reference Range Interpretation Comments POC-GLUCOSE METER 335 mg/dL 70-110 H Notified R Rupa MD/TESTED (BEAKER) (test code = AT [facility] [address] [place] [address]38) [facility] [address] POCT-GLUCOSE [id number] 12:23:00 Test Item Value Reference Range Interpretation Comments POC-GLUCOSE METER 289 mg/dL 70-110 H TESTED AT [facility] 6720 (BEAKER) (test code = [place] [facility] 1538) [address] CBC W/PLT COUNT & AUTO [id number] 07:59:00 Test Item Value Reference Range Interpretation [...] few (test code = 478) BASIC METABOLIC [id number] 06:39:00 Test Item Value Reference Range Interpretation [...] U/L 125-220 H code = 635) POCT-GLUCOSE [id number] 05:55:00 Test Item Value Reference Range Interpretation Comments POC-GLUCOSE METER 166 mg/dL 70-110 H TESTED AT [place] [address] ([facility]) (test code = [facility] 1538) [address] POCT-GLUCOSE [id number] 00:10:00 Test Item Value Reference Range Interpretation Comments POC-GLUCOSE METER 273 mg/dL 70-110 H TESTED AT [place] [address] ([facility]) (test code = [facility] 1538) [address] CREATININE, RANDOM [id number] 18:50:00 Test Item Value Reference Range Interpretation Comments CREATININE URINE ([facility]) (test 70.2 mg/dL code = 375) Reference Range: No NormalsPROTEIN, RANDOM [id number] 18:50:00 Test Item Value Reference Range Interpretation Comments PROTEIN, URINE ([facility]) (test code = 35 mg/dL 0-14 H 1569) HEPATITIS PANEL, [id number] 18:41:00 Test Item Value Reference Range Interpretation Comments HEPATITIS A IGM ANTIBODY (BEAKER) Nonreactive Nonreactive (test code = 498) HEPATITIS B CORE IGM ANTIBODY Nonreactive Nonreactive (BEAKER) (test code = 645) HEPATITIS C ANTIBODY (BEAKER) Nonreactive Nonreactive (test code = 367) HEPATITIS B SURFACE ANTIGEN (2) Nonreactive Nonreactive (BEAKER) (test code = 2585) HIV-1 ANTIGEN WITH HIV-1/2 [id number] 18:41:00 Test Item Value Reference Range Interpretation Comments HIV-1 ANTIGEN WITH HIV 1\\T\\2 Nonreactive Nonreactive ANTIBODY (2) (BEAKER) (test code = 2586) URINALYSIS W/ [id number] 18:36:00 Test Item Value Reference Range Interpretation [...] SOURCE(BEAKER) (test code = 2795) COMPLEMENT COMPONENT [id number] 18:18:00 Test Item Value Reference Range Interpretation Comments C4 COMPLEMENT (BEAKER) (test code = 39 mg/dL 15-57 394) Effective 08/28/2014: Reference Range ChangeNew: 15-57 Previous: 16-38COMPLEMENT COMPONENT [id number] 18:18:00 Test Item Value Reference Range Interpretation Comments C3 COMPLEMENT (BEAKER) (test code = 166 mg/dL 82-193 393) Effective 08/28/2014: Reference Range ChangeNew: 82-193 Previous: 79-152POCT- GLUCOSE [id number] 17:18:00 Test Item Value Reference Range Interpretation Comments POC-GLUCOSE METER 236 mg/dL 70-110 H TESTED AT [facility] 6720 (BEAKER) (test code = [place] 1538) [address] POCT-GLUCOSE [id number] 12:29:00 Test Item Value Reference Range Interpretation Comments POC-GLUCOSE METER 181 mg/dL 70-110 H TESTED AT [facility] 6720 (BEAKER) (test code = [place] 1538) [address] CBC W/PLT COUNT & AUTO [id number] 09:33:00 Test Item Value Reference Range Interpretation [...] 125-220 H code = 635) BASIC METABOLIC [id number] 06:54:00 Test Item Value Reference Range Interpretation [...] 358) GLUCOSE RANDOM 159 mg/dL 70-105 H (AKER) (test code = 652) CALCIUM (BEAKER) 9.4 mg/dL 8.4-10.2 (test code = 697) EGFR ([facility] (test 30 mL/min/1.73 ESTIMA SILVINO GFR IS code = 1092) sq m NOT ACCURATE CREATININE CLEARANCE IN PREDICTING GLOMERULAR FILTRATION RATE . ESTIMATED GFR I S NOT APPLICABLE FOR DIALYSIS PATIEN TS. POCT-GLUCOSE [id number] 06:01:00 Test Item Value Reference Range Interpretation Comments POC-GLUCOSE METER 199 mg/dL 70-110 H TESTED AT [place] [address] ([facility]) (test code = EL[place] Sagastume [facility] 1538) [address] POCT-GLUCOSE [id number] 00:37:00 Test Item Value Reference Range Interpretation Comments POC-GLUCOSE METER 175 mg/dL 70-110 H TESTED AT [place] [address] ([facility]) (test code = [place] [facility] 1538) [address] POCT-GLUCOSE [id number] 00:26:00 Test Item Value Reference Range Interpretation Comments POC-GLUCOSE METER 232 mg/dL 70-110 H TESTED AT [place] [address] ([facility]) (test code = [place] [facility] 1538) [address] POCT-GLUCOSE [id number] 11:38:00 Test Item Value Reference Range Interpretation Comments POC-GLUCOSE METER 200 mg/dL 70-110 H TESTED AT [place] [address] ([facility]) (test [facility] [place] 1538) [address] POCT-GLUCOSE [id number] 06:17:00 Test Item Value Reference Range Interpretation Comments POC-GLUCOSE METER 221 mg/dL 70-110 H TESTED AT [place] [address] ([facility]) (test code = [place] 1538) [address] BASIC METABOLIC [id number] 05:05:00 Test Item Value Reference Range Interpretation [...] = 635) CBC W/PLT COUNT & AUTO [id number] 04:29:00 Test Item Value Reference Range Interpretation [...] L 0.00-0.20 (test code = 417) 0.000.710.000.000.000.00POCT-GLUCOSE [id number] 23:46:00 Test Item Value Reference Range Interpretation Comments POC-GLUCOSE METER 215 mg/dL 70-110 H TESTED AT [place] [address] ([facility]) (test code = [place] 1538) [address] POCT-GLUCOSE [id number] 18:46:00 Test Item Value Reference Range Interpretation Comments POC-GLUCOSE METER 200 mg/dL 70-110 H TESTED AT [place] [address] ([facility]) (test code = EL[place] Sag[place] [facility] 1538) [address] POCT-GLUCOSE [id number] 11:59:00 Test Item Value Reference Range Interpretation Comments POC-GLUCOSE METER 209 mg/dL 70-110 H TESTED AT [place] [address] ([facility]) (test code = EL[place] Sag[place] [facility] 1538) [address] VWF PROTEASE (ADAMTS-13)[id number] 09:54:00 Test Item Value Reference Range Interpretation Comments VWF PROTEASE See individual AUTOVERIFICATION COMPONENT panel test results. (test code = 2555) CBC W/PLT COUNT & AUTO [id number] 07:58:00 Test Item Value Reference Range Interpretation [...] 2+ moderate (test code = 478) POCT-GLUCOSE [id number] 06:04:00 Test Item Value Reference Range Interpretation Comments POC-GLUCOSE METER 202 mg/dL 70-110 H TESTED AT [facility] 6720 (BEAKER) (test code = [place] 1538) [address] BASIC METABOLIC [id number] 05:29:00 Test Item Value Reference Range Interpretation [...] U/L 125-220 H code = 635) POCT-GLUCOSE [id number] 00:06:00 Test Item Value Reference Range Interpretation Comments POC-GLUCOSE METER 180 mg/dL 70-110 H TESTED AT [facility] 67 ([facility] (test code = [facility] 1538) [address] POCT-GLUCOSE [id number] 18:09:00 Test Item Value Reference Range Interpretation Comments POC-GLUCOSE METER 209 mg/dL 70-110 H TESTED AT [facility] 6720 ([facility] (test code = [facility] 1538) [address] [id number] 18:03:00 Test Item Value Reference Range Interpretation Comments SODIUM (BEAKER) (test code = 381) 145 meq/L 136-145 ANTI-NUCLEAR ANTIBODY (DIPIKA)2017-01-20 13:07:00 Test Item Value Reference Range Interpretation Comments ANTI-NUCLEAR ANTIBODY (DIPIKA) (BEAKER) Negative Negative (test code = 418) POCT-GLUCOSE [id number] 12:21:00 Test Item Value Reference Range Interpretation Comments POC-GLUCOSE METER 180 mg/dL 70-110 H TESTED AT [facility] 6720 ([facility]) (test code = [facility] 1538) [address] MISCELLANEOUS LAB [id number] 11:04:00 Test Item Value Reference Range Interpretation Comments SCAN RESULT (test code = 3850207) URINE [id number] 10:54:00 Test Item Value Reference Range Interpretation Comments CULTURE (BEAKER) (test >100,000 col/mL skin code = 1095) pedro VITAMIN B12 AND [id number] 10:06:00 Test Item Value Reference Range Interpretation Comments VITAMIN B12 (BEAKER) (test code = 541 pg/mL 213-816 774) FOLATE (BEAKER) (test code = 362) 7.6 ng/mL >=7.0 Effective 08/28/2014: Folate Reference Range ChangeNew: >=7.0 Previous: >=5.4CBC W/PLT COUNT & AUTO [id number] 09:19:00 Test Item Value Reference Range Interpretation [...] (test code = 1+ few 768) POCT-GLUCOSE [id number] 06:35:00 Test Item Value Reference Range Interpretation Comments POC-GLUCOSE METER 182 mg/dL 70-110 H TESTED AT [facility] 6720 (BEAKER) (test code = [place] 1538) [address] BASIC METABOLIC [id number] 05:09:00 Test Item Value Reference Range Interpretation [...] U/L 125-220 H code = 635) POCT-GLUCOSE [id number] 00:13:00 Test Item Value Reference Range Interpretation Comments POC-GLUCOSE METER 241 mg/dL 70-110 H TESTED AT [facility] 6720 (BEAKER) (test code = [place] 1538) [address] BASIC METABOLIC [id number] 18:41:00 Test Item Value Reference Range Interpretation [...] NOT APPLICABLE FOR DIALYSIS PATIEN TS. POCT-GLUCOSE [id number] 17:58:00 Test Item Value Reference Range Interpretation Comments POC-GLUCOSE METER 213 mg/dL 70-110 H TESTED AT [facility] 6720 (BEAKER) (test code = [place] 1538) [address] CBC W/PLT COUNT & AUTO [id number] 14:28:00 Test Item Value Reference Range Interpretation [...] (test code = 478) DOUBLE-STRANDED DNA (DSDNA) [id number] 12:52:00 Test Item Value Reference Range Interpretation Comments ANTI-DNA DS (BEAKER) (test code = Negative 1055) POCT-GLUCOSE [id number] 12:17:00 Test Item Value Reference Range Interpretation Comments POC-GLUCOSE METER 284 mg/dL 70-110 H TESTED AT [facility] 6720 (BEAKER) (test code = [place] 1538) [address] BASIC METABOLIC [id number] 07:08:00 Test Item Value Reference Range Interpretation [...] U/L 125-220 H code = 635) POCT-GLUCOSE [id number] 06:07:00 Test Item Value Reference Range Interpretation Comments POC-GLUCOSE METER 173 mg/dL 70-110 H TESTED AT [place] [address] ([facility] (test code = [facility] 1538) [address] POCT-GLUCOSE [id number] 00:45:00 Test Item Value Reference Range Interpretation Comments POC-GLUCOSE METER 160 mg/dL 70-110 H TESTED AT [place] [address] ([facility] (test code = [facility] 1538) [address] CALCIUM, [id number] 22:05:00 Test Item Value Reference Range Interpretation Comments CALCIUM IONIZED (BEAKER) (test 1.04 mmol/L 1.12-1.27 L code = 698) PH, BLOOD (BEAKER) (test code = 7.42 1810) Range 1.12 - 1.27EQUAL MIX, NORMAL [id number] 19:51:00 Test Item Value Reference Range Interpretation Comments PROTIME (BEAKER) (test code = 13.9 seconds 11.7-14.7 759) PARTIAL THROMBOPLASTIN TIME 39.1 seconds 22.5-36.0 H (BEAKER) (test code = 760) PT 1/1 MIX (BEAKER) (test code = 13.3 SECS 11.7-14.7 1595) PTT 1/1 MIX (BEAKER) (test code 36.4 SECS 22.5-36.0 H = 1596) POCT-GLUCOSE [id number] 19:25:00 Test Item Value Reference Range Interpretation Comments POC-GLUCOSE METER 133 mg/dL 70-110 H TESTED AT [place] [address] [facility] (test code = [facility] 1538) [address] [id number] 16:31:00 Test Item Value Reference Range Interpretation Comments HAPTOGLOBIN (BEAKER) (test code = < mg/dL 14-258 L 366) Effective 08/28/2014: Reference Range ChangeNew: 14-258 Previous: 36-195HEPATIC FUNCTION [id number] 16:10:00 Test Item Value Reference Range Interpretation [...] U/L 125-220 H code = 635) HEPARIN [id number] 14:04:00 Test Item Value Reference Range Interpretation Comments HEPARIN ANTIBODY (BEAKER) (test code Negative Negative = 646) HEPARIN ANTIBODY OD (BEAKER) (test 0.065 <0.400 code = 2659) 4T TOTAL SCORE (BEAKER) (test code = 5 4441) Probability of HIT based on scoring system: 6-8 = High probability; 4-5 = intermediate probability; 0-3 = low probabilityFACTOR 8 [id number] 13:26:00 Test Item Value Reference Range Interpretation Comments FACTOR VIII ACTIVITY (BEAKER) (test 376.0 % 45.0-150.0 H code = 663) Effective 02/13/2014: Reference Range Change-Adult onlyNew: 45.0-150.0 Previous: 45.0-155.0PERIPHERAL BLOOD SMEAR - PATHOLOGIST [id number] 12:33:00 Test Item Value Reference Range Interpretation Comments RBC MORPHOLOGY Shistocytes (BEAKER) (test code = 2846) RBC MORPHOLOGY Anisocytosis (BEAKER) (test code = 56164) RBC MORPHOLOGY Poikilocytosis (BEAKER) (test code = 10022) WBC MORPHOLOGY Toxic Granulation (BEAKER) (test code = 2847) PLT MORPHOLOGY Unremarkable (BEAKER) (test code = 2848) PERIPHERAL SMR Mild degree of REVIEW (BEAKER) shistocytes present in (test code = 6300) the setting of thrombocytopenia. 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 [id number] Enrrique Bran, 2 (BEAKER) (test M.D.(electronic code = 7522) signature) POCT-GLUCOSE [id number] 12:32:00 Test Item Value Reference Range Interpretation Comments POC-GLUCOSE METER 147 mg/dL 70-110 H TESTED AT [facility] 6720 (BEAKER) (test code = [place] 1538) [address] CREATININE, RANDOM [id number] 12:03:00 Test Item Value Reference Range Interpretation Comments CREATININE URINE (BEAKER) (test 72.4 mg/dL code = 375) Reference Range: No NormalsSODIUM, RANDOM [id number] 12:03:00 Test Item Value Reference Range Interpretation Comments SODIUM URINE (BEAKER) (test code = 62 meq/L 243) Reference Range: No NormalsURINALYSIS W/ [id number] 11:51:00 Test Item Value Reference Range Interpretation [...] 516) SOURCE(BEAKER) (test code = Urine, [place] 4553) POCT-GLUCOSE [id number] 06:11:00 Test Item Value Reference Range Interpretation Comments POC-GLUCOSE METER 162 mg/dL 70-110 H TESTED AT [facility] 6720 (BEAKER) (test code = [place] [facility] 1538) [address] BASIC METABOLIC [id number] 05:50:00 Test Item Value Reference Range Interpretation [...] PATIEN TS. CBC W/PLT COUNT & AUTO [id number] 05:25:00 Test Item Value Reference Range Interpretation [...] L 0.00-0.20 (test code = 417) 0.00POCT-GLUCOSE [id number] 18:14:00 Test Item Value Reference Range Interpretation Comments POC-GLUCOSE METER 139 mg/dL 70-110 H TESTED AT [facility] 6720 (BEAKER) (test code = [place] 1538) [address] POCT-GLUCOSE [id number] 12:53:00 Test Item Value Reference Range Interpretation Comments POC-GLUCOSE METER 140 mg/dL 70-110 H TESTED AT [facility] 6720 (BEAKER) (test code = [place] 1538) [address] TSH/FREE T4 IF [id number] 12:34:00 Test Item Value Reference Range Interpretation Comments THYROID STIMULATING HORMONE 1.70 uIU/mL 0.35-4.94 (BEAKER) (test code = 772) HEPATIC FUNCTION [id number] 11:36:00 Test Item Value Reference Range Interpretation [...] slightly ictericCBC WITH PLATELET COUNT + MANUAL [id number] 09:24:00 Test Item Value Reference Range Interpretation [...] RBCS(BEAKER) 1+ few (test code = 478) [id number] 07:27:00 Test Item Value Reference Range Interpretation [...] H (BEAKER) (test code = 760) PROTHROMBIN [id number] 07:16:00 Test Item Value Reference Range Interpretation Comments PROTIME (BEAKER) (test code = 18.3 seconds 11.7-14.7 H 759) INR (BEAKER) (test code = 370) 1.5 <=5.9 RECOMMENDED COUMADIN/WARFARIN INR THERAPY RANGESSTANDARD DOSE: 2.0 - 3.0 Includes: PROPHYLAXIS for venous thrombosis, systemic embolization; TREATMENT for venous thrombosis and/or pulmonary embolus.HIGH RISK: Target INR is 2.5-3.5 for patients with mechanical heart valves.[id number] 07:16:00 Test Item Value Reference Range Interpretation Comments FIBRINOGEN LEVEL (BEAKER) (test 542 mg/dl 225-434 H code = 658) CBC W/PLT COUNT & AUTO [id number] 06:10:00 Test Item Value Reference Range Interpretation [...] K/ L 0.00-0.20 (test code = 417) 0.00[facility] METABOLIC [id number] 05:23:00 Test Item Value Reference Range Interpretation [...] mg/dL 8.4-10.2 (test code = 697) EGFR ([facility]) (test 26 mL/min/1.73 ESTIMA SILVINO GFR IS code = 1092) sq m NOT ACCURATE CREATININE CLEARANCE IN PREDICTING GLOMERULAR FILTRATION RATE . ESTIMATED GFR I S NOT APPLICABLE FOR DIALYSIS PATIEN TS. Specimen slightly ictericPOCT-GLUCOSE [id number] 00:44:00 Test Item Value Reference Range Interpretation Comments POC-GLUCOSE METER 129 mg/dL 70-110 H TESTED AT [place] [address] ([facility]) (test code = [facility] 1538) [address] POCT-GLUCOSE [id number] 18:18:00 Test Item Value Reference Range Interpretation Comments POC-GLUCOSE METER 99 mg/dL 70-110 TESTED AT [place] [address] ([facility]) (test code = [facility] [address] 1538) POCT-GLUCOSE [id number] 12:19:00 Test Item Value Reference Range Interpretation Comments POC-GLUCOSE METER 114 mg/dL 70-110 H TESTED AT [place] [address] ([facility]) (test code = [facility] 1538) [address] CBC W/PLT COUNT & AUTO [id number] 06:44:00 Test Item Value Reference Range Interpretation Comments WHITE BLOOD CELL COUNT 12.5 K/ L 4.0-10.0 H (BEAKER) (test code = 775) RED BLOOD CELL COUNT 4.07 M/ L 4.00-5.00 ([facility]) (test code = 761) HEMOGLOBIN (BEAKER) 12.2 [...] (BEAKER) (test code = Normal 762) POCT-GLUCOSE [id number] 05:58:00 Test Item Value Reference Range Interpretation Comments POC-GLUCOSE METER 128 mg/dL 70-110 H TESTED AT [facility] 6720 (BEAKER) (test code = [place] 1538) [address] BASIC METABOLIC [id number] 05:39:00 Test Item Value Reference Range Interpretation [...] FOR DIALYSIS PATIEN TS. Specimen slightly ictericPOCT-GLUCOSE [id number] 00:03:00 Test Item Value Reference Range Interpretation Comments POC-GLUCOSE METER 119 mg/dL 70-110 H TESTED AT [place] [address] ([facility]) (test code = [facility] 1538) [address] [id number] 18:23:00 Test Item Value Reference Range Interpretation Comments POTASSIUM (BEAKER) 4.1 meq/L 3.5-5.1 Specimen slightly (test code = 379) hemolyzed POCT-GLUCOSE [id number] 18:02:00 Test Item Value Reference Range Interpretation Comments POC-GLUCOSE METER 116 mg/dL 70-110 H TESTED AT [place] [address] ([facility]) (test code = [facility] 1538) [address] [id number] 15:09:00 Test Item Value Reference Range Interpretation Comments MAGNESIUM (BEAKER) 2.4 mg/dL 1.6-2.6 Specimen slightly (test code = 627) hemolyzed [id number] 15:09:00 Test Item Value Reference Range Interpretation Comments POTASSIUM (BEAKER) 3.3 meq/L 3.5-5.1 L Specimen slightly (test code = 379) hemolyzed POCT-GLUCOSE [id number] 11:31:00 Test Item Value Reference Range Interpretation Comments POC-GLUCOSE METER 96 mg/dL 70-110 TESTED AT [place] [address] ([facility]) (test code = [facility] [address] 1538) BLOOD GAS, [id number] 07:45:00 Test Item Value Reference Range Interpretation [...] code = 1819) 60.0 % BASIC METABOLIC [id number] 05:42:00 Test Item Value Reference Range Interpretation [...] S NOT APPLICABLE FOR DIALYSIS PATIEN TS. [id number] 05:41:00 Test Item Value Reference Range Interpretation Comments MAGNESIUM (BEAKER) (test code = 1.9 mg/dL 1.6-2.6 627) CBC W/PLT COUNT & AUTO [id number] 04:59:00 Test Item Value Reference Range Interpretation [...] L 0.00-0.20 (test code = 417) 0.00POCT-GLUCOSE [id number] 00:45:00 Test Item Value Reference Range Interpretation Comments POC-GLUCOSE METER 122 mg/dL 70-110 H TESTED AT [facility] 6720 (BEAKER) (test code = [place] [facility] 1538) [address] POCT-GLUCOSE [id number] 18:29:00 Test Item Value Reference Range Interpretation Comments POC-GLUCOSE METER 98 mg/dL 70-110 TESTED AT [facility] 6720 (BEAKER) (test code = [place] [facility] [address] 1538) POCT-GLUCOSE [id number] 12:30:00 Test Item Value Reference Range Interpretation Comments POC-GLUCOSE METER 207 mg/dL 70-110 H TESTED AT [place] [address] (BEAKER) (test code = [place] [facility] 1538) [address] URINALYSIS W/ [id number] 11:36:00 Test Item Value Reference Range Interpretation [...] 514) SOURCE(BEAKER) (test code Urine, Straight = 2795) Catheter RAPID DRUG SCREEN, [id number] 11:25:00 Test Item Value Reference Range Interpretation [...] ng/mLAmphetamine/ 1000 ng/mL MethamphetamineOxycodone 300 ng/mLCREATININE, RANDOM [id number] 11:21:00 Test Item Value Reference Range Interpretation Comments CREATININE URINE (BEAKER) (test 24.7 mg/dL code = 375) Reference Range: No NormalsPROTEIN, RANDOM [id number] 11:21:00 Test Item Value Reference Range Interpretation Comments PROTEIN, URINE (BEAKER) (test code = 97 mg/dL 0-14 H 1569) SODIUM, RANDOM [id number] 11:21:00 Test Item Value Reference Range Interpretation Comments SODIUM URINE (BEAKER) (test code = 159 meq/L 243) Reference Range: No NormalsBLOOD GAS, [id number] 11:12:00 Test Item Value Reference Range Interpretation [...] 100.0 % CREATINE KINASE (CK), TOTAL AND [id number] 07:57:00 Test Item Value Reference Range Interpretation Comments CREATINE KINASE TOTAL (BEAKER) 78 U/L 29-200 (test code = 380) CREATINE KINASE-MB (BEAKER) (test 1.3 ng/mL 0.0-6.6 code = 750) CREATINE KINASE-MB INDEX (BEAKER) 1.7 % (test code = 395) Effective 08/28/2014: CK-MB Reference Range ChangeNew: 0.0-6.6 Previous: 0.0-4.9CK-MB Reference Range:<6.7 Normal6.7-10.0 Borderline>10.0 Abnormal TROPONIN [id number] 07:57:00 Test Item Value Reference Range Interpretation Comments TROPONIN I (BEAKER) (test code = 397) < ng/mL 0.00-0.03 Effective 08/28/2014: Reference Range ChangeNew: 0.00-0.03 Previous 0.00- 0.15Troponin I (TnI) levelsmust be interpreted in the context of the presenting symptoms and the clinical findings. Elevated TnI levels indicate myocardial damage, but are not specific for ischemic heart disease. Elevated TnI levels are seen in patients with other cardiac conditions (including myocarditis and congestive heart failure), and slight TnI elevations occur in patients with other conditions, including sepsis, renal failure, acidosis, acute neurological disease, and persistent tachyarrhythmia.B-TYPE NATRIURETIC FACTOR (BNP) 2017-01-14 07:56:00 Test Item Value Reference Range Interpretation Comments B-TYPE NATRIURETIC PEPTIDE (BEAKER) 76 pg/mL 0-100 (test code = 700) [id number] 07:51:00 Test Item Value Reference Range Interpretation Comments MAGNESIUM (BEAKER) (test code = 1.5 mg/dL 1.6-2.6 L 627) BASIC METABOLIC [id number] 07:51:00 Test Item Value Reference Range Interpretation [...] m DATA TO CALCULA TE ESTIMATED GFR. [id number] 07:48:00 Test Item Value Reference Range Interpretation Comments ETHANOL (BEAKER) (test code = 400) < mg/dL <=10 CBC W/PLT COUNT & AUTO [id number] 07:33:00 Test Item Value Reference Range Interpretation [...]
--- NOTE | 2022-09-25 20:15 | RAD REPORT ---
EXAM DESCRIPTION: RAD - Chest Single View - 09/25/2022 8:04 pm CLINICAL HISTORY: COUGH Chest pain. COMPARISON: Chest Single View dated 04/05/2021; Chest Single View dated 06/09/2019 FINDINGS: Portable technique limits examination quality. The lungs are grossly clear. The heart is mildly enlarged in size. No displaced fractures. IMPRESSION: No acute intrathoracic process suspected.
[2022-09-25 20:45] LABS: Absolute Lymphocytes (CBC) 1.6 K/uL (0.7-4.9); Hematocrit 41.2 % (36.0-45.0); Lymphocytes % 14.9 % (15.3-44.8); MCV 91.8 fL (80-100); MPV 10.2 fL (7.6-11.3); RBC Red Blood Cell Count 4.49 M/uL (3.86-4.86)
[2022-09-25 20:47] LABS: Protime INR 1.11
[2022-09-25] MEDS ORDERED: CEFTRIAXONE 1000 MG/VIAL ONE (20:50)
[2022-09-25] MEDS ORDERED: NA CHLORIDE 0.9% 50 ML IV ONE (20:51)
[2022-09-25] MEDS ORDERED: NA CHLORIDE 0.9% 1,000 ML ONE (20:51)
[2022-09-25 21:00] LABS: Albumin 2.8 g/dL (3.4-5.0)
[2022-09-25 21:04] LABS: Bilirubin Direct 0.4 mg/dL (0-0.2); Bilirubin Total 1.3 mg/dL (0.2-1.0); Magnesium 1.9 mg/dL (1.6-2.4); Potassium 3.7 mmol/L (3.5-5.1)
[2022-09-25 21:10] LABS: Protein, Total 7.4 g/dL (6.4-8.2); Troponin High Sensitivity 25.7 pg/mL (<58.9)
[2022-09-25 21:23] LABS: SARS-COV-2 RT PCR NEGATIVE (NEGATIVE)
[2022-09-25 22:54] LABS: Urine Blood 1+ (Negative); Urine Glucose Negative (Negative); Urine Protein 2+ (Negative); Urine Specific Gravity 1.025 (1.005-1.030); Urine pH 5.5 (5.0-7.0)
--- NOTE | 2022-09-25 22:56 | EDPHYS ---
Physician Documentation [facility] Name: Jennifer Warner Age: 82 yrs Sex: Female : 1940 Arrival Date: 09/25/2022 Time: 19:34 Bed 18 Private MD: Mariam Smyth ED Physician Rico Chino HPI: 09/25 22:44 This 82 yrs old Black Female presents to ER via Wheelchair with complaints of Weakness. merly 22:44 The patient presents to the emergency department with weakness of the. merly 22:44 Onset: The symptoms/episode began/occurred 7 day(s) ago. Severity of symptoms: At their merly worst the symptoms were mild moderate in the emergency department the symptoms are unchanged. Historical: - Allergies: 19:51 No Known Allergies; kb3 - Home Meds: 09/26 01:15 amlodipine 10 mg tab 1 tab once daily [Active]; donepezil 10 mg Oral tab 1 tab once kd3 daily [Active]; clonidine HCl 0.1 mg Oral tab 1 tab every 8 hours [Active]; carvedilol 6.25 mg Oral tab 1 tab 2 times per day [Active]; glimepiride 4 mg Oral tab 1 tab once daily [Active]; atorvastatin 10 mg Oral tab 1 tab once daily [Active]; aspirin 81 mg Oral TbEC 1 tab once daily [Active]; hydralazine 25 mg Oral tab 1 tab every 8 hours [Active]; allopurinol 100 mg Oral tab 1 tab once daily [Active]; tramadol 50 mg Oral tab 1 tab every 6 hours [Active]; - PMHx: 09/25 19:51 Dementia; Diabetes - NIDDM; Diet controlled; High Cholesterol; Hypertension; kb3 Cerebrovascular accident; Gout; - PSHx: 19:51 Total abdominal hysterectomy; Cholecystectomy; section; kb3 - Immunization history:: Adult Immunizations up to date, Client reports receiving the 2nd dose of the Covid vaccine. - Social history:: Smoking status: Patient denies any tobacco usage or history of. ROS: 22:47 Constitutional: Negative for fever, chills, and weight loss, Eyes: Negative for injury, merly pain, redness, and discharge, ENT: Negative for injury, pain, and discharge, Neck: Negative for injury, pain, and swelling, Cardiovascular: Negative for chest pain, palpitations, and edema, Respiratory: Negative for shortness of breath, cough, wheezing, and pleuritic chest pain, Abdomen/GI: Negative for abdominal pain, nausea, vomiting, diarrhea, and constipation, Back: Negative for injury and pain, : Negative for injury, bleeding, discharge, and swelling, MS/Extremity: Negative for injury and deformity, Psych: Negative for depression, anxiety, suicide ideation, homicidal ideation, and hallucinations, Allergy/Immunology: Negative for hives, rash, and allergies, Endocrine: Negative for neck swelling, polydipsia, polyuria, polyphagia, and marked weight changes, Hematologic/Lymphatic: Negative for swollen nodes, abnormal bleeding, and unusual bruising. 22:47 Skin: Positive for erythema, ulceration, of the left gluteus pedro. Exam: 22:47 Constitutional: This is a well developed, well nourished patient who is awake, alert, merly and in no acute distress. Head/Face: Normocephalic, atraumatic. Eyes: Pupils equal round and reactive to light, extra-ocular motions intact. Lids and lashes normal. Conjunctiva and sclera are non-icteric and not injected. Cornea within normal limits. Periorbital areas with no swelling, redness, or edema. ENT: Nares patent. No nasal discharge, no septal abnormalities noted. Tympanic membranes are normal and external auditory canals are clear. Oropharynx with no redness, swelling, or masses, exudates, or evidence of obstruction, uvula midline. Mucous membranes moist. Neck: Trachea midline, no thyromegaly or masses palpated, and no cervical lymphadenopathy. Supple, full range of motion without nuchal rigidity, or vertebral point tenderness. No Meningismus. Chest/axilla: Normal chest wall appearance and motion. Nontender with no deformity. No lesions are appreciated. Cardiovascular: Regular rate and rhythm with a normal S1 and S2. No gallops, murmurs, or rubs. Normal PMI, no JVD. No pulse deficits. Respiratory: Lungs have equal breath sounds bilaterally, clear to auscultation and percussion. No rales, rhonchi or wheezes noted. No increased work of breathing, no retractions or nasal flaring. Abdomen/GI: Soft, non-tender, with normal bowel sounds. No distension or tympany. No guarding or rebound. No evidence of tenderness throughout. Back: No spinal tenderness. No costovertebral tenderness. Full range of motion. Female : Normal external genitalia. Neuro: Awake and alert, GCS 15, oriented to person, place, time, and situation. Cranial nerves II-XII grossly intact. Motor strength 5/5 in all extremities. Sensory grossly intact. Cerebellar exam normal. Normal gait. Psych: Awake, alert, with orientation to person, place and time. Behavior, mood, and affect are within normal limits. 22:47 Skin: Appearance: Color: normal in color, Temperature: normal temperature, Moisture: normal moisture, petechiae, not noted, ecchymosis, not noted, diaphoresis is not appreciated, swelling, is not appreciated, induration, that is mild is noted, located on the left gluteus pedro. 22:57 ECG was reviewed by the Attending Physician. [facility] Vital Signs: 19:49 BP 129 / 80; Pulse 91; Resp 20; Temp 99.1; Pulse Ox 100% ; Weight 47.63 kg; Height 5 kb3 ft. 0 in. (152.40 cm); Pain 0/10; 09/26 01:16 BP 128 / 72; Pulse 81; Resp 19; Pulse Ox 100% on R/A; kd3 09/25 19:49 Body Mass Index 20.51 (47.63 kg, 152.40 cm) kb3 NIH Stroke Scale Scores: 1216 22:47 NIHSS Score: 0 merly 22:56 NIHSS Score: 4 kd3 Curtis Coma Score: 22:47 Eye Response: spontaneous(4). Verbal Response: oriented(5). Motor Response: obeys merly commands(6). Total: 15. MDM: 19:49 Patient medically screened. merly 22:50 Differential Diagnosis altered mental status, sepsis. Differential diagnosis: merly gastritis, non-specific abd pain, pancreatitis, Pyelonephritis, urinary tract infection. Data reviewed: vital signs, nurses notes, EMS record, lab test result(s), EKG, radiologic studies, plain films. Data interpreted: nuclear monitoring technician: rate is 91 beats/min, rhythm is regular, Pulse oximetry: on room air is 100 %. Test interpretation: by ED physician or midlevel provider: ECG, plain radiologic studies. Counseling: I had a detailed discussion with the patient and/or guardian regarding: the historical points, exam findings, and any diagnostic results supporting the discharge/admit diagnosis, lab results, radiology results, the need for further work-up and treatment in the hospital. 09/25 19:50 Order name: Basic Metabolic Panel; Complete Time: 21:[address] [facility] 09/25 19:50 Order name: CBC with Diff; Complete Time: 21:[address] [facility] 09/25 19:50 Order name: LFT's; Complete Time: 21:[address] [facility] 09/25 19:50 Order name: Magnesium; Complete Time: 21:[address] [facility] 09/25 19:50 Order name: NT PRO-BNP; Complete Time: 21:[address] [facility] 09/25 19:50 Order name: PT-INR; Complete Time: 21:[address] [facility] 09/25 19:50 Order name: Troponin HS; Complete Time: 21:[address] [facility] 09/25 19:50 Order name: XRAY Chest (1 view); Complete Time: 21:[address] [facility] 09/25 19:51 Order name: COVID-19/FLU A+B; Complete Time: 21:[address] [facility] 09/25 19:51 Order name: Blood Culture Adult (2) [facility] 09/25 19:51 Order name: Lactate w/ 2H reflex if indic.; Complete Time: 21:[address] [facility] 09/25 19:51 Order name: Urine Culture [facility] 09/25 22:55 Order name: Urine Dipstick-Ancillary; Complete Time: 23:42 EDMS 09/25 19:50 Order name: EKG; Complete Time: 19:[address] [facility] 09/25 19:50 Order name: Cardiac monitoring; Complete Time: 20:[address] [facility] 09/25 19:51 Order name: EKG - Nurse/Tech; Complete Time: 20:[address] [facility] 09/25 19:51 Order name: IV Saline Lock; Complete Time: 20:[address] [facility] 09/25 19:51 Order name: Labs collected and sent; Complete Time: 20:[address] [facility] 09/25 19:51 Order name: O2 Per Protocol; Complete Time: 20:[address] [facility] 09/25 19:51 Order name: O2 Sat Monitoring; Complete Time: 20:[address] [facility] 09/25 19:51 Order name: Urine Dipstick-Ancillary (obtain specimen); Complete Time: 22:56 merly EC:57 Rate is 85 beats/min. Rhythm is regular. QRS [place] is Normal. NE interval is normal. QRS merly interval is normal. QT interval is normal. No Q waves. T waves are Normal. No ST changes noted. Clinical impression: NSR w/ Non-specific ST/T Changes, LVH, and No evidence of ischemia. Interpreted by me. Reviewed by me. Administered Medications: 21:05 Drug: NS 0.9% 1000 ml Route: IV; Rate: 125 ml/hr; Site: right antecubital; jl7 21:05 Drug: Rocephin (cefTRIAXone) 1 grams Route: IV; Rate: per protocol; Site: right jl7 antecubital; Disposition Summary: 09/25/22 22:55 Hospitalization Ordered Hospitalization Status: Inpatient Admission merly Provider: Tito Butler cha Location: Telemetry/MedSurg (Inpatient) merly Condition: Fair merly Problem: new merly Symptoms: have improved merly Bed/Room Type: Standard [facility] Room Assignment: 218(09/26/22 00:07) Diagnosis - Dehydration merly - Anorexia merly - Dementia in other diseases classified elsewhere without behavioral disturbance merly - Pressure ulcer of buttock - x 2 merly - UTI/ Urinary tract infection, site not specified merly Forms: - Medication Reconciliation Form merly - SBAR form merly NIH Stroke Scale - NIH Stroke Score Date: 09/25/2022 Time: 22:47 Total Score = 0 1a. Level of Consciousness (LOC) - 0(Alert) 1b. Level of Consciousness (LOC) (Month \T\ Age) - 0(Both) 1c. LOC Commands (Open \T\ Closes Eyes/Catalyst Plant Supervisor) - 0(Both) 2. Best Gaze (Lateral Gaze Paresis) - 0(Normal) 3. Visual Field Loss - 0(No visual loss) 4. Facial Palsy - 0(Normal) 5a. Left Arm: Motor (10-second hold) - 0(No drift) 5b. Right Arm: Motor (10-second hold) - 0(No drift) 6a. Left Leg: Motor (5-second hold - always test supine) - 0(No drift) 6b. Right Leg: Motor (5-second hold - always test supine) - 0(No drift) 7. Limb Ataxia (finger/nose \T\ heel/kimball - test with eyes open) - 0(Absent) 8. Sensory Loss (pinprick arms/legs/face) - 0(Normal) 9. Best Language: Aphasia (description/naming/reading) - 0(No aphasia) 10. Dysarthria (speech clarity - read or repeat words) - 0(Normal) 11. Extinction and Inattention (visual/tactile/auditory/spatial/personal) - 0(No abnormality) Initials: merly NIH Stroke Scale - NIH Stroke Score Date: 09/25/2022 Time: 22:56 Total Score = 4 1a. Level of Consciousness (LOC) - 0(Alert) 1b. Level of Consciousness (LOC) (Month \T\ Age) - 2(Neither) 1c. LOC Commands (Open \T\ Closes Eyes/Catalyst Plant Supervisor) - 2(Neither) 2. Best Gaze (Lateral Gaze Paresis) - 0(Normal) 3. Visual Field Loss - 0(No visual loss) 4. Facial Palsy - 0(Normal) 5a. Left Arm: Motor (10-second hold) - 0(No drift) 5b. Right Arm: Motor (10-second hold) - 0(No drift) 6a. Left Leg: Motor (5-second hold - always test supine) - 0(No drift) 6b. Right Leg: Motor (5-second hold - always test supine) - 0(No drift) 7. Limb Ataxia (finger/nose \T\ heel/kimball - test with eyes open) - 0(Absent) 8. Sensory Loss (pinprick arms/legs/face) - 0(Normal) 9. Best Language: Aphasia (description/naming/reading) - 0(No aphasia) 10. Dysarthria (speech clarity - read or repeat words) - 0(Normal) 11. Extinction and Inattention (visual/tactile/auditory/spatial/personal) - 0(No abnormality) Initials: kd3 Signatures: Dispatcher [employer] EDSanam Benitez RN Rico Guzman MD MD cha Leal, Jahala RN RN jl7 Candis Zamora RN RN kd3 Frances Best, RN RN [email or web address] Charline Ellis PAJerri PAJerri [email or web address] Corrections: (The following items were deleted from the chart) 09/26 00:07 09/25 22:55 merly rey
--- NOTE | 2022-09-25 22:56 | ER ---
Nurse's Notes [facility] Name: Jennifer Warner Age: 82 yrs Sex: Female : 1940 Arrival Date: 09/25/2022 Time: 19:34 Bed 18 Private MD: Mariam Smyth Diagnosis: Dehydration;Anorexia;Dementia in other diseases classified elsewhere without behavioral disturbance;Pressure ulcer of buttock-x 2;UTI/ Urinary tract infection, site not specified Presentation: 09/25 19:49 Chief complaint: Patient's son or daughter states: Mom with increased weakness and lack kb3 of appetite x1 week. Reports pt vomited x1 episode yesterday with mild cough. Denies fever. Coronavirus screen: Vaccine status: Patient reports receiving the 2nd dose of the covid vaccine. Client denies travel out of the [place] in the last 14 days. Ebola Screen: Patient negative for fever greater than or equal to 101.5 degrees Fahrenheit, and additional compatible Ebola Virus Disease symptoms Patient denies exposure to infectious person. Patient denies travel to an Ebola-affected area in the 21 days before illness onset. No acute neurological deficit is noted. Initial Sepsis Screen: Does the patient meet any 2 criteria? No. Patient's initial sepsis screen is negative. Does the patient have a suspected source of infection? No. Patient's initial sepsis screen is negative. Risk Assessment: Do you want to hurt yourself or someone else? Patient reports no desire to harm self or others. Onset of symptoms was September 18, 2022. 19:49 Method Of Arrival: Wheelchair kb3 19:49 Acuity: KEYANA 3 kb3 Triage Assessment: 19:51 The onset of the patients symptoms was September 18, 2022 at 12:00. General: Appears in kb3 no apparent distress. malnourished, Behavior is calm, cooperative. Pain: Denies pain. Neuro: Reports weakness. Respiratory: No deficits noted. Respiratory: Airway is patent. GI: No deficits noted. Abdomen is flat, Abd is soft and non tender Parent/caregiver reports the patient having vomiting, x1 episode yesterday. Historical: - Allergies: 19:51 No Known Allergies; kb3 - Home Meds: 09/26 01:15 amlodipine 10 mg tab 1 tab once daily [Active]; donepezil 10 mg Oral tab 1 tab once kd3 daily [Active]; clonidine HCl 0.1 mg Oral tab 1 tab every 8 hours [Active]; carvedilol 6.25 mg Oral tab 1 tab 2 times per day [Active]; glimepiride 4 mg Oral tab 1 tab once daily [Active]; atorvastatin 10 mg Oral tab 1 tab once daily [Active]; aspirin 81 mg Oral TbEC 1 tab once daily [Active]; hydralazine 25 mg Oral tab 1 tab every 8 hours [Active]; allopurinol 100 mg Oral tab 1 tab once daily [Active]; tramadol 50 mg Oral tab 1 tab every 6 hours [Active]; - PMHx: 09/25 19:51 Dementia; Diabetes - NIDDM; Diet controlled; High Cholesterol; Hypertension; kb3 Cerebrovascular accident; Gout; - PSHx: 19:51 Total abdominal hysterectomy; Cholecystectomy; section; kb3 - Immunization history:: Adult Immunizations up to date, Client reports receiving the 2nd dose of the Covid vaccine. - Social history:: Smoking status: Patient denies any tobacco usage or history of. Screenin/17 01:11 Abuse screen: Denies threats or abuse. Denies injuries from another. Nutritional kd3 screening: No deficits noted. Tuberculosis screening: No symptoms or risk factors identified. Fall Risk No fall in past 12 months (0 pts). Secondary diagnosis (15 points) dementia, No IV (0 pts). Ambulatory Aid- None/Bed Rest/Nurse Assist (0 pts). Gait- Weak (10 pts.). Mental Status- Overestimates/Forgets Limitations (15 pts.). Total Lama Fall Scale indicates Low Risk Score (25-44 pts). Fall prevention measures have been instituted. 01:15 [facility] ED Fall Risk Assessment (Adult) History of falling in the last 3 months, kd3 including since admission No falls in past 3 months (0 pts) Confusion or Disorientation Yes (5 pts) Intoxicated or Sedated No (0 pts) Impaired Gait No (0 pts) Mobility Assist Device Used No (0 pt) Altered Elimination Yes (1 pt) Score/Fall Risk Level 0 - 2 = Low Risk Oriented to surroundings. Assessment: 09/25 22:56 VAN Scoring: Arm Drift: Minor drift kd3 Vital Signs: 19:49 BP 129 / 80; Pulse 91; Resp 20; Temp 99.1; Pulse Ox 100% ; Weight 47.63 kg; Height 5 kb3 ft. 0 in. (152.40 cm); Pain 0/10; 09/26 01:16 BP 128 / 72; Pulse 81; Resp 19; Pulse Ox 100% on R/A; kd3 12 19:49 Body Mass Index 20.51 (47.63 kg, 152.40 cm) kb3 Chelo Coma Score: 09/25 22:47 Eye Response: spontaneous(4). Verbal Response: oriented(5). Motor Response: obeys merly commands(6). Total: 15. NIH Stroke Scale Scores: 22:47 NIHSS Score: 0 merly 22:56 NIHSS Score: 4 kd3 ED Course: 19:34 Patient arrived in ED. as 19:34 Roberto Carlos Turner MD is Private Physician. as 19:34 Mariam Smyth MD is Private Physician. as 19:47 Candis Zamora, SOURAV is Primary Nurse. kd3 19:49 Rico Chino MD is Attending Physician. merly 19:51 Triage completed. kb3 19:51 Arm band placed on right wrist. kb3 20:06 XRAY Chest (1 view) In Process Unspecified. EDMS 20:21 Troponin HS Sent. kd3 20:21 PT-INR Sent. kd3 20:21 NT PRO-BNP Sent. kd3 20:21 Magnesium Sent. kd3 20:21 LFT's Sent. kd3 20:21 CBC with Diff Sent. kd3 20:21 Basic Metabolic Panel Sent. kd3 20:24 COVID-19/FLU A+B Sent. kd3 20:48 EKG done, by ED staff, reviewed by Rico Chino MD. jl7 22:54 Tito Butler MD is Hospitalizing Provider[facility] 22:56 Urine Culture Sent. kd3 09/26 01:15 No provider procedures requiring assistance completed. Patient admitted, IV remains in kd3 place. 01:16 Patient has correct armband on for positive identification. kd3 Administered Medications: 09/25 21:05 Drug: NS 0.9% 1000 ml Route: IV; Rate: 125 ml/hr; Site: right antecubital; jl7 21:05 Drug: Rocephin (cefTRIAXone) 1 grams Route: IV; Rate: per protocol; Site: right jl7 antecubital; Medication: 09/26 01:16 VIS not applicable for this client. kd3 Outcome: 09/25 22:55 Decision to Hospitalize [facility] Provider[facility] 09/26 01:15 Admitted to Med/surg kd3 Condition: stable Discharge instructions given to patient, family, Instructed on follow up and referral plans. the need for admit, Demonstrated understanding of instructions, follow-up care. 01:16 Patient left the ED. kd3 NIH Stroke Scale - NIH Stroke Score Date: 09/25/2022 Time: 22:47 Total Score = 0 1a. Level of Consciousness (LOC) - 0(Alert) 1b. Level of Consciousness (LOC) (Month \T\ Age) - 0(Both) 1c. LOC Commands (Open \T\ Closes Eyes/Assistant Sales Manager) - 0(Both) 2. Best Gaze (Lateral Gaze Paresis) - 0(Normal) 3. Visual Field Loss - 0(No visual loss) 4. Facial Palsy - 0(Normal) 5a. Left Arm: Motor (10-second hold) - 0(No drift) 5b. Right Arm: Motor (10-second hold) - 0(No drift) 6a. Left Leg: Motor (5-second hold - always test supine) - 0(No drift) 6b. Right Leg: Motor (5-second hold - always test supine) - 0(No drift) 7. Limb Ataxia (finger/nose \T\ heel/kimball - test with eyes open) - 0(Absent) 8. Sensory Loss (pinprick arms/legs/face) - 0(Normal) 9. Best Language: Aphasia (description/naming/reading) - 0(No aphasia) 10. Dysarthria (speech clarity - read or repeat words) - 0(Normal) 11. Extinction and Inattention (visual/tactile/auditory/spatial/personal) - 0(No abnormality) [facility]ials: [facility] NIH Stroke Scale - NIH Stroke Score Date: 09/25/2022 Time: 22:56 Total Score = 4 1a. Level of Consciousness (LOC) - 0(Alert) 1b. Level of Consciousness (LOC) (Month \T\ Age) - 2(Neither) 1c. LOC Commands (Open \T\ Closes Eyes/Assistant Sales Manager) - 2(Neither) 2. Best Gaze (Lateral Gaze Paresis) - 0(Normal) 3. Visual Field Loss - 0(No visual loss) 4. Facial Palsy - 0(Normal) 5a. Left Arm: Motor (10-second hold) - 0(No drift) 5b. Right Arm: Motor (10-second hold) - 0(No drift) 6a. Left Leg: Motor (5-second hold - always test supine) - 0(No drift) 6b. Right Leg: Motor (5-second hold - always test supine) - 0(No drift) 7. Limb Ataxia (finger/nose \T\ heel/kimball - test with eyes open) - 0(Absent) 8. Sensory Loss (pinprick arms/legs/face) - 0(Normal) 9. Best Language: Aphasia (description/naming/reading) - 0(No aphasia) 10. Dysarthria (speech clarity - read or repeat words) - 0(Normal) 11. Extinction and Inattention (visual/tactile/auditory/spatial/personal) - 0(No abnormality) Initials: kd3 Signatures: Dispatcher [employer] EDRico Chakraborty MD MD cha Martinez, Amelia as Leal, Jahala, SOURAV RN jl7 Candis Zamora, SOURAV RN kd3 Frances Best, SOURAV RN kb3
--- NOTE | 2022-09-26 00:06 | P.HP ---
Certification for Inpatient Patient admitted to: Inpatient With expected LOS: >2 Midnights Patient will require the following post-hospital care: None Practitioner: I am a practitioner with admitting privileges, knowledge of patient current condition, hospital course, and medical plan of care. Services: Services provided to patient in accordance with Admission requirements found in Title 42 Section 412.3 of the Code of Federal Regulations Patient History Date of Service: 09/26/22 Primary Care Provider: Haja Reason for admission: UTI/Weakness History of Present Illness: Patient is an 82-year-old female with past medical history of hypertension, dementia, and hyperlipidemia who presented to the emergency department with nancy moralesy with complaints of generalized weakness, cough, and vomiting. She was noted to have some skin breakdown around her sacrum. She is only oriented x1. She was also found to have a UTI. No other significant lab abnormalities. Vital signs stable. she was given IV fluids and Rocephin in the emergency department. ED provider wishes admit patient for further evaluation and treatment. Allergies No Known Allergies Allergy (Verified 09/26/22 00:56) Home medications list reviewed: Yes - Past Medical/Surgical History Diabetic: Yes -: Hypertension -: Dementia -: Hyperlipidemia -: Type 2 Diabetes, Insulin Dependent Past Surgical History: Unable to obtain Psychosocial/ Personal History: Patient lives at home with her daughter. - Family History Family History: Reviewed- Non-Contributory - Social History Smoking Status: Never smoker Alcohol use: No CD- Drugs: No Caffeine use: No Place of Residence: Home Review of Systems General: Weakness Respiratory: Cough Gastrointestinal: Nausea, Vomiting Physical Examination - Vital Signs Temperature: 99.1 F Blood Pressure: 129/80 Pulse: 91 Respirations: 20 Pulse Ox (%): 100 (room air) - Physical Exam General: In no apparent distress, Oriented x1 HEENT: Atraumatic, PERRLA, EOMI, Sclerae nonicteric Neck: Supple, 2+ carotid pulse no bruit Respiratory: Clear to auscultation bilaterally, Normal air movement Cardiovascular: Regular rate/rhythm, Normal S1 S2 Gastrointestinal: Normal bowel sounds, No tenderness Musculoskeletal: No tenderness Integumentary: Pressure ulcer Neurological: Sensation intact, Abnormal strength - Studies Laboratory Data (last 24 hrs) 09/25/22 20:16: PT 12.2, INR 1.11 09/25/22 20:16: WBC 10.40, Hgb 13.3, Hct 41.2, Plt Count 222 09/25/22 20:16: Sodium 137, Potassium 3.7, BUN 11, Creatinine 0.86, Glucose 102, Magnesium 1.9, Total Bilirubin 1.3 H, AST 29, ALT 18, Alkaline Phosphatase 73 Assessment and Plan - Problems (Diagnosis) (1) UTI (urinary tract infection) Current Visit: Yes Status: Acute Qualifiers: Urinary tract infection type: acute cystitis Hematuria presence: with hematuria Qualified Code(s): N30.01 - Acute cystitis with hematuria (2) Generalized weakness Current Visit: Yes Status: Acute (3) Hypertension Current Visit: Yes Status: Chronic Qualifiers: Hypertension type: primary hypertension Qualified Code(s): I10 - Essential (primary) hypertension (4) Dementia Current Visit: Yes Status: Chronic Qualifiers: Dementia type: unspecified type Dementia severity: unspecified severity Dementia behavioral or psychological symptom: without behavioral, psychotic, or mood disturbance or anxiety Qualified Code(s): F03.90 - Unspecified dementia, unspecified severity, without behavioral disturbance, psychotic disturbance, mood disturbance, and anxiety (5) Hyperlipidemia Current Visit: Yes Status: Chronic Qualifiers: Hyperlipidemia type: unspecified Qualified Code(s): E78.5 - Hyperlipidemia, unspecified (6) Malnutrition Current Visit: Yes Status: Acute Qualifiers: Malnutrition type: protein-calorie malnutrition Protein-calorie malnutrition severity: unspecified severity Qualified Code(s): E46 - Unspecified protein-calorie malnutrition - Plan Patient is admitted for further management of UTI and weakness. Continue Rocephin for UTI. Urine culture obtained. Physical therapy, dietitian, and wound healing consult. IV hydration. Encourage p.o. intake. Ensure shakes ordered. Patient is currently living at home with daughter, who is taking care of her. She may need placement or home health on discharge. Monitor and replete electrolytes per protocol. Lovenox for VTE prophylaxis. Full code. Discharge Plan: Home Plan to discharge in: Greater than 2 days - Advance Directives Does patient have a Living Will: No Does patient have a Durable POA for Healthcare: No - Code Status/Comfort Care Code Status Assessed: Yes Code Status: Full Code Physician Review: Patient Assessed, Agree with Above Assessment and Plan Critical Care: No Time Spent Managing Pts Care (In Minutes): 50
[2022-09-26] MEDS ORDERED: ONDANSETRON 4 MG/2 ML VIAL IV PRN (00:57)
[2022-09-26] MEDS ORDERED: ACETAMINOPHEN 500 MG TAB PO PRN (00:57)
[2022-09-26] MEDS ORDERED: ALBUTEROL 2.5 MG/3 ML NEB SOL NEB PRN ×2 (00:57→12:00)
[2022-09-26] MEDS: NA CHLORIDE 0.9% 1,000 ML IV SCH ×2 (00:57→10:43)
[2022-09-26 02:52] VITALS: BMI 20.8
[2022-09-26] MEDS: ENOXAPARIN 40 MG/0.4 ML SQ SCH (08:27)
[2022-09-26] MEDS: CEFTRIAXONE 1,000 MG in NA CHLORIDE 0.9% 50 ML IVPB SCH (08:28)
[2022-09-26] MEDS: ENSURE HIGH PROTEIN 237 ML CAN PO SCH ×3 (08:28→21:20)
[2022-09-26] MEDS ORDERED: AMLODIPINE 5 MG TAB PO ONE (16:00)
[2022-09-26] MEDS: HYDRALAZINE HCL 20 MG/ML VIAL IV PRN (16:27)
[2022-09-26] MEDS: ATORVASTATIN 80 MG TAB PO SCH (21:20)
[2022-09-26] MEDS: LOSARTAN POTASSIUM 50 MG TABLET PO SCH (21:20)
[2022-09-27] MEDS: NA CHLORIDE 0.9% 1,000 ML IV SCH ×2 (03:00→18:24)
--- NOTE | 2022-09-27 07:48 | RAD REPORT ---
EXAM DESCRIPTION: US - Lower Extremity Arterial Bilat - 09/27/2022 7:00 am CLINICAL HISTORY: PAD, leg edema, skin discoloration COMPARISON: None. TECHNIQUE: Doppler evaluation of the bilateral lower extremity arterial tree performed. Waveforms an d velocity is were obtained along the length of each lower extremity. Visual inspection of the lower extremity arterial tree performed. FINDINGS: Bilateral lower extremity calcified and noncalcified atherosclerotic changes are seen in t he leroy of the vasculature. There is no occlusion or focal flow restricting lesion identifiable. Bilateral common femoral artery velocity values are relatively similar but lower than usually expecte d. There is a monophasic waveform pattern in the right common femoral artery with biphasic waveform p attern seen in the left common femoral artery. This typically indicates significant atherosclerotic c hanges in the iliac vasculature. Left common femoral artery biphasic waveform pattern seen with velocity values significantly higher t velasco right. An associated focal stricture is not seen on the left. The asymmetry may be due to restric bryn flow coming into the right leg. Right leg monophasic pattern continues in the right-side popliteal, dorsalis pedis and posterior tibi al arteries. Velocity values remain lower on the right compared to the left. The left-side waveform p attern is biphasic from knee to ankle. IMPRESSION: Bilateral lower extremity peripheral vascular disease is present with mild to moderate p laquing changes seen. There is no occlusion or focal flow restricting lesion identified. Right leg shows a monophasic waveform pattern throughout. There is likely significant flow restrictin g vascular disease in the right iliac vasculature.
--- NOTE | 2022-09-27 07:52 | RAD REPORT ---
EXAM DESCRIPTION: - CP - 09/27/2022 7:00 am CLINICAL HISTORY: Syncope COMPARISON: No comparisons TECHNIQUE: Real-time sonographic evaluation of bilateral carotid and vertebral systems was performed . Clifton scale and Doppler interrogation were performed with waveform tracing bilaterally. FINDINGS: Normal high resistance waveforms are noted in both external carotid arteries. The common c arotid arteries and internal carotid arteries show normal low resistance waveforms. Scattered calcified and noncalcified plaquing changes are seen in the bilateral common carotid arteri es and carotid bulbs. On visual inspection plaquing changes do not significantly narrow the vessel edgar men. No dissection. Peak systolic and end diastolic velocity values are in the non-hemodynamically si gnificant range. Left ICA/ CCA ratio is normal range. The right ICA/ CCA ratio is elevated at 2.24 in value; however, overall velocity values and visual inspection do not support a significant degree of stenosis. Antegrade flow seen in both vertebral arteries. Velocity values and ratios were recorded and are retained in the patient's imaging records. IMPRESSION: Bilateral scattered calcified and noncalcified plaquing changes are present. On visual i nspection no significant degree of stenosis is identifiable. The right-side ICA/CCA ratio is elevated without abnormally elevated velocities. True significant cesia nosis is doubtful; however, continued clinical concerns could be further addressed with MRA or CTA im aging of the carotid vasculature.
[2022-09-27 09:18] LABS: Absolute Lymphocytes (CBC) 1.5 K/uL (0.7-4.9); Hematocrit 37.9 % (36.0-45.0); Lymphocytes % 9.4 % (15.3-44.8); MCV 91.5 fL (80-100); MPV 10.8 fL (7.6-11.3); RBC Red Blood Cell Count 4.14 M/uL (3.86-4.86)
[2022-09-27 09:27] LABS: Magnesium 1.6 mg/dL (1.6-2.4); Phosphorus 1.9 mg/dL (2.5-4.9); Potassium 3.8 mmol/L (3.5-5.1)
[2022-09-27] MEDS: AMLODIPINE 10 MG TAB PO SCH (09:30)
[2022-09-27] MEDS: ENOXAPARIN 40 MG/0.4 ML SQ SCH (09:30)
[2022-09-27] MEDS: LOSARTAN POTASSIUM 50 MG TABLET PO SCH ×2 (09:30→20:56)
[2022-09-27] MEDS: ASPIRIN EC 81 MG TAB PO SCH (09:31)
[2022-09-27] MEDS: CEFTRIAXONE 1,000 MG in NA CHLORIDE 0.9% 50 ML IVPB SCH (09:31)
[2022-09-27] MEDS: ENSURE HIGH PROTEIN 237 ML CAN PO SCH ×3 (09:31→21:01)
[2022-09-27 10:45] LABS: Blood Morphology Comment NOT SEEN (NOT SEEN); Platelet Estimate ADEQ; White Blood Cell Scan OK (OK)
[2022-09-27] MEDS ORDERED: POTASSIUM PHOS IN 0.9 % NACL 15 MMOL/250 ML BAG IV ONE (11:45)
[2022-09-27] MEDS ORDERED: MAGNESIUM SULFATE 1 gm IVPB 1 GM/100 ML BAG IV ONE (12:00)
[2022-09-27] MEDS: HYDRALAZINE HCL 20 MG/ML VIAL IV PRN (12:37)
--- NOTE | 2022-09-27 15:40 | CON ---
Date of Consultation: 09/27/2022 Reason For Consultation: Abnormal lower extremity arterial Doppler, especially on the right side. History Of Present Illness: This is an 82-year-old female with past medical history of hypertension, dementia, dyslipidemia, presented to the emergency room with generalized weakness, found to have uri nary tract infection. She had some workup including lower extremity arterial Doppler that showed sig nificant disease of the right lower extremities, hence I was consulted. After evaluation, the patien t has been having difficulty with pain on that lower extremity that has been going on for some time a nd is getting worse. Past Medical History: Hypertension, dementia, dyslipidemia, and diabetes. Medications: Refer to reconciliation sheet for detailed list. Allergies: NO KNOWN DRUG ALLERGIES. Family History: No premature coronary artery disease or cancer. Social History: She does not smoke or drink. Does not use any drugs. Review of Systems: All systems reviewed and they were negative except what mentioned in HPI. Physical Examination: Vital Signs: Reviewed. Head and Neck: Pupils are equal, reactive to light. Intact eye movements. No JVD. No cervical lym phadenopathy. Neck is supple. Thyroid is not enlarged. Lungs: Clear to auscultation bilaterally. No rhonchi, wheezing, or crackles. No accessory muscle u se. Heart: Regular rate and rhythm with aortic systolic ejection murmur. Abdomen: Soft, nontender. Bowel sounds positive. No organomegaly. No masses or hernia. No rigidi ty or rebound. Extremities: No clubbing or cyanosis. Diminished pulses in the right lower extremity. Normal pulse s in the left lower extremity. Neurologic: Alert, awake with confusion. No acute focal deficits appreciated. Lymph Nodes: No cervical or axillary lymphadenopathy. Investigations: BUN 12, creatinine 0.52, and hemoglobin is 12.3. The carotid Doppler showed no sign ificant stenosis and the lower extremity arterial Doppler suggested a severe disease on the right com mon iliac. There was a monophasic waveform throughout the lower extremity. Assessment And Recommendations: 1.Significant peripheral vascular disease. This is chronic. The patient will need an angiogram. O nce the patient is released from the hospital, we will plan for arrangement for outpatient peripheral angiogram. 2.Aortic systolic murmur suggestive of significant aortic stenosis. Obtain an echocardiogram tomorr ow and plan of management accordingly. Thank you for the consult. /WALTL Voice ID: [id number] Report ID: [id number]
--- NOTE | 2022-09-27 15:52 | EKG ---
Test Date: 2022-09-25 Test Time: 20:43:14 Orchestra Musician: MADI MEASUREMENT RESULTS: Intervals: Rate: 85 MN: 162 QRSD: 82 QT: 374 QTc: 445 Whitman: P: 39 MN: 162 QRS: -65 T: 51 INTERPRETIVE STATEMENTS: Normal sinus rhythm Left axis deviation Minimal voltage criteria for LVH, may be normal variant Abnormal ECG Compared to ECG 04/05/2021 14:12:19 Left-axis deviation now present Sinus bradycardia no longer present First degree AV block no longer present Left anterior fascicular block no longer present Myocardial infarct finding no longer present Electronically Signed On 09-27-22 15:50:54 BONDING AGENT by Luther Locke
[2022-09-27] MEDS: ATORVASTATIN 80 MG TAB PO SCH (21:01)
[2022-09-28 03:53] LABS: Potassium 3.6 mmol/L (3.5-5.1)
[2022-09-28 04:08] LABS: Absolute Lymphocytes (CBC) 1.6 K/uL (0.7-4.9); Hematocrit 35.8 % (36.0-45.0); MCV 91.6 fL (80-100)
[2022-09-28 05:04] LABS: Magnesium 1.9 mg/dL (1.6-2.4); Phosphorus 2.4 mg/dL (2.5-4.9)
[2022-09-28] MEDS: POTASSIUM CL SA 10 MEQ TAB PO ONE ×2 (06:32→06:46)
[2022-09-28] MEDS: NA CHLORIDE 0.9% 1,000 ML IV SCH ×2 (06:33→21:34)
--- NOTE | 2022-09-28 07:44 | P.PN ---
Date of Service: 09/27/22 Subjective Pt is stable; more awake and alert; patient with advanced dementia and she lives with her sister. Her daughter comes in in books and after her daily. Patient has been more confused for the last 2-3 days and was brought into the hospital and found to have urinary tract infection. She normally does not talk a lot. She does walk around a little bit. Her strength has been diminished. She at times some discoloration on her feet and we did an arterial Doppler that showed occlusion of the right iliac artery. Spoke with Cardiology in outpatient arteriogram is recommended. Urinary tract infection is improving. Mentation is improved. She is answering questions. She is pleasantly confused at this time. Anticipate discharge over the next 48 hours. Spoke with the family about placement and the sister is adamant that the patient will be coming home the lives with her once again. They have been living together for a long time and that is what she is wanting at discharge with possible home health involvement. Physical Examination - Vital Signs reviewed - Physical Exam General: In no apparent distress, Oriented x1 Respiratory: Clear to auscultation bilaterally Cardiovascular: Regular rate/rhythm, Normal S1 S2 Gastrointestinal: Normal bowel sounds, No tenderness Neurological: no focal deficits Ext: lower extremity discoloration; pulses on the left 2+ and on the right diminished Assessment and Plan - Problems (Diagnosis) (1) UTI (urinary tract infection) Current Visit: Yes Status: Acute Qualifiers: Urinary tract infection type: acute cystitis Hematuria presence: with hematuria Qualified Code(s): N30.01 - Acute cystitis with hematuria (2) Generalized weakness Current Visit: Yes Status: Acute (3) Hypertension Current Visit: Yes Status: Chronic Qualifiers: Hypertension type: primary hypertension Qualified Code(s): I10 - Essential (primary) hypertension (4) Dementia Current Visit: Yes Status: Chronic Qualifiers: Dementia type: unspecified type Dementia severity: unspecified severity Dementia behavioral or psychological symptom: without behavioral, psychotic, or mood disturbance or anxiety Qualified Code(s): F03.90 - Unspecified dementia, unspecified severity, without behavioral disturbance, psychotic disturbance, mood disturbance, and anxiety (5) Hyperlipidemia Current Visit: Yes Status: Chronic Qualifiers: Hyperlipidemia type: unspecified Qualified Code(s): E78.5 - Hyperlipidemia, unspecified (6) Malnutrition Current Visit: Yes Status: Acute Qualifiers: Malnutrition type: protein-calorie malnutrition Protein-calorie malnutrition severity: unspecified severity Qualified Code(s): E46 - Unspecified protein-calorie malnutrition - Plan Continue Rocephin for UTI. Urine culture pending Physical therapy, dietitian, and wound healing consult. IV hydration. Encourage p.o. intake. Ensure shakes ordered. Patient is currently living at home with sister Monitor and replete electrolytes per protocol. Lovenox for VTE prophylaxis. Full code.
[2022-09-28] MEDS ORDERED: POTASSIUM PHOS IN 0.9 % NACL 15 MMOL/250 ML BAG IV ONE (09:00)
[2022-09-28] MEDS: CEFTRIAXONE 1,000 MG in NA CHLORIDE 0.9% 50 ML IVPB SCH (09:00)
[2022-09-28] MEDS: ENSURE HIGH PROTEIN 237 ML CAN PO SCH (09:00)
[2022-09-28] MEDS: ASPIRIN EC 81 MG TAB PO SCH (10:28)
[2022-09-28] MEDS: LOSARTAN POTASSIUM 50 MG TABLET PO SCH ×2 (10:29→21:33)
[2022-09-28] MEDS: AMLODIPINE 10 MG TAB PO SCH (10:29)
[2022-09-28] MEDS: ENOXAPARIN 40 MG/0.4 ML SQ SCH (10:29)
--- NOTE | 2022-09-28 13:28 | ECHO ---
HEIGHT: 5 ft 0 in WEIGHT: 106 lb 12.8 oz DATE OF STUDY: 09/28/[address]: Luther Locke 2-DIMENSIONAL: YES M.MODE: YES DOPPLER: YES COLOR FLOW: YES TDS: PORTABLE: YES DEFINITY: BUBBLE STUDY: DIAGNOSIS: AORTIC VALVE STENOSIS CARDIAC HISTORY: CATHERIZATION: NO SURGERY: NO PROSTHETIC VALVE: NO PACEMAKER: NO MEASUREMENTS (cm) DIASTOLIC (NORMALS) SYSTOLIC (NORMALS) IVSd 1.0 (0.6-1.2) LA Diam 2.4 (1.9-4.0) LVEF 56% LVIDd 3.4 (3.5-5.7) LVIDs 2.4 (2.0-3.5) %FS 28% LVPWd 1.2 (0.6-1.2) Ao Diam 2.3 (2.0-3.7) 2 DIMENSIONAL ASSESSMENT: RIGHT ATRIUM: NORMAL LEFT ATRIUM: NORMAL RIGHT VENTRICLE: NORMAL LEFT VENTRICLE: NORMAL TRICUSPID VALVE: MILD TRICUSPID REGURGITATION MITRAL VALVE: NORMAL PULMONIC VALVE: NORMAL AORTIC VALVE: MILDLY CALCIFIED PERICARDIAL EFFUSION: NONE AORTIC ROOT: NORMAL LEFT VENTRICULAR WALL MOTION: NORMAL DOPPLER/COLOR FLOW: SEE BELOW COMMENTS: 1. NORMAL LEFT VENTRICULAR EJECTION FRACTION 55-60% WITH NORMAL WALL MOTION 2. MILD TRICUSPID REGURGITATION 3. DIASTOLIC DYSFUNCTION (MILD) 4. CALCIFIED AORTIC VALVE WITH MILD AORTIC STENOSIS TECHNOLOGIST: TARIQ PEMBERTON
--- NOTE | 2022-09-28 18:52 | P.PN ---
Subjective Date of Service: 09/28/22 Primary Care Provider: Haja Chief Complaint: UTI/Weakness History limited by advanced dementia. Per RN, no acute events overnight. Review of Systems is unable to be obtained Physical Examination - Vital Signs Temperature: 97.2 F Blood Pressure: 147/91 Pulse: 71 Respirations: 16 Pulse Ox (%): 98 - Physical Exam General: Alert, Oriented x1 (self) HEENT: Atraumatic, EOMI, Sclerae nonicteric Neck: JVD not distended Respiratory: Clear to auscultation bilaterally, Normal air movement Cardiovascular: No edema, Regular rate/rhythm, Normal S1 S2, No gallops, No rubs, No murmurs Gastrointestinal: Normal bowel sounds, Soft and benign, Non-distended, No tenderness, No rebound, No guarding Musculoskeletal: No clubbing Integumentary: No rashes Neurological: Dementia - Studies Microbiology Data (last 24 hrs): 09/25/22 22:49 Clean Catch Urine [place] Count - Final >100,000 CFU/ML. 09/25/22 22:49 Clean Catch Urine - Final Assessment And Plan - Plan # Group F Streptococcus Urinary Tract Infection # Advanced Dementia Likely contributing to weakness/vomiting. - Continue ceftriaxone - Awaiting final speciation - q4h neuro checks # Deconditioning - Consulted PT - May require placement # Hypertension - Continue home amlodipine, losartan # Dyslipidemia - Continue home atorvastatin # Protein Calorie Malnutrition - unknown severity - Consult nutrition Kwadwo Brown M.D.
[2022-09-28] MEDS: JUVEN PACKET PO SCH (21:00)
[2022-09-28] MEDS: ENSURE ENLIVE 237 ML CAN PO SCH (21:00)
[2022-09-28] MEDS: ATORVASTATIN 80 MG TAB PO SCH (21:33)
[2022-09-29] MEDS: HYDRALAZINE HCL 20 MG/ML VIAL IV PRN (06:08)
[2022-09-29] MEDS ORDERED: LORazepam 2 MG/ML VIAL IV ONE (08:07)
[2022-09-29] MEDS: AMLODIPINE 10 MG TAB PO SCH (09:00)
[2022-09-29] MEDS: LOSARTAN POTASSIUM 50 MG TABLET PO SCH ×2 (09:00→20:57)
[2022-09-29] MEDS: ENOXAPARIN 40 MG/0.4 ML SQ SCH (09:00)
[2022-09-29] MEDS: ASPIRIN EC 81 MG TAB PO SCH (09:00)
[2022-09-29] MEDS: JUVEN PACKET PO SCH ×2 (09:00→20:58)
[2022-09-29] MEDS: ENSURE ENLIVE 237 ML CAN PO SCH ×2 (09:00→20:58)
[2022-09-29] MEDS: CEFTRIAXONE 1,000 MG in NA CHLORIDE 0.9% 50 ML IVPB SCH (09:00)
--- NOTE | 2022-09-29 14:49 | RAD REPORT ---
EXAM DESCRIPTION: MRI - Brain Wo Cont - 09/29/2022 2:34 pm CLINICAL HISTORY: AMS/CVA Headache, drowsiness, CVA symptomology COMPARISON: Brain W/Wo Cont dated 07/04/2019 TECHNIQUE: Multi-sequence, multiplanar MR imaging of the brain was performed without contrast. FINDINGS: No intracranial hemorrhage, hydrocephalus or extra-axial fluid collections. Moderate brain atrophy with moderate T2/FLAIR hyperintensity in the periventricular and deep white matter compatibl e with chronic microvascular ischemic changes. No edema or shift of midline structures. No findings t o suspect brain mass. DWI is negative for acute CVA. Midline structures are normally formed. Mastoid air cells and paranasal sinuses are clear. IMPRESSION: Negative for acute CVA or other acute intracranial finding.
--- NOTE | 2022-09-29 18:04 | P.PN ---
Subjective Date of Service: 09/29/22 Primary Care Provider: Haja Chief Complaint: UTI/Weakness History limited by advanced dementia. Per RN, no acute events overnight. She is alert and oriented x 2 this morning. She is able to tell me her name and that she is in [place] (gave credit as [place] is nearby to [place]). Review of Systems is unable to be obtained (dementia) Physical Examination - Vital Signs Temperature: 96.6 F Blood Pressure: 136/68 Pulse: 68 Respirations: 12 Pulse Ox (%): 99 Assessment And Plan - Plan - Physical Exam General: Alert, Oriented x2 (self, place) HEENT: Atraumatic, EOMI, Sclerae nonicteric Neck: JVD not distended Respiratory: Clear to auscultation bilaterally, Normal air movement Cardiovascular: No edema, Regular rate/rhythm, Normal S1 S2, No gallops, No rubs, Faint systolic murmur Gastrointestinal: Normal bowel sounds, Soft and benign, Non-distended, No tenderness, No rebound, No guarding Musculoskeletal: No clubbing Integumentary: No rashes Neurological: Dementia # Group F Streptococcus Urinary Tract Infection # Advanced Dementia Likely contributing to weakness/vomiting. - Mental status gradually improving - Switch ceftriaxone to ampicillin-sulbactam - Awaiting final speciation - q4h neuro checks # Deconditioning - Consulted PT - limited participation due to dementia - May require placement - however, family not interested - At this time plan is for discharge home with Home Health per family # Severe Protein Calorie Malnutrition - Consult nutrition - recommendations appreciated # Hypertension - Continue home amlodipine, losartan # Dyslipidemia - Continue home atorvastatin Kwadwo Brown M.D.
[2022-09-29] MEDS ORDERED: NA CHLORIDE 0.9% 100 ML ONE (20:53)
[2022-09-29] MEDS ORDERED: AMPICILLIN/SULBACT 1.5GM VIAL ONE (20:55)
[2022-09-29] MEDS: NA CHLORIDE 0.9% 1,000 ML IV SCH (20:57)
[2022-09-29] MEDS: ATORVASTATIN 80 MG TAB PO SCH (20:57)
[2022-09-29] MEDS: AMPICILLIN/SULBACT 1.5 GM in NA CHLORIDE 0.9% 100 ML IVPB SCH (20:57)
[2022-09-30] MEDS ORDERED: AMPICILLIN/SULBACT 1.5 GM in NA CHLORIDE 0.9% 100 ML IVPB SCH (01:00)
[2022-09-30] MEDS: NA CHLORIDE 0.9% 1,000 ML IV SCH (01:35)
[2022-09-30] MEDS: AMPICILLIN/SULBACT 1.5 GM in NA CHLORIDE 0.9% 100 ML IVPB SCH ×4 (05:19→13:51)
[2022-09-30] MEDS: ENOXAPARIN 40 MG/0.4 ML SQ SCH (09:06)
[2022-09-30] MEDS: LOSARTAN POTASSIUM 50 MG TABLET PO SCH (09:06)
[2022-09-30] MEDS: ASPIRIN EC 81 MG TAB PO SCH (09:06)
[2022-09-30] MEDS: AMLODIPINE 10 MG TAB PO SCH (09:06)
[2022-09-30] MEDS: JUVEN PACKET PO SCH (09:06)
[2022-09-30] MEDS: ENSURE ENLIVE 237 ML CAN PO SCH (09:06)
[2022-09-30 10:12] VITALS: O2SAT 99
--- NOTE | 2022-09-30 14:31 | P.DS ---
Admission Date: 09/26/22 Discharge Date: 09/30/22 Primary Care Provider: Haja Disposition: DC HOME/HOME HEALTH CARE Discharge Condition: GOOD Reason for Admission: UTI/Weakness Consultations: 1. Cardiology Hospital Course: DIAGNOSES: # Group F Streptococcus Urinary Tract Infection # Advanced Dementia # Right Iliac Peripheral Vascular Disease # Deconditioning # Severe Protein Calorie Malnutrition # Hypertension # Dyslipidemia HOSPITAL COURSE: Ms. Jennifer Warner is an 82 year old female with a past medical history significant for advanced dementia, hypertension, and dyslipidemia who was admitted to the [facility] on 09/26/2022 for generalized weakness and a urinary tract infection. She was admitted to the Medicine service. She was treated with IV antibiotics, and over the course of her hospitalization, her symptoms improved significantly. Her urine culture would return positive for group F Streptococcus, which, per Microbiology, are inherently sensitive to penicillins. She was evaluated by PT and it was advised that the family consider placement into a facility. However, after discussions with her daughter and sister, they were not interested in placement. I have offered them Home Health, to which they were in agreement. With the assistance of case management, this was arranged. Of note, her bilateral lower extremity ultrasound revealed, "peripheral vascular disease is present with mild to moderate plaquing changes seen. There is no occlusion or focal flow restricting lesion identified. Right leg shows a monophasic waveform pattern throughout. There is likely significant flow restricting vascular disease in the right iliac vasculature." Cardiology and consulted and she was evaluated by Dr. Locke. He has cleared her for discharge with an outpatient peripheral angiogram. On 09/30/2022, she was seen on rounds and deemed medically stable for discharge. She was discharged with written instructions to schedule follow-up appointments with her PCP (Dr. Smyth) and with Cardiology (Dr. Locke). She was provided a prescription for amoxicillin-clavulanate. She and her family members were given the opportunity to ask questions and reported no further questions. Furthermore, all questions were answered to the best of my ability. A copy of this discharge summary will be sent to the above providers to facilitate continuity of care. Today, I personally spent 25 minutes on her case, of which greater than 50% of the time was spent in patient education, counseling, and coordination of care as described above. - Physical Exam General: Alert, Oriented x2 (self, place) HEENT: Atraumatic, EOMI, Sclerae nonicteric Neck: JVD not distended Respiratory: Clear to auscultation bilaterally, Normal air movement Cardiovascular: No edema, Regular rate/rhythm, Normal S1 S2, No gallops, No rubs, Faint systolic murmur Gastrointestinal: Normal bowel sounds, Soft and benign, Non-distended, No tenderness, No rebound, No guarding Musculoskeletal: No clubbing Integumentary: No rashes Neurological: Dementia Vital Signs/Physical Exam: Temp Pulse Resp BP Pulse Ox 96.4 F L 75 14 146/104 H 99 09/30/22 12:00 09/30/22 12:00 09/30/22 12:00 09/30/22 12:00 09/30/22 12:00 Laboratory Data at Discharge: WBC Cancelled 09/29/22 05:23 Hgb Cancelled 09/29/22 05:23 Hct Cancelled 09/29/22 05:23 Plt Count Cancelled 09/29/22 05:23 PT 12.2 SECONDS (9.5-12.5) 09/25/22 20:16 INR 1.11 09/25/22 20:16 Sodium Cancelled 09/29/22 05:23 Potassium Cancelled 09/29/22 05:23 BUN Cancelled 09/29/22 05:23 Creatinine Cancelled 09/29/22 05:23 Glucose Cancelled 09/29/22 05:23 Phosphorus 2.4 mg/dL (2.5-4.9) L 09/28/22 03:00 Magnesium 1.9 mg/dL (1.6-2.4) 09/28/22 03:00 Total Bilirubin 1.3 mg/dL (0.2-1.0) H 09/25/22 20:16 AST 29 U/L (15-37) 09/25/22 20:16 ALT 18 U/L (13-56) 09/25/22 20:16 Alkaline Phosphatase 73 U/L (45-117) 09/25/22 20:16 Triglycerides 123 mg/dL (<150) 09/27/22 08:56 Cholesterol 110 mg/dL (<200) 09/27/22 08:56 HDL Cholesterol 31 mg/dL (40-60) L 09/27/22 08:56 Cholesterol/HDL Ratio 3.55 09/27/22 08:56 Home Medications: Amox Tr/Potassium Clavulanate [Augmentin 400-57 mg/5 ml] 10 ml PO BID 10 Days #200 ml 09/30/22 RX: Amlodipine [Norvasc*] 10 mg PO DAILY tab 09/30/22 RX: Atorvastatin Calcium [Lipitor] 80 mg PO BEDTIME tab 09/30/22 RX: Losartan Potassium [Cozaar*] 50 mg PO BID 09/30/22 New Medications: Amox Tr/Potassium Clavulanate [Augmentin 400-57 mg/5 ml] 10 ml PO BID 10 Days #200 ml Physician Discharge Instructions: 1. Please call and schedule a follow-up appointment with your PCP (Dr. Smyth) in 3-5 days 2. Please call and schedule a follow-up appointment with Cardiology (Dr. Locke) in 5-7 days Diet: AHA Activity: Fall precautions Followup: Mariam Smyth DO [Primary Care Provider] - Luther Locke MD [ACTIVE - CAN ADMIT] - Time spent managing pt's care (in minutes): 25
[2022-09-30 16:36] VITALS: BP 137/77; TEMP 96.8
== END 2022-09-30 17:57 | disposition home health service (06) | DRG 689 ==
LOC: ER 19:34 → ERHOLD 09-26 → 2ND 09-26 00:17
PROVIDERS: ADMIT Hospitalist; ATTEND Internal Medicine
DX: N39.0 Urinary tract infection, site not specified (principal); E43 Unspecified severe protein-calorie malnutrition; L89.223 Pressure ulcer of left hip, stage 3; L89.323 Pressure ulcer of left buttock, stage 3; Q25.1 Coarctation of aorta; G45.9 Transient cerebral ischemic attack, unspecified; E11.9 Type 2 diabetes mellitus without complications; E78.5 Hyperlipidemia, unspecified; B95.5 Unspecified streptococcus as the cause of diseases classified elsewhere; F03.90 Unspecified dementia, unspecified severity, without behavioral disturbance, psychotic disturbance, mood disturbance, and anxiety; E86.0 Dehydration; Z79.4 Long term (current) use of insulin; I73.9 Peripheral vascular disease, unspecified; I10 Essential (primary) hypertension; Z68.20 Body mass index [BMI] 20.0-20.9, adult; Z86.73 Personal history of transient ischemic attack (TIA), and cerebral infarction without residual deficits
CPT/HCPCS: 0240U; 36415; 70551; 71045; 80048; 80061; 80076; 81003; 82947; 83605; 83735; 83880; 84100; 84484; 85025; 85610; 87040; 87086; 87088; 93005; 93306; 93880; 93925; 96374; 97110; 97161; 97530; 99285; J0295; J0360; J1650; J3475; J7030